=== PATIENT | female | born 1940 | race Caucasian/White ===

== ENCOUNTER → 2018-02-10 | Outpatient (CLI) | payer MEDICARE ==
--- NOTE | 2018-02-10 11:49 | ECHOF ---
Referral Reason:Cardiac Murmur unspecified, R01.1 MEASUREMENTS -------- HEIGHT: 165.1 cm WEIGHT: 90.7 kg BP: IVSd: 1.2 cm (0.6 - 1.1) LVIDd: 4.5 cm (3.9 - 5.3) LVPWd: 1.0 cm (0.6 - 1.1) IVSs: 2.0 cm LVIDs: 1.9 cm LVPWs: 1.7 cm LAESV Index (A-L): 20.72 ml/m Ao Diam: 2.5 cm (2.0 - 3.7) AV Cusp: 1.1 cm (1.5 - 2.6) LA Diam: 4.2 cm (2.7 - 3.8) MV EXCURSION: 13.189 mm (> 18.000) MV EF SLOPE: 47 mm/s (70 - 150) EPSS: 0.3 cm MV E Jacinto: 1.10 m/s MV DecT: 250 ms MV A Jacinto: 1.12 m/s MV E/A Ratio: 0.98 AV maxP.15 mmHg AV meanP.05 mmHg RAP: 5.00 mmHg RVSP: 25.74 mmHg FINDINGS -------- Sinus rhythm. This was a technically good study. The left ventricular size is normal. There is borderline concentric left ventricular hypertrophy. Overall left ventricular systolic function is normal with, an EF between 55 - 60 %. The right ventricle is normal in size and function. The left atrium is mildly dilated. The right atrium is normal in size. Aortic valve is trileaflet and is moderately thickened. There is moderate aortic stenosis present. Peak/mean gradient across the Aortic Valve is 37.15mmHg / 23.05mmHg. The mitral valve leaflets are mildly thickened. Mild mitral annular calcification present. Mild m itral regurgitation is present. Mild tricuspid regurgitation present. The right ventricular systolic pressure, as measured by Doppl er, is 25.74mmHg. Pulmonic valve appears structurally normal. The aortic root size is normal. Normal inferior vena cava with normal inspiratory collapse consistent with estimated right atrial pre ssure of 5 mmHg. The pericardium is normal. CONCLUSIONS -------- 1. Sinus rhythm. 2. This was a technically good study. 3. The left ventricular size is normal. 4. There is borderline concentric left ventricular hypertrophy. 5. Overall left ventricular systolic function is normal with, an EF between 55 - 60 %. 6. The right ventricle is normal in size and function. 7. The left atrium is mildly dilated. 8. The right atrium is normal in size. 9. Aortic valve is trileaflet and is moderately thickened. 10. There is moderate aortic stenosis present. 11. Peak/mean gradient across the Aortic Valve is 37.15mmHg / 23.05mmHg. 12. The mitral valve leaflets are mildly thickened. 13. Mild mitral annular calcification present. 14. Mild mitral regurgitation is present. 15. Mild tricuspid regurgitation present. 16. The right ventricular systolic pressure, as measured by Doppler, is 25.74mmHg. 17. Pulmonic valve appears structurally normal. 18. The aortic root size is normal. 19. Normal inferior vena cava with normal inspiratory collapse consistent with estimated right atrial pressure of 5 mmHg. 20. The pericardium is normal. CAMPER ASSEMBLER: Diana Bernabe RDCS
== END | disposition home or self-care (01) ==
LOC: RADECHMAIN 08:37
PROVIDERS: ATTEND Family Medicine
DX: I08.1 Rheumatic disorders of both mitral and tricuspid valves (principal)
CPT/HCPCS: 93306

== ENCOUNTER 2020-08-10 22:17 | Inpatient (IN) | payer MEDICARE ==
[2020-08-10] MEDS ORDERED: SODIUM CHLORIDE 0.9% 1,000 ML IV STA (23:31)
[2020-08-10] MEDS ORDERED: SODIUM CHLORIDE 0.9% 1,000 ML IV ONE (23:31)
[2020-08-11 00:05] LABS: Glucose,Whole Blood 225 mg/dL (75-99)
[2020-08-11 00:08] LABS: Basophils % (A) 0 %; Eosinophils % (A) 0 %; Hypochromasia Slight; Lymphocytes # (A) 2.9 k/uL (1.0-4.8); Lymphocytes % (A) 14 %; MCH 29.8 pg (25.0-35.0); MCHC 31.6 g/dL (31.0-37.0); MCV 94.3 fL (80.0-100.0); Mean Platelet Volume 9.3; Monocytes # (A) 1.3 k/uL (0-1.0); Monocytes % (A) 6 %; Neutrophils % (A) 78 %; Platelet Count 176 k/uL (150-450); RBC 6.59 m/uL (3.80-5.40); RDW 13.4 % (11.5-15.5); WBC 20.5 k/uL (3.8-10.6)
[2020-08-11 00:11] LABS: Albumin 3.7 g/dL (3.5-5.0); Calcium 9.4 mg/dL (8.4-10.2); Total Bilirubin 1.4 mg/dL (0.2-1.3); Total Protein 6.5 g/dL (6.3-8.2)
[2020-08-11 00:20] LABS: HCT 62.2 % (34.0-46.0); HGB 19.7 gm/dL (11.4-16.0)
[2020-08-11 00:22] LABS: Potassium 4.4 mmol/L (3.5-5.1)
[2020-08-11] MEDS ORDERED: SODIUM CHLORIDE 0.9% 1,000 ML IV ONE (00:27)
[2020-08-11 00:28] LABS: Creatine Kinase MB 4.3 ng/mL (0.0-2.4)
[2020-08-11] MEDS ORDERED: cefTRIAXone IN SWFI 1,000 MG/10 ML SYRINGE IVP STA (00:28)
[2020-08-11 00:47] LABS: Troponin I 0.16 ng/mL (0.000-0.034)
--- NOTE | 2020-08-11 01:09 | CT ---
EXAMINATION TYPE: CT brain wo con DATE OF EXAM: 08/11/2020 COMPARISON: None HISTORY: AMS CT DLP: 1091.4 mGycm Automated exposure control for dose reduction was used. There is cerebral atrophy. There is no mass effect nor midline shift. There is no sign of intracrania l hemorrhage. Calvarium is intact. There is no sign of cortical infarct. Skull base is intact. There is deformity of the right globe with calcification. IMPRESSION: Cerebral atrophy. No acute intracranial abnormality.
--- NOTE | 2020-08-11 01:10 | XR ---
EXAMINATION TYPE: XR chest 1V portable DATE OF EXAM: 08/11/2020 COMPARISON: NONE HISTORY: Altered mental status TECHNIQUE: FINDINGS: Heart appears enlarged. There is no heart failure. Lungs are clear of consolidation. There is no pleural effusion. There are chest leads. Bony thorax is intact. IMPRESSION: Mild cardiomegaly. No active cardiopulmonary disease.
[2020-08-11 01:11] LABS: Appearance,Urine Cloudy (Clear); Bacteria,Urine Rare /hpf; Bilirubin,Urine 1+ (Negative); Blood,Urine Moderate (Negative); Color,Urine Yellow; Glucose,Urine (UA) Trace (Negative); Hyaline Casts,Urine 64 /lpf (0-2); Ketones,Urine Trace (Negative); Leukocyte Esterase,Urine Negative (Negative); Mucus,Urine Few /hpf; Nitrite,Urine Negative (Negative); Protein,Urine 3+ (Negative); RBC,Urine 1 /hpf (0-5); Squamous Epithelial Cell,Urine 2 /hpf (0-4); Urobilinogen,Urine <2.0 mg/dL (<2.0); WBC,Urine 4 /hpf (0-5)
[2020-08-11 01:18] LABS: Amphetamine Screen,Urine Not Detected (NotDetected); Benzodiazepines Screen,Urine Not Detected (NotDetected); Cocaine Screen,Urine Not Detected (NotDetected); Methadone Screen, Urine Not Detected (NotDetected); Opiate Screen,Urine Not Detected (NotDetected); Oxycodone Screen, Urine Not Detected (NotDetected); Phencyclidine Screen,Urine Not Detected (NotDetected); Tricyclic Antidepressant,Urine Not Detected (NotDetected); Urn Cannabinoid Scrn Not Detected (NotDetected)
--- NOTE | 2020-08-11 01:18 | CT ---
EXAMINATION TYPE: CT abdomen pelvis wo con DATE OF EXAM: 08/11/2020 COMPARISON: None HISTORY: AMS CT DLP: 819.3 mGycm Automated exposure control for dose reduction was used. Lung bases are clear. There is no pleural effusion. Liver spleen stomach pancreas gallbladder appear normal. Bile ducts are not dilated. There is no adrenal mass. Kidneys have normal size. There is no evidence of a renal mass.. There is n o hydronephrosis. Ureters are not dilated. There is no retroperitoneal adenopathy. Bladder distends s moothly. There are numerous sigmoid diverticula. There is no sign of diverticulitis. There is no ingu inal hernia. There is umbilical hernia that contains incarcerated transverse colon. I do not see evidence for mike l obstruction. There is no mesenteric edema. There is no ascites or free air. Lumbar vertebra have normal alignment. Posterior elements are intact. The bony pelvis is intact. Hip joints are intact. There is no lumbar compression fracture. IMPRESSION: Incarcerated umbilical hernia containing transverse colon. No sign of a bowel obstruction. Appendix n ot seen. Colonic diverticulosis without diverticulitis.
[2020-08-11 01:19] LABS: Barbiturate Screen,Urine Not Detected (NotDetected)
[2020-08-11 01:30] LABS: INR 1.2 (<1.2); Prothrombin Time 11.9 sec (9.0-12.0)
[2020-08-11 01:42] LABS: Partial Thromboplastin Time 18.8 sec (22.0-30.0)
[2020-08-11] MEDS ORDERED: MORPHINE SULFATE 4 MG/ML SYRINGE IV STA (01:46)
[2020-08-11] MEDS ORDERED: MORPHINE SULFATE 4 MG/ML SYRINGE IV PRN (02:29)
[2020-08-11] MEDS ORDERED: NALOXONE 0.4 MG/ML 1 ML VIAL IV PRN (02:29)
[2020-08-11] MEDS ORDERED: ONDANSETRON 4 MG/2 ML VIAL IVP PRN (02:29)
[2020-08-11] MEDS ORDERED: AMPICILLIN-SULBACTAM 3 GM in SODIUM CHLORIDE 0.9% 100 ML IVPB STA (02:33)
[2020-08-11] MEDS ORDERED: DILTIAZEM DRIP BOLUS FROM BAG 1 MG SOLN IV ONE (02:33)
[2020-08-11] MEDS ORDERED: INSULIN REGULAR 100 UNIT/ML VIAL SQ STA (02:36)
--- NOTE | 2020-08-11 02:38 | ED ---
Altered Mental Status HPI - General Chief Complaint: Altered Mental Status Stated Complaint: altered mental status Time Seen by Provider: 08/10/20 22:33 Source: RN/MD Mode of arrival: EMS Limitations: no limitations - History of Present Illness Initial Comments: This patient is a 80-year-old woman who is brought to have evaluation after she had been found lying on the floor of her residence by her niece. History is mainly from the patient's niece who states that the patient does have some developmental delay. The patient's niece had checked on her to 3 days ago, and then went again today and found her lying on the floor. There was some emesis. The patient is not able to give much additional history. When asked if she is having any pain she indicates the periumbilical area. MD Complaint: altered mental status, decreased responsiveness -: unknown Consistency of Symptoms: unknown - Related Data Allergies Allergy/AdvReac Type Severity Reaction Status Date / Time No Known Allergies Allergy Verified 08/10/20 23:26 Review of Systems ROS Statement: Those systems with pertinent positive or pertinent negative responses have been documented in the HPI. ROS Other: All systems not noted in ROS Statement are negative. 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 skin cancer. Developmently delayed History of Any Multi-Drug Resistant Organisms: None Reported Past Surgical History: Hysterectomy Past Psychological History: Unable to Obtain Smoking Status: Never smoker Past Alcohol Use History: None Reported Past Drug Use History: None Reported - Past Family History Father History Unknown: Yes Mother History Unknown: Yes General Exam Limitations: no limitations General appearance: lethargic Head exam: Present: atraumatic, normocephalic ENT exam: Present: mucous membranes dry Neck exam: Present: normal inspection, full ROM. Absent: tenderness, meningismus Respiratory exam: Present: respiratory distress (Mild tachypnea), rales, rhonchi. Absent: wheezes, accessory muscle use, decreased breath sounds, prolonged expiratory Cardiovascular Exam: Present: tachycardia, irregular rhythm, normal heart sounds. Absent: systolic murmur, diastolic murmur, rubs, gallop GI/Abdominal exam: Present: tenderness, guarding, hernia. Absent: rebound, rigid, mass, pulsatile mass Extremities exam: Present: normal inspection, normal capillary refill. Absent: pedal edema, calf tenderness Back exam: Present: normal inspection Neurological exam: Present: alert Skin exam: Present: warm, dry, normal color, other (Multiple excoriations) Course Vital Signs 08/10/20 08/10/20 08/11/20 22:50 23:15 01:00 Temperature 97.3 F L Pulse Rate 175 H 137 H 141 H Respiratory 22 22 16 Rate Blood Pressure 122/74 118/98 186/87 O2 Sat by Pulse 98 94 L 96 Oximetry 08/11/20 08/11/20 03:00 04:00 Temperature 98.0 F 98.5 F Pulse Rate 128 H 135 H Respiratory 18 16 Rate Blood Pressure 130/78 140/85 O2 Sat by Pulse 97 98 Oximetry - Reevaluation(s) Reevaluation #1: 08/11/20 02:28 The case is discussed with Dr. Lou, his treatment recommendations are incorporated. Procedures - [place] Protocol (Time Out) Nurse: Marysol Wilder Medical Decision Making - Medical Decision Making Patient 80-year-old woman brought for evaluation after she had been found down on the floor of her residence for an unknown period of time. Clinically, the patient does appear dehydrated. She also was in apparent A. fib with rapid ventricular rate. It is uncertain whether this is a new condition or not. I patient also has tender, incarcerated umbilical hernia. I sent for CT and on return did attempt reduction at the bedside and it does appear to be smaller following reduction. - Lab Data Result diagrams: 08/10/20 23:48 08/10/20 23:48 Lab Results 08/10/20 08/10/20 08/10/20 Range/Units 23:48 23:48 23:48 WBC 20.5 H (3.8-10.6) k/uL RBC 6.59 H (3.80-5.40) m/uL Hgb 19.7 H* (11.4-16.0) gm/dL Hct 62.2 H* (34.0-46.0) % MCV 94.3 (80.0-100.0) fL MCH 29.8 (25.0-35.0) pg MCHC 31.6 (31.0-37.0) g/dL RDW 13.4 (11.5-15.5) % Plt Count 176 (150-450) k/uL Neutrophils % 78 % Lymphocytes % 14 % Monocytes % 6 % Eosinophils % 0 % Basophils % 0 % Neutrophils # 16.0 H (1.3-7.7) k/uL Lymphocytes # 2.9 (1.0-4.8) k/uL Monocytes # 1.3 H (0-1.0) k/uL Eosinophils # 0.0 (0-0.7) k/uL Basophils # 0.0 (0-0.2) k/uL Hypochromasia Slight PT (9.0-12.0) sec INR (<1.2) APTT (22.0-30.0) sec Sodium 148 H (137-145) mmol/L Potassium 4.4 (3.5-5.1) mmol/L Chloride 111 H (98-107) mmol/L Carbon Dioxide 19 L (22-30) mmol/L Anion Gap 18 mmol/L BUN 88 H (7-17) mg/dL Creatinine 1.67 H (0.52-1.04) mg/dL Est GFR (CKD-EPI)AfAm 34 (>60 ml/min/1.73 sqM) Est GFR (CKD-EPI)NonAf 29 (>60 ml/min/1.73 sqM) Glucose 294 H (74-99) mg/dL POC Glucose (mg/dL) (75-99) mg/dL POC Glu Staffing Manager ID Lactic Ac Sepsis Rflx Plasma Lactic Acid Kevin (0.7-2.0) mmol/L Calcium 9.4 (8.4-10.2) mg/dL Total Bilirubin 1.4 H (0.2-1.3) mg/dL AST 37 H (14-36) U/L ALT 30 (4-34) U/L Alkaline Phosphatase 76 (38-126) U/L Creatine Kinase 149 H (30-135) U/L CK-MB (CK-2) 4.3 H (0.0-2.4) ng/mL Troponin I 0.160 H* (0.000-0.034) ng/mL Total Protein 6.5 (6.3-8.2) g/dL Albumin 3.7 (3.5-5.0) g/dL Urine Color Urine Appearance (Clear) Urine pH (5.0-8.0) Ur Specific [place] (1.001-1.035) Urine Protein (Negative) Urine Glucose (UA) (Negative) Urine Ketones (Negative) Urine Blood (Negative) Urine Nitrite (Negative) Urine Bilirubin (Negative) Urine Urobilinogen (<2.0) mg/dL Ur Leukocyte Esterase (Negative) Urine RBC (0-5) /hpf Urine WBC (0-5) /hpf Ur Squamous Epith Cells (0-4) /hpf Urine Bacteria (None) /hpf Hyaline Casts (0-2) /lpf Urine Mucus (None) /hpf Urine Opiates Screen (NotDetected) Ur Oxycodone Screen (NotDetected) Urine Methadone Screen (NotDetected) Ur Propoxyphene Screen (NotDetected) Ur Barbiturates Screen (NotDetected) U Tricyclic Antidepress (NotDetected) Ur Phencyclidine Scrn (NotDetected) Ur Amphetamines Screen (NotDetected) U Methamphetamines Scrn (NotDetected) U Benzodiazepines Scrn (NotDetected) Urine Cocaine Screen (NotDetected) U Marijuana (THC) Screen (NotDetected) 08/10/20 08/10/20 08/11/20 Range/Units 23:48 23:59 00:26 WBC (3.8-10.6) k/uL RBC (3.80-5.40) m/uL Hgb (11.4-16.0) gm/dL Hct (34.0-46.0) % MCV (80.0-100.0) fL MCH (25.0-35.0) pg MCHC (31.0-37.0) g/dL RDW (11.5-15.5) % Plt Count (150-450) k/uL Neutrophils % % Lymphocytes % % Monocytes % % Eosinophils % % Basophils % % Neutrophils # (1.3-7.7) k/uL Lymphocytes # (1.0-4.8) k/uL Monocytes # (0-1.0) k/uL Eosinophils # (0-0.7) k/uL Basophils # (0-0.2) k/uL Hypochromasia PT (9.0-12.0) sec INR (<1.2) APTT (22.0-30.0) sec Sodium (137-145) mmol/L Potassium (3.5-5.1) mmol/L Chloride (98-107) mmol/L Carbon Dioxide (22-30) mmol/L Anion Gap mmol/L BUN (7-17) mg/dL Creatinine (0.52-1.04) mg/dL Est GFR (CKD-EPI)AfAm (>60 ml/min/1.73 sqM) Est GFR (CKD-EPI)NonAf (>60 ml/min/1.73 sqM) Glucose (74-99) mg/dL POC Glucose (mg/dL) 225 H (75-99) mg/dL POC Glu Staffing Manager ID Marysol Wilder Lactic Ac Sepsis Rflx Y Plasma Lactic Acid Kevin 4.4 H* (0.7-2.0) mmol/L Calcium (8.4-10.2) mg/dL Total Bilirubin (0.2-1.3) mg/dL AST (14-36) U/L ALT (4-34) U/L Alkaline Phosphatase (38-126) U/L Creatine Kinase (30-135) U/L CK-MB (CK-2) (0.0-2.4) ng/mL Troponin I (0.000-0.034) ng/mL Total Protein (6.3-8.2) g/dL Albumin (3.5-5.0) g/dL Urine Color Urine Appearance (Clear) Urine pH (5.0-8.0) Ur Specific [place] (1.001-1.035) Urine Protein (Negative) Urine Glucose (UA) (Negative) Urine Ketones (Negative) Urine Blood (Negative) Urine Nitrite (Negative) Urine Bilirubin (Negative) Urine Urobilinogen (<2.0) mg/dL Ur Leukocyte Esterase (Negative) Urine RBC (0-5) /hpf Urine WBC (0-5) /hpf Ur Squamous Epith Cells (0-4) /hpf Urine Bacteria (None) /hpf Hyaline Casts (0-2) /lpf Urine Mucus (None) /hpf Urine Opiates Screen (NotDetected) Ur Oxycodone Screen (NotDetected) Urine Methadone Screen (NotDetected) Ur Propoxyphene Screen (NotDetected) Ur Barbiturates Screen (NotDetected) U Tricyclic Antidepress (NotDetected) Ur Phencyclidine Scrn (NotDetected) Ur Amphetamines Screen (NotDetected) U Methamphetamines Scrn (NotDetected) U Benzodiazepines Scrn (NotDetected) Urine Cocaine Screen (NotDetected) U Marijuana (THC) Screen (NotDetected) 08/11/20 08/11/20 08/11/20 Range/Units 00:42 00:51 02:28 WBC (3.8-10.6) k/uL RBC (3.80-5.40) m/uL Hgb (11.4-16.0) gm/dL Hct (34.0-46.0) % MCV (80.0-100.0) fL MCH (25.0-35.0) pg MCHC (31.0-37.0) g/dL RDW (11.5-15.5) % Plt Count (150-450) k/uL Neutrophils % % Lymphocytes % % Monocytes % % Eosinophils % % Basophils % % Neutrophils # (1.3-7.7) k/uL Lymphocytes # (1.0-4.8) k/uL Monocytes # (0-1.0) k/uL Eosinophils # (0-0.7) k/uL Basophils # (0-0.2) k/uL Hypochromasia PT 11.9 (9.0-12.0) sec INR 1.2 H (<1.2) APTT 18.8 L (22.0-30.0) sec Sodium (137-145) mmol/L Potassium (3.5-5.1) mmol/L Chloride (98-107) mmol/L Carbon Dioxide (22-30) mmol/L Anion Gap mmol/L BUN (7-17) mg/dL Creatinine (0.52-1.04) mg/dL Est GFR (CKD-EPI)AfAm (>60 ml/min/1.73 sqM) Est GFR (CKD-EPI)NonAf (>60 ml/min/1.73 sqM) Glucose (74-99) mg/dL POC Glucose (mg/dL) (75-99) mg/dL POC Glu Staffing Manager ID Lactic Ac Sepsis Rflx Plasma Lactic Acid Kevin 2.0 (0.7-2.0) mmol/L Calcium (8.4-10.2) mg/dL Total Bilirubin (0.2-1.3) mg/dL AST (14-36) U/L ALT (4-34) U/L Alkaline Phosphatase (38-126) U/L Creatine Kinase (30-135) U/L CK-MB (CK-2) (0.0-2.4) ng/mL Troponin I (0.000-0.034) ng/mL Total Protein (6.3-8.2) g/dL Albumin (3.5-5.0) g/dL Urine Color Yellow Urine Appearance Cloudy H (Clear) Urine pH 6.0 (5.0-8.0) Ur Specific [place] 1.030 (1.001-1.035) Urine Protein 3+ H (Negative) Urine Glucose (UA) Trace H (Negative) Urine Ketones Trace H (Negative) Urine Blood Moderate H (Negative) Urine Nitrite Negative (Negative) Urine Bilirubin 1+ H (Negative) Urine Urobilinogen <2.0 (<2.0) mg/dL Ur Leukocyte Esterase Negative (Negative) Urine RBC 1 (0-5) /hpf Urine WBC 4 (0-5) /hpf Ur Squamous Epith Cells 2 (0-4) /hpf Urine Bacteria Rare H (None) /hpf Hyaline Casts 64 H (0-2) /lpf Urine Mucus Few H (None) /hpf Urine Opiates Screen Not Detected (NotDetected) Ur Oxycodone Screen Not Detected (NotDetected) Urine Methadone Screen Not Detected (NotDetected) Ur Propoxyphene Screen Not Detected (NotDetected) Ur Barbiturates Screen Not Detected (NotDetected) U Tricyclic Antidepress Not Detected (NotDetected) Ur Phencyclidine Scrn Not Detected (NotDetected) Ur Amphetamines Screen Not Detected (NotDetected) U Methamphetamines Scrn Not Detected (NotDetected) U Benzodiazepines Scrn Not Detected (NotDetected) Urine Cocaine Screen Not Detected (NotDetected) U Marijuana (THC) Screen Not Detected (NotDetected) - EKG Data -: EKG Interpreted by Tx EKG shows normal: axis (Normal), intervals (Normal) Rate: tachycardia Interpretation: nonspecific ST-T wave changes, other (Underlying rhythm appears to be atrial fibrillation.) Disposition Clinical Impression: Altered mental status, Incarcerated umbilical hernia, Lactic acidosis, Dehydration, Elevated troponin I level, Atrial fibrillation with rapid ventricular response, Hyperglycemia Disposition: ADMITTED IP TO THIS HOSP Condition: Serious
[2020-08-11] MEDS: DILTIAZEM 125 MG in SODIUM CHLORIDE 0.9% 100 ML IV SCH (02:52)
[2020-08-11 06:18] LABS: Glucose,Whole Blood 101 mg/dL (75-99)
[2020-08-11] MEDS: INSULIN ASPART (NovoLOG) 100 UNIT/ML VIAL SQ SCH ×4 (06:25→23:03)
--- NOTE | 2020-08-11 09:37 | P.GSCN ---
History of Present Illness Consult date: 08/11/20 Reason for Consult: Incarcerated ventral hernia History of present illness: This a 80-year-old female who is unable to give any significant medical history. Patient was admitted through the emergency room. She was had a collapse at home. Patient's CAT scan shows evidence of incarcerated transverse colon within a ventral hernia located the umbilicus. There is no evidence of bowel obstruction. Patient is unable to give any significant medical history. The patient is in A. fib with rapid ventricular rate. 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 skin cancer. Developmently delayed History of Any Multi-Drug Resistant Organisms: None Reported Past Surgical History: Hysterectomy Past Anesthesia/Blood Transfusion Reactions: No Reported Reaction Past Psychological History: Unable to Obtain Smoking Status: Never smoker Past Alcohol Use History: None Reported Past Drug Use History: None Reported - Past Family History Father History Unknown: Yes Mother History Unknown: Yes Medications and Allergies Home Medications Medication Instructions Recorded Confirmed Type Atorvastatin [Lipitor] 10 mg PO DAILY 08/11/20 08/11/20 History Canagliflozin [Invokana] 100 mg PO DAILY 08/11/20 08/11/20 History Ergocalciferol [Vitamin D2] 50,000 unit PO Q7D 08/11/20 08/11/20 History Glimepiride [Amaryl] 2 mg PO AC-[id number] 08/11/20 08/11/20 History Meloxicam 15 mg PO DAILY 08/11/20 08/11/20 History Metoprolol Succinate (ER) [Toprol 100 mg PO DAILY 08/11/20 08/11/20 History Xl] lisinopriL [Zestril] 5 mg PO DAILY 08/11/20 08/11/20 History traZODone HCL 50 mg PO HS 08/11/20 08/11/20 History Allergies Allergy/AdvReac Type Severity Reaction Status Date / Time No Known Allergies Allergy Verified 08/11/20 09:03 Surgical - Exam Vital Signs Temp Pulse Resp BP Pulse Ox 97.3 F L 175 H 22 122/74 98 08/10/20 22:50 08/10/20 22:50 08/10/20 22:50 08/10/20 22:50 08/10/20 22:50 - General well developed, obese - Eyes PERRL - ENT normal pinna - Neck no masses - Respiratory normal expansion - Cardiovascular Rhythm: regular - Abdomen Incarcerated ventral hernia located umbilicus. The hernia is partially reducible. Abdomen: soft Results - Labs 08/10/20 23:48 08/10/20 23:48 Abnormal Lab Results - Last 24 Hours (Table) 08/10/20 08/10/20 08/10/20 Range/Units 23:48 23:48 23:48 WBC 20.5 H (3.8-10.6) k/uL RBC 6.59 H (3.80-5.40) m/uL Hgb 19.7 H* (11.4-16.0) gm/dL Hct 62.2 H* (34.0-46.0) % Neutrophils # 16.0 H (1.3-7.7) k/uL Monocytes # 1.3 H (0-1.0) k/uL INR (<1.2) APTT (22.0-30.0) sec Sodium 148 H (137-145) mmol/L Chloride 111 H (98-107) mmol/L Carbon Dioxide 19 L (22-30) mmol/L BUN 88 H (7-17) mg/dL Creatinine 1.67 H (0.52-1.04) mg/dL Glucose 294 H (74-99) mg/dL POC Glucose (mg/dL) (75-99) mg/dL Plasma Lactic Acid Kevin (0.7-2.0) mmol/L Total Bilirubin 1.4 H (0.2-1.3) mg/dL AST 37 H (14-36) U/L Creatine Kinase 149 H (30-135) U/L CK-MB (CK-2) 4.3 H (0.0-2.4) ng/mL Troponin I 0.160 H* (0.000-0.034) ng/mL Urine Appearance (Clear) Urine Protein (Negative) Urine Glucose (UA) (Negative) Urine Ketones (Negative) Urine Blood (Negative) Urine Bilirubin (Negative) Urine Bacteria (None) /hpf Hyaline Casts (0-2) /lpf Urine Mucus (None) /hpf 08/10/20 08/10/20 08/11/20 Range/Units 23:48 23:59 00:42 WBC (3.8-10.6) k/uL RBC (3.80-5.40) m/uL Hgb (11.4-16.0) gm/dL Hct (34.0-46.0) % Neutrophils # (1.3-7.7) k/uL Monocytes # (0-1.0) k/uL INR (<1.2) APTT (22.0-30.0) sec Sodium (137-145) mmol/L Chloride (98-107) mmol/L Carbon Dioxide (22-30) mmol/L BUN (7-17) mg/dL Creatinine (0.52-1.04) mg/dL Glucose (74-99) mg/dL POC Glucose (mg/dL) 225 H (75-99) mg/dL Plasma Lactic Acid Kevin 4.4 H* (0.7-2.0) mmol/L Total Bilirubin (0.2-1.3) mg/dL AST (14-36) U/L Creatine Kinase (30-135) U/L CK-MB (CK-2) (0.0-2.4) ng/mL Troponin I (0.000-0.034) ng/mL Urine Appearance Cloudy H (Clear) Urine Protein 3+ H (Negative) Urine Glucose (UA) Trace H (Negative) Urine Ketones Trace H (Negative) Urine Blood Moderate H (Negative) Urine Bilirubin 1+ H (Negative) Urine Bacteria Rare H (None) /hpf Hyaline Casts 64 H (0-2) /lpf Urine Mucus Few H (None) /hpf 08/11/20 08/11/20 08/11/20 Range/Units 00:51 03:20 06:16 WBC (3.8-10.6) k/uL RBC (3.80-5.40) m/uL Hgb (11.4-16.0) gm/dL Hct (34.0-46.0) % Neutrophils # (1.3-7.7) k/uL Monocytes # (0-1.0) k/uL INR 1.2 H (<1.2) APTT 18.8 L (22.0-30.0) sec Sodium (137-145) mmol/L Chloride (98-107) mmol/L Carbon Dioxide (22-30) mmol/L BUN (7-17) mg/dL Creatinine (0.52-1.04) mg/dL Glucose (74-99) mg/dL POC Glucose (mg/dL) 101 H (75-99) mg/dL Plasma Lactic Acid Kevin (0.7-2.0) mmol/L Total Bilirubin (0.2-1.3) mg/dL AST (14-36) U/L Creatine Kinase (30-135) U/L CK-MB (CK-2) (0.0-2.4) ng/mL Troponin I 0.173 H* (0.000-0.034) ng/mL Urine Appearance (Clear) Urine Protein (Negative) Urine Glucose (UA) (Negative) Urine Ketones (Negative) Urine Blood (Negative) Urine Bilirubin (Negative) Urine Bacteria (None) /hpf Hyaline Casts (0-2) /lpf Urine Mucus (None) /hpf 08/11/20 Range/Units 07:20 WBC (3.8-10.6) k/uL RBC (3.80-5.40) m/uL Hgb (11.4-16.0) gm/dL Hct (34.0-46.0) % Neutrophils # (1.3-7.7) k/uL Monocytes # (0-1.0) k/uL INR (<1.2) APTT (22.0-30.0) sec Sodium (137-145) mmol/L Chloride (98-107) mmol/L Carbon Dioxide (22-30) mmol/L BUN (7-17) mg/dL Creatinine (0.52-1.04) mg/dL Glucose (74-99) mg/dL POC Glucose (mg/dL) (75-99) mg/dL Plasma Lactic Acid Kevin (0.7-2.0) mmol/L Total Bilirubin (0.2-1.3) mg/dL AST (14-36) U/L Creatine Kinase (30-135) U/L CK-MB (CK-2) (0.0-2.4) ng/mL Troponin I 0.159 H* (0.000-0.034) ng/mL Urine Appearance (Clear) Urine Protein (Negative) Urine Glucose (UA) (Negative) Urine Ketones (Negative) Urine Blood (Negative) Urine Bilirubin (Negative) Urine Bacteria (None) /hpf Hyaline Casts (0-2) /lpf Urine Mucus (None) /hpf Diabetes panel 08/10/20 Range/Units 23:48 Sodium 148 H (137-145) mmol/L Potassium 4.4 (3.5-5.1) mmol/L Chloride 111 H (98-107) mmol/L Carbon Dioxide 19 L (22-30) mmol/L BUN 88 H (7-17) mg/dL Creatinine 1.67 H (0.52-1.04) mg/dL Glucose 294 H (74-99) mg/dL Calcium 9.4 (8.4-10.2) mg/dL AST 37 H (14-36) U/L ALT 30 (4-34) U/L Alkaline Phosphatase 76 (38-126) U/L Total Protein 6.5 (6.3-8.2) g/dL Albumin 3.7 (3.5-5.0) g/dL Calcium panel 08/10/20 Range/Units 23:48 Calcium 9.4 (8.4-10.2) mg/dL Albumin 3.7 (3.5-5.0) g/dL Pituitary panel 08/10/20 Range/Units 23:48 Sodium 148 H (137-145) mmol/L Potassium 4.4 (3.5-5.1) mmol/L Chloride 111 H (98-107) mmol/L Carbon Dioxide 19 L (22-30) mmol/L BUN 88 H (7-17) mg/dL Creatinine 1.67 H (0.52-1.04) mg/dL Glucose 294 H (74-99) mg/dL Calcium 9.4 (8.4-10.2) mg/dL Adrenal panel 08/10/20 Range/Units 23:48 Sodium 148 H (137-145) mmol/L Potassium 4.4 (3.5-5.1) mmol/L Chloride 111 H (98-107) mmol/L Carbon Dioxide 19 L (22-30) mmol/L BUN 88 H (7-17) mg/dL Creatinine 1.67 H (0.52-1.04) mg/dL Glucose 294 H (74-99) mg/dL Calcium 9.4 (8.4-10.2) mg/dL Total Bilirubin 1.4 H (0.2-1.3) mg/dL AST 37 H (14-36) U/L ALT 30 (4-34) U/L Alkaline Phosphatase 76 (38-126) U/L Total Protein 6.5 (6.3-8.2) g/dL Albumin 3.7 (3.5-5.0) g/dL - Imaging CT scan - abdomen: report reviewed (Incarcerated transverse colon without evidence of small bowel obstruction) Assessment and Plan Assessment: The patient was scheduled for repair of incarcerated ventral hernia tomorrow if cleared by cardiology.
--- NOTE | 2020-08-11 10:52 | CONS ---
CONSULTATION Mrs. Good is a 80-year-old female who was brought in to the emergency room because she was found on the floor by her niece. Patient has developmental delay. On asking a question, she is not able to give me any answer. The patient is awake, but confused. I do not have any prior history of cardiac disease. I do not have any history of prior congestive heart failure or myocardial infarction. On presentation, she was in atrial fibrillation of unknown duration. Her medication at the time of presentation included metoprolol succinate 100 mg daily, Zestril 5 mg daily, Invokana, Amaryl, and Lipitor. From the medication, patient has a history of hypertension, hyperlipidemia, and diabetes mellitus. REVIEW OF SYSTEMS: Could not be obtained. PHYSICAL EXAMINATION: She is a 80-year-old female, alert, confused, in no apparent distress. Blood pressure running in the 130s to 150s with a heart rate in the 110s to 120s. HEAD: Normocephalic. Eyes sclerae anicteric. NECK: Good upstroke. No bruit. LUNGS clear to auscultation. HEART irregularly irregular S1, S2. No S3. No rub appreciated. ABDOMEN: Soft. Nontender. Positive bowel sounds. No organomegaly. EXTREMITIES: No edema. Intact distal pulses. LAB DATA: Revealed a hemoglobin of 19.7, white blood cell of 20.5, BUN and creatinine of 88 and 1.67. No old labs are available. Potassium 4.4. Her troponin 0.160, 0.173 and 0.159. Her EKG revealed atrial fibrillation with rapid ventricular response and nonspecific ST- T wave changes. Her chest x-ray shows mild cardiomegaly. Brain CT shows no evidence of infiltrate. Her abdominal and pelvis CT shows incarcerated umbilical hernia. No bowel obstruction with diverticulosis and no diverticulitis. IMPRESSION: 1. Change in mental status. Baseline status is not available to me. 2. Atrial fibrillation of unknown duration. 3. History of hypertension. 4. Hyperlipidemia. 5. Diabetes mellitus. 6. Renal failure of unknown duration. 7. Erythrocytosis and leukocytosis. RECOMMENDATION: From the cardiac standpoint, patient is being hydrated. She was started on antibiotics. I will start her back on her beta anton. I will obtain echocardiogram with Doppler. I do not believe that the elevation of troponin reflects an acute coronary syndrome. It could be related to her renal failure or a type 2 event. Depending on her progress, further recommendations will be made. The patient will need to be anticoagulated, but we will try to get more information about prior history from the family. Thank you for this consult. We will follow with you. YURY / BRIGITTE: [id number] /
[2020-08-11 12:11] LABS: Glucose,Whole Blood 104 mg/dL (75-99)
[2020-08-11 12:33] LABS: HCT 52.7 % (34.0-46.0); Hypochromasia Slight; MCH 29.8 pg (25.0-35.0); MCHC 31.3 g/dL (31.0-37.0); MCV 95.5 fL (80.0-100.0); Mean Platelet Volume 10.4; Platelet Count 138 k/uL (150-450); RBC 5.52 m/uL (3.80-5.40); RDW 13.5 % (11.5-15.5); WBC 21.7 k/uL (3.8-10.6)
[2020-08-11] MEDS: ATORVASTATIN 40 MG TAB PO SCH (12:38)
[2020-08-11] MEDS: ASPIRIN 81 MG PO SCH (12:38)
[2020-08-11] MEDS: METOPROLOL TARTRATE 50 MG TAB PO SCH ×2 (12:38→23:03)
[2020-08-11 12:42] LABS: HGB 16.5 gm/dL (11.4-16.0)
[2020-08-11 12:51] LABS: Calcium 7.8 mg/dL (8.4-10.2); Potassium 3.3 mmol/L (3.5-5.1)
--- NOTE | 2020-08-11 15:16 | P.HPIM ---
History of Present Illness H&P Date: 08/11/20 Chief Complaint: Phone on the floor History of presenting complaint: 80-year-old patient-history as per EMS family told them that they found the patient on the floor. She was confused lethargic and had soiled herself. They called 911." Her off the floor. Normally patient is alert and this by herself. Glucose was 310. Vital signs are stable. Only respond she was getting Short say mama and reach out. Per family patient has a facial droop that was normal from a previous stroke. And some right-sided weakness. Telemetry shows sinus rhythm. They give some fluid bolus. [place] patient this morning patient does not remember what happened. Able tonsil some simple questions. Slight abdominal pain. Review of systems: GEN.: Tired EYES: None HEENT: None NECK: None RESPIRATORY: None CARDIOVASCULAR: None GASTROINTESTINAL: Abdominal pain GENITOURINARY: None MUSCULOSKELETAL: None LYMPHATICS: None HEMATOLOGICAL: None PSYCHIATRY: Forgetful NEUROLOGICAL: None Past medical history to include: Stroke, diabetes, hypertension, blind in the right eye, development delay Social history: Lives alone. No smoking, no alcohol Family history: Patient unable to tell Physical examination: VITAL SIGNS: 97.3, 137, 22, 122.74, 98% on room air GENERAL:. BMI 30.6, laying in bed, awake a bit anxious. EYES: Pupils equal. Conjunctiva normal. HEENT: External appearance of nose and ears normal, oral cavity dry mucous membranes. NECK: JVD unable to assess; masses not palpable. HEART: Irregular heart sounds no edema. LUNGS: Respiratory rate normal; clear to auscultation. ABDOMEN: Soft, some tenderness, abdominal wall hernia no guarding rigidity, liver spleen not palpable, no masses palpable. PSYCH: [Patient is able tonsil simple questions. NEUROLOGICAL: Patient moving all her limbs, some weakness on the right side of the face. LYMPHATICS: No lymph nodes palpable in the axilla and neck INVESTIGATIONS, reviewed in the clinical context: White count 21.7 hemoglobin 6.5 platelets 138 potassium 3.3 bun 88 creatinine 1.67 sodium 148 blood glucose 294 lactic acid 4.4 Troponin I 0.160 Urine drug screen negative UA negative for nitrate and leukoesterase EKG tracing personally reviewed by me-shows atrial flutter fibrillation with increased ventricular rate Computed tomography scan of the abdomen pelvis-incarcerated umbilical hernia with no bowel obstruction Computed tomography scan of the brain-cerebral atrophy Chest x-ray film personally reviewed by [id number] obvious infiltrate Assessment: -Patient's found on the floor could be weakness f, A. fib -Persistent atrial fibrillation with a rapid ventricular rate uncontrolled, POA -Incarcerated ventral hernia involving the transverse colon -Acute kidney injury could be ATN -Mild metabolic acidosis -Hyponatremia from fluid deficit -Troponin leak from hemodynamic mismatch. Doubt acute coronary syndrome -Developmental delay -Acute metabolic encephalopathy and delirium, POA -Possible sepsis Plan: Patient is bun and IV fluids, IV Unasyn, IV Cardizem. Patient started to improve. Consultation to cardiology and general surgery. Lovenox for DVT prophylaxis. On telemetry. Prognosis guarded. Follow renal function closely. 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 skin cancer. Developmently delayed History of Any Multi-Drug Resistant Organisms: None Reported Past Surgical History: Hysterectomy Past Anesthesia/Blood Transfusion Reactions: No Reported Reaction Past Psychological History: Unable to Obtain Smoking Status: Never smoker Past Alcohol Use History: None Reported Past Drug Use History: None Reported - Past Family History Father History Unknown: Yes Mother History Unknown: Yes Medications and Allergies Home Medications Medication Instructions Recorded Confirmed Type Atorvastatin [Lipitor] 10 mg PO DAILY 08/11/20 08/11/20 History Canagliflozin [Invokana] 100 mg PO DAILY 08/11/20 08/11/20 History Ergocalciferol [Vitamin D2] 50,000 unit PO Q7D 08/11/20 08/11/20 History Glimepiride [Amaryl] 2 mg PO AC-BRKFST 08/11/20 08/11/20 History Meloxicam 15 mg PO DAILY 08/11/20 08/11/20 History Metoprolol Succinate (ER) [Toprol 100 mg PO DAILY 08/11/20 08/11/20 History Xl] lisinopriL [Zestril] 5 mg PO DAILY 08/11/20 08/11/20 History traZODone HCL 50 mg PO HS 08/11/20 08/11/20 History Allergies Allergy/AdvReac Type Severity Reaction Status Date / Time No Known Allergies Allergy Verified 08/11/20 09:03 Physical Exam Vitals: Vital Signs Temp Pulse Pulse Resp BP BP Pulse Ox 08/11/20 08:00 98.0 F 115 H 18 131/85 96 08/11/20 04:40 22 08/11/20 04:35 97.9 F 122 H 22 152/87 99 08/11/20 04:00 98.5 F 135 H 16 140/85 98 08/11/20 03:00 98.0 F 128 H 18 130/78 97 08/11/20 01:00 141 H 16 186/87 96 08/10/20 23:15 137 H 22 118/98 94 L 08/10/20 22:50 97.3 F L 175 H 22 122/74 98 Intake and Output 08/10/20 08/11/20 08/11/20 22:59 06:59 14:59 Other: Weight 81.919 kg 83.5 kg Results CBC & Chem 7: 08/11/20 07:20 08/11/20 07:20 Labs: Abnormal Lab Results - Last 24 Hours (Table) 08/10/20 08/10/20 08/10/20 Range/Units 23:48 23:48 23:48 WBC 20.5 H (3.8-10.6) k/uL RBC 6.59 H (3.80-5.40) m/uL Hgb 19.7 H* (11.4-16.0) gm/dL Hct 62.2 H* (34.0-46.0) % Neutrophils # 16.0 H (1.3-7.7) k/uL Monocytes # 1.3 H (0-1.0) k/uL INR (<1.2) APTT (22.0-30.0) sec Sodium 148 H (137-145) mmol/L Chloride 111 H (98-107) mmol/L Carbon Dioxide 19 L (22-30) mmol/L BUN 88 H (7-17) mg/dL Creatinine 1.67 H (0.52-1.04) mg/dL Glucose 294 H (74-99) mg/dL POC Glucose (mg/dL) (75-99) mg/dL Plasma Lactic Acid Kevin (0.7-2.0) mmol/L Total Bilirubin 1.4 H (0.2-1.3) mg/dL AST 37 H (14-36) U/L Creatine Kinase 149 H (30-135) U/L CK-MB (CK-2) 4.3 H (0.0-2.4) ng/mL Troponin I 0.160 H* (0.000-0.034) ng/mL Urine Appearance (Clear) Urine Protein (Negative) Urine Glucose (UA) (Negative) Urine Ketones (Negative) Urine Blood (Negative) Urine Bilirubin (Negative) Urine Bacteria (None) /hpf Hyaline Casts (0-2) /lpf Urine Mucus (None) /hpf 08/10/20 08/10/20 08/11/20 Range/Units 23:48 23:59 00:42 WBC (3.8-10.6) k/uL RBC (3.80-5.40) m/uL Hgb (11.4-16.0) gm/dL Hct (34.0-46.0) % Neutrophils # (1.3-7.7) k/uL Monocytes # (0-1.0) k/uL INR (<1.2) APTT (22.0-30.0) sec Sodium (137-145) mmol/L Chloride (98-107) mmol/L Carbon Dioxide (22-30) mmol/L BUN (7-17) mg/dL Creatinine (0.52-1.04) mg/dL Glucose (74-99) mg/dL POC Glucose (mg/dL) 225 H (75-99) mg/dL Plasma Lactic Acid Kevin 4.4 H* (0.7-2.0) mmol/L Total Bilirubin (0.2-1.3) mg/dL AST (14-36) U/L Creatine Kinase (30-135) U/L CK-MB (CK-2) (0.0-2.4) ng/mL Troponin I (0.000-0.034) ng/mL Urine Appearance Cloudy H (Clear) Urine Protein 3+ H (Negative) Urine Glucose (UA) Trace H (Negative) Urine Ketones Trace H (Negative) Urine Blood Moderate H (Negative) Urine Bilirubin 1+ H (Negative) Urine Bacteria Rare H (None) /hpf Hyaline Casts 64 H (0-2) /lpf Urine Mucus Few H (None) /hpf 08/11/20 08/11/2008/11/20 Range/Units 00:51 03:20 06:16 WBC (3.8-10.6) k/uL RBC (3.80-5.40) m/uL Hgb (11.4-16.0) gm/dL Hct (34.0-46.0) % Neutrophils # (1.3-7.7) k/uL Monocytes # (0-1.0) k/uL INR 1.2 H (<1.2) APTT 18.8 L (22.0-30.0) sec Sodium (137-145) mmol/L Chloride (98-107) mmol/L Carbon Dioxide (22-30) mmol/L BUN (7-17) mg/dL Creatinine (0.52-1.04) mg/dL Glucose (74-99) mg/dL POC Glucose (mg/dL) 101 H (75-99) mg/dL Plasma Lactic Acid Kevin (0.7-2.0) mmol/L Total Bilirubin (0.2-1.3) mg/dL AST (14-36) U/L Creatine Kinase (30-135) U/L CK-MB (CK-2) (0.0-2.4) ng/mL Troponin I 0.173 H* (0.000-0.034) ng/mL Urine Appearance (Clear) Urine Protein (Negative) Urine Glucose (UA) (Negative) Urine Ketones (Negative) Urine Blood (Negative) Urine Bilirubin (Negative) Urine Bacteria (None) /hpf Hyaline Casts (0-2) /lpf Urine Mucus (None) /hpf 08/11/20 Range/Units 07:20 WBC (3.8-10.6) k/uL RBC (3.80-5.40) m/uL Hgb (11.4-16.0) gm/dL Hct (34.0-46.0) % Neutrophils # (1.3-7.7) k/uL Monocytes # (0-1.0) k/uL INR (<1.2) APTT (22.0-30.0) sec Sodium (137-145) mmol/L Chloride (98-107) mmol/L Carbon Dioxide (22-30) mmol/L BUN (7-17) mg/dL Creatinine (0.52-1.04) mg/dL Glucose (74-99) mg/dL POC Glucose (mg/dL) (75-99) mg/dL Plasma Lactic Acid Kevin (0.7-2.0) mmol/L Total Bilirubin (0.2-1.3) mg/dL AST (14-36) U/L Creatine Kinase (30-135) U/L CK-MB (CK-2) (0.0-2.4) ng/mL Troponin I 0.159 H* (0.000-0.034) ng/mL Urine Appearance (Clear) Urine Protein (Negative) Urine Glucose (UA) (Negative) Urine Ketones (Negative) Urine Blood (Negative) Urine Bilirubin (Negative) Urine Bacteria (None) /hpf Hyaline Casts (0-2) /lpf Urine Mucus (None) /hpf Thrombosis Risk Factor Assmnt - Choose All That Apply Any of the Below Risk Factors Present?: Yes Each Factor Represents 1 point: Medical pt on bed rest, Obesity (BMI >25), Swollen legs (current) Each Risk Factor Represents 3 Points: Age 75 years or older Other congenital or acquired thrombophilia - If yes, enter type in comment: No Thrombosis Risk Factor Assessment Total Risk Factor Score: 6 Thrombosis Risk Factor Assessment Level: High Risk
[2020-08-11] MEDS: AMPICILLIN-SULBACTAM 3 GM in SODIUM CHLORIDE 0.9% 100 ML IVPB SCH (16:17)
[2020-08-11] MEDS: SODIUM CHLORIDE 0.9% 1,000 ML IV SCH (16:18)
[2020-08-11 17:24] LABS: Glucose,Whole Blood 95 mg/dL (75-99)
[2020-08-11 21:13] LABS: Glucose,Whole Blood 110 mg/dL (75-99)
[2020-08-12] MEDS: HYDROmorphone 0.5 MG/0.5 ML SYRINGE IVP PRN ×4 (04:37→16:37)
[2020-08-12] MEDS: AMPICILLIN-SULBACTAM 3 GM in SODIUM CHLORIDE 0.9% 100 ML IVPB SCH ×2 (04:44→17:42)
[2020-08-12] MEDS: DILTIAZEM 125 MG in SODIUM CHLORIDE 0.9% 100 ML IV SCH (04:46)
[2020-08-12 06:38] LABS: Glucose,Whole Blood 138 mg/dL (75-99)
[2020-08-12] MEDS: INSULIN ASPART (NovoLOG) 100 UNIT/ML VIAL SQ SCH ×4 (06:42→20:53)
[2020-08-12] MEDS: SODIUM CHLORIDE 0.9% 1,000 ML IV SCH ×3 (07:03→17:41)
[2020-08-12 07:22] LABS: Basophils # (A) 0.1 k/uL (0-0.2); Basophils % (A) 0 %; Eosinophils # (A) 0.1 k/uL (0-0.7); Eosinophils % (A) 1 %; HCT 53.3 % (34.0-46.0); HGB 16.8 gm/dL (11.4-16.0); Lymphocytes # (A) 2.6 k/uL (1.0-4.8); Lymphocytes % (A) 17 %; MCH 29.3 pg (25.0-35.0); MCHC 31.5 g/dL (31.0-37.0); MCV 93.2 fL (80.0-100.0); Mean Platelet Volume 9.2; Monocytes # (A) 0.8 k/uL (0-1.0); Monocytes % (A) 6 %; Neutrophils # (A) 11.5 k/uL (1.3-7.7); Neutrophils % (A) 75 %; Platelet Count 125 k/uL (150-450); RBC 5.72 m/uL (3.80-5.40); WBC 15.3 k/uL (3.8-10.6)
[2020-08-12 07:36] LABS: Calcium 8.3 mg/dL (8.4-10.2); Potassium 3.5 mmol/L (3.5-5.1); Total Bilirubin 1.1 mg/dL (0.2-1.3); Total Protein 5.4 g/dL (6.3-8.2)
[2020-08-12] MEDS: ATORVASTATIN 40 MG TAB PO SCH (09:08)
[2020-08-12] MEDS: ASPIRIN 81 MG PO SCH (09:08)
[2020-08-12] MEDS: METOPROLOL TARTRATE 50 MG TAB PO SCH ×2 (09:08→21:21)
[2020-08-12 12:00] LABS: Glucose,Whole Blood 157 mg/dL (75-99)
--- NOTE | 2020-08-12 13:10 | ECHOF ---
Referral Reason:LV function MEASUREMENTS -------- HEIGHT: 152.4 cm WEIGHT: 90.7 kg BP: IVSd: 1.3 cm (0.6 - 1.1) LVIDd: 4.0 cm (3.9 - 5.3) LVPWd: 1.6 cm (0.6 - 1.1) IVSs: 1.6 cm LVIDs: 3.2 cm LVPWs: 1.4 cm LA Diam: 4.4 cm (2.7 - 3.8) LAESV Index (A-L): 38.16 ml/m Ao Diam: 2.3 cm (2.0 - 3.7) AV Cusp: 0.8 cm (1.5 - 2.6) MV EXCURSION: 11.453 mm (> 18.000) MV EF SLOPE: 31 mm/s (70 - 150) EPSS: 0.3 cm MV E Jacinto: 0.51 m/s MV DecT: 203 ms MV A Jacinto: 0.71 m/s MV E/A Ratio: 0.71 AV maxP.25 mmHg AV maxP.25 mmHg AV meanP.53 mmHg FINDINGS -------- Sinus rhythm. This was a technically good study. The left ventricular size is normal. There is mild concentric left ventricular hypertrophy. Overa ll left ventricular systolic function is low-normal with, an EF between 50 - 55 %. The diastolic fi lling pattern is normal for the age of the patient {E/E'}. The right ventricle is normal in size. The left atrium is moderately dilated. LA is moderately dilated 34-39 ml/m2 The right atrial size is normal. There is mild aortic regurgitation. There is mild aortic stenosis present. Peak/mean gradient acr oss the Aortic Valve is 23.25mmHg / 12.53mmHg. Mild mitral regurgitation is present. Mild tricuspid regurgitation present. Right ventricular systolic pressure is normal at < 35 mmHg. There is no pulmonic regurgitation present. The aortic root size is normal. There is no pericardial effusion. CONCLUSIONS -------- 1. The left ventricular size is normal. 2. There is mild concentric left ventricular hypertrophy. 3. Overall left ventricular systolic function is low-normal with, an EF between 50 - 55 %. 4. The diastolic filling pattern is normal for the age of the patient {E/E'} 5. The right ventricle is normal in size. 6. The left atrium is moderately dilated. 7. LA is moderately dilated 34-39 ml/m2 8. The right atrial size is normal. 9. There is mild aortic regurgitation. 10. There is mild aortic stenosis present. 11. Peak/mean gradient across the Aortic Valve is 23.25mmHg / 12.53mmHg. 12. Mild mitral regurgitation is present. 13. Mild tricuspid regurgitation present. 14. Right ventricular systolic pressure is normal at < 35 mmHg. 15. There is no pulmonic regurgitation present. 16. The aortic root size is normal. 17. There is no pericardial effusion. MEDICAL RESEARCHER: Gabrielle France RDCS
[2020-08-12] MEDS: hydrALAZINE HCL 20 MG/ML 1 ML VIAL IVP PRN (13:46)
--- NOTE | 2020-08-12 13:55 | P.PN ---
Subjective Progress Note Date: 08/12/20 CHIEF COMPLAINT: A. fib HISTORY OF PRESENT ILLNESS: Patient examined this morning at the bedside. Patient is a poor historian and is unable to answer a majority of questions during examination. She denies chest pain or pressure. Denies shortness of breath. She does report abdominal pain. Patient converted to sinus mechanism this morning. BP elevated. PHYSICAL EXAM: VITAL SIGNS: Reviewed. GENERAL: Well-developed in no acute distress. NECK: Supple. No JVD or thyromegaly LUNGS: Respirations even and unlabored. Lungs essentially clear to auscultation bilaterally. HEART: Regular rate and rhythm. S1 and S2 heard. Systolic murmur. EXTREMITIES: Normal range of motion. No clubbing or cyanosis. Peripheral pulses intact. No lower extremity edema ASSESSMENT: Paroxysmal atrial fibrillation with RVR Incarcerated ventral hernia Moderate aortic stenosis Hypertension Hyperlipidemia Diabetes mellitus, type II PLAN: Discontinue cardizem drip Obtain 2-D echo to assess cardiac structure and function Hydralazine 10 mg IV push every 4 hours when necessary for systolic blood pressure greater than 160 Patient scheduled for surgical intervention today with Dr. Lou for repair of incarcerated ventral hernia Patient is at moderate to high risk for surgical intervention due to comorbidities but has no absolute contraindication to undergo surgical intervention Recommend cautious fluid administration intraoperatively Optimal blood pressure control throughout hospitalization Postoperatively, the patient will require anticoagulation when cleared by surgical team Further recommendations pending patient course Nurse practitioner note has been reviewed by physician. Signing provider agrees with the documented findings, assessment, and plan of care. Objective - Vital Signs Vital signs: Vital Signs Temp 98.1 F 08/12/20 08:00 Pulse 80 08/12/20 08:00 Resp 17 08/12/20 08:00 BP 184/117 08/12/20 08:00 Pulse Ox 98 08/12/20 08:00 Intake & Output 08/11/20 08/12/20 08/12/20 18:59 06:59 18:59 Intake Total 0 100.667 Balance 0 100.667 Weight 85.5 kg Intake: Intake, IV Titration 100.667 Amount Diltiazem 125 mg In 100.667 Sodium Chloride 0.9% 100 ml @ 5 MG/HR 5 mls/hr IV .Q24H GEOVANNY Rx#:[id number] Oral 0 Other: # Voids 3 1 1 - Labs CBC & Chem 7: 08/12/20 07:02 08/12/20 07:02 Labs: Abnormal Lab Results - Last 24 Hours (Table) 08/11/20 08/12/20 08/12/20 Range/Units 21:09 06:21 07:02 WBC 15.3 H (3.8-10.6) k/uL RBC 5.72 H (3.80-5.40) m/uL Hgb 16.8 H (11.4-16.0) gm/dL Hct 53.3 H (34.0-46.0) % Plt Count 125 L (150-450) k/uL Neutrophils # 11.5 H (1.3-7.7) k/uL Sodium (137-145) mmol/L Chloride (98-107) mmol/L BUN (7-17) mg/dL Glucose (74-99) mg/dL POC Glucose (mg/dL) 110 H 138 H (75-99) mg/dL Calcium (8.4-10.2) mg/dL Total Protein (6.3-8.2) g/dL Albumin (3.5-5.0) g/dL 08/12/20 08/12/20 Range/Units 07:02 11:58 WBC (3.8-10.6) k/uL RBC (3.80-5.40) m/uL Hgb (11.4-16.0) gm/dL Hct (34.0-46.0) % Plt Count (150-450) k/uL Neutrophils # (1.3-7.7) k/uL Sodium 149 H (137-145) mmol/L Chloride 115 H (98-107) mmol/L BUN 42 H (7-17) mg/dL Glucose 157 H (74-99) mg/dL POC Glucose (mg/dL) 157 H (75-99) mg/dL Calcium 8.3 L (8.4-10.2) mg/dL Total Protein 5.4 L (6.3-8.2) g/dL Albumin 3.0 L (3.5-5.0) g/dL Microbiology - Last 24 Hours (Table) 08/10/20 23:48 Blood Culture - Preliminary Blood No Growth after 24 hours
[2020-08-12] MEDS ORDERED: IV FLUID CONTINUATION 1,000 ML IV ONE ×2 (14:19)
[2020-08-12 14:27] LABS: Glucose,Whole Blood 163 mg/dL (75-99)
[2020-08-12] MEDS ORDERED: ONDANSETRON 4 MG/2 ML VIAL IVP ONE (14:37)
[2020-08-12] MEDS ORDERED: PROPOFOL 10 MG/ML 20 ML VIAL IV ONE (15:14)
[2020-08-12] MEDS ORDERED: fentaNYL (PF) 50 MCG/ML 2 ML AMP ONE (15:14)
[2020-08-12] MEDS ORDERED: ROCURONIUM 10 MG/ML (5 ML VIAL) IV ONE (15:14)
[2020-08-12] MEDS ORDERED: MIDAZOLAM 2 MG/2 ML VIAL ONE (15:14)
[2020-08-12] MEDS ORDERED: LIDOCAINE 1% INJ 10MG/ML (20 ML MDV) ONE (15:14)
[2020-08-12] MEDS ORDERED: HYDROmorphone 1 MG/ML 1 ML SYRINGE IVP PRN (15:57)
--- NOTE | 2020-08-12 16:01 | P.OP ---
Date of Procedure: 08/12/20 Preoperative Diagnosis: Incarcerated ventral hernia Postoperative Diagnosis: Incarcerated ventral hernia Procedure(s) Performed: Open repair of incarcerated ventral herniaWith mesh Partial omentectomy Anesthesia: PATEL Surgeon: Manuel Lou Estimated Blood Loss (ml): 10 Pathology: other (incarcerated omentum) Condition: stable Disposition: PACU Description of Procedure: The patient's placed on the operative table in supine position. She received general anesthesia. Her abdomen was prepped and draped usual sterile fashion. A skin incision was made above the umbilicus. Using subcutaneA cautery the subcutaneous tissue divided. The fascia was exposed. The hernia sac was seen. The hernia sac was then dissected free from the subcutaneous tissues. Then using cautery the hernia sac was divided and then the incarcerated omentum was transected after being ligated between Carli clamps. Also tied used to ligate the omentum. The fascial defect was then closed usi#1 strep Suture. A 4 x 6 piece of Prolene mesh was placed over top apparent secured with a secure strep tacker. A ERIKA drains placed over top of the mesh and brought through separate stab incision. The deep subcutaneous layer was closed with Vicryl. And then skin was closed misti. Patient top she will was sent to recovery in stable condition.
[2020-08-12] MEDS ORDERED: hydrALAZINE HCL 20 MG/ML 1 ML VIAL IVP ONE (16:03)
--- NOTE | 2020-08-12 16:26 | P.PN ---
Progress Note - Text Progress Note Date: 08/12/20 Chief Complaint: Found on the floor History of presenting complaint: 80-year-old patient-history as per EMS family told them that they found the patient on the floor. She was confused lethargic and had soiled herself. They called 911." Her off the floor. Normally patient is alert and this by herself. Glucose was 310. Vital signs are stable. Only respond she was getting Short say mama and reach out. Per family patient has a facial droop that was normal from a previous stroke. And some right-sided weakness. Telemetry shows sinus rhythm. They give some fluid bolus. patient this morning patient does not remember what happened. Able to answer some simple questions. Slight abdominal pain. Admitted with-atrial fibrillation rate uncontrolled, incarcerated ventral hernia, acute kidney injury. Today-saw the patient this morning. Pending surgery. Comfortable. Minimal abdominal pain. No nausea vomiting. A. fib converted to sinus rhythm this morning Review of systems: Was done for constitutional, cardiovascular, GI, pulmonary. relevant finding as above Active Medications Aspirin (Aspirin 81 Mg) 81 mg PO DAILY [facility] Last Admin: 08/12/20 09:08 Dose: 81 mg Documented by: Atorvastatin Calcium (Atorvastatin 40 Mg Tab) 40 mg PO DAILY [facility] Last Admin: 08/12/20 09:08 Dose: 40 mg Documented by: Enoxaparin Sodium (Enoxaparin 40 Mg/0.4 Ml Syringe) 40 mg SQ DAILY [facility] Hydralazine HCl (Hydralazine Hcl 20 Mg/Ml 1 Ml Vial) 10 mg IVP Q4HR PRN PRN Reason: Blood Pressure - High Last Admin: 08/12/20 13:46 Dose: 10 mg Documented by: Hydromorphone HCl (Hydromorphone 0.5 Mg/0.5 Ml Syringe) 0.5 mg IVP Q3HR PRN PRN Reason: Moderate Pain Last Admin: 08/12/20 09:21 Dose: 0.5 mg Documented by: Hydromorphone HCl (Hydromorphone 1 Mg/Ml 1 Ml Syringe) 1 mg IVP Q1HR PRN PRN Reason: Severe Pain Diltiazem HCl 125 mg/ Sodium (Chloride) 125 mls @ 5 mls/hr IV .Q24H [facility] Last Admin: 08/12/20 04:46 Dose: 5 mg/hr, 5 mls/hr Documented by: Sodium Chloride (Saline 0.9%) 1,000 mls @ 130 mls/hr IV .Q7H42M [facility] Last Admin: 08/12/20 07:03 Dose: Not Given Documented by: Ampicillin Sodium/Sulbactam (Sodium 3 gm/ Sodium Chloride) 100 mls @ 200 mls/hr IVPB Q8H [facility] Insulin Aspart (Insulin Aspart (Novolog) 100 Unit/Ml Vial) 0 unit SQ ACHS [facility]; Protocol Last Admin: 08/12/20 12:47 Dose: Not Given Documented by: Metoprolol Tartrate (Metoprolol Tartrate 50 Mg Tab) 50 mg PO BID [facility] Last Admin: 08/12/20 09:08 Dose: 50 mg Documented by: Morphine Sulfate (Morphine Sulfate 4 Mg/Ml Syringe) 4 mg IV Q4HR PRN PRN Reason: Severe Pain Naloxone HCl (Naloxone 0.4 Mg/Ml 1 Ml Vial) 0.2 mg IV Q2M PRN PRN Reason: Opioid Reversal Ondansetron HCl (Ondansetron 4 Mg/2 Ml Vial) 4 mg IVP Q8HR PRN PRN Reason: Nausea And Vomiting Physical examination: VITAL SIGNS: 97.9, 64, 16, 184 over 117, 98% room air GENERAL:. Laying in bed, awake comfortable EYES: Pupils equal. Conjunctiva normal. HEENT: External appearance of nose and ears normal, oral cavity dry mucous membranes. NECK: JVD unable to assess; masses not palpable. HEART: Irregular heart sounds no edema. LUNGS: Respiratory rate normal; clear to auscultation. ABDOMEN: Soft, some tenderness, abdominal wall hernia no guarding rigidity, liver spleen not palpable, no masses palpable. PSYCH: Able tonsil simple questions. She is unable to tell me for example why she is here NEUROLOGICAL: Patient moving all her limbs, some weakness on the right side of the face. INVESTIGATIONS, reviewed in the clinical context: White count 15.3 hemoglobin 16.8 platelets 125 sodium 149 potassium 3.5 creatinine 0.94 Admission testing: White count 21.7 hemoglobin 6.5 platelets 138 potassium 3.3 bun 88 creatinine 1.67 sodium 148 blood glucose 294 lactic acid 4.4 Troponin I 0.160 Urine drug screen negative UA negative for nitrate and leukoesterase EKG tracing personally reviewed by me-shows atrial flutter fibrillation with increased ventricular rate Computed tomography scan of the abdomen pelvis-incarcerated umbilical hernia with no bowel obstruction Computed tomography scan of the brain-cerebral atrophy Chest x-ray film personally reviewed by [id number] obvious infiltrate 2-D echo-here 50-55% Assessment: -Patient's found on the floor could be from uncontrolled A. fib, other medical problems -Paroxysmal atrial fibrillation with a rapid ventricular rate uncontrolled, POA- no converted to sinus rhythm -Incarcerated ventral hernia involving the transverse colon-to go down for surgery today -Acute kidney injury could be ATN-improved -Mild metabolic acidosis-improved -Hyponatremia from fluid deficit -Troponin leak from hemodynamic mismatch. Doubt acute coronary syndrome -Developmental delay -Acute metabolic encephalopathy and delirium, POA -Possible sepsis -Hypernatremia -Essential hypertension, uncontrolled Plan: Continue current medication treatment plan. Keep a close eye on blood pressure. Follow with cardiology and general surgery.
[2020-08-12 17:17] LABS: Glucose,Whole Blood 138 mg/dL (75-99)
[2020-08-12 20:46] LABS: Glucose,Whole Blood 133 mg/dL (75-99)
[2020-08-13] MEDS: AMPICILLIN-SULBACTAM 3 GM in SODIUM CHLORIDE 0.9% 100 ML IVPB SCH ×4 (00:03→23:51)
[2020-08-13] MEDS: hydrALAZINE HCL 20 MG/ML 1 ML VIAL IVP PRN ×2 (00:06→23:51)
[2020-08-13] MEDS: HYDROmorphone 0.5 MG/0.5 ML SYRINGE IVP PRN (03:38)
[2020-08-13] MEDS: SODIUM CHLORIDE 0.9% 1,000 ML IV SCH ×3 (04:31→20:15)
[2020-08-13 06:23] LABS: Glucose,Whole Blood 121 mg/dL (75-99)
[2020-08-13] MEDS: INSULIN ASPART (NovoLOG) 100 UNIT/ML VIAL SQ SCH ×4 (06:26→22:12)
[2020-08-13] MEDS: ASPIRIN 81 MG PO SCH (08:13)
[2020-08-13] MEDS: ATORVASTATIN 40 MG TAB PO SCH (08:14)
[2020-08-13] MEDS: METOPROLOL TARTRATE 50 MG TAB PO SCH ×2 (08:14→22:13)
[2020-08-13 08:21] LABS: Basophils # (A) 0.1 k/uL (0-0.2); Basophils % (A) 1 %; Eosinophils # (A) 0.3 k/uL (0-0.7); Eosinophils % (A) 2 %; HCT 52.3 % (34.0-46.0); HGB 16.2 gm/dL (11.4-16.0); Lymphocytes # (A) 3.6 k/uL (1.0-4.8); Lymphocytes % (A) 20 %; MCH 29.6 pg (25.0-35.0); MCV 95.5 fL (80.0-100.0); Mean Platelet Volume 9.1; Monocytes # (A) 1.1 k/uL (0-1.0); Monocytes % (A) 6 %; Neutrophils # (A) 12.1 k/uL (1.3-7.7); Neutrophils % (A) 69 %; Platelet Count 117 k/uL (150-450); RBC 5.47 m/uL (3.80-5.40); RDW 13.1 % (11.5-15.5); WBC 17.4 k/uL (3.8-10.6)
[2020-08-13 08:30] LABS: African American GFR (CKD) >90 (>60 ml/min/1.73 sqM); Anion Gap 6 mmol/L; Blood Urea Nitrogen 24 mg/dL (7-17); Calcium 7.8 mg/dL (8.4-10.2); Carbon Dioxide 26 mmol/L (22-30); Chloride 110 mmol/L (98-107); Glucose 139 mg/dL (74-99); Non-African American GFR(CKD) 78 (>60 ml/min/1.73 sqM); Sodium 142 mmol/L (137-145)
[2020-08-13] MEDS ORDERED: ENOXAPARIN 40 MG/0.4 ML SYRINGE SQ SCH (09:00)
[2020-08-13] MEDS ORDERED: HYDROcodone/APAP 5-325MG 1 EACH TAB PO PRN (10:26)
--- NOTE | 2020-08-13 10:28 | P.PN ---
Subjective Progress Note Date: 08/13/20 CHIEF COMPLAINT: Incarcerated ventral hernia HISTORY OF PRESENT ILLNESS: Patient seen and examined with Dr. Lou. Patient is status post open repair of incarcerated ventral hernia with mesh. She is to lerating regular diet. She is weak and working with physical therapy. Denies any nausea or vomiting. She is afebrile. PHYSICAL EXAM: VITAL SIGNS: Reviewed. GENERAL: Well-developed in no acute distress. HEENT: No sclera icterus. Extraocular movements grossly intact. Moist buccal mucosa. Head is atraumatic, normocephalic. ABDOMEN: Soft. Nondistended. NEUROLOGIC: Alert and oriented. Cranial nerves II through XII grossly intact. ASSESSMENT: 1. Incarcerated ventral hernia status post open repair with mesh. Postop day #1 PLAN: -Continue regular diet -From surgical standpoint okay to start patient on anticoagulation for her A. fib -Add oral [place] for pain control -Patient is surgically stable for discharge -Patient follow-up with Dr. Lou in 1 week Physician Top Collar Baster note has been reviewed by physician. Signing provider agrees with the documented findings, assessment, and plan of care. Objective - Vital Signs Vital signs: Vital Signs Temp 97.8 F 08/13/20 08:00 Pulse 72 08/13/20 08:00 Resp 17 08/13/20 08:00 BP 138/92 08/13/20 08:00 Pulse Ox 98 08/13/20 08:00 Intake & Output 08/12/20 08/13/20 08/13/20 18:59 06:59 18:59 Intake Total 900 2100 Output Total 310 Balance 590 2100 Weight 85.5 kg 92.5 kg Intake: IV 900 Intake, IV Titration 1100 Amount Ampicillin-Sulbactam 3 gm 100 In Sodium Chloride 0.9% 100 ml @ 200 mls/hr IVPB Q12H [facility] Rx#:[id number] Sodium Chloride 0.9% 1, 1000 000 ml @ 130 mls/hr IV . Q7H42M [facility] Rx#:[id number] Oral 1000 Output: Urine 300 Estimated Blood Loss 10 Other: # Voids 0 3 2 - Labs CBC & Chem 7: 08/13/20 07:56 08/13/20 08:00 Labs: Abnormal Lab Results - Last 24 Hours (Table) 08/12/20 08/12/20 08/12/20 Range/Units 11:58 14:26 17:16 WBC (3.8-10.6) k/uL RBC (3.80-5.40) m/uL Hgb (11.4-16.0) gm/dL Hct (34.0-46.0) % Plt Count (150-450) k/uL Neutrophils # (1.3-7.7) k/uL Monocytes # (0-1.0) k/uL Potassium (3.5-5.1) mmol/L Chloride (98-107) mmol/L BUN (7-17) mg/dL Glucose (74-99) mg/dL POC Glucose (mg/dL) 157 H 163 H 138 H (75-99) mg/dL Calcium (8.4-10.2) mg/dL 08/12/20 08/13/20 08/13/20 Range/Units 20:45 06:21 07:56 WBC 17.4 H (3.8-10.6) k/uL RBC 5.47 H (3.80-5.40) m/uL Hgb 16.2 H (11.4-16.0) gm/dL Hct 52.3 H (34.0-46.0) % Plt Count 117 L (150-450) k/uL Neutrophils # 12.1 H (1.3-7.7) k/uL Monocytes # 1.1 H (0-1.0) k/uL Potassium (3.5-5.1) mmol/L Chloride (98-107) mmol/L BUN (7-17) mg/dL Glucose (74-99) mg/dL POC Glucose (mg/dL) 133 H 121 H (75-99) mg/dL Calcium (8.4-10.2) mg/dL 08/13/20 Range/Units 08:00 WBC (3.8-10.6) k/uL RBC (3.80-5.40) m/uL Hgb (11.4-16.0) gm/dL Hct (34.0-46.0) % Plt Count (150-450) k/uL Neutrophils # (1.3-7.7) k/uL Monocytes # (0-1.0) k/uL Potassium 3.0 L (3.5-5.1) mmol/L Chloride 110 H (98-107) mmol/L BUN 24 H (7-17) mg/dL Glucose 139 H (74-99) mg/dL POC Glucose (mg/dL) (75-99) mg/dL Calcium 7.8 L (8.4-10.2) mg/dL Microbiology - Last 24 Hours (Table) 08/10/20 23:48 Blood Culture - Preliminary Blood No Growth after 48 hours
[2020-08-13] MEDS ORDERED: Potassium Replacement Protocol 1 EACH MISC MISCELLANE PRN (11:07)
[2020-08-13 11:41] LABS: Glucose,Whole Blood 122 mg/dL (75-99)
[2020-08-13] MEDS: POTASSIUM CHLORIDE ER 20 MEQ TAB.ER PO SCH ×2 (12:37→15:45)
[2020-08-13] MEDS: lisinopriL 10 MG TAB PO SCH (12:37)
--- NOTE | 2020-08-13 13:32 | P.PN ---
Subjective Progress Note Date: 08/13/20 CHIEF COMPLAINT: A. fib HISTORY OF PRESENT ILLNESS: Patient is status post open repair of incarcerated ventral hernia with mesh with Dr. Lou. Postop day #1. Patient examined this morning at the bedside. Patient reports abdominal pain. She denies shortness of breath. Denies chest pain or pressure. She is maintaining sinus rhythm. Blood pressure elevated overnight with systolics ranging from 150-180. Echocardiogram completed reveals ejection fraction between 50 and 55%, mild aortic regurgitation, mild aortic stenosis, mild mitral regurgitation, and mild tricuspid regurgitation. PHYSICAL EXAM: VITAL SIGNS: Reviewed. GENERAL: Well-developed in no acute distress. NECK: Supple. No JVD or thyromegaly LUNGS: Respirations even and unlabored. Lungs essentially clear to auscultation bilaterally. HEART: Regular rate and rhythm. S1 and S2 heard. Systolic murmur. EXTREMITIES: Normal range of motion. No clubbing or cyanosis. Peripheral pulses intact. No lower extremity edema ASSESSMENT: Paroxysmal atrial fibrillation with RVR Incarcerated ventral hernia Moderate aortic stenosis Hypertension Hyperlipidemia Diabetes mellitus, type II PLAN: Resume lisinopril. Increase dosage to 10mg daily. Monitor blood pressure. Begin Eliquis 5mg PO BID. Discontinue Lovenox. We will sign off. Please reconsult if needed. Nurse practitioner note has been reviewed by physician. Signing provider agrees with the documented findings, assessment, and plan of care. Objective - Vital Signs Vital signs: Vital Signs Temp 97.9 F 08/13/20 11:42 Pulse 68 08/13/20 11:42 Resp 18 08/13/20 11:42 BP 146/72 08/13/20 11:42 Pulse Ox 98 08/13/20 11:42 Intake & Output 08/12/20 08/13/20 08/13/20 18:59 06:59 18:59 Intake Total 900 2100 Output Total 310 Balance 590 2100 Weight 85.5 kg 92.5 kg Intake: IV 900 Intake, IV Titration 1100 Amount Ampicillin-Sulbactam 3 gm 100 In Sodium Chloride 0.9% 100 ml @ 200 mls/hr IVPB Q12H [facility] Rx#:[id number] Sodium Chloride 0.9% 1, 1000 000 ml @ 130 mls/hr IV . Q7H42M [facility] Rx#:[id number] Oral 1000 Output: Urine 300 Estimated Blood Loss 10 Other: # Voids 0 3 2 - Labs CBC & Chem 7: 08/13/20 07:56 08/13/20 08:00 Labs: Abnormal Lab Results - Last 24 Hours (Table) 08/12/20 08/12/20 08/12/20 Range/Units 14:26 17:16 20:45 WBC (3.8-10.6) k/uL RBC (3.80-5.40) m/uL Hgb (11.4-16.0) gm/dL Hct (34.0-46.0) % Plt Count (150-450) k/uL Neutrophils # (1.3-7.7) k/uL Monocytes # (0-1.0) k/uL Potassium (3.5-5.1) mmol/L Chloride (98-107) mmol/L BUN (7-17) mg/dL Glucose (74-99) mg/dL POC Glucose (mg/dL) 163 H 138 H 133 H (75-99) mg/dL Calcium (8.4-10.2) mg/dL 08/13/20 08/13/20 08/13/20 Range/Units 06:21 07:56 08:00 WBC 17.4 H (3.8-10.6) k/uL RBC 5.47 H (3.80-5.40) m/uL Hgb 16.2 H (11.4-16.0) gm/dL Hct 52.3 H (34.0-46.0) % Plt Count 117 L (150-450) k/uL Neutrophils # 12.1 H (1.3-7.7) k/uL Monocytes # 1.1 H (0-1.0) k/uL Potassium 3.0 L (3.5-5.1) mmol/L Chloride 110 H (98-107) mmol/L BUN 24 H (7-17) mg/dL Glucose 139 H (74-99) mg/dL POC Glucose (mg/dL) 121 H (75-99) mg/dL Calcium 7.8 L (8.4-10.2) mg/dL 08/13/20 Range/Units 11:40 WBC (3.8-10.6) k/uL RBC (3.80-5.40) m/uL Hgb (11.4-16.0) gm/dL Hct (34.0-46.0) % Plt Count (150-450) k/uL Neutrophils # (1.3-7.7) k/uL Monocytes # (0-1.0) k/uL Potassium (3.5-5.1) mmol/L Chloride (98-107) mmol/L BUN (7-17) mg/dL Glucose (74-99) mg/dL POC Glucose (mg/dL) 122 H (75-99) mg/dL Calcium (8.4-10.2) mg/dL Microbiology - Last 24 Hours (Table) 08/10/20 23:48 Blood Culture - Preliminary Blood No Growth after 48 hours
--- NOTE | 2020-08-13 16:15 | P.PN ---
Progress Note - Text Progress Note Date: 08/13/20 Chief Complaint: Found on the floor History of presenting complaint: 80-year-old patient-history as per EMS family told them that they found the patient on the floor. She was confused lethargic and had soiled herself. They called 911." Her off the floor. Normally patient is alert and this by herself. Glucose was 310. Vital signs are stable. Only respond she was getting Short say mama and reach out. Per family patient has a facial droop that was normal from a previous stroke. And some right-sided weakness. Telemetry shows sinus rhythm. They give some fluid bolus. patient this morning patient does not remember what happened. Able to answer some simple questions. Slight abdominal pain. Admitted with-atrial fibrillation rate uncontrolled, incarcerated ventral hernia, acute kidney injury. On August 12 underwent open repair of incarcerated ventral hernia with mesh placement. Today-diet advanced to regular per surgery. Pain control. Has abdominal pain. Laying in bed. Review of systems: Was done for constitutional, cardiovascular, GI, pulmonary. relevant finding as above Active Medications Hydrocodone Bitart/Acetaminophen (Hydrocodone/Apap 5-325mg 1 Each Tab) 1 each PO Q6HR PRN PRN Reason: MILD Pain Apixaban (Apixaban 5 Mg Tab) 5 mg PO BID [facility] Atorvastatin Calcium (Atorvastatin 40 Mg Tab) 40 mg PO DAILY [facility] Last Admin: 08/13/20 08:14 Dose: 40 mg Documented by: Hydralazine HCl (Hydralazine Hcl 20 Mg/Ml 1 Ml Vial) 10 mg IVP Q4HR PRN PRN Reason: Blood Pressure - High Last Admin: 08/13/20 00:06 Dose: 10 mg Documented by: Hydromorphone HCl (Hydromorphone 1 Mg/Ml 1 Ml Syringe) 1 mg IVP Q1HR PRN PRN Reason: Severe Pain Sodium Chloride (Saline 0.9%) 1,000 mls @ 50 mls/hr IV .Q20H [facility] Last Admin: 08/13/20 12:36 Dose: Not Given Documented by: Ampicillin Sodium/Sulbactam (Sodium 3 gm/ Sodium Chloride) 100 mls @ 200 mls/hr IVPB Q8H [facility] Last Admin: 08/13/20 08:13 Dose: 200 mls/hr Documented by: Insulin Aspart (Insulin Aspart (Novolog) 100 Unit/Ml Vial) 0 unit SQ ACHS [facility]; Protocol Last Admin: 08/13/20 12:33 Dose: Not Given Documented by: Lisinopril (Lisinopril 10 Mg Tab) 10 mg PO DAILY [facility] Last Admin: 08/13/20 12:37 Dose: 10 mg Documented by: Metoprolol Tartrate (Metoprolol Tartrate 50 Mg Tab) 50 mg PO BID [facility] Last Admin: 08/13/20 08:14 Dose: 50 mg Documented by: Miscellaneous Information (Potassium Replacement Protocol 1 Each Misc) 1 each MISCELLANE DAILY PRN; Protocol PRN Reason: Per Protocol Morphine Sulfate (Morphine Sulfate 4 Mg/Ml Syringe) 4 mg IV Q4HR PRN PRN Reason: Severe Pain Naloxone HCl (Naloxone 0.4 Mg/Ml 1 Ml Vial) 0.2 mg IV Q2M PRN PRN Reason: Opioid Reversal Ondansetron HCl (Ondansetron 4 Mg/2 Ml Vial) 4 mg IVP Q8HR PRN PRN Reason: Nausea And Vomiting Physical examination: VITAL SIGNS: 97.9, 68, 18, 146/72, 98% room air GENERAL:. Laying in bed, awake comfortable EYES: Pupils equal. Conjunctiva normal. HEENT: External appearance of nose and ears normal, oral cavity dry mucous membranes. NECK: JVD unable to assess; masses not palpable. HEART: Irregular heart sounds no edema. LUNGS: Respiratory rate normal; clear to auscultation. ABDOMEN: Soft, some tenderness, dressing in place with abdominal pain. PSYCH: Answering simple questions NEUROLOGICAL: weakness on the right side of the face. INVESTIGATIONS, reviewed in the clinical context: White count 7.4 hemoglobin 16.2 platelets 117 potassium 3 creatinine 0.74 Admission testing: White count 21.7 hemoglobin 6.5 platelets 138 potassium 3.3 bun 88 creatinine 1.67 sodium 148 blood glucose 294 lactic acid 4.4 Troponin I 0.160 Urine drug screen negative UA negative for nitrate and leukoesterase EKG tracing personally reviewed by me-shows atrial flutter fibrillation with increased ventricular rate Computed tomography scan of the abdomen pelvis-incarcerated umbilical hernia with no bowel obstruction Computed tomography scan of the brain-cerebral atrophy Chest x-ray film personally reviewed by [id number] obvious infiltrate 2-D echo-here 50-55% Assessment: -Patient's found on the floor could be from uncontrolled A. fib, other medical problems -Paroxysmal atrial fibrillation with a rapid ventricular rate uncontrolled, POA- converted to sinus rhythm -Incarcerated ventral hernia involving the transverse colon- open surgery with over mesh placement -Acute kidney injury could be ATN-improved -Mild metabolic acidosis-improved -Hyponatremia from fluid deficit -Troponin leak from hemodynamic mismatch. Doubt acute coronary syndrome -Developmental delay -Acute metabolic encephalopathy and delirium, POA -Possible sepsis -Hypernatremia -Essential hypertension, uncontrolled Plan: Continue current medication treatment plan. Keep a close eye on blood pressure. Follow with cardiology and general surgery.
[2020-08-13 16:33] LABS: Glucose,Whole Blood 120 mg/dL (75-99)
[2020-08-13 20:10] LABS: Glucose,Whole Blood 132 mg/dL (75-99)
[2020-08-13] MEDS: APIXABAN 5 MG TAB PO SCH (22:13)
[2020-08-14 06:16] LABS: Glucose,Whole Blood 99 mg/dL (75-99)
[2020-08-14] MEDS: INSULIN ASPART (NovoLOG) 100 UNIT/ML VIAL SQ SCH ×2 (06:51→13:08)
[2020-08-14 08:53] LABS: Basophils % (A) 0 %; Eosinophils # (A) 0.3 k/uL (0-0.7); Eosinophils % (A) 2 %; HCT 48.2 % (34.0-46.0); HGB 15.5 gm/dL (11.4-16.0); Lymphocytes # (A) 3.4 k/uL (1.0-4.8); Lymphocytes % (A) 23 %; MCH 29.6 pg (25.0-35.0); MCHC 32.1 g/dL (31.0-37.0); MCV 92.2 fL (80.0-100.0); Mean Platelet Volume 10.4; Monocytes # (A) 1.2 k/uL (0-1.0); Monocytes % (A) 8 %; Neutrophils # (A) 9.7 k/uL (1.3-7.7); Neutrophils % (A) 66 %; Platelet Count 104 k/uL (150-450); RBC 5.22 m/uL (3.80-5.40); RDW 13.2 % (11.5-15.5); WBC 14.8 k/uL (3.8-10.6)
[2020-08-14 09:01] LABS: African American GFR (CKD) >90 (>60 ml/min/1.73 sqM); Anion Gap 5 mmol/L; Blood Urea Nitrogen 15 mg/dL (7-17); Calcium 7.7 mg/dL (8.4-10.2); Carbon Dioxide 25 mmol/L (22-30); Chloride 108 mmol/L (98-107); Glucose 135 mg/dL (74-99); Non-African American GFR(CKD) 86 (>60 ml/min/1.73 sqM); Sodium 138 mmol/L (137-145)
[2020-08-14] MEDS: AMPICILLIN-SULBACTAM 3 GM in SODIUM CHLORIDE 0.9% 100 ML IVPB SCH (09:22)
[2020-08-14] MEDS: APIXABAN 5 MG TAB PO SCH (09:23)
[2020-08-14] MEDS: lisinopriL 10 MG TAB PO SCH (09:23)
[2020-08-14] MEDS: ATORVASTATIN 40 MG TAB PO SCH (09:23)
[2020-08-14] MEDS: METOPROLOL TARTRATE 50 MG TAB PO SCH (09:23)
[2020-08-14 09:50] VITALS: RESP 20
[2020-08-14 11:51] LABS: Glucose,Whole Blood 132 mg/dL (75-99)
--- NOTE | 2020-08-14 13:02 | P.DS ---
Providers Date of admission: 08/11/20 02:32 Expected date of discharge: 08/14/20 Attending physician: Donis Moreno Consults: 08/11/20 02:29 Consult Physician Stat Consulting Provider: Manuel Serna Consult Reason/Comments: Incarcerated umbilical hernia Do you want consulting provider notified?: Already Contacted Primary care physician: Richy Castanon [facility] Course: Chief Complaint: Found on the floor History of presenting complaint: 80-year-old patient-history as per EMS family told them that they found the patient on the floor. She was confused lethargic and had soiled herself. They called 911." Her off the floor. Normally patient is alert and this by herself. Glucose was 310. Vital signs are stable. Only respond she was getting Short say mama and reach out. Per family patient has a facial droop that was normal from a previous stroke. And some right-sided weakness. Telemetry shows sinus rhythm. They give some fluid bolus. patient this morning patient does not remember what happened. Able to answer some simple questions. Slight abdominal pain. Admitted with-atrial fibrillation rate uncontrolled, incarcerated ventral hernia, acute kidney injury. On August 12 underwent open repair of incarcerated ventral hernia with mesh placement. Today-diet advanced to regular per surgery. Oral intake fluctuating. Pain con trol. Discussed with an FINISHER PLATE from surgery. Patient will continue to be discharged. With ERIKA drain. Patient is back on anticoagulation. Creatinine improved from 1.67-- 0.65 Discussion and discharge planning more than 35 minutes Consultation: Dr. Ardon from cardiology Dr. Serna from general surgery Physical examination: VITAL SIGNS: 97.7, 95, 20, 144/62, 98% room air GENERAL:. Laying in bed, awake comfortable EYES: Pupils equal. Conjunctiva normal. HEENT: External appearance of nose and ears normal, oral cavity dry mucous membranes. NECK: JVD unable to assess; masses not palpable. HEART: Irregular heart sounds no edema. LUNGS: Respiratory rate normal; clear to auscultation. ABDOMEN: Soft, some tenderness, dressing in place with abdominal pain. ERIKA drain PSYCH: Answering simple questions NEUROLOGICAL: weakness on the right side of the face. INVESTIGATIONS, reviewed in the clinical context: White count 14.8 hemoglobin 15.5in 3 creatinine 0.65 Admission testing: White count 21.7 hemoglobin 6.5 platelets 138 potassium 3.3 bun 88 creatinine 1.67 sodium 148 blood glucose 294 lactic acid 4.4 Troponin I 0.160 Urine drug screen negative UA negative for nitrate and leukoesterase EKG tracing personally reviewed by me-shows atrial flutter fibrillation with increased ventricular rate Computed tomography scan of the abdomen pelvis-incarcerated umbilical hernia with no bowel obstruction Computed tomography scan of the brain-cerebral atrophy Chest x-ray film personally reviewed by [id number] obvious infiltrate 2-D echo-here 50-55% Assessment: -Patient's found on the floor could be from uncontrolled A. fib, other medical problems -Paroxysmal atrial fibrillation with a rapid ventricular rate uncontrolled, POA- converted to sinus rhythm -Incarcerated ventral hernia involving the transverse colon- open surgery with mesh placement -Acute kidney injury could be ATN-improved -Mild metabolic acidosis-improved -Hyponatremia from fluid deficit-corrected -Troponin leak from hemodynamic mismatch. Doubt acute coronary syndrome -Developmental delay -Acute metabolic encephalopathy and delirium, POA -Possible sepsis -Hypernatremia -Essential hypertension, uncontrolled Disposition: [facility]CF[facility] Labs: CBC-BMP-4 days Patient Condition at Discharge: Stable Plan - Discharge Summary Discharge Rx Participant: No New Discharge Prescriptions: New Apixaban [Eliquis] 5 mg PO BID #60 tab Atorvastatin [Lipitor] 40 mg PO DAILY tab Metoprolol Tartrate [Lopressor] 50 mg PO BID tab INSULIN ASPART (NovoLOG) [NovoLOG (formulary)] 0 unit SQ ACHS vial lisinopriL [Zestril] 10 mg PO DAILY tab Amoxic-Pot Clav 875-125Mg [Augmentin 875-125] 1 tab PO Q12HR #10 tab Hydrocodone/Acetaminophen [[place] 5-325] 1 tab PO Q6HR PRN 3 Days #12 tab PRN Reason: Pain Continue Ergocalciferol [Vitamin D2 (DRISDOL)] 50,000 unit PO Q7D traZODone HCL 50 mg PO HS Glimepiride [Amaryl] 2 mg PO AC-BRKFST Discontinued Metoprolol Succinate (ER) [Toprol Xl] 100 mg PO DAILY lisinopriL [Zestril] 5 mg PO DAILY Meloxicam 15 mg PO DAILY Canagliflozin [Invokana] 100 mg PO DAILY Atorvastatin [Lipitor] 10 mg PO DAILY Discharge Medication List Ergocalciferol [Vitamin D2 (DRISDOL)] 50,000 unit PO Q7D 08/11/20 [History] Glimepiride [Amaryl] 2 mg PO AC-BRKFST 08/11/20 [History] traZODone HCL 50 mg PO HS 08/11/20 [History] Apixaban [Eliquis] 5 mg PO BID #60 tab 08/13/20 [Rx] Amoxic-Pot Clav 875-125Mg [Augmentin 875-125] 1 tab PO Q12HR #10 tab 08/14/20 [Rx] Atorvastatin [Lipitor] 40 mg PO DAILY tab 08/14/20 [Rx] Hydrocodone/Acetaminophen [[place] 5-325] 1 tab PO Q6HR PRN 3 Days #12 tab 08/14/20 [Rx] INSULIN ASPART (NovoLOG) [NovoLOG (formulary)] 0 unit SQ ACHS vial 08/14/20 [Rx] Metoprolol Tartrate [Lopressor] 50 mg PO BID tab 08/14/20 [Rx] lisinopriL [Zestril] 10 mg PO DAILY tab 08/14/20 [Rx] Follow up Appointment(s)/Referral(s): Richy Kim MD [Primary Care Provider] - 1-2 days Manuel Serna MD [STAFF PHYSICIAN] - 1 Week Activity/Diet/Wound Care/Special Instructions: pain meds per dr serna
[2020-08-14 13:55] VITALS: BMI 34.2
--- NOTE | 2020-08-14 14:35 | P.PN ---
Subjective Progress Note Date: 08/14/20 CHIEF COMPLAINT: Incarcerated ventral hernia HISTORY OF PRESENT ILLNESS: Patient is status post open repair of incarcerated ventral hernia with mesh. She is tolerating regular diet. Denies any nausea or vomiting. She did have a bowel movement. She is afebrile. WBC 14.8 hemoglobin 15.5 potassium 3.0 PHYSICAL EXAM: VITAL SIGNS: Reviewed. GENERAL: Well-developed in no acute distress. HEENT: No sclera icterus. Extraocular movements grossly intact. Moist buccal mucosa. Head is atraumatic, normocephalic. ABDOMEN: Soft. Nondistended. Incision site did have dried blood noted along the misti. No evidence of cellulitis. There was a small 2 cm bruising or hematoma on the right side of the incision NEUROLOGIC: Alert and oriented. Cranial nerves II through XII grossly intact. ASSESSMENT: 1. Incarcerated ventral hernia status post open repair with mesh. POD#2 PLAN: -Continue regular diet -From surgical standpoint okay to start patient on anticoagulation for her A. fib -Prescription given for [place] -Patient is to keep ERIKA drain and record output and bring results to follow up ap pointment with the surgeon -Patient is surgically stable for discharge -Patient follow-up with Dr. Lou in 1 week Physician Car Icer note has been reviewed by physician. Signing provider agrees with the documented findings, assessment, and plan of care. Objective - Vital Signs Vital signs: Vital Signs Temp 97.7 F 08/14/20 09:00 Pulse 95 08/14/20 09:00 Resp 20 08/14/20 09:00 BP 173/91 08/14/20 09:00 Pulse Ox 98 08/14/20 09:00 Intake & Output 08/13/20 08/14/20 08/14/20 18:59 06:59 18:59 Intake Total 540 236 Output Total 75 20 Balance -75 520 236 Weight 93.5 kg 93.5 kg Intake: Oral 540 236 Output: Drainage 75 20 Abdomen 75 20 Other: # Voids 2 2 2 # Bowel Movements 1 1 - Labs CBC & Chem 7: 08/14/20 08:09 08/14/20 08:09 Labs: Abnormal Lab Results - Last 24 Hours (Table) 08/13/20 08/13/20 08/14/20 Range/Units 16:31 20:09 08:09 WBC 14.8 H (3.8-10.6) k/uL Hct 48.2 H (34.0-46.0) % Plt Count 104 L (150-450) k/uL Neutrophils # 9.7 H (1.3-7.7) k/uL Monocytes # 1.2 H (0-1.0) k/uL Potassium (3.5-5.1) mmol/L Chloride (98-107) mmol/L Glucose (74-99) mg/dL POC Glucose (mg/dL) 120 H 132 H (75-99) mg/dL Calcium (8.4-10.2) mg/dL 08/14/20 08/14/20 Range/Units 08:09 11:49 WBC (3.8-10.6) k/uL Hct (34.0-46.0) % Plt Count (150-450) k/uL Neutrophils # (1.3-7.7) k/uL Monocytes # (0-1.0) k/uL Potassium 3.0 L (3.5-5.1) mmol/L Chloride 108 H (98-107) mmol/L Glucose 135 H (74-99) mg/dL POC Glucose (mg/dL) 132 H (75-99) mg/dL Calcium 7.7 L (8.4-10.2) mg/dL Microbiology - Last 24 Hours (Table) 08/10/20 23:48 Blood Culture - Preliminary Blood No Growth after 72 hours
[2020-08-14] MEDS ORDERED: POTASSIUM CHLORIDE ER 20 MEQ TAB.ER PO STA (14:43)
[2020-08-14 15:02] VITALS: BP 162/78; PULSE 67; TEMP 97.3
== END 2020-08-14 15:17 | DRG 853 ==
LOC: EC 22:17 → 3SCARD 08-11 02:32
PROVIDERS: ADMIT Hospitalist; ATTEND Hospitalist
PROC: 0DBU0ZZ Excision of Omentum, Open Approach (ICD-10-PCS; principal; 2020-08-12 11:00)
PROC: 0WUF0JZ Supplement Abdominal Wall with Synthetic Substitute, Open Approach (ICD-10-PCS; principal; 2020-08-12 11:00)
DX: A41.9 Sepsis, unspecified organism (principal); N17.0 Acute kidney failure with tubular necrosis; G93.41 Metabolic encephalopathy; E87.2 Acidosis; F05 Delirium due to known physiological condition; K43.6 Other and unspecified ventral hernia with obstruction, without gangrene; E87.0 Hyperosmolality and hypernatremia; E87.1 Hypo-osmolality and hyponatremia; I10 Essential (primary) hypertension; E86.0 Dehydration; E78.5 Hyperlipidemia, unspecified; Z60.2 Problems related to living alone; E11.65 Type 2 diabetes mellitus with hyperglycemia; I35.0 Nonrheumatic aortic (valve) stenosis; H54.61 Unqualified visual loss, right eye, normal vision left eye; R62.50 Unspecified lack of expected normal physiological development in childhood; R29.810 Facial weakness; D75.1 Secondary polycythemia; I48.0 Paroxysmal atrial fibrillation; Z86.73 Personal history of transient ischemic attack (TIA), and cerebral infarction without residual deficits; Z85.828 Personal history of other malignant neoplasm of skin; Z90.710 Acquired absence of both cervix and uterus; Z79.84 Long term (current) use of oral hypoglycemic drugs; Z79.1 Long term (current) use of non-steroidal anti-inflammatories (NSAID); Z79.899 Other long term (current) drug therapy
CPT/HCPCS: 36415; 70450; 71045; 74176; 80048; 80053; 80306; 81001; 82550; 82553; 83605; 84443; 84484; 85025; 85027; 85610; 85730; 87040; 88302; 93005; 93306; 96361; 96365; 96375; 96376; 99285

== ENCOUNTER 2021-10-27 10:27 | Emergency (ER) | payer MEDICARE ==
[2021-10-27] MEDS ORDERED: TOPICAL SKIN ADHESIVE 1 EACH AMP TOPICAL ONE (10:32)
[2021-10-27 10:34] VITALS: BP 152/93; TEMP 97.6
--- NOTE | 2021-10-27 10:52 | ED ---
General Adult HPI - General Chief complaint: Fall Stated complaint: fall w/ head injury, on blood thinners Time Seen by Provider: 10/27/21 10:31 Source: patient, EMS, RN notes reviewed, old records reviewed Mode of arrival: wheelchair Limitations: altered mental status, physical limitation - History of Present Illness Initial comments: 81-year-old female presents status post fall. Scar level fall with head injury. Patient has had multiple falls over the past several weeks. EMS reports that she is currently residing in the intermediate secondary to multiple falls. Patient is noted to be on anticoagulation. She had complained of some headache and left knee pain. History is limited from the patient, apparently baseline mental status is alert and oriented 1. - Related Data Home Medications Medication Instructions Recorded Confirmed Atorvastatin [Lipitor] 40 mg PO DAILY@0800 10/27/21 10/27/21 Canagliflozin [Invokana] 100 mg PO DAILY@0800 10/27/21 10/27/21 Gabapentin 600 mg PO TID@0500,1300,2100 10/27/21 10/27/21 HYDROcodone/APAP 10-325MG [[place] 1 tab PO Q6H PRN 10/27/21 10/27/21 10-325] Metoprolol Succinate (ER) [Toprol 50 mg PO DAILY@0800 10/27/21 10/27/21 Xl] Potassium Chloride ER [K-Dur 10] 10 meq PO DAILY@0800 10/27/21 10/27/21 Rivaroxaban [Xarelto] 10 mg PO DAILY@0800 10/27/21 10/27/21 lisinopriL [Zestril] 10 mg PO DAILY@0800 10/27/21 10/27/21 traZODone HCL 150 mg PO BID@0800,1600 10/27/21 10/27/21 Allergies Allergy/AdvReac Type Severity Reaction Status Date / Time No Known Allergies Allergy Verified 10/27/21 10:38 Review of Systems ROS Statement: Those systems with pertinent positive or pertinent negative responses have been documented in the HPI. ROS Other: All systems not noted in ROS Statement are negative. 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 skin cancer. Developmently delayed History of Any Multi-Drug Resistant Organisms: None Reported Past Surgical History: Hysterectomy Past Anesthesia/Blood Transfusion Reactions: No Reported Reaction Past Psychological History: Unable to Obtain Smoking Status: Never smoker Past Alcohol Use History: None Reported Past Drug Use History: None Reported - Past Family History Father History Unknown: Yes Mother History Unknown: Yes General Exam Limitations: altered mental status, physical limitation General appearance: alert Head exam: Present: other (Multiple facial hematomas and ecchymosis throughout in various stages of healing. Hematoma above the right eye with small superficial laceration.) Eye exam: Present: PERRL, periorbital swelling, periorbital tenderness Neck exam: Present: normal inspection, full ROM. Absent: tenderness, meningismus Respiratory exam: Present: normal lung sounds bilaterally. Absent: respiratory distress, wheezes Cardiovascular Exam: Present: regular rate, normal rhythm GI/Abdominal exam: Present: soft. Absent: distended, tenderness Extremities exam: Present: joint swelling (Ecchymosis over the anterior surface of the left knee, anatomy is preserved otherwise. Distal pulses intact.) Neurological exam: Present: alert. Absent: oriented X3 Skin exam: Present: warm, dry. Absent: cyanosis, diaphoretic Course Vital Signs 10/27/21 10/27/21 10:29 11:35 Temperature 97.6 F Pulse Rate 60 62 Respiratory 18 20 Rate Blood Pressure 152/93 O2 Sat by Pulse 97 95 Oximetry Medical Decision Making - Medical Decision Making 81-year-old female who had presented for fall. She has had multiple falls and has multiple hematomas and facial bruising. She does have a previous laceration above the right eye which is been sutured from another facility. This does not appear infected. There is no active bleeding. Repeat head CT is performed which is negative for intracranial hemorrhage, CT facial bones negative for fracture but does show significant amount of hematoma and soft tissue swelling. Cervical spine negative for fracture subluxation, and x-ray of the left knee is negative for acute bony abnormality. Patient will be discharged back to the intermediate, . Disposition Clinical Impression: Fall, Traumatic hematoma of face Disposition: HOME SELF-CARE Condition: Fair Instructions (If sedation given, give patient instructions): Fall Prevention for Older Adults (ED), Hematoma (ED) Is patient prescribed a controlled substance at d/c from ED?: No Referrals: Jorge Alberto Gu DO [Primary Care Provider] - 1-2 days Time of Disposition: 11:59
--- NOTE | 2021-10-27 11:21 | XR ---
EXAMINATION TYPE: XR knee complete LT DATE OF EXAM: 10/27/2021 CLINICAL HISTORY: Fall injury with pain TECHNIQUE: Three views of the left knee are attempted. COMPARISON: None. FINDINGS: There is oblique and crosstable lateral along with additional lateral projection. Osseous s tructures are demineralized. There is no acute fracture/dislocation evident in left knee. Moderate to severe narrowing with moderate spurring medial tibial femoral compartment. Moderate to severe spurr ing with mild to moderate narrowing patellofemoral compartment. [id number] posterior vascular c alcification. Spurring from the anterior superior patella at distal quadriceps tendon insertion. IMPRESSION: There is no acute fracture or dislocation in the left knee.
--- NOTE | 2021-10-27 11:26 | CT ---
EXAMINATION TYPE: CT brain cspine wo con DATE OF EXAM: 10/27/2021 COMPARISON: 08/11/2020 HISTORY: 81-year-old female pain after Fall, bruising and swelling facial down neck. Really swollen t o Rt eye CT DLP: 1108.5 mGycm Automated exposure control for dose reduction was used. Technique: Examination of the head was done in axial plane without intravenous contrast. Coronal and sagittal reconstructions performed. CT of the cervical spine was obtained in axial plane without intravenous injection of contrast mater ial. Coronal and sagittal reformatted images were obtained from the axial views for evaluation of f ractures, spinal alignment and canal. FINDINGS: Head: There is no evidence of acute intracranial hemorrhage, acute ischemic changes, mass, mass-effect, or extra-axial fluid collection. There is no effacement of cerebral sulci or basal subarachnoid cister ns. There is no hydrocephalus. There is no midline shift. Hernandez-white matter distinction is preserv ed. Mild generalized supratentorial volume loss. Moderate patchy white matter hypodensities both cerebral hemispheres. Mild ventricular prominence secondary to central cerebral volume loss is similar. Ather osclerotic calcifications carotid siphons. Partially empty sella. Mastoid air cells well pneumatized. Facial bones reported separately. Cervical spine: Heterogeneous enlargement left lobe of the thyroid gland measuring up to 2.9 cm wide and 5.1 cm crani ocaudal. Recommend thyroid ultrasound to better characterize. FNA may be needed. No craniocervical junction abnormality, predental space widening, or prevertebral soft tissue swellin g. Preserved alignment of the spine. No acute fracture of the cervical spine. Moderate degenerative disc disease C5-C6 with disc osteophyte complex contribute into at least a mode rate spinal canal stenosis. Scattered facet and uncovertebral joint arthropathy. Sagittal and coronal reformatted images confirm above findings. COMBINED IMPRESSION: 1. Mild cerebral atrophy and moderate patchy burden of chronic small vessel ischemic disease. No acut e intracranial abnormality seen. 2. No acute fracture or malalignment of the cervical spine. Moderate spondylotic change C5-C6. 3. Heterogeneous enlargement left lobe of the thyroid gland measuring up to 5.1 cm. Nonemergent follo w-up thyroid ultrasound to assess for underlying nodule and determine the need for FNA. 4. Facial bones reported separately.
--- NOTE | 2021-10-27 11:28 | CT ---
EXAMINATION TYPE: CT facial bones wo con DATE OF EXAM: 10/27/2021 COMPARISON: None HISTORY: Fall, bruising and swelling facial down neck. Really swollen to Rt eye CT DLP: 1108.5 mGycm Automated exposure control for dose reduction was used. TECHNIQUE: CT scan of the sinuses is performed without contrast, axial images are obtained, coronal r eformatted images are also reviewed. FINDINGS: There is a large soft tissue hematoma overlying the right. Orbital regions. Extends along t he right facial bones anteriorly measuring approximately 3.5 cm. The right orbit is somewhat atrophic with calcifications correlate for chronic or congenital injury correlate for previous surgical crockett e. Small amount of air is seen in the periorbital region on the right. Visualized parotid glands. Hypertrophic change of the vertebral column. Intracranially there is degen erative changes. IMPRESSION: 1. Large right facial and periorbital soft tissue hematoma. 2. No acute fracture. 3. Chronic appearing atrophic appearance of the right orbit correlate for previous surgery.
[2021-10-27 11:42] VITALS: PULSE 62; RESP 20
== END 2021-10-27 12:52 | disposition home or self-care (01) ==
LOC: EC 10:27
DX: S05.31XA Ocular laceration without prolapse or loss of intraocular tissue, right eye, initial encounter (principal); S80.02XA Contusion of left knee, initial encounter; E11.9 Type 2 diabetes mellitus without complications; I10 Essential (primary) hypertension; Z86.73 Personal history of transient ischemic attack (TIA), and cerebral infarction without residual deficits; Z79.899 Other long term (current) drug therapy; Z79.01 Long term (current) use of anticoagulants; Z79.84 Long term (current) use of oral hypoglycemic drugs; W19.XXXA Unspecified fall, initial encounter; Y92.129 Unspecified place in nursing home as the place of occurrence of the external cause
CPT/HCPCS: 70450; 70486; 72125; 99284

== ENCOUNTER → 2022-11-25 | Outpatient (CLI) | payer MEDICARE ==
[2022-11-26 08:08] LABS: Chol/HDL Ratio 4.79 Ratio; LDL Cholesterol,Calculated 59.2 mg/dL (0.0-131.0)
[2022-11-26 08:10] LABS: ALT 27 U/L (8-44); AST 51 U/L (13-35); African American GFR (CKD) 54.9 (60.0-200.0); Albumin 4.5 g/dL (3.8-4.9); Albumin/Globulin Ratio 1.73 (1.60-3.17); Alkaline Phosphatase 95 U/L (41-126); BUN/Creat Ratio 18.45 Ratio (12.00-20.00); Blood Urea Nitrogen 20.3 mg/dL (9.0-27.0); Calcium 9.8 mg/dL (8.7-10.3); Carbon Dioxide 16.9 mmol/L (20.0-27.5); Chloride 102 mmol/L (96-109); Globulin 2.6 g/dL (1.6-3.3); Glucose 200 mg/dL (70-110); Non-African American GFR(CKD) 47.4 (60.0-200.0); Sodium 138 mmol/L (135-145); Total Protein 7.1 g/dL (6.2-8.2)
== END | disposition home or self-care (01) ==
LOC: LABWHC1 10:30
PROVIDERS: ATTEND Internal Medicine Interventional Cardiology
DX: I10 Essential (primary) hypertension (principal); E78.2 Mixed hyperlipidemia; E11.37X1 Type 2 diabetes mellitus with diabetic macular edema, resolved following treatment, right eye
CPT/HCPCS: 36415; 80053; 80061; 82306; 83036

== ENCOUNTER 2023-02-04 12:43 | Emergency (ER) | payer MEDICARE ==
[2023-02-04 13:01] VITALS: RESP 16
--- NOTE | 2023-02-04 13:07 | ED ---
General Adult HPI - General Chief complaint: Fall Stated complaint: FALL Time Seen by Provider: 02/04/23 12:51 Source: patient, EMS Mode of arrival: EMS Limitations: no limitations - History of Present Illness Initial comments: Dictation was produced using [employer] dictation software. please excuse any grammatical, word or spelling errors. Chief Complaint: 83-year-old female with history of right-sided residual deficits from previous stroke presents to emergency department after fall History of Present Illness: Patient is a 83-year-old female she presents to emergency department after fall. She states that she was at home when she felt like her left ankle gave out. She fell on her left ankle. She states she struck her head. Denies any loss of consciousness. Patient complaining of left shoulder pain, left ankle pain. She is on anticoagulation medications. Patient brought in by EMS. She has history of chronic back pain that feels like it was irritated from the fall. The ROS documented in this emergency department record has been reviewed and confirmed by me. Those systems with pertinent positive or negative responses have been documented in the HPI. All other systems are other negative and/or noncontributory. PHYSICAL EXAM: General Impression: Alert and oriented x3, not in acute distress HEENT: Normocephalic atraumatic, extra-ocular movements intact, pupils equal and reactive to light bilaterally, mucous membranes moist. Cardiovascular: Heart regular rate and rhythm Chest: Able to complete full sentences, no retractions, no tachypnea Abdomen: abdomen soft, non-tender, non-distended, no organomegaly Musculoskeletal: Pulses present and equal in all extremities, no peripheral edema, all joints ranged with no complications Motor: no focal deficits noted Neurological: CN II-XII grossly intact, no focal motor or sensory deficits noted Skin: Intact with no visualized rashes Psych: Normal affect and mood ED course: 83-year-old female presents emergency department after fall. History of present illness suggests mechanical fall. Vital signs on arrival are within acceptable limits. Nursing notes and chart review was performed Was pt. sent in by a medical professional or institution (, [facility], ACCOUNT OFFICER, urgent care, hospital, or correction...) When possible be specific @ -No Did you speak to anyone other than the patient for history (EMS, parent, family, police, friend...)? What history was obtained from this source @ -EMS Did you review nursing and triage notes (agree or disagree)? Why? @ -I reviewed and agree with nursing and triage notes Were old charts reviewed (outside hosp., previous admission, EMS record, old EKG, old radiological studies, urgent care reports/EKG's, correction records)? Report findings @ -No old charts were reviewed Differential Diagnosis (chest pain, altered mental status, abdominal pain women, abdominal pain men, vaginal bleeding, musculoskeletal, weakness, fever, dyspnea, syncope, headache, dizziness, GI bleed, back pain, seizure, CVA, palpatations, mental health)? @ -Differential Musculoskeletal: Intracranial bleed, cervical spine fracture Muscular strain, contusion, ligament sprain, fracture, arthritis, septic arthritis, bursitis, cellulitis, muscle spasm, nerve compression, DVT, arterial occlusion, herpes zoster, electrolyte abnormality, tumor.... This is not meant to be in all inclusive list EKG interpreted by me (3pts min.). @ -My EKG interpretation: Ventricular rate 69, sinus rhythm,. 181, QRS 91, QTc 412. No [place] prolongation, no QTC prolongation, no ST or T-wave changes noted. Overall, this EKG is unremarkable X-rays interpreted by me (1pt min.). @ -Shoulder x-ray, chest x-ray, ankle x-ray and pelvis x-ray are nonacute CT interpreted by me (1pt min.). @ -Scan of the head and C-spine shows no acute processes. There is a very small superior anterior endplate fracture of L1 vertebral. U/S interpreted by me (1pt. min.). @ -None done What testing was considered but not performed or refused? (CT, X-rays, U/S, labs)? Why? @ -None What meds were considered but not given or refused? Why? @ -None Did you discuss the management of the patient with other professionals (professionals i.e. , PA, ACCOUNT OFFICER, lab, RT, psych nurse, social science professor, plasticator, teacher, accounts officer, counseling case manager)? Give summary @ -Case is discussed with radiologist. Patient case was also discussed with counseling case manager for assessment for home care Was smoking cessation discussed for >3mins.? @ -No Was critical care preformed (if so, how long)? @ -No Were there social determinants of health that impacted care today? How? (Homelessness, low income, unemployed, alcoholism, drug addiction, transportation, low edu. Level, literacy, decrease access to med. care, intermediate, rehab)? @ -Debility with poor social situation Was there de-escalation of care discussed even if they declined (Discuss DNR or withdrawal of care, Hospice)? DNR status @ -No What co-morbidities impacted this encounter? (DM, HTN, Smoking, COPD, CAD, Cancer, CVA, ARF, Chemo, Hep., AIDS, mental health diagnosis, sleep apnea, morbid obesity)? @ -History of CVA with residual deficits, obesity Was patient admitted / discharged? Hospital course, mention meds given and route, prescriptions, significant lab abnormalities, going to OR and other pertinent info. @ --83 year-old feel presents to the emergency department after suffering a mechanical fall. She suffered a right ankle sprain, left shoulder sprain. She does appear to have acute on chronic back pain. There does appear to be evidence of perhaps a new superior endplate fracture. States that her back feels to be about baseline. Disposition as discussed with patient and she is agreeable to discharge. Patient evaluated at bedside by counseling case manager for home assistance. Undiagnosed new problem with uncertain prognosis? @ -No Drug Therapy requiring intensive monitoring for toxicity (Heparin, Nitro, Insulin, Cardizem)? @ -No Were any procedures done? @ -No Diagnosis/symptom? Acute, or Chronic, or Acute on Chronic? Uncomplicated (without systemic symptoms) or Complicated (systemic symptoms)? @ -1. Acute uncomplicated fall Side effects of treatment? @ -No Exacerbation, Progression, or Severe Exacerbation? @ -No Poses a threat to life or bodily function? How? (Chest pain, [place], [place], pneumonia, PE, COPD, DKA, ARF, appy, cholecystitis, CVA, Diverticulitis, Homicidal, Suicidal, threat to staff... and all critical care pts) @ -yes - Related Data Home Medications Medication Instructions Recorded Confirmed Atorvastatin [Lipitor] 40 mg PO DAILY@0800 10/27/21 10/27/21 Canagliflozin [Invokana] 100 mg PO DAILY@0800 10/27/21 10/27/21 Gabapentin 600 mg PO TID@0500,1300,2100 10/27/21 10/27/21 HYDROcodone/APAP 10-325MG [[place] 1 tab PO Q6H PRN 10/27/21 10/27/21 10-325] Metoprolol Succinate (ER) [Toprol 50 mg PO DAILY@0800 10/27/21 10/27/21 Xl] Potassium Chloride ER [K-Dur 10] 10 meq PO DAILY@0800 10/27/21 10/27/21 Rivaroxaban [Xarelto] 10 mg PO DAILY@0800 10/27/21 10/27/21 lisinopriL [Zestril] 10 mg PO DAILY@0800 10/27/21 10/27/21 traZODone HCL 150 mg PO BID@0800,1600 10/27/21 10/27/21 Allergies Allergy/AdvReac Type Severity Reaction Status Date / Time No Known Allergies Allergy Verified 02/04/23 13:01 Review of Systems ROS Statement: Those systems with pertinent positive or pertinent negative responses have been documented in the HPI. ROS Other: All systems not noted in ROS Statement are negative. 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 skin cancer. Developmently delayed History of Any Multi-Drug Resistant Organisms: None Reported Past Surgical History: Hysterectomy Past Anesthesia/Blood Transfusion Reactions: No Reported Reaction Past Psychological History: Unable to Obtain Smoking Status: Never smoker Past Alcohol Use History: None Reported Past Drug Use History: None Reported - Past Family History Father History Unknown: Yes Mother History Unknown: Yes General Exam Limitations: no limitations Course Vital Signs 02/04/23 12:53 Temperature 98.0 F Pulse Rate 62 Respiratory 16 Rate O2 Sat by Pulse 96 Oximetry Disposition Clinical Impression: Fall Disposition: HOME SELF-CARE Condition: Fair Instructions (If sedation given, give patient instructions): Fall Prevention for Older Adults (ED) Is patient prescribed a controlled substance at d/c from ED?: No Referrals: Jorge Alberto Gu DO [Primary Care Provider] - 1-2 days Time of Disposition: 14:23
--- NOTE | 2023-02-04 13:33 | CT ---
EXAMINATION TYPE: CT brain shaniqua wo con DATE OF EXAM: 02/04/2023 COMPARISON: 10/27/2021 HISTORY: Fall. CT DLP: 1498.9 mGycm, Automated exposure control for dose reduction was used. CONTRAST: Patient injected with 0 mL of Isovue 300. CT of the brain is performed utilizing 3 mm thick sections through the posterior fossa and 3 mm thick sections through the remaining calvarium. Study is performed within 24 hours of arrival to the hospital. No abnormal hyperdensity is present to suggest an acute intracranial hemorrhage. No mass lesion is evident. No acute infarcts are evident. Mild periventricular white matter changes may be present. Ventricles and sulci are mildly prominent for the patient age. Paranasal sinuses and mastoid air cells within the [id number] are clear. IMPRESSIONS: 1. Mild age-related atrophy with mild periventricular white matter ischemic type changes. Follow-up M RI can be performed as clinically indicated. CT cervical spine. COMPARISON: None CT of the cervical spine is performed in the axial plane at 2 mm thick sections. Reconstructed image s in the coronal, and sagittal plane are reviewed on the computer. No acute fractures are evident. Vertebral body alignment is normal. Narrowing of the C4-5 and C5-6 disc levels. Posterior endplate spurring is present C6 with moderate a nterior thecal sac compression. Cord contact may be present. AP spinal canal stenosis is not present. Vertebral body heights are preserved. No spinal canal stenosis is evident. No neural foraminal stenosis is evident. There may be some emphysematous changes within the lung apices. IMPRESSIONS: 1. Posterior endplate spurring at C5-6 with moderate anterior thecal sac impression.
--- NOTE | 2023-02-04 13:39 | CT ---
EXAMINATION TYPE: CT lumbar spine wo con DATE OF EXAM: 02/04/2023 1:21 PM COMPARISON: None HISTORY: Fall. Pain CT DLP: 1651.6 mGycm Automated exposure control for dose reduction was used. Unenhanced CT of the lumbar spine was performed. Bone and soft tissue window settings are submitted as well as coronal and sagittal reconstructions. L1-L2: There is a mild superior endplate compression fracture L1. No obvious canal stenosis. Neural f oramina patent. L2-L3: Vacuum discs compatible severe degenerative disc disease. No fracture identified. Diffuse circ umferential disc bulging with ligamentum flavum hypertrophy and canal stenosis and bilateral foramina l protrusion. L3-L4: Diffuse disc protrusion with hypertrophic changes of facets. There is severe canal stenosis an d bilateral foraminal approach. L4-L5: Grade 1 anterolisthesis with broad-based disc protrusion, hypertrophy of the facet joints and ligamentum flavum. There is severe canal stenosis and bilateral foraminal enlargement. Grade 1 priscilla listhesis. L5-S1: Severe facet arthropathy. Broad-based disc bulging with ligamentum flavum hypertrophy. Suspect canal stenosis and bilateral foraminal encroachment. Atherosclerotic change of the aorta. Diverticulosis of the colon. Nonspecific perinephric stranding. Small hiatal hernia. IMPRESSION: 1. Acute mild superior endplate compression fracture L1. 2. Multilevel severe degenerative disc disease, ligamentum flavum hypertrophy, and facet arthropathy resulting in multilevel severe canal stenosis and foraminal encroachment. 3. Grade 1 anterolisthesis L4 on L5.
--- NOTE | 2023-02-04 13:45 | XR ---
EXAMINATION TYPE: XR shoulder complete LT DATE OF EXAM: 02/04/2023 COMPARISON: NONE HISTORY: Pain TECHNIQUE: Shoulder examined in 3 projections. FINDINGS: The humeral head articulates with the glenoid. The acromio-clavicular junction is normal. No acute fractures or dislocations are evident. A follow up study can be performed 7-10 days from acute trauma for continued pain. MRI can be perfor med if soft tissue evaluation would be of benefit. IMPRESSION: 1. No acute osseous shoulder abnormality.
--- NOTE | 2023-02-04 13:46 | XR ---
EXAMINATION TYPE: XR pelvis AP view DATE OF EXAM: 02/04/2023 COMPARISON: None HISTORY: Fall, pain TECHNIQUE: AP pelvis FINDINGS: Femoral heads articulate with the acetabulum. Joint spaces are preserved. No acute fracture or dislocation is evident. Sacroiliac joints and symphysis pubis are normal IMPRESSION: 1. No acute osseous abnormality AP pelvis
--- NOTE | 2023-02-04 13:47 | XR ---
EXAMINATION TYPE: XR ankle complete LT DATE OF EXAM: 02/04/2023 COMPARISON: None HISTORY: Fall, pain TECHNIQUE: 3 view left ankle FINDINGS: Ankle mortise is intact. No acute fracture or dislocation is evident plantar calcaneal heel spurs are present. Vascular calcification is noted. Soft tissues appear slightly prominent over the medial malleolus. There is a calcification within the periphery from uncertain etiology. Follow up exams can be performed 7-10 days from acute trauma for continued pain. IMPRESSION: 1. No acute osseous abnormality left ankle. 2. Mild soft tissue swelling medial malleolus
--- NOTE | 2023-02-04 13:49 | XR ---
EXAMINATION TYPE: XR chest 2V DATE OF EXAM: 02/04/2023 COMPARISON: 08/11/2020 INDICATION: Fall TECHNIQUE: Single frontal view of the chest is obtained. FINDINGS: The heart size is moderately prominent. The pulmonary vasculature is normal. The lungs are clear. No pneumothorax is evident. Osseous structures as visualized appear intact. IMPRESSION: 1. No acute pulmonary process. 2. Cardiomegaly
[2023-02-04] MEDS ORDERED: traMADol 50 MG STARTER PACK 3 TAB BTL PO STA (14:23)
[2023-02-04 16:45] VITALS: BP 143/80; PULSE 78; TEMP 97.1
== END 2023-02-04 16:59 | disposition home or self-care (01) ==
LOC: EC 12:43
DX: S32.019A Unspecified fracture of first lumbar vertebra, initial encounter for closed fracture (principal); I10 Essential (primary) hypertension; E11.9 Type 2 diabetes mellitus without complications; Z79.899 Other long term (current) drug therapy; W18.30XA Fall on same level, unspecified, initial encounter; Y92.009 Unspecified place in unspecified non-institutional (private) residence as the place of occurrence of the external cause
CPT/HCPCS: 70450; 71046; 72125; 72131; 72170; 93005; 99285

== ENCOUNTER → 2023-05-07 | Outpatient (CLI) | payer MEDICARE ==
[2023-05-07 12:06] LABS: Appearance,Urine Clear (Clear); Bilirubin,Urine Negative (Negative); Blood,Urine Negative (Negative); Color,Urine Light Yellow; Glucose,Urine (UA) 4+ (Negative); Hyaline Casts,Urine 1 /lpf (0-2); Ketones,Urine Negative (Negative); Leukocyte Esterase,Urine Small (Negative); Mucus,Urine Rare /hpf; Nitrite,Urine Negative (Negative); Protein,Urine Negative (Negative); RBC,Urine 1 /hpf (0-5); Specific Gravity,Urine 1.017 (1.001-1.035); Squamous Epithelial Cell,Urine <1 /hpf (0-4); Urobilinogen,Urine <2.0 mg/dL (<2.0); WBC,Urine 2 /hpf (0-5)
[2023-05-07 17:04] LABS: ALT 13 U/L (8-44); AST 14 U/L (13-35); Albumin 4.4 d/dL (3.8-4.9); Albumin/Globulin Ratio 1.83 Ratio (1.60-3.17); Alkaline Phosphatase 105 U/L (41-126); BUN/Creat Ratio 25.25 Ratio (12.00-20.00); Blood Urea Nitrogen 20.2 mg/dL (9.0-27.0); Calcium 9.8 mg/dL (8.7-10.3); Carbon Dioxide 22.7 mmol/L (21.6-31.8); Chloride 108 mmol/L (96-109); Chol/HDL Ratio 4.53 Ratio; Globulin 2.4 d/dL (1.6-3.3); Glucose 166 mg/dL (70-110); LDL Cholesterol,Calculated 45.9 mg/dL (0.0-131.0); Potassium 4.9 mmol/L (3.5-5.5); Sodium 143 mmol/L (135-145); Total Bilirubin 0.4 mg/dL (0.3-1.2); Total Protein 6.8 d/dL (6.2-8.2)
[2023-05-07 17:34] LABS: HGB 15.6 d/dL (12.0-15.0); MCH 29.6 pg (27.0-32.0); MCHC 32.5 d/dL (32.0-37.0); MCV 91.1 FL (80.0-97.0); Mean Platelet Volume 12.6 FL (9.5-12.2); NRBC Per 100 WBC 0 X 10*3/uL (0.00-0.01); Platelet Count 152 X 10*3/uL (140-440); RBC 5.27 X 10*6/uL (4.10-5.20); RDW 13.1 % (11.5-14.5); WBC 9.45 X 10*3/uL (4.50-10.00)
[2023-05-07 21:48] LABS: Urine Creatinine 44.2 mg/dL (28.0-217.0)
== END | disposition home or self-care (01) ==
LOC: LABWHC1 10:05
PROVIDERS: ATTEND Family Medicine
DX: Z00.01 Encounter for general adult medical examination with abnormal findings (principal); I10 Essential (primary) hypertension; E11.37X1 Type 2 diabetes mellitus with diabetic macular edema, resolved following treatment, right eye; E78.5 Hyperlipidemia, unspecified; F32.9 Major depressive disorder, single episode, unspecified
CPT/HCPCS: 36415; 80053; 80061; 81001; 82043; 82306; 82570; 85027

== ENCOUNTER 2023-06-11 12:36 | Emergency (ER) | payer MEDICARE ==
--- NOTE | 2023-06-11 13:44 | ED ---
Fall HPI - General Chief Complaint: Fall Stated Complaint: fall Time Seen by Provider: 06/11/23 12:54 Source: patient, RN notes reviewed Mode of arrival: EMS Limitations: no limitations - History of Present Illness Initial Comments: This is an 83-year-old female who presents to the emergency department for a fall. Patient states that she was getting into a lounge chair, when her left knee gave out on her and she fell backwards, hitting the back of her head. Denies any loss of consciousness. She is taking Xarelto. Also complains of pain to the left knee and hip. Denies any fevers, chills, sore throat, cough, dyspnea, chest pain, palpitations, abdominal pain, nausea, vomiting, diarrhea, or back pain. MD Complaint: fall - Related Data Home Medications Medication Instructions Recorded Confirmed Atorvastatin [Lipitor] 40 mg PO HS 10/27/21 06/11/23 Canagliflozin [Invokana] 100 mg PO DAILY 10/27/21 06/11/23 HYDROcodone/APAP 10-325MG [[place]ira 1 tab PO QID 10/27/21 06/11/23 10-325] Metoprolol Succinate (ER) [Toprol 50 mg PO DAILY 10/27/21 06/11/23 Xl] Potassium Chloride ER [K-Dur 10] 10 meq PO DAILY 10/27/21 06/11/23 lisinopriL [Zestril] 10 mg PO DAILY 10/27/21 06/11/23 traZODone HCL 150 mg PO HS 10/27/21 06/11/23 Gabapentin [Neurontin] 300 mg PO TID 06/11/23 06/11/23 Glimepiride [Amaryl] 2 mg PO DAILY 06/11/23 06/11/23 Rivaroxaban [Xarelto] 2.5 mg PO BID 06/11/23 06/11/23 Sertraline [Zoloft] 150 mg PO DAILY 06/11/23 06/11/23 Allergies Allergy/AdvReac Type Severity Reaction Status Date / Time No Known Allergies Allergy Verified 06/11/23 13:38 Review of Systems ROS Statement: Those systems with pertinent positive or pertinent negative responses have been documented in the HPI. ROS Other: All systems not noted in ROS Statement are negative. 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 skin cancer. Developmently delayed History of Any Multi-Drug Resistant Organisms: None Reported Past Surgical History: Hysterectomy Past Anesthesia/Blood Transfusion Reactions: No Reported Reaction Past Psychological History: Unable to Obtain Smoking Status: Never smoker Past Alcohol Use History: None Reported Past Drug Use History: None Reported - Past Family History Father History Unknown: Yes Mother History Unknown: Yes General Exam Limitations: no limitations General appearance: alert, in no apparent distress Head exam: Present: atraumatic, normocephalic, normal inspection Eye exam: Present: normal appearance, PERRL, EOMI. Absent: scleral icterus, conjunctival injection, periorbital swelling Respiratory exam: Present: normal lung sounds bilaterally. Absent: respiratory distress, wheezes, rales, rhonchi, stridor Cardiovascular Exam: Present: regular rate, normal rhythm, normal heart sounds. Absent: systolic murmur, diastolic murmur, rubs, gallop, clicks Extremities exam: Present: other (Mild tenderness to palpation over the left knee and left greater trochanter. No overlying deformities. 2+ DP and PT pulses. Capillary refill less than 1 second.) Neurological exam: Present: alert, oriented X3, CN II-XII intact Psychiatric exam: Present: normal affect, normal mood Skin exam: Present: warm, dry, intact, normal color. Absent: rash Course Vital Signs 06/11/23 06/11/23 06/11/23 12:42 13:00 14:00 Temperature 98.5 F Pulse Rate 67 Respiratory 16 Rate Blood Pressure 184/90 184/90 191/90 O2 Sat by Pulse 96 95 94 L Oximetry Medical Decision Making - Medical Decision Making This is an 83-year-old female who presents to the emergency department for a fall. Was pt. sent in by a medical professional or institution? @ -No Did you speak to anyone other than the patient for history? @ -No Did you review nursing and triage notes? @ -Yes, and I agree, it is accurate with regards to the patient's symptoms. Were old charts reviewed? @ -No Differential Diagnosis? @ -Differential Diagnosis Head Injury: Contusion, hematoma, intracranial hemorrhage, skull fracture, whiplash, concussion, this is not meant to be an all-inclusive list. EKG interpreted by me (3pts min.)? @ -Not obtained X-rays interpreted by me (1pt min.)? @ -X-ray of the left hip and knee obtained. My interpretation identifies no acute fractures or dislocations. CT interpreted by me (1pt min.)? @ -Computed tomography scan of the brain and c-spine obtained. My interpretation identifies no evidence of an acute intracranial hemorrhage, skull fracture, or cervical spine fracture. U/S interpreted by me (1pt. min.)? @ -Not obtained What testing was considered but not performed? (CT, X-rays, U/S, labs)? Why? @ -None What meds were considered but not given? Why? @ -None Did you discuss the management of the patient with other professionals? @ -No Did you reconcile home meds? @ -No Was smoking cessation discussed for >3mins.? @ -No Was critical care preformed (if so, how long)? @ -No Were there social determinants of health that impacted care today? How? (Homele ssness, low income, unemployed, alcoholism, drug addiction, transportation, low edu. Level, literacy, decrease access to med. care, skilled nursing, rehab)? @ -No Was there de-escalation of care discussed even if they declined? (Discuss DNR or withdrawal of care, Hospice)? @ -No What co-morbidities impacted this encounter? (DM, HTN, Smoking, COPD, CAD, Cancer, CVA, Hep., AIDS, mental health diagnosis, sleep apnea, morbid obesity)? @ -OA, hx of CVA w/deficits Was patient admitted / discharged? @ -Discharged. Computed tomography scan of the brain and C-spine as well as an x-ray of the left hip and left knee obtained revealing no acute process. She was given a dose of Tylenol #3 in the emergency department for pain control. Patient discharged back to [facility] in stable condition. Advised Tylenol as needed for any additional pain relief and applying ice to the affected areas for 10-15 minutes every 2-3 hours. Undiagnosed new problem with uncertain prognosis? @ -None Drug Therapy requiring intensive monitoring for toxicity (Heparin, Nitro, Insulin, Cardizem)? @ -None Were any procedures done? @ -None Diagnosis/symptom? @ -Fall, left hip pain, left knee pain Acute, or Chronic, or Acute on Chronic? @ -Acute Uncomplicated (without systemic symptoms) or Complicated (systemic symptoms)? @ -Uncomplicated Side effects of treatment? @ -None Exacerbation, Progression, or Severe Exacerbation] @ -Not applicable Poses a threat to life or bodily function? @ -No Return precautions reviewed in depth, the patient is instructed to return to the emergency department with any new, worsening, or concerning symptoms. Patient verbalized understanding. This case was discussed in detail with the attending ED physician, Dr. Quach. Presentation, findings, and treatment plan discussed in detail as well. - Radiology Data Radiology results: report reviewed, image reviewed Disposition Clinical Impression: Fall, Head injury, Left leg pain Disposition: HOME SELF-CARE Instructions (If sedation given, give patient instructions): Fall Prevention for Older Adults (ED) Additional Instructions: Return to the emergency department with any new, worsening, or concerning symptoms. Take Tylenol as needed for pain relief. Follow up with your primary care provider in 1-2 days. Is patient prescribed a controlled substance at d/c from ED?: No Referrals: Jorge Alberto Gu DO [Primary Care Provider] - 1-2 days
--- NOTE | 2023-06-11 14:08 | CT ---
EXAMINATION TYPE: CT brain cspine wo con CT DLP: 1411.6 mGycm, Automated exposure control for dose reduction was used. DATE OF EXAM: 06/11/2023 1:49 PM COMPARISON: CT brain C-spine 02/04/2023. CLINICAL INDICATION:Female, 83 years old with history of Fall; Fall TECHNIQUE: Brain: Multiple axial CT images of the brain were obtained without IV contrast. Cspine: Axial CT images from the skull base to the inferior aspect of T2 we obtained without intraven ous contrast. Coronal and sagittal reformatted images were also reviewed. FINDINGS: Brain: Extra-axial spaces: No abnormal extra-axial fluid collections. Ventricular system: Within normal limits Cerebral parenchyma: Cerebral atrophy. No acute intraparenchymal hemorrhage or mass effect. The frey -white junction is well differentiated. Scattered hypoattenuating areas are seen within the white mat ter. Cerebellum: Unremarkable. Mass effect: No evidence of midline shift. Intracranial vasculature: Atherosclerotic calcifications of the intracranial vessels. Soft tissues: Normal. Calvarium/osseous structures: No depressed skull fracture. Benign hyperostosis frontalis noted. Paranasal sinuses and mastoid air cells: Clear. Visualized orbits: Bilateral aphakia. Postsurgical changes the right globe. Cervical spine: Fracture: None. Osseous structures: Multilevel degenerative disc disease changes with endplate spurring and disc oste ophyte complex's. Multilevel facet arthropathy. Vertebral alignment: Within normal limits. Spinal canal/Neural Foramina: Disc osteophyte complexes at C4-C5 and C5-C6 with at least mild spinal canal stenosis. Facet joint uncovertebral joint arthropathy scattered throughout the cervical spine w ith varying degrees of neural foraminal stenosis. Neck soft tissues: Prevertebral soft tissues are within normal limits. Other: The airway is patent. The lung apices are clear. Heterogenous enlarged left thyroid lobe redem onstrated. IMPRESSION: 1. No acute intracranial process. 2. Nonspecific white matter changes, likely secondary to chronic small vessel ischemic disease. 3. No evidence of cervical spine fracture. 4. Mild multilevel degenerative disc disease.
--- NOTE | 2023-06-11 15:29 | XR ---
EXAMINATION TYPE: XR knee complete LT DATE OF EXAM: 06/11/2023 3:23 PM INDICATION: Patient age:Female; 83 years old; Reason for study: Fall; [facility]. COMPARISON: Left knee radiograph 10/27/2021 TECHNIQUE: The Left knee(s) was examined in 3 projections. Frontal, lateral and oblique. FINDINGS: Diffuse bone demineralization. No acute fracture or dislocation. Tricompartmental joint sp cristin narrowing with sclerosis and marginal cytosis. This is most pronounced involving the medial tibio femoral joint space. Supra and infrapatellar spurring noted. No sizable joint effusion. No significan t soft tissue edema. Vascular calcifications. IMPRESSION: 1. No acute osseous pathology. 2. Moderate tricompartmental osteoarthritic changes.
--- NOTE | 2023-06-11 15:32 | XR ---
EXAMINATION TYPE: XR Hip Complete LT DATE OF EXAM: 06/11/2023 3:24 PM INDICATION: Patient age:Female; 83 years old; Reason for study: Fall; [facility]. COMPARISON: Pelvic radiograph 02/04/2023 TECHNIQUE: The left hip was examined in the frontal and lateral projections . FINDINGS: No evidence of any acute osseous pathology, joint dislocation, or soft tissue swelling. IMPRESSION: No acute osseous pathology.
[2023-06-11] MEDS ORDERED: Acetaminophen-Codeine 300-30mg TAB PO STA (15:43)
[2023-06-11 17:35] VITALS: BP 160/85; PULSE 74; RESP 17; TEMP 97.8
== END 2023-06-11 17:35 | disposition home or self-care (01) ==
LOC: EC 12:36
DX: S09.90XA Unspecified injury of head, initial encounter (principal); M25.562 Pain in left knee; M25.552 Pain in left hip; E11.9 Type 2 diabetes mellitus without complications; I10 Essential (primary) hypertension; Z79.84 Long term (current) use of oral hypoglycemic drugs; Z79.01 Long term (current) use of anticoagulants; Z79.899 Other long term (current) drug therapy; Z86.73 Personal history of transient ischemic attack (TIA), and cerebral infarction without residual deficits; W07.XXXA Fall from chair, initial encounter
CPT/HCPCS: 70450; 72125; 73502

== ENCOUNTER 2023-06-12 17:48 | Observation (INO) | payer MEDICARE ==
[2023-06-12] MEDS ORDERED: IBUPROFEN 800 MG TAB PO STA ×2 (18:13→23:14)
--- NOTE | 2023-06-12 18:16 | ED ---
General Adult HPI - General Chief complaint: Fall Stated complaint: Fall Time Seen by Provider: 06/12/23 18:02 Source: patient, EMS, RN notes reviewed Mode of arrival: EMS Limitations: no limitations - History of Present Illness Initial comments: 83-year-old female with a past medical history significant for hypertension, diabetes, TIA presents to department via EMS with a chief complaint of fall. Patient reports that she was trying to get out of bed when she lost her footing and fell. She is unsure of whether she hit her head or lost consciousness. She reports that the fall occurred at 10 AM. She was unable to hit her lifeline as it was on her dresser. She denies any anticoagulant use. She is complaining of generalized left-sided body pain. She did not take anything for pain prior to arrival. Patient was here 06/11/2023 for similar. - Related Data Home Medications Medication Instructions Recorded Confirmed Atorvastatin [Lipitor] 40 mg PO HS 10/27/21 06/13/23 Canagliflozin [Invokana] 100 mg PO DAILY 10/27/21 06/13/23 HYDROcodone/APAP 10-325MG [[place] 1 tab PO QID 10/27/21 06/13/23 10-325] Metoprolol Succinate (ER) [Toprol 50 mg PO DAILY 10/27/21 06/13/23 Xl] Potassium Chloride ER [K-Dur 10] 10 meq PO DAILY 10/27/21 06/13/23 lisinopriL [Zestril] 10 mg PO DAILY 10/27/21 06/13/23 traZODone HCL 150 mg PO HS 10/27/21 06/13/23 Gabapentin [Neurontin] 300 mg PO TID 06/11/23 06/13/23 Glimepiride [Amaryl] 2 mg PO DAILY 06/11/23 06/13/23 Rivaroxaban [Xarelto] 2.5 mg PO BID 06/11/23 06/13/23 Sertraline [Zoloft] 150 mg PO DAILY 06/11/23 06/13/23 Allergies Allergy/AdvReac Type Severity Reaction Status Date / Time No Known Allergies Allergy Verified 06/12/23 17:56 Review of Systems ROS Statement: Those systems with pertinent positive or pertinent negative responses have been documented in the HPI. ROS Other: All systems not noted in ROS Statement are negative. 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 skin cancer. Developmently delayed History of Any Multi-Drug Resistant Organisms: None Reported Past Surgical History: Hysterectomy Past Anesthesia/Blood Transfusion Reactions: No Reported Reaction Past Psychological History: Unable to Obtain Smoking Status: Never smoker Past Alcohol Use History: None Reported Past Drug Use History: None Reported - Past Family History Father History Unknown: Yes Mother History Unknown: Yes General Exam - General Exam Comments Initial Comments: General: Alert, in no acute distress Head: atraumatic normocephalic. Eyes PERRL, EOMI intact, mucous membranes moist Respiratory: Lungs clear to auscultation bilaterally Cardiovascular: Heart rate regular rate and rhythm Abdominal: Soft without guarding or rebound Extremities: Normal inspection with full range of motion and normal capillary refill Neuroogic: alert and oriented 3, CN II-XII intact, able to ambulate with steady gait Skin: warm dry and intact with normal color Limitations: no limitations Course Vital Signs 06/12/23 06/12/23 06/12/23 17:53 19:00 20:12 Temperature 98.1 F Pulse Rate 78 Respiratory 18 Rate Blood Pressure 199/92 199/92 126/62 O2 Sat by Pulse 95 Oximetry Medical Decision Making - Medical Decision Making Was pt. sent in by a medical professional or institution (, PA, MOLD FILLER, urgent care, hospital, or fpc...) When possible be specific @ -[No] Did you speak to anyone other than the patient for history (EMS, parent, family, police, friend...)? What history was obtained from this source @ -EMS Did you review nursing and triage notes (agree or disagree)? Why? @ -[I reviewed and agree with nursing and triage notes] Were old charts reviewed (outside hosp., previous admission, EMS record, old EKG, old radiological studies, urgent care reports/EKG's, fpc records)? Report findings @ -[No old charts were reviewed] Differential Diagnosis (chest pain, altered mental status, abdominal pain women, abdominal pain men, vaginal bleeding, weakness, fever, dyspnea, syncope, headache, dizziness, GI bleed, back pain, seizure, CVA, palpatations, mental health, musculoskeletal)? @ -[not applicable] EKG interpreted by me (3pts min.). @ -[As above] X-rays interpreted by me (1pt min.). @ -Hip x-ray reveals mild bilateral hip joint space narrowing with degenerative changes, without evidence of fracture, Femur x-ray Negative for any evidence of fracture or dislocation Chest x-ray negative for any acute pulmonary process CT brain and cervical spine negative for any intracranial process. Mild degenerative disc changes between C5-C6 CT interpreted by me (1pt min.). @ -CT head and neck unremarkable for any evidence of intracranial process U/S interpreted by me (1pt. min.). @ -[None done] What testing was considered but not performed or refused? (CT, X-rays, U/S, labs)? Why? @ -[None] What meds were considered but not given or refused? Why? @ -[None] Did you discuss the management of the patient with other professionals (professionals i.e. , PA, MOLD FILLER, lab, RT, psych nurse, social media marketing analyst, lab aid, teacher, morals squad police officer, counseling case manager)? Give summary @ -[No] Was smoking cessation discussed for >3mins.? @ -[No] Was critical care preformed (if so, how long)? @ -[No] Were there social determinants of health that impacted care today? How? (Marciano elessness, low income, unemployed, alcoholism, drug addiction, transportation, low edu. Level, literacy, decrease access to med. care, halfway, rehab)? @ -[No] Was there de-escalation of care discussed even if they declined (Discuss DNR or withdrawal of care, Hospice)? DNR status @ -[No] What co-morbidities impacted this encounter? (DM, HTN, Smoking, COPD, CAD, Cancer, CVA, ARF, Chemo, Hep., AIDS, mental health diagnosis, sleep apnea, morbid obesity)? @ -[None] Was patient admitted / discharged? Hospital course, mention meds given and route, prescriptions, significant lab abnormalities, going to OR and other pertinent info. @ -Admission. This is a pleasant 83-year-old female presents to the emergency department with increased weakness and frequent falls. Patient had a thorough history and physical exam performed on the emergency department. Phy sical exam is essentially unremarkable. No focal neuro deficits. Patient able to move all extremities freely. Patient is able to answer questions appropriately however she is unable to ambulate. Patient had extensive laboratory and imaging studies performed on the emergency department which were essentially unremarkable. I discussed the results in detail with the patient verbalized understanding all questions were addressed. Case discussed with Dr. Ponce, [facility] who agrees with the plan of care and accepts the patient for admission for further observation as patient is unable to ambulate. Case discussed with Dr. Encinas, who agrees poc Undiagnosed new problem with uncertain prognosis? @ -[No] Drug Therapy requiring intensive monitoring for toxicity (Heparin, Nitro, Insulin, Cardizem)? @ -[No] Were any procedures done? @ -[No] Diagnosis/symptom? @ -Weakness - Frequent Falls Acute, or Chronic, or Acute on Chronic? @ -Acute on Chronic Uncomplicated (without systemic symptoms) or Complicated (systemic symptoms)? @ -Uncomplicated Side effects of treatment? @ -[No] Exacerbation, Progression, or Severe Exacerbation? @ -[No] Poses a threat to life or bodily function? How? (Chest pain, [place], [place], pneumonia, PE, COPD, DKA, ARF, appy, cholecystitis, CVA, Diverticulitis, Homicidal, Suicidal, threat to staff... and all critical care pts) @ -Moderate Likelihood - Lab Data Result diagrams: 06/13/23 06:08 06/13/23 06:08 Lab Results 06/12/23 06/12/23 06/12/23 Range/Units 18:56 18:56 18:56 WBC 14.2 H (3.8-10.6) k/uL RBC 5.20 (3.80-5.40) m/uL Hgb 15.9 (11.4-16.0) gm/dL Hct 47.1 H (34.0-46.0) % MCV 90.6 (80.0-100.0) fL MCH 30.5 (25.0-35.0) pg MCHC 33.7 (31.0-37.0) g/dL RDW 13.8 (11.5-15.5) % Plt Count 144 L (150-450) k/uL MPV 9.0 Neutrophils % 79 % Lymphocytes % 14 % Monocytes % 5 % Eosinophils % 1 % Basophils % 1 % Neutrophils # 11.2 H (1.3-7.7) k/uL Lymphocytes # 1.9 (1.0-4.8) k/uL Monocytes # 0.7 (0-1.0) k/uL Eosinophils # 0.1 (0-0.7) k/uL Basophils # 0.1 (0-0.2) k/uL Sodium 137 (137-145) mmol/L Potassium 5.2 H (3.5-5.1) mmol/L Chloride 106 (98-107) mmol/L Carbon Dioxide 25 (22-30) mmol/L Anion Gap 6 mmol/L BUN 20 H (7-17) mg/dL Creatinine 0.61 (0.52-1.04) mg/dL Est GFR (CKD-EPI)AfAm >90 (>60 ml/min/1.73 sqM) Est GFR (CKD-EPI)NonAf 85 (>60 ml/min/1.73 sqM) Glucose 138 H (74-99) mg/dL Plasma Lactic Acid Kevin (0.7-2.0) mmol/L Calcium 9.4 (8.4-10.2) mg/dL Total Bilirubin 1.3 (0.2-1.3) mg/dL AST 46 H (14-36) U/L ALT 18 (4-34) U/L Alkaline Phosphatase 106 (38-126) U/L Creatine Kinase 677 H (30-135) U/L Troponin I (0.000-0.034) ng/mL Total Protein 7.2 (6.3-8.2) g/dL Albumin 4.1 (3.5-5.0) g/dL Urine Color Light Yellow Urine Appearance Clear (Clear) Urine pH 5.0 (5.0-8.0) Ur Specific [place] 1.014 (1.001-1.035) Urine Protein Negative (Negative) Urine Glucose (UA) 4+ H (Negative) Urine Ketones Negative (Negative) Urine Blood Trace H (Negative) Urine Nitrite Negative (Negative) Urine Bilirubin Negative (Negative) Urine Urobilinogen <2.0 (<2.0) mg/dL Ur Leukocyte Esterase Small H (Negative) Urine RBC 1 (0-5) /hpf Urine WBC 3 (0-5) /hpf Ur Squamous Epith Cells <1 (0-4) /hpf Urine Mucus Rare H (None) /hpf Influenza Type A (PCR) (Not Detectd) Influenza Type B (PCR) (Not Detectd) RSV (PCR) (Not Detectd) SARS-CoV-2 (PCR) (Not Detectd) 06/12/23 06/12/23 06/12/23 Range/Units 18:56 18:56 18:56 WBC (3.8-10.6) k/uL RBC (3.80-5.40) m/uL Hgb (11.4-16.0) gm/dL Hct (34.0-46.0) % MCV (80.0-100.0) fL MCH (25.0-35.0) pg MCHC (31.0-37.0) g/dL RDW (11.5-15.5) % Plt Count (150-450) k/uL MPV Neutrophils % % Lymphocytes % % Monocytes % % Eosinophils % % Basophils % % Neutrophils # (1.3-7.7) k/uL Lymphocytes # (1.0-4.8) k/uL Monocytes # (0-1.0) k/uL Eosinophils # (0-0.7) k/uL Basophils # (0-0.2) k/uL Sodium (137-145) mmol/L Potassium (3.5-5.1) mmol/L Chloride (98-107) mmol/L Carbon Dioxide (22-30) mmol/L Anion Gap mmol/L BUN (7-17) mg/dL Creatinine (0.52-1.04) mg/dL Est GFR (CKD-EPI)AfAm (>60 ml/min/1.73 sqM) Est GFR (CKD-EPI)NonAf (>60 ml/min/1.73 sqM) Glucose (74-99) mg/dL Plasma Lactic Acid Kevin 1.1 (0.7-2.0) mmol/L Calcium (8.4-10.2) mg/dL Total Bilirubin (0.2-1.3) mg/dL AST (14-36) U/L ALT (4-34) U/L Alkaline Phosphatase (38-126) U/L Creatine Kinase (30-135) U/L Troponin I <0.012 (0.000-0.034) ng/mL Total Protein (6.3-8.2) g/dL Albumin (3.5-5.0) g/dL Urine Color Urine Appearance (Clear) Urine pH (5.0-8.0) Ur Specific [place] (1.001-1.035) Urine Protein (Negative) Urine Glucose (UA) (Negative) Urine Ketones (Negative) Urine Blood (Negative) Urine Nitrite (Negative) Urine Bilirubin (Negative) Urine Urobilinogen (<2.0) mg/dL Ur Leukocyte Esterase (Negative) Urine RBC (0-5) /hpf Urine WBC (0-5) /hpf Ur Squamous Epith Cells (0-4) /hpf Urine Mucus (None) /hpf Influenza Type A (PCR) Not Detected (Not Detectd) Influenza Type B (PCR) Not Detected (Not Detectd) RSV (PCR) Not Detected (Not Detectd) SARS-CoV-2 (PCR) Not Detected (Not Detectd) Disposition Clinical Impression: Fall, Weakness, Frequent falls Disposition: ADMITTED IP TO THIS [facility] Time of Disposition: 23:28
[2023-06-12] MEDS: LIDOCAINE 5% PATCH TOPICAL SCH (18:54)
--- NOTE | 2023-06-12 19:40 | CT ---
EXAMINATION TYPE: CT brain shaniqua wo con DATE OF EXAM: 06/12/2023 COMPARISON: 06/11/2023 HISTORY: fall CT DLP: 1771 mGycm, Automated exposure control for dose reduction was used. CONTRAST: Patient injected with mL of . CT of the brain is performed utilizing 3 mm thick sections through the posterior fossa and 3 mm thick sections through the remaining calvarium. Study is performed within 24 hours of arrival to the hospital. No abnormal hyperdensity is present to suggest an acute intracranial hemorrhage. No mass lesion is evident. No acute infarcts are evident. Ventricles and sulci are mildly prominent. for the patient age. Paranasal sinuses and mastoid air cells within the [id number] are clear. 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 IMPRESSIONS: 1. Atrophy. 2. No acute intracranial process. Follow-up MRI can be performed as clinically indicated CT cervical spine. COMPARISON: None CT of the cervical spine is performed in the axial plane at 2 mm thick sections. Reconstructed image s in the coronal, and sagittal plane are reviewed on the computer. No acute fractures are evident. Vertebral body alignment is normal. Disc space narrowing is present at C5-6. Posterior endplate spurring is present at this level. Vertebral body heights are preserved. No spinal canal stenosis is evident. No neural foraminal stenosis is evident. IMPRESSIONS: 1. Mild degenerative disc change C5-6 with posterior endplate spurring.
[2023-06-12 19:41] LABS: Basophils # (A) 0.1 k/uL (0-0.2); Basophils % (A) 1 %; Eosinophils # (A) 0.1 k/uL (0-0.7); Eosinophils % (A) 1 %; HCT 47.1 % (34.0-46.0); HGB 15.9 gm/dL (11.4-16.0); Lymphocytes # (A) 1.9 k/uL (1.0-4.8); Lymphocytes % (A) 14 %; MCH 30.5 pg (25.0-35.0); MCHC 33.7 g/dL (31.0-37.0); MCV 90.6 fL (80.0-100.0); Monocytes # (A) 0.7 k/uL (0-1.0); Monocytes % (A) 5 %; Neutrophils # (A) 11.2 k/uL (1.3-7.7); Neutrophils % (A) 79 %; Platelet Count 144 k/uL (150-450); RDW 13.8 % (11.5-15.5); WBC 14.2 k/uL (3.8-10.6)
[2023-06-12 19:50] LABS: ALT 18 U/L (4-34); AST 46 U/L (14-36); African American GFR (CKD) >90 (>60 ml/min/1.73 sqM); Albumin 4.1 g/dL (3.5-5.0); Alkaline Phosphatase 106 U/L (38-126); Anion Gap 6 mmol/L; Blood Urea Nitrogen 20 mg/dL (7-17); Calcium 9.4 mg/dL (8.4-10.2); Carbon Dioxide 25 mmol/L (22-30); Chloride 106 mmol/L (98-107); Creatine Kinase 677 U/L (30-135); Glucose 138 mg/dL (74-99); Non-African American GFR(CKD) 85 (>60 ml/min/1.73 sqM); Sodium 137 mmol/L (137-145); Total Bilirubin 1.3 mg/dL (0.2-1.3); Total Protein 7.2 g/dL (6.3-8.2)
[2023-06-12 19:52] LABS: Potassium 5.2 mmol/L (3.5-5.1)
[2023-06-12 20:01] LABS: Appearance,Urine Clear (Clear); Bilirubin,Urine Negative (Negative); Blood,Urine Trace (Negative); Color,Urine Light Yellow; Glucose,Urine (UA) 4+ (Negative); Ketones,Urine Negative (Negative); Leukocyte Esterase,Urine Small (Negative); Mucus,Urine Rare /hpf; Nitrite,Urine Negative (Negative); Protein,Urine Negative (Negative); RBC,Urine 1 /hpf (0-5); Specific Gravity,Urine 1.014 (1.001-1.035); Squamous Epithelial Cell,Urine <1 /hpf (0-4); Urobilinogen,Urine <2.0 mg/dL (<2.0); WBC,Urine 3 /hpf (0-5)
--- NOTE | 2023-06-12 22:12 | XR ---
EXAMINATION TYPE: XR chest 2V DATE OF EXAM: 06/12/2023 COMPARISON: 02/04/2023 INDICATION: Fall, pain TECHNIQUE: Frontal and lateral views of the chest are obtained. FINDINGS: The heart size is normal. The pulmonary vasculature is normal. The lungs are clear. IMPRESSION: 1. No acute pulmonary process.
--- NOTE | 2023-06-12 22:44 | XR ---
EXAMINATION TYPE: XR femur LT DATE OF EXAM: 06/12/2023 COMPARISON: None HISTORY: Fall, pain TECHNIQUE: 2 view left femur FINDINGS: Femoral head articulates with the acetabulum. Joint space is preserved. No acute fracture o r dislocation is evident. Knee joint space degenerative changes are noted. Vascular calcification is present Follow up exams can be performed 7-10 days from acute trauma for continued pain. IMPRESSION: 1. No acute osseous abnormality left femur. 2. Degenerative changes at the knee and hip joint spaces.
--- NOTE | 2023-06-12 22:45 | XR ---
EXAMINATION TYPE: XR Hip Bilateral Complete DATE OF EXAM: 06/12/2023 COMPARISON: None HISTORY: Fall, pain TECHNIQUE: Bilateral hips are examined in 2 projections each. FINDINGS: Left hip: Femoral head articulates with the acetabulum. Mild joint space narrowing is present. No acu te fracture or dislocation is evident. Right hip:Femoral head articulates with the acetabulum. Mild joint space narrowing is present. No acu te fracture or dislocation is evident. IMPRESSION: 1. Mild bilateral hip joint space narrowing and degenerative change.
[2023-06-12] MEDS ORDERED: NALOXONE 0.4 MG/ML 1 ML VIAL IV PRN (23:27)
[2023-06-13] MEDS: SODIUM CHLORIDE 0.9% 1,000 ML IV SCH (01:06)
[2023-06-13] MEDS: ACETAMINOPHEN TAB 325 MG TAB PO PRN ×3 (01:09→20:30)
[2023-06-13] MEDS: HYDROcodone/APAP 10-325MG 1 EACH TAB PO PRN ×2 (02:38→09:57)
[2023-06-13 06:21] LABS: Basophils % (A) 0 %; Eosinophils # (A) 0.2 k/uL (0-0.7); Eosinophils % (A) 2 %; HCT 43.6 % (34.0-46.0); HGB 14.3 gm/dL (11.4-16.0); Lymphocytes # (A) 2.6 k/uL (1.0-4.8); Lymphocytes % (A) 25 %; MCH 30.1 pg (25.0-35.0); MCHC 32.9 g/dL (31.0-37.0); MCV 91.5 fL (80.0-100.0); Monocytes # (A) 0.6 k/uL (0-1.0); Monocytes % (A) 6 %; Neutrophils # (A) 6.7 k/uL (1.3-7.7); Neutrophils % (A) 65 %; Platelet Count 132 k/uL (150-450); RBC 4.77 m/uL (3.80-5.40); RDW 13.8 % (11.5-15.5); WBC 10.4 k/uL (3.8-10.6)
[2023-06-13 06:31] LABS: African American GFR (CKD) 77 (>60 ml/min/1.73 sqM); Anion Gap 5 mmol/L; Blood Urea Nitrogen 24 mg/dL (7-17); Calcium 8.8 mg/dL (8.4-10.2); Carbon Dioxide 26 mmol/L (22-30); Chloride 107 mmol/L (98-107); Glucose 139 mg/dL (74-99); Non-African American GFR(CKD) 67 (>60 ml/min/1.73 sqM); Potassium 4.1 mmol/L (3.5-5.1); Sodium 138 mmol/L (137-145)
[2023-06-13] MEDS: LIDOCAINE 5% PATCH TOPICAL SCH (09:49)
[2023-06-13] MEDS: METOPROLOL SUCCINATE (ER) 50 MG TAB.ER.24H PO SCH (11:34)
[2023-06-13] MEDS: SERTRALINE 50 MG TAB PO SCH (11:34)
[2023-06-13] MEDS: lisinopriL 10 MG TAB PO SCH (11:35)
--- NOTE | 2023-06-13 11:49 | P.HPIM ---
History of Present Illness Patient with history of residual right-sided weakness came in after fall patient is a mechanical fall patient denied any syncopal episode patient is alert oriented 3. Patient will need physical therapy evaluation. Patient is on a very small dose of Xarelto 2.5 mg twice a day apparently for stroke as per the patient. REVIEW OF SYSTEMS: CONSTITUTIONAL: No fever, no malaise, no fatigue. HEENT: No recent visual problems or hearing problems. Denied any sore throat. CARDIOVASCULAR: No chest pain, orthopnea, PND, no palpitations, no syncope. PULMONARY: No shortness of breath, no cough, no hemoptysis. GASTROINTESTINAL: No diarrhea, no nausea, no vomiting, no abdominal pain. NEUROLOGICAL: No headaches, no weakness, no numbness. HEMATOLOGICAL: Denies any bleeding or petechiae. GENITOURINARY: Denies any burning micturition, frequency, or urgency. MUSCULOSKELETAL/RHEUMATOLOGICAL: Denies any joint pain, swelling, or any muscle pain. ENDOCRINE: Denies any polyuria or polydipsia. The rest of the 14-point review of systems is negative. PHYSICAL EXAMINATION: GENERAL: The patient is alert and oriented x3, not in any acute distress. Well developed, well nourished. HEENT: Pupils are round and equally reacting to light. EOMI. No scleral icterus. No conjunctival pallor. Normocephalic, atraumatic. No pharyngeal erythema. No thyromegaly. CARDIOVASCULAR: S1 and S2 present. No murmurs, rubs, or gallops. PULMONARY: Chest is clear to auscultation, no wheezing or crackles. ABDOMEN: Soft, nontender, nondistended, normoactive bowel sounds. No palpable organomegaly. MUSCULOSKELETAL: No joint swelling or deformity. EXTREMITIES: No cyanosis, clubbing, or pedal edema. NEUROLOGICAL: Gross neurological examination did not reveal any focal deficits. Residual weakness of the left side and right side of the face SKIN: No rashes. Assessment and plan -Fall: Age-related muscle atrophy and due to her stroke in the past patient will need physical therapy and outpatient therapy evaluation. Patient has been hav ing multiple falls in the past -Hyperlipidemia -Hypertension -Peripheral neuropathy, diabetic peripheral neuropathy -Type 2 diabetes mellitus -History of CVA in the past -Leukocytosis reactive without any evidence of infection and reactive seconded to fall DVT prophylaxis: On anti-correlation as mentioned above 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 skin cancer. Developmently delayed History of Any Multi-Drug Resistant Organisms: None Reported Past Surgical History: Hysterectomy Past Anesthesia/Blood Transfusion Reactions: No Reported Reaction Smoking Status: Never smoker - Past Family History Father History Unknown: Yes Mother History Unknown: Yes Medications and Allergies Home Medications Medication Instructions Recorded Confirmed Type Atorvastatin [Lipitor] 40 mg PO HS 10/27/21 06/13/23 History Canagliflozin [Invokana] 100 mg PO DAILY 10/27/21 06/13/23 History HYDROcodone/APAP 10-325MG [[place] 1 tab PO QID 10/27/21 06/13/23 History 10-325] Metoprolol Succinate (ER) [Toprol 50 mg PO DAILY 10/27/21 06/13/23 History Xl] Potassium Chloride ER [K-Dur 10] 10 meq PO DAILY 10/27/21 06/13/23 History lisinopriL [Zestril] 10 mg PO DAILY 10/27/21 06/13/23 History traZODone HCL 150 mg PO HS 10/27/21 06/13/23 History Gabapentin [Neurontin] 300 mg PO TID 06/11/23 06/13/23 History Glimepiride [Amaryl] 2 mg PO DAILY 06/11/23 06/13/23 History Rivaroxaban [Xarelto] 2.5 mg PO BID 06/11/23 06/13/23 History Sertraline [Zoloft] 150 mg PO DAILY 06/11/23 06/13/23 History Allergies Allergy/AdvReac Type Severity Reaction Status Date / Time No Known Allergies Allergy Verified 06/12/23 17:56 Physical Exam Vitals: Vital Signs Temp Pulse Pulse Resp BP BP Pulse Ox 06/13/23 11:32 73 06/13/23 07:00 98.6 F 53 L 19 136/67 98 06/13/23 01:07 97.6 F 57 L 16 136/85 96 06/12/23 20:12 126/62 06/12/23 19:00 199/92 06/12/23 17:53 98.1 F 78 18 199/92 95 Intake and Output 06/12/23 06/13/23 06/13/23 22:59 06:59 14:59 Intake Total 110 Balance 110 Intake: Oral 110 Other: Voiding Method External Catheter External Catheter # Voids 0 Weight 89.358 kg 89.358 kg Results CBC & Chem 7: 06/13/23 06:08 06/13/23 06:08 Labs: Abnormal Lab Results - Last 24 Hours (Table) 06/12/23 06/12/23 06/12/23 Range/Units 18:56 18:56 18:56 WBC 14.2 H (3.8-10.6) k/uL Hct 47.1 H (34.0-46.0) % Plt Count 144 L (150-450) k/uL Neutrophils # 11.2 H (1.3-7.7) k/uL Potassium 5.2 H (3.5-5.1) mmol/L BUN 20 H (7-17) mg/dL Glucose 138 H (74-99) mg/dL AST 46 H (14-36) U/L Creatine Kinase 677 H (30-135) U/L Urine Glucose (UA) 4+ H (Negative) Urine Blood Trace H (Negative) Ur Leukocyte Esterase Small H (Negative) Urine Mucus Rare H (None) /hpf 06/13/23 06/13/23 Range/Units 06:08 06:08 WBC (3.8-10.6) k/uL Hct (34.0-46.0) % Plt Count 132 L (150-450) k/uL Neutrophils # (1.3-7.7) k/uL Potassium (3.5-5.1) mmol/L BUN 24 H (7-17) mg/dL Glucose 139 H (74-99) mg/dL AST (14-36) U/L Creatine Kinase (30-135) U/L Urine Glucose (UA) (Negative) Urine Blood (Negative) Ur Leukocyte Esterase (Negative) Urine Mucus (None) /hpf
[2023-06-13] MEDS: GABAPENTIN 300 MG CAP PO SCH ×2 (16:46→20:31)
[2023-06-13] MEDS: traZODone HCL 50 MG TAB PO SCH (20:30)
[2023-06-13] MEDS: ATORVASTATIN 40 MG TAB PO SCH (20:31)
[2023-06-13 21:14] LABS: Glucose,Whole Blood 168 mg/dL (70-110)
[2023-06-14] MEDS: SODIUM CHLORIDE 0.9% 1,000 ML IV SCH ×2 (03:33→20:53)
[2023-06-14] MEDS: HYDROcodone/APAP 10-325MG 1 EACH TAB PO PRN ×2 (03:55→15:04)
[2023-06-14] MEDS: NON FORMULARY DRUG (Canagliflozin [Invokana] 100 MG Tablet) PO SCH (07:46)
[2023-06-14] MEDS: ACETAMINOPHEN TAB 325 MG TAB PO PRN (07:47)
[2023-06-14] MEDS: METOPROLOL SUCCINATE (ER) 50 MG TAB.ER.24H PO SCH (07:48)
[2023-06-14] MEDS: lisinopriL 10 MG TAB PO SCH (07:48)
[2023-06-14] MEDS: RIVAROXABAN 2.5 MG TABLET PO SCH (07:48)
[2023-06-14] MEDS: GABAPENTIN 300 MG CAP PO SCH ×3 (07:48→20:46)
[2023-06-14] MEDS: LIDOCAINE 5% PATCH TOPICAL SCH (07:48)
[2023-06-14] MEDS: SERTRALINE 50 MG TAB PO SCH (07:49)
[2023-06-14] MEDS ORDERED: GLIMEPIRIDE 2 MG TAB PO SCH (09:00)
[2023-06-14] MEDS ORDERED: DEXTROSE 50% SYRINGE 50 ML IVP PRN ×2 (10:13)
[2023-06-14] MEDS ORDERED: ONDANSETRON 4 MG/2 ML VIAL IVP PRN (10:15)
[2023-06-14] MEDS ORDERED: LACTULOSE 20 GM/30 ML CUP PO PRN (10:15)
[2023-06-14] MEDS ORDERED: ALPRAZolam 0.25 MG TAB PO PRN (10:15)
[2023-06-14] MEDS ORDERED: CALCIUM CARBONATE 500 MG CHEWABLE PO PRN (10:15)
[2023-06-14 11:18] LABS: BUN/Creat Ratio 24.38 Ratio (12.00-20.00); Blood Urea Nitrogen 19.5 mg/dL (9.0-27.0); Calcium 9.5 mg/dL (8.7-10.3); Carbon Dioxide 26.4 mmol/L (21.6-31.8); Chloride 103 mmol/L (96-109); Glucose 200 mg/dL (70-110); Potassium 4.6 mmol/L (3.5-5.5); Sodium 141 mmol/L (135-145)
[2023-06-14 12:50] LABS: Glucose,Whole Blood 215 mg/dL (70-110)
[2023-06-14] MEDS: INSULIN ASPART (NovoLOG) 100 UNIT/ML VIAL SQ SCH ×2 (13:44→17:26)
[2023-06-14 17:21] LABS: Glucose,Whole Blood 202 mg/dL (70-110)
[2023-06-14 20:16] LABS: Glucose,Whole Blood 232 mg/dL (70-110)
[2023-06-14] MEDS: MELATONIN 3 MG TABLET PO PRN (20:45)
[2023-06-14] MEDS: traZODone HCL 50 MG TAB PO SCH (20:46)
[2023-06-14] MEDS: ATORVASTATIN 40 MG TAB PO SCH (20:46)
--- NOTE | 2023-06-14 21:20 | P.PN ---
Progress Note - Text Progress Note Date: 06/14/23 History of Present Illness Patient with history of residual right-sided weakness came in after fall patient is a mechanical fall patient denied any syncopal episode patient is alert oriented 3. Patient will need physical therapy evaluation. Patient is on a very small dose of Xarelto 2.5 mg twice a day apparently for stroke as per the patient. 06/14/2023: Patient does have a walker at home. States his left knee gives way. 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 Recommended [place] by physical therapy. Patient also found to be orthostatic today with manual blood pressures. We'll order AMY stockings. Also Ravinder wrap of the left knee to stabilize the same. Active Medications Acetaminophen (Acetaminophen Tab 325 Mg Tab) 650 mg PO Q6HR PRN PRN Reason: Mild Pain or Fever > 100.5 Last Admin: 06/14/23 07:47 Dose: 650 mg Hydrocodone Bitart/Acetaminophen (Hydrocodone/Apap 10-325mg 1 Each Tab) 1 each PO Q6HR PRN PRN Reason: Pain Last Admin: 06/14/23 15:04 Dose: 1 each Alprazolam (Alprazolam 0.25 Mg Tab) 0.25 mg PO Q6HR PRN PRN Reason: Anxiety Atorvastatin Calcium (Atorvastatin 40 Mg Tab) 40 mg PO HS [facility] Last Admin: 06/14/23 20:46 Dose: 40 mg Calcium Carbonate/Glycine (Calcium Carbonate 500 Mg Chewable) 1,000 mg PO Q4HR PRN PRN Reason: Dyspepsia Dextrose/Water (Dextrose 50% Syringe 50 Ml) 25 ml IVP PER PROTOCOL PRN; Protocol PRN Reason: Hypoglycemia Dextrose/Water (Dextrose 50% Syringe 50 Ml) 50 ml IVP PER PROTOCOL PRN; Protocol PRN Reason: Hypoglycemia Gabapentin (Gabapentin 300 Mg Cap) 300 mg PO TID [facility] Last Admin: 06/14/23 20:46 Dose: 300 mg Glimepiride (Glimepiride 2 Mg Tab) 2 mg PO DAILY [facility] Last Admin: 06/14/23 07:48 Dose: 2 mg Sodium Chloride (Saline 0.9%) 1,000 mls @ 20 mls/hr IV .Q24H [facility] Last Admin: 06/14/23 20:53 Dose: Not Given Insulin Aspart (Insulin Aspart (Novolog) 100 Unit/Ml Vial) 0 unit SQ AC-TID [facility]; Protocol Last Admin: 06/14/23 17:26 Dose: 4 unit Lactulose (Lactulose 20 Gm/30 Ml Cup) 20 gm PO DAILY PRN PRN Reason: Constipation Lidocaine (Lidocaine 5% Patch) 1 patch TOPICAL DAILY [facility]; Protocol Last Admin: 06/14/23 07:48 Dose: 1 patch Lisinopril (Lisinopril 10 Mg Tab) 10 mg PO DAILY [facility] Last Admin: 06/14/23 07:48 Dose: 10 mg Melatonin (Melatonin 3 Mg Tablet) 3 mg PO HS PRN PRN Reason: Insomnia Last Admin: 06/14/23 20:45 Dose: 3 mg Metoprolol Succinate (Metoprolol Succinate (Er) 50 Mg Tab.Er.24h) 50 mg PO DAILY [facility] Last Admin: 06/14/23 07:48 Dose: 50 mg Naloxone HCl (Naloxone 0.4 Mg/Ml 1 Ml Vial) 0.2 mg IV Q2M PRN PRN Reason: Opioid Reversal Non-Formulary Medication (Canagliflozin [Invokana]) 100 mg PO DAILY [facility] Last Admin: 06/14/23 07:46 Dose: Not Given Ondansetron HCl (Ondansetron 4 Mg/2 Ml Vial) 4 mg IVP Q8HR PRN PRN Reason: Nausea And Vomiting Rivaroxaban (Rivaroxaban 2.5 Mg Tablet) 5 mg PO DAILY [facility]; Protocol Last Admin: 06/14/23 07:48 Dose: 5 mg Sertraline HCl (Sertraline 50 Mg Tab) 150 mg PO DAILY [facility] Last Admin: 06/14/23 07:49 Dose: 150 mg Trazodone HCl (Trazodone Hcl 50 Mg Tab) 150 mg PO HS [facility] Last Admin: 06/14/23 20:46 Dose: 150 mg 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 skin cancer. Developmently delayed History of Any Multi-Drug Resistant Organisms: None Reported Past Surgical History: Hysterectomy Past Anesthesia/Blood Transfusion Reactions: No Reported Reaction Smoking Status: Never smoker - Past Family History Father History Unknown: Yes Mother History Unknown: Yes On examination: VITAL SIGNS: [98, 69, 16, 140/61, 96% room air] GENERAL APPEARANCE: Average build. Lying in bed, not in distress. HEENT: Normal external appearance of nose and ear. Oral cavity normal EYES: Pupils normal. Conjunctiva normal. Blind in the right eye. NECK: JVD not raised. Mass not palpable. RESPIRATORY: Respiratory effort normal. Lungs clear to auscultation. CARDIOVASCULAR: First and second sounds normal. No edema. ABDOMEN: Soft. Liver and spleen not palpable. No tenderness. No mass palpable. PSYCHIATRY: Alert and oriented x3. Mood and affect normal. 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 NEUROLOGICAL: Blind in the right eye. Right facial weakness. Good administrative personal assistant in both the hands. INVESTIGATIONS, reviewed in the clinical context: June 14: Potassium 4.6 creatinine 0.8. Accu-Cheks 215, 202, 232 Assessment and plan -Fall: Age-related muscle atrophy and due to her stroke in the past patient will need physical therapy and outpatient therapy evaluation. Patient has been having multiple falls in the past PTOT. -Orthostatic hypertension Bilateral AMY stockings. -Hyperlipidemia Lipitor 40 mg daily at bedtime -Essential Hypertension Toprol-XL 50 -Peripheral neuropathy, diabetic peripheral neuropathy Neurontin 300 mg 3 times a day -Type 2 diabetes mellitus, on oral hypoglycemic, uncontrolled with hyperg lycemia. Increase Amaryl 4 mg daily -Blind in the right eye. -Right facial weakness from prior stroke -Chronic gait dysfunction, uses a walker at baseline -No code Increase Amaryl to 4 mg daily. Bilateral AMY stockings for orthostatic. Left knee in a Ravinder wrap. Consult , to evaluate for rehab.
[2023-06-15 05:52] LABS: Glucose,Whole Blood 187 mg/dL (70-110)
[2023-06-15] MEDS: HYDROcodone/APAP 10-325MG 1 EACH TAB PO PRN ×2 (05:55→13:44)
[2023-06-15] MEDS: GLIMEPIRIDE 4 MG TAB PO SCH (05:55)
[2023-06-15] MEDS: INSULIN ASPART (NovoLOG) 100 UNIT/ML VIAL SQ SCH ×3 (05:56→17:41)
[2023-06-15] MEDS: lisinopriL 10 MG TAB PO SCH (09:09)
[2023-06-15] MEDS: GABAPENTIN 300 MG CAP PO SCH ×3 (09:09→22:25)
[2023-06-15] MEDS: SERTRALINE 50 MG TAB PO SCH (09:09)
[2023-06-15] MEDS: METOPROLOL SUCCINATE (ER) 50 MG TAB.ER.24H PO SCH (09:09)
[2023-06-15] MEDS: LIDOCAINE 5% PATCH TOPICAL SCH (09:10)
[2023-06-15] MEDS: RIVAROXABAN 2.5 MG TABLET PO SCH (09:15)
[2023-06-15] MEDS: NON FORMULARY DRUG (Canagliflozin [Invokana] 100 MG Tablet) PO SCH (09:15)
[2023-06-15 12:01] LABS: Glucose,Whole Blood 143 mg/dL (70-110)
--- NOTE | 2023-06-15 15:03 | P.CONS ---
History of Present Illness - Reason for Consult Consult date: 06/15/23 rehab recommendations - Chief Complaint weakness, fall - History of Present Illness Taylor Good is a 83 y.o. female , right handed, , who lives alone in [facility] apartments, with 0 [place]ANCA. Prior to admission, she was ambulating with a 2ww walker. She also utilizes a shower chair and raised toilet at home. She was independent for basic/advanced ADLs. Current driving:no. T ransportation by: Manuel . Retired: yes. Support system: carlo Banerjee who is her caregiver and manages her finances, medications She was admitted to [facility] 06/12/23. She presented to the ED c/o weakness and fall. Patient reports that she was trying to get out of bed when she lost her footing and fell. She is unsure of whether she hit her head or lost consciousness. She was unable to hit her lifeline as it was on her dresser. She reports that the fall occurred at 10 AM on the date of admission and she was finally able to reach her lifeline button until about 6pm. She has a history of residual right-sided weakness from a previous CVA. Per review of EMR, patients left knee gives way at times. She also has a history of blindness in the right eye. Per IM, patient was found to be orthostatic and AMY stockings wee ordered. IM also ordered Ravinder wrap of the left knee for stabilization. Patient had several imaging studies completed including a CT of the head/c-spine which showed atrophy, chest xray was negative, left femur xray reveled nothing acute and some degenerative changes, bilat hip xray showed degenerative changes with nothing acute. PM&R consulted for rehab recommendations. Therapy evaluations reviewed; patient needing min assist with transfers, min assist with bed mobilities, min assist for bathing, supervision for UE dressing, min assist LE dressing, supervision grooming, mod independent eating, supervision for toileting, supervision with am bulation 100 feet 06/15/23: Patient was found laying in her bed with the HOB elevated watching television. Patient reports generalized pain throughout her entire body due to the fall, including bilateral upper and lower extremities, her torso, chest, left shoulder, back. Patient reports pain is exacerbated with even light touch to these areas. Patient denies SOB and abdominal pain. Patient denies issues with urination and reports regular bowel movements. Patient states she does feel weaker than normal, but is still able to participate with therapy. She does feel that she needs to gain some strength prior to returning home. Review of Systems negative unless states in HPI 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 skin cancer. Developmently delayed History of Any Multi-Drug Resistant Organisms: None Reported Past Surgical History: Hysterectomy Past Anesthesia/Blood Transfusion Reactions: No Reported Reaction Past Psychological History: Unable to Obtain Smoking Status: Never smoker Past Alcohol Use History: None Reported Past Drug Use History: None Reported - Past Family History Father History Unknown: Yes Mother History Unknown: Yes Medications and Allergies Home Medications Medication Instructions Recorded Confirmed Type Atorvastatin [Lipitor] 40 mg PO HS 10/27/21 06/13/23 History Canagliflozin [Invokana] 100 mg PO DAILY 10/27/21 06/13/23 History HYDROcodone/APAP 10-325MG [[place] 1 tab PO QID 10/27/21 06/13/23 History 10-325] Metoprolol Succinate (ER) [Toprol 50 mg PO DAILY 10/27/21 06/13/23 History Xl] Potassium Chloride ER [K-Dur 10] 10 meq PO DAILY 10/27/21 06/13/23 History lisinopriL [Zestril] 10 mg PO DAILY 10/27/21 06/13/23 History traZODone HCL 150 mg PO HS 10/27/21 06/13/23 History Gabapentin [Neurontin] 300 mg PO TID 06/11/23 06/13/23 History Glimepiride [Amaryl] 2 mg PO DAILY 06/11/23 06/13/23 History Rivaroxaban [Xarelto] 2.5 mg PO BID 06/11/23 06/13/23 History Sertraline [Zoloft] 150 mg PO DAILY 06/11/23 06/13/23 History Allergies Allergy/AdvReac Type Severity Reaction Status Date / Time No Known Allergies Allergy Verified 06/12/23 17:56 Physical Exam Vitals: Vital Signs Temp Pulse Pulse Pulse Pulse Resp BP 06/15/23 08:00 55 L 81 65 69 16 08/08/23 07:40 98.0 F 55 L 16 06/15/23 02:00 98.2 F 67 15 136/72 06/14/23 19:00 98.3 F 69 17 06/14/23 14:00 98.0 F 69 16 06/14/23 10:46 81 65 68 17 BP BP BP Pulse Ox 06/15/23 08:00 06/15/23 07:40 170/79 94 L 06/15/23 02:00 97 06/14/23 19:00 153/74 96 06/14/23 14:00 140/61 96 06/14/23 10:46 142/76 105/61 135/80 96 Intake and Output 06/14/23 06/15/23 06/15/23 22:59 06:59 14:59 Output Total 200 500 Balance -200 -500 Output: Urine 200 500 Other: Voiding Method External Catheter External Catheter # Voids 600 EXAM; General: WDWN, obese, female, laying in her bed with HOB elevated watching television, NAD Head: Normocephalic, atraumatic. Eyes: right eye ptosis (blind in right eye) Ears: Symmetric. Hard of hearing left>right. Mouth: Clear. Neck: Supple. Cardiac: conveyor monitor on, Calves supple, non tender, trace bilat LE edema Lungs: Breathing comfortably on RA. Chest symmetric. Abdomen: Soft, nontender. Extremities: Arthritic changes consistent with age. Neurological: Alert and oriented x 3. Speech is clear and fluent without paraphasic errors Cranial nerves: CN II-XII: intact. Except right eye ptosis, right facial droop, decreased sensation to touch right side of face Sensation: right side decreased Musculoskeletal: ROM WFL EXCEPT: difficult to assess, patient withdraws when testing due to pain especially on left side MMT UE Sh Abd EE EF FABD WE HG Right 4 4+ 4 4+ 4 4+ Left 3+ limited due to pain 4 limited due to pain 3+ limited due to pain 4+ 4 4+ MMT LE HF KE DF EHL Right 3+ 3+ limited due to pain 4- 3+ Left 4- 3+ limited due to pain 4 4 Unable to test reflexes as patient winces in pain and withdraws with attempts to test Skin: Skin intact where visible to head, neck, and bilateral upper and lower extremities EXCEPT: multiple areas of ecchymosis to bilat UE Psych: Calm, cooperative Results CBC & Chem 7: 06/13/23 06:08 06/14/23 06:10 Labs: Abnormal Lab Results - Last 24 Hours (Table) 06/14/23 06/14/23 06/14/23 Range/Units 06:10 12:48 17:20 BUN/Creatinine Ratio 24.38 H (12.00-20.00) Ratio Glucose 200 H (70-110) mg/dL POC Glucose (mg/dL) 215 H 202 H (70-110) mg/dL 06/14/23 06/15/23 Range/Units 20:15 05:51 BUN/Creatinine Ratio (12.00-20.00) Ratio Glucose (70-110) mg/dL POC Glucose (mg/dL) 232 H 187 H (70-110) mg/dL Assessment and Plan Assessment: Assessment/Plan: # CVA history with residual right sided weakness and chronic gait dysfunction s/p fall -uses a walker at baseline # Weakness with recurrent falls # Pain s/p fall -tylenol 650 mg q 6 hours prn, norco 10/325mg q 6 hours prn, neurontin 300 mg TID, lidocaine patch 5% 1 patch daily # Orthostatic hypertension -Bilateral AMY stockings # Hypertension -Toprol-xl 50mg daily # Type 2 diabetes mellitus, on oral hypoglycemic, uncontrolled with hyperglycemia # Peripheral neuropathy -Neurontin 300 mg 3 times a day # Anxiety -xanax0.25mg q 6 hours prn # Bowel/ Bladder: Nursing to monitor and report concerns if any. # Diet healthy heart diet # Skin/wound: Skin/Wound care to follow as needed # Pain Management tylenol 650 mg q 6 hours prn, norco 10/325mg q 6 hours prn, neurontin 300 mg TID, lidocaine patch 5% 1 patch daily # DVT Prophylaxis: -Xarelto 5 mg daily # Comorbidities: hypertension, hyperlipidemia, diabetes, hx cva with residual right sided weakness # Your medical dx and mgt Goals: Modified Independent mobility and ADLS both basic and advanced; increased functional mobility/strength; increased balance, safety, endurance. Improvement in medical issues through your care. Barriers: lives alone, orthostatic hypotension, residual right sided weakness- history CVA, blind in right eye, pain, anxiety Discharge recommendation: Home with [facility]/PT/OT Patient seen and examined in coordination with Dr. Hernandez Author: Monica Travis [employer]
[2023-06-15 17:07] LABS: Glucose,Whole Blood 161 mg/dL (70-110)
--- NOTE | 2023-06-15 19:32 | P.PN ---
Progress Note - Text Progress Note Date: 06/15/23 History of Present Illness Patient with history of residual right-sided weakness came in after fall patient is a mechanical fall patient denied any syncopal episode patient is alert oriented 3. Patient will need physical therapy evaluation. Patient is on a very small dose of Xarelto 2.5 mg twice a day apparently for stroke as per the patient. 06/14/2023: Patient does have a walker at home. States his left knee gives way. 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 Recommended SANTIAGO by physical therapy. Patient also found to be orthostatic today with manual blood pressures. We'll order AMY stockings. Also Ravinder wrap of the left knee to stabilize the same. 06/15/2023: Patient seen this morning. Feeling better. Seen by PTOT. Looking for inpatient rehab placement. We'll follow blood pressure closely. Change lisinopril to daily at bedtime. Active Medications Acetaminophen (Acetaminophen Tab 325 Mg Tab) 650 mg PO Q6HR PRN PRN Reason: Mild Pain or Fever > 100.5 Last Admin: 06/14/23 07:47 Dose: 650 mg Hydrocodone Bitart/Acetaminophen (Hydrocodone/Apap 10-325mg 1 Each Tab) 1 each PO Q6HR PRN PRN Reason: Pain Last Admin: 06/15/23 13:44 Dose: 1 each Alprazolam (Alprazolam 0.25 Mg Tab) 0.25 mg PO Q6HR PRN PRN Reason: Anxiety Atorvastatin Calcium (Atorvastatin 40 Mg Tab) 40 mg PO [facility] Last Admin: 06/14/23 20:46 Dose: 40 mg Calcium Carbonate/Glycine (Calcium Carbonate 500 Mg Chewable) 1,000 mg PO Q4HR PRN PRN Reason: Dyspepsia Dextrose/Water (Dextrose 50% Syringe 50 Ml) 25 ml IVP PER PROTOCOL PRN; Protocol PRN Reason: Hypoglycemia Dextrose/Water (Dextrose 50% Syringe 50 Ml) 50 ml IVP PER PROTOCOL PRN; Protocol PRN Reason: Hypoglycemia Gabapentin (Gabapentin 300 Mg Cap) 300 mg PO TID [facility] Last Admin: 06/15/23 17:41 Dose: 300 mg Glimepiride (Glimepiride 4 Mg Tab) 4 mg PO -BRKFST [facility] Last Admin: 06/15/23 05:55 Dose: 4 mg Insulin Aspart (Insulin Aspart (Novolog) 100 Unit/Ml Vial) 0 unit SQ AC-TID [facility]; Protocol Last Admin: 06/15/23 17:41 Dose: 1 unit Lactulose (Lactulose 20 Gm/30 Ml Cup) 20 gm PO DAILY PRN PRN Reason: Constipation Lidocaine (Lidocaine 5% Patch) 1 patch TOPICAL DAILY [facility]; Protocol Last Admin: 06/15/23 09:10 Dose: 1 patch Lisinopril (Lisinopril 10 Mg Tab) 10 mg PO HS [facility] Melatonin (Melatonin 3 Mg Tablet) 3 mg PO HS PRN PRN Reason: Insomnia Last Admin: 06/14/23 20:45 Dose: 3 mg Metoprolol Succinate (Metoprolol Succinate (Er) 50 Mg Tab.Er.24h) 50 mg PO DAILY [facility] Last Admin: 06/15/23 09:09 Dose: 50 mg Naloxone HCl (Naloxone 0.4 Mg/Ml 1 Ml Vial) 0.2 mg IV Q2M PRN PRN Reason: Opioid Reversal Non-Formulary Medication (Canagliflozin [Invokana]) 100 mg PO DAILY [facility] Last Admin: 06/15/23 09:15 Dose: Not Given Ondansetron HCl (Ondansetron 4 Mg/2 Ml Vial) 4 mg IVP Q8HR PRN PRN Reason: Nausea And Vomiting Rivaroxaban (Rivaroxaban 2.5 Mg Tablet) 5 mg PO DAILY [facility]; Protocol Last Admin: 06/15/23 09:15 Dose: 5 mg Sertraline HCl (Sertraline 50 Mg Tab) 150 mg PO DAILY [facility] Last Admin: 06/15/23 09:09 Dose: 150 mg Trazodone HCl (Trazodone Hcl 50 Mg Tab) 150 mg PO HS [facility] Last Admin: 06/14/23 20:46 Dose: 150 mg 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 skin cancer. Developmently delayed History of Any Multi-Drug Resistant Organisms: None Reported Past Surgical History: Hysterectomy Past Anesthesia/Blood Transfusion Reactions: No Reported Reaction Smoking Status: Never smoker - Past Family History Father History Unknown: Yes Mother History Unknown: Yes On examination: VITAL SIGNS: 97.8, 67, 16, 134 Bicitra 6, 96% on room air GENERAL APPEARANCE: Upper nausea, comfortable. HEENT: Normal external appearance of nose and ear. Oral cavity normal EYES: Pupils normal. Conjunctiva normal. Blind in the right eye. NECK: JVD not raised. Mass not palpable. RESPIRATORY: Respiratory effort normal. Lungs clear to auscultation. CARDIOVASCULAR: First and second sounds normal. No edema. ABDOMEN: Soft. Liver and spleen not palpable. No tenderness. No mass palpable. PSYCHIATRY: Alert and oriented x3. Mood and affect normal. 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 NEUROLOGICAL: Blind in the right eye. Right facial weakness. 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 INVESTIGATIONS, reviewed in the clinical context: June 14: Potassium 4.6 creatinine 0.8. Accu-Cheks 215, 202, 232 Assessment and plan -Fall: Age-related muscle atrophy and due to her stroke in the past patient will need physical therapy and outpatient therapy evaluation. Patient has been having multiple falls in the past PTOT. -Orthostatic hypertension Bilateral AMY stockings. -Hyperlipidemia Lipitor 40 mg daily at bedtime -Essential Hypertension Toprol-XL 50. Lisinopril 10 mg daily at bedtime. -Peripheral neuropathy, diabetic peripheral neuropathy Neurontin 300 mg 3 times a day -Type 2 diabetes mellitus, on oral hypoglycemic, uncontrolled with hyperglycemia. Amaryl 4 mg daily -Blind in the right eye. -Right facial weakness from prior stroke -Chronic gait dysfunction, uses a walker at baseline -No code Continue current medications. Looking at inpatient rehab placement. Discussed with patient.
[2023-06-15 20:55] LABS: Glucose,Whole Blood 123 mg/dL (70-110)
[2023-06-15] MEDS ORDERED: lisinopriL 10 MG TAB PO SCH (21:00)
[2023-06-15] MEDS: traZODone HCL 50 MG TAB PO SCH (22:25)
[2023-06-15] MEDS: MELATONIN 3 MG TABLET PO PRN (22:25)
[2023-06-15] MEDS: ATORVASTATIN 40 MG TAB PO SCH (22:25)
[2023-06-16] MEDS: HYDROcodone/APAP 10-325MG 1 EACH TAB PO PRN ×2 (02:32→08:44)
[2023-06-16 06:04] LABS: Glucose,Whole Blood 186 mg/dL (70-110)
[2023-06-16] MEDS: INSULIN ASPART (NovoLOG) 100 UNIT/ML VIAL SQ SCH ×2 (06:24→14:46)
[2023-06-16] MEDS: GLIMEPIRIDE 4 MG TAB PO SCH (06:24)
[2023-06-16] MEDS: GABAPENTIN 300 MG CAP PO SCH (08:34)
[2023-06-16] MEDS: SERTRALINE 50 MG TAB PO SCH (08:34)
[2023-06-16] MEDS: LIDOCAINE 5% PATCH TOPICAL SCH (08:35)
[2023-06-16] MEDS: METOPROLOL SUCCINATE (ER) 50 MG TAB.ER.24H PO SCH (08:35)
[2023-06-16] MEDS: RIVAROXABAN 2.5 MG TABLET PO SCH (08:35)
[2023-06-16] MEDS: NON FORMULARY DRUG (Canagliflozin [Invokana] 100 MG Tablet) PO SCH (08:37)
[2023-06-16] MEDS ORDERED: lisinopriL 10 MG TAB PO SCH (11:15)
[2023-06-16 12:14] LABS: Glucose,Whole Blood 311 mg/dL (70-110)
--- NOTE | 2023-06-16 13:35 | P.DS ---
Providers Date of admission: 06/12/23 23:08 Expected date of discharge: 06/16/23 Attending physician: Donis Moreno Consults: 06/14/23 21:11 Consult Physician Routine Consulting Provider: Sky Lindsey Consult Reason/Comments: IpD rehab Do you want consulting provider notified?: Yes Primary care physician: [facility] Course: History of Present Illness Patient with history of residual right-sided weakness came in after fall patient is a mechanical fall patient denied any syncopal episode patient is alert oriented 3. Patient will need physical therapy evaluation. Patient is on a very small dose of Xarelto 2.5 mg twice a day apparently for stroke as per the patient. 06/14/2023: Patient does have a walker at home. States his left knee gives way. 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 Recommended SANTIAGO by physical therapy. Patient also found to be orthostatic today with manual blood pressures. We'll order AMY stockings. Also Ravinder wrap of the left knee to stabilize the same. 06/15/2023: Patient seen this morning. Feeling better. Seen by PTOT. Looking for inpatient rehab placement. We'll follow blood pressure closely. Change lisinopril to daily at bedtime 06/26/2023: No new issues. Reminded the nurse to place Ravinder wrap on the left knee. For blood pressure change lisinopril to twice a day. Discussed with patient. ID 2 [facility]. OBRA completed Discussion and discharge planning more than 35 minutes 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 skin cancer. Developmently delayed History of Any Multi-Drug Resistant Organisms: None Reported Past Surgical History: Hysterectomy Past Anesthesia/Blood Transfusion Reactions: No Reported Reaction Smoking Status: Never smoker - Past Family History Father History Unknown: Yes Mother History Unknown: Yes On examination: VITAL SIGNS: 37.6, 56, 20, 151/80, 95% room air GENERAL APPEARANCE: Up in a chair, comfortable. HEENT: Normal external appearance of nose and ear. Oral cavity normal EYES: Pupils normal. Conjunctiva normal. Blind in the right eye. NECK: JVD not raised. Mass not palpable. RESPIRATORY: Respiratory effort normal. Lungs clear to auscultation. CARDIOVASCULAR: First and second sounds normal. No edema. ABDOMEN: Soft. Liver and spleen not palpable. No tenderness. No mass palpable. PSYCHIATRY: Alert and oriented x3. Mood and affect normal. 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 NEUROLOGICAL: Blind in the right eye. Left facial weakness. 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 INVESTIGATIONS, reviewed in the clinical context: June 14: Potassium 4.6 creatinine 0.8. Accu-Cheks 215, 202, 232 Assessment and plan -Fall: Age-related muscle atrophy and due to her stroke in the past patient will need physical therapy and outpatient therapy evaluation. Patient has been having multiple falls in the past PTOT. -Orthostatic hypertension Bilateral AMY stockings. -Hyperlipidemia Lipitor 40 mg daily at bedtime -Essential Hypertension uncontrolled Toprol-XL 50. Increase Lisinopril 10 mg twice a day -Peripheral neuropathy, diabetic peripheral neuropathy Neurontin 300 mg 3 times a day -Type 2 diabetes mellitus, on oral hypoglycemic, uncontrolled with hyperglycemia. Amaryl 4 mg daily. Follow Accu-Cheks -Blind in the right eye. -Right facial weakness from prior stroke -Chronic gait dysfunction, uses a walker at baseline -No code Disposition: [facility] - Discharge Summary New Discharge Prescriptions: New Glimepiride [Amaryl] 4 mg PO AC-BRKFST tab INSULIN ASPART (NovoLOG) [NovoLOG (formulary)] 0 unit SQ AC-TID each Rivaroxaban [Xarelto] 5 mg PO DAILY tab Lidocaine 5% Patch [Lidoderm 5% Patch] 1 patch TOPICAL DAILY #3 patch Continue Metoprolol Succinate (ER) [Toprol XL] 50 mg PO DAILY Canagliflozin [Invokana] 100 mg PO DAILY Sertraline [Zoloft] 150 mg PO DAILY HYDROcodone/APAP 10-325MG [[place] 10-325] 1 tab PO QID #12 tab traZODone HCL 150 mg PO HS Potassium Chloride ER [K-Dur 10] 10 meq PO DAILY Atorvastatin [Lipitor] 40 mg PO HS Gabapentin [Neurontin] 300 mg PO TID #9 cap Changed lisinopriL [Zestril] 10 mg PO BID #0 Discontinued Rivaroxaban [Xarelto] 2.5 mg PO BID Glimepiride [Amaryl] 2 mg PO DAILY Discharge Medication List Atorvastatin [Lipitor] 40 mg PO HS 10/27/21 [History] Canagliflozin [Invokana] 100 mg PO DAILY 10/27/21 [History] Metoprolol Succinate (ER) [Toprol XL] 50 mg PO DAILY 10/27/21 [History] Potassium Chloride ER [K-Dur 10] 10 meq PO DAILY 10/27/21 [History] traZODone HCL 150 mg PO HS 10/27/21 [History] Sertraline [Zoloft] 150 mg PO DAILY 06/11/23 [History] Gabapentin [Neurontin] 300 mg PO TID #9 cap 06/16/23 [Rx] Glimepiride [Amaryl] 4 mg PO AC-BRKFST tab 06/16/23 [Rx] HYDROcodone/APAP 10-325MG [[place] 10-325] 1 tab PO QID #12 tab 06/16/23 [Rx] INSULIN ASPART (NovoLOG) [NovoLOG (formulary)] 0 unit SQ AC-TID each 06/16/23 [Rx] Lidocaine 5% Patch [Lidoderm 5% Patch] 1 patch TOPICAL DAILY #3 patch 06/16/23 [Rx] Rivaroxaban [Xarelto] 5 mg PO DAILY tab 06/16/23 [Rx] lisinopriL [Zestril] 10 mg PO BID #0 06/16/23 [Rx] Follow up Appointment(s)/Referral(s): Jorge Alberto Gu DO [Primary Care Provider] - 1-2 days
[2023-06-16 14:38] VITALS: BP 130/75; PULSE 66; RESP 16; TEMP 97.9
[2023-06-16 14:43] LABS: Glucose,Whole Blood 180 mg/dL (70-110)
== END 2023-06-16 17:03 ==
LOC: EC 17:48 → EEVIPCON 23:08 → 6NMEDSUR 23:08
PROVIDERS: ADMIT Hospitalist; ATTEND Hospitalist
DX: M62.50 Muscle wasting and atrophy, not elsewhere classified, unspecified site (principal); R29.6 Repeated falls; I95.1 Orthostatic hypotension; I10 Essential (primary) hypertension; E11.42 Type 2 diabetes mellitus with diabetic polyneuropathy; F41.9 Anxiety disorder, unspecified; E78.5 Hyperlipidemia, unspecified; D72.829 Elevated white blood cell count, unspecified; H54.61 Unqualified visual loss, right eye, normal vision left eye; I69.392 Facial weakness following cerebral infarction; I69.351 Hemiplegia and hemiparesis following cerebral infarction affecting right dominant side; Z91.81 History of falling; Z85.828 Personal history of other malignant neoplasm of skin; Z79.84 Long term (current) use of oral hypoglycemic drugs; Z79.01 Long term (current) use of anticoagulants; Z79.899 Other long term (current) drug therapy; Z20.822 Contact with and (suspected) exposure to COVID-19
CPT/HCPCS: 96372 ×3; 99285; 36415; 97530 ×4; 97162; 97166; 80053; 80048 ×2; 82550; 83605; 84484; 85025 ×2; 81001; 87636; 73521; 73552; 71046; 72125; 70450; G0378 ×5

== ENCOUNTER → 2023-09-13 | Outpatient (CLI) | payer MEDICARE ==
[2023-09-13 21:45] LABS: Basophils # (A) 0.05 X 10*3/uL (0.00-0.10); Basophils % (A) 0.5 %; HCT 50.6 % (37.2-46.3); Lymphocytes # (A) 2.24 X 10*3/uL (0.90-5.00); Lymphocytes % (A) 21.5 %; MCHC 31.6 d/dL (32.0-37.0); MCV 91.7 FL (80.0-97.0); Mean Platelet Volume 12.2 FL (9.5-12.2); Monocytes # (A) 0.66 X 10*3/uL (0.20-1.00); Monocytes % (A) 6.3 %; NRBC Per 100 WBC 0 X 10*3/uL (0.00-0.01); Neutrophils # (A) 7.33 X 10*3/uL (1.80-7.70); Neutrophils % (A) 70.3 %; Platelet Count 167 X 10*3/uL (140-440); RBC 5.52 X 10*6/uL (4.10-5.20); RDW 13.4 % (11.5-14.5); WBC 10.42 X 10*3/uL (4.50-10.00)
[2023-09-13 22:34] LABS: ALT 14 U/L (8-44); AST 16 U/L (13-35); Albumin 4.5 d/dL (3.8-4.9); Albumin/Globulin Ratio 1.88 Ratio (1.60-3.17); Alkaline Phosphatase 119 U/L (41-126); BUN/Creat Ratio 25.62 Ratio (12.00-20.00); Blood Urea Nitrogen 20.5 mg/dL (9.0-27.0); Calcium 10.6 mg/dL (8.7-10.3); Carbon Dioxide 25.7 mmol/L (21.6-31.8); Chloride 103 mmol/L (96-109); Globulin 2.4 d/dL (1.6-3.3); Glucose 166 mg/dL (70-110); Potassium 4.9 mmol/L (3.5-5.5); Sodium 143 mmol/L (135-145); Total Bilirubin 0.5 mg/dL (0.3-1.2); Total Protein 6.9 d/dL (6.2-8.2)
== END | disposition home or self-care (01) ==
LOC: LABWHC1 11:32
PROVIDERS: ATTEND Family Medicine
DX: I10 Essential (primary) hypertension (principal); E11.37X1 Type 2 diabetes mellitus with diabetic macular edema, resolved following treatment, right eye; M85.80 Other specified disorders of bone density and structure, unspecified site; E66.9 Obesity, unspecified
CPT/HCPCS: 36415; 80053; 82306; 83036; 84443; 85025

== ENCOUNTER → 2023-09-29 | Outpatient (CLI) | payer MEDICARE ==
[2023-09-29 17:23] LABS: Basophils # (A) 0.04 X 10*3/uL (0.00-0.10); Basophils % (A) 0.5 %; Eosinophils # (A) 0.17 X 10*3/uL (0.04-0.35); Eosinophils % (A) 1.9 %; HCT 47.5 % (37.2-46.3); HGB 15.1 g/dL (12.0-15.0); Lymphocytes # (A) 2.17 X 10*3/uL (0.90-5.00); Lymphocytes % (A) 24.7 %; MCH 28.9 pg (27.0-32.0); MCHC 31.8 g/dL (32.0-37.0); Mean Platelet Volume 11.3 FL (9.5-12.2); Monocytes # (A) 0.65 X 10*3/uL (0.20-1.00); Monocytes % (A) 7.4 %; NRBC Per 100 WBC 0 X 10*3/uL (0.00-0.01); Neutrophils # (A) 5.72 X 10*3/uL (1.80-7.70); Neutrophils % (A) 65.2 %; Platelet Count 151 X 10*3/uL (140-440); RBC 5.22 X 10*6/uL (4.10-5.20); RDW 13.4 % (11.5-14.5); WBC 8.78 X 10*3/uL (4.50-10.00)
== END | disposition home or self-care (01) ==
LOC: LABWHC1 11:25
PROVIDERS: ATTEND Family Medicine
DX: E83.52 Hypercalcemia (principal); R71.8 Other abnormality of red blood cells
CPT/HCPCS: 36415; 82310; 85025

== ENCOUNTER → 2024-05-04 | Outpatient (CLI) | payer MEDICARE ==
--- NOTE | 2024-05-04 11:42 | US ---
EXAMINATION TYPE: US abdomen limited DATE OF EXAM: 05/04/2024 COMPARISON: None CLINICAL INDICATION: Female, 84 years old with history of K43.6 VENTRARL HERNIA WITH OBSTRUCTION WO G CONNIE; Hx of umbilical hernia with repair x 3/4 years ago, umbilicus removed. In area of previous hernia, pain and palpable. Assess for hernia at location of: Vental/Umbilical region Area of concern at midline umbilical area scanned. Shadowing area seen = 4.6 x 3.0 cm. Valsalva per formed with no movement seen. IMPRESSION: Probable small periumbilical ventral hernia without evidence of herniated bowel loops. C T of the abdomen might be useful for further evaluation. Real-time scanning was performed by the utilization engineer utilizing Valsalva and additional dynamic maneuve rs to assess for hernia. Images of the contralateral side were also acquired for direct comparison.
== END | disposition home or self-care (01) ==
LOC: RADUSWWP 09:05
PROVIDERS: ATTEND Family Medicine
DX: K43.6 Other and unspecified ventral hernia with obstruction, without gangrene (principal)
CPT/HCPCS: 76705

== ENCOUNTER 2024-07-04 11:21 | Emergency (ER) | payer MEDICARE ==
--- NOTE | 2024-07-04 12:29 | CT ---
EXAMINATION TYPE: CT brain shaniqua landin DATE OF EXAM: 07/04/2024 COMPARISON: 06/12/2023 HISTORY: Pain, on thinners. fall CT DLP: 1254.5 mGycm Automated exposure control for dose reduction was used. TECHNIQUE: CT scan of the head and cervical spine are performed without contrast. FINDINGS: There is no acute intracranial hemorrhage, mass effect, or midline shift identified. The ventricles and sulci are within normal limits in size. Chronic changes involving the right orbit. In tracranial atherosclerotic changes. Moderate generalized degenerative change with hypoattenuation whi te matter most typical remote microvascular ischemia. Remote lacunar infarct involving the right basa l ganglia. Assessment of the spinal canal limited due to resolution artifact. Multilevel mild to moderate hypert rophic and degenerative disc disease most marked at C4-5 and C5-C6. Posterior spondylosis likely resu lts in canal stenosis. Disc osteophyte complex and disc herniation suspected. Multilevel facet arthro eh. There is generalized osteopenia. Enlargement of the left thyroid with a large left thyroid nodule. Left paracentral disc protrusion C4 -C5. Multilevel uncovertebral joint hypertrophy and foraminal encroachment. Atherosclerotic change of the carotid vasculature. IMPRESSION: 1. There is no acute fracture or dislocation evident in the cervical spine. 2. No acute intracranial hemorrhage, mass effect, or midline shift is seen.
--- NOTE | 2024-07-04 13:08 | ED ---
Fall HPI - General Chief Complaint: Fall Stated Complaint: Fall Time Seen by Provider: 07/04/24 11:39 Source: patient, EMS, RN notes reviewed Mode of arrival: EMS Limitations: no limitations - History of Present Illness Initial Comments: 84-year-old female presents emergency department complaint of a fall. Patient states that her legs gave out her striking her head. She is on Eliquis. Patient has no other injuries. Patient denies any fevers or chills. Patient denies back pain denies any extremity injuries. Patient states that a she told nurse that she has been depressed, intermittent suicidal ideation. Denies any drug or alcohol abuse. - Related Data Home Medications Medication Instructions Recorded Confirmed Atorvastatin [Lipitor] 40 mg PO HS 10/27/21 06/13/23 Canagliflozin [Invokana] 100 mg PO DAILY 10/27/21 06/13/23 Metoprolol Succinate (ER) [Toprol 50 mg PO DAILY 10/27/21 06/13/23 XL] Potassium Chloride ER [K-Dur 10] 10 meq PO DAILY 10/27/21 06/13/23 traZODone HCL 150 mg PO HS 10/27/21 06/13/23 Sertraline [Zoloft] 150 mg PO DAILY 06/11/23 06/13/23 Previous Rx's Medication Instructions Recorded Gabapentin [Neurontin] 300 mg PO TID #9 cap 06/16/23 Glimepiride [Amaryl] 4 mg PO AC-BRKFST tab 06/16/23 HYDROcodone/APAP 10-325MG [[place] 1 tab PO QID #12 tab 06/16/23 10-325] INSULIN ASPART (NovoLOG) [NovoLOG 0 unit SQ AC-TID each 06/16/23 (formulary)] Lidocaine 5% Patch [Lidoderm 5% 1 patch TOPICAL DAILY #3 patch 06/16/23 Patch] Rivaroxaban [Xarelto] 5 mg PO DAILY tab 06/16/23 lisinopriL [Zestril] 10 mg PO BID #0 06/16/23 Allergies Allergy/AdvReac Type Severity Reaction Status Date / Time No Known Allergies Allergy Verified 07/04/24 11:38 Review of Systems ROS Statement: Those systems with pertinent positive or pertinent negative responses have been documented in the HPI. ROS Other: All systems not noted in ROS Statement are negative. 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 skin cancer. Developmently delayed History of Any Multi-Drug Resistant Organisms: None Reported Past Surgical History: Hysterectomy Past Anesthesia/Blood Transfusion Reactions: No Reported Reaction Past Psychological History: Unable to Obtain Smoking Status: Never smoker Past Alcohol Use History: None Reported Past Drug Use History: None Reported - Past Family History Father History Unknown: Yes Mother History Unknown: Yes General Exam Limitations: no limitations General appearance: alert, in no apparent distress Head exam: Present: atraumatic, normocephalic, normal inspection Eye exam: Present: normal appearance, PERRL, EOMI. Absent: scleral icterus, conjunctival injection, periorbital swelling ENT exam: Present: normal exam, normal oropharynx, mucous membranes moist Neck exam: Present: normal inspection, full ROM. Absent: tenderness, meningismus, lymphadenopathy Respiratory exam: Present: normal lung sounds bilaterally. Absent: respiratory distress, wheezes, rales, rhonchi, stridor Cardiovascular Exam: Present: regular rate, normal rhythm, normal heart sounds. Absent: systolic murmur, diastolic murmur, rubs, gallop, clicks GI/Abdominal exam: Present: soft, normal bowel sounds. Absent: distended, tenderness, guarding, rebound, rigid Neurological exam: Present: alert, oriented X3, CN II-XII intact Psychiatric exam: Present: normal affect, normal mood Course Vital Signs 07/04/24 07/04/24 11:28 14:50 Temperature 98.4 F 97.9 F Pulse Rate 65 65 Respiratory 20 16 Rate Blood Pressure 141/91 196/102 O2 Sat by Pulse 97 95 Oximetry Medical Decision Making - Medical Decision Making Was pt. sent in by a medical professional or institution (, PA, ROUTE SALES DRIVER, urgent care, hospital, or snf...) When possible be specific @ -No Did you speak to anyone other than the patient for history (EMS, parent, family, police, friend...)? What history was obtained from this source @ -No Did you review nursing and triage notes (agree or disagree)? Why? @ -I reviewed and agree with nursing and triage notes Were old charts reviewed (outside hosp., previous admission, EMS record, old EKG, old radiological studies, urgent care reports/EKG's, snf records)? Report findings @ -No old charts were reviewed Differential Diagnosis (chest pain, altered mental status, abdominal pain women, abdominal pain men, vaginal bleeding, weakness, fever, dyspnea, syncope, headache, dizziness, GI bleed, back pain, seizure, CVA, palpatations, mental health, musculoskeletal)? @ -Fall, intracranial hemorrhage, head contusion, EKG interpreted by me (3pts min.). @ -None X-rays interpreted by me (1pt min.). @ -None done CT interpreted by me (1pt min.). @ -CT brain, C-spine showing no acute intracranial head or mass effect. U/S interpreted by me (1pt. min.). @ -None done What testing was considered but not performed or refused? (CT, X-rays, U/S, labs)? Why? @ -None What meds were considered but not given or refused? Why? @ -None Did you discuss the management of the patient with other professionals (professionals i.e. , PA, ROUTE SALES DRIVER, lab, RT, psych nurse, social science manager, construction services technician, teacher, space operations officer, corrections caseworker)? Give summary @ -EPS evaluated the patient and recommended no inpatient treatment Was smoking cessation discussed for >3mins.? @ -No Was critical care preformed (if so, how long)? @ -No Were there social determinants of health that impacted care today? How? (Homelessness, low income, unemployed, alcoholism, drug addiction, transportation, low edu. Level, literacy, decrease access to med. care, longterm, rehab)? @ -No Was there de-escalation of care discussed even if they declined (Discuss DNR or withdrawal of care, Hospice)? DNR status @ -No What co-morbidities impacted this encounter? (DM, HTN, Smoking, COPD, CAD, Cancer, CVA, ARF, Chemo, Hep., AIDS, mental health diagnosis, sleep apnea, morbid obesity)? @ -None Was patient admitted / discharged? Hospital course, mention meds given and route, prescriptions, significant lab abnormalities, going to OR and other pertinent info. @ -Discharge patient presented after a fall no acute injury on CT complained of some depression evaluated [facility] recommended discharge and follow-up outpatient Undiagnosed new problem with uncertain prognosis? @ -No Drug Therapy requiring intensive monitoring for toxicity (Heparin, Nitro, Insulin, Cardizem)? @ -No Were any procedures done? @ -No Diagnosis/symptom? @ -Close head injury Acute, or Chronic, or Acute on Chronic? @ -Acute Uncomplicated (without systemic symptoms) or Complicated (systemic symptoms)? @ -Chronic complicated Side effects of treatment? @ -No Exacerbation, Progression, or Severe Exacerbation? @ -No Poses a threat to life or bodily function? How? (Chest pain, [place], NE, pneumonia, PE, COPD, DKA, ARF, appy, cholecystitis, CVA, Diverticulitis, Homicidal, Suicidal, threat to staff... and all critical care pts) @ -No - Lab Data Lab Results 07/04/24 Range/Units 14:51 Urine Color Colorless Urine Appearance Clear (Clear) Urine pH 5.5 (5.0-8.0) Ur Specific [place] 1.007 (1.001-1.035) Urine Protein Negative (Negative) Urine Glucose (UA) 3+ H (Negative) Urine Ketones Negative (Negative) Urine Blood Negative (Negative) Urine Nitrite Negative (Negative) Urine Bilirubin Negative (Negative) Urine Urobilinogen <2.0 (<2.0) mg/dL Ur Leukocyte Esterase Negative (Negative) Urine Opiates Screen Detected H (NotDetected) Ur Oxycodone Screen Not Detected (NotDetected) Urine Methadone Screen Not Detected (NotDetected) Ur Barbiturates Screen Not Detected (NotDetected) U Tricyclic Antidepress Not Detected (NotDetected) Ur Phencyclidine Scrn Not Detected (NotDetected) Ur Amphetamines Screen Not Detected (NotDetected) U Methamphetamines Scrn Not Detected (NotDetected) U Benzodiazepines Scrn Not Detected (NotDetected) Urine Cocaine Screen Not Detected (NotDetected) U Marijuana (THC) Screen Not Detected (NotDetected) Disposition Clinical Impression: Fall, Closed head injury Disposition: HOME SELF-CARE Condition: Stable Instructions (If sedation given, give patient instructions): Fall Prevention (ED) Additional Instructions: Please return to the Emergency Department if symptoms worsen or any other concerns. Is patient prescribed a controlled substance at d/c from ED?: No Referrals: Jorge Alberto Gu DO [Primary Care Provider] - 1-2 days Time of Disposition: 16:00
[2024-07-04 14:58] LABS: Appearance,Urine Clear (Clear); Bilirubin,Urine Negative (Negative); Blood,Urine Negative (Negative); Color,Urine Colorless; Glucose,Urine (UA) 3+ (Negative); Ketones,Urine Negative (Negative); Leukocyte Esterase,Urine Negative (Negative); Nitrite,Urine Negative (Negative); PH, Urine 5.5 (5.0-8.0); Protein,Urine Negative (Negative); Specific Gravity,Urine 1.007 (1.001-1.035); Urobilinogen,Urine <2.0 mg/dL (<2.0)
[2024-07-04 15:13] LABS: Amphetamine Screen,Urine Not Detected (NotDetected); Barbiturate Screen,Urine Not Detected (NotDetected); Benzodiazepines Screen,Urine Not Detected (NotDetected); Cocaine Screen,Urine Not Detected (NotDetected); Methadone Screen, Urine Not Detected (NotDetected); Opiate Screen,Urine Detected (NotDetected); Oxycodone Screen, Urine Not Detected (NotDetected); Phencyclidine Screen,Urine Not Detected (NotDetected); Tricyclic Antidepressant,Urine Not Detected (NotDetected); Urn Cannabinoid Scrn Not Detected (NotDetected)
[2024-07-04 17:11] VITALS: BP 151/90; PULSE 62; RESP 20; TEMP 98.4
== END 2024-07-04 17:05 | disposition home or self-care (01) ==
LOC: EC 11:21
DX: W19.XXXA Unspecified fall, initial encounter
CPT/HCPCS: 70450; 72125; 80306; 81003; 82075; 99284

== ENCOUNTER 2024-07-31 18:59 | Emergency (ER) | payer MEDICARE ==
[2024-07-31 19:31] VITALS: RESP 18; TEMP 97.8
--- NOTE | 2024-07-31 20:08 | ED ---
Fall HPI - General Chief Complaint: Fall Stated Complaint: Fall Time Seen by Provider: 07/31/24 19:03 Source: patient, EMS, RN notes reviewed Mode of arrival: EMS Limitations: no limitations - History of Present Illness Initial Comments: 84-year-old female presents emerged part via EMS chief complaint of a fall. Patient had mechanical trip and fall patient is on blood thinners did strike the left frontal aspect of her head she states she has mild headache denies any dizziness no loss conscious denies any neck pain she is complain of mild left hip pain and left knee pain. Patient was placed in c-collar by EMS. Patient offers no complaints of chest pain or shortness of breath no abdominal pain - Related Data Home Medications Medication Instructions Recorded Confirmed Atorvastatin [Lipitor] 40 mg PO HS 10/27/21 06/13/23 Canagliflozin [Invokana] 100 mg PO DAILY 10/27/21 06/13/23 Metoprolol Succinate (ER) [Toprol 50 mg PO DAILY 10/27/21 06/13/23 XL] Potassium Chloride ER [K-Dur 10] 10 meq PO DAILY 10/27/21 06/13/23 traZODone HCL 150 mg PO HS 10/27/21 06/13/23 Sertraline [Zoloft] 150 mg PO DAILY 06/11/23 06/13/23 Previous Rx's Medication Instructions Recorded Gabapentin [Neurontin] 300 mg PO TID #9 cap 06/16/23 Glimepiride [Amaryl] 4 mg PO AC-BRKFST tab 06/16/23 HYDROcodone/APAP 10-325MG [[place] 1 tab PO QID #12 tab 06/16/23 10-325] INSULIN ASPART (NovoLOG) [NovoLOG 0 unit SQ AC-TID each 06/16/23 (formulary)] Lidocaine 5% Patch [Lidoderm 5% 1 patch TOPICAL DAILY #3 patch 06/16/23 Patch] Rivaroxaban [Xarelto] 5 mg PO DAILY tab 06/16/23 lisinopriL [Zestril] 10 mg PO BID #0 06/16/23 Allergies Allergy/AdvReac Type Severity Reaction Status Date / Time No Known Allergies Allergy Verified 07/04/24 11:38 Review of Systems ROS Statement: Those systems with pertinent positive or pertinent negative responses have been documented in the HPI. ROS Other: All systems not noted in ROS Statement are negative. 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 skin cancer. Developmently delayed History of Any Multi-Drug Resistant Organisms: None Reported Past Surgical History: Hysterectomy Past Anesthesia/Blood Transfusion Reactions: No Reported Reaction Past Psychological History: Unable to Obtain Smoking Status: Never smoker Past Alcohol Use History: None Reported Past Drug Use History: None Reported - Past Family History Father History Unknown: Yes Mother History Unknown: Yes General Exam General appearance: alert, in no apparent distress Head exam: Present: atraumatic, normocephalic. Absent: normal inspection (Left frontal hematoma) Eye exam: Present: normal appearance, PERRL, EOMI. Absent: scleral icterus, conjunctival injection, periorbital swelling ENT exam: Present: normal exam, normal oropharynx, mucous membranes moist Neck exam: Present: normal inspection, full ROM. Absent: tenderness, meningismus, lymphadenopathy Respiratory exam: Present: normal lung sounds bilaterally. Absent: respiratory distress, wheezes, rales, rhonchi, stridor Cardiovascular Exam: Present: regular rate, normal rhythm, normal heart sounds. Absent: systolic murmur, diastolic murmur, rubs, gallop, clicks Extremities exam: Present: other (Mild left hip tenderness, left knee tenderness hematoma, no shortening rotation pain with palpation intact) Neurological exam: Present: alert, oriented X3, reflexes normal. Absent: motor sensory deficit Course Vital Signs 07/31/24 19:25 Temperature 97.8 F Pulse Rate 64 Respiratory 18 Rate Blood Pressure 186/94 O2 Sat by Pulse 96 Oximetry Medical Decision Making - Medical Decision Making Was pt. sent in by a medical professional or institution (, PA, INCOME TAX INVESTIGATOR, urgent care, hospital, or skilled nursing...) When possible be specific @ -No Did you speak to anyone other than the patient for history (EMS, parent, family, police, friend...)? What history was obtained from this source @ -No Did you review nursing and triage notes (agree or disagree)? Why? @ -I reviewed and agree with nursing and triage notes Were old charts reviewed (outside hosp., previous admission, EMS record, old EKG, old radiological studies, urgent care reports/EKG's, skilled nursing records)? Report findings @ -No old charts were reviewed Differential Diagnosis (chest pain, altered mental status, abdominal pain women, abdominal pain men, vaginal bleeding, weakness, fever, dyspnea, syncope, headache, dizziness, GI bleed, back pain, seizure, CVA, palpatations, mental health, musculoskeletal)? @ -Fall, intracranial hemorrhage, skull fracture, cervical fracture, hip fracture, knee contusion, knee fracture EKG interpreted by me (3pts min.). @ -None X-rays interpreted by me (1pt min.). @ -X-ray left hip with AP pelvis no acute fracture X-ray left knee osteoarthritis no acute fracture CT interpreted by me (1pt min.). @ -CT brain, C-spine no acute intracranial hemorrhage, mass effect cervical fracture or malalignment U/S interpreted by me (1pt. min.). @ -None done What testing was considered but not performed or refused? (CT, X-rays, U/S, labs)? Why? @ -None What meds were considered but not given or refused? Why? @ -None Did you discuss the management of the patient with other professionals (professionals i.e. , PA, INCOME TAX INVESTIGATOR, lab, RT, psych nurse, sexual assault social worker, technical consultant, teacher, parachute/combatant diver officer, mental health case manager)? Give summary @ -No Was smoking cessation discussed for >3mins.? @ -No Was critical care preformed (if so, how long)? @ -No Were there social determinants of health that impacted care today? How? (Homelessness, low income, unemployed, alcoholism, drug addiction, t ransportation, low edu. Level, literacy, decrease access to med. care, skilled nursing, rehab)? @ -No Was there de-escalation of care discussed even if they declined (Discuss DNR or withdrawal of care, Hospice)? DNR status @ -No What co-morbidities impacted this encounter? (DM, HTN, Smoking, COPD, CAD, Cancer, CVA, ARF, Chemo, Hep., AIDS, mental health diagnosis, sleep apnea, morbid obesity)? @ -None Was patient admitted / discharged? Hospital course, mention meds given and route, prescriptions, significant lab abnormalities, going to OR and other pertinent info. @ -[Discharge patient presented after mechanical fall. Imaging is negative. Patient discharged in stable condition return parameters discussed. Undiagnosed new problem with uncertain prognosis? @ -No Drug Therapy requiring intensive monitoring for toxicity (Heparin, Nitro, Insulin, Cardizem)? @ -No Were any procedures done? @ -No Diagnosis/symptom? @ -Fall, closed head injury, hip contusion, knee contusion Acute, or Chronic, or Acute on Chronic? @ -Acute Uncomplicated (without systemic symptoms) or Complicated (systemic symptoms)? @ -[Uncomplicated Side effects of treatment? @ -No Exacerbation, Progression, or Severe Exacerbation? @ -No Poses a threat to life or bodily function? How? (Chest pain, [place], [place], pneumonia, PE, COPD, DKA, ARF, appy, cholecystitis, CVA, Diverticulitis, Homicidal, Suicidal, threat to staff... and all critical care pts) @ -No Disposition Clinical Impression: Fall, Contusion, hip, Knee contusion, Closed head injury Disposition: HOME SELF-CARE Condition: Stable Instructions (If sedation given, give patient instructions): Head Injury (ED) Additional Instructions: Please return to the Emergency Department if symptoms worsen or any other concerns. Is patient prescribed a controlled substance at d/c from ED?: No Referrals: Jorge Alberto Gu DO [Primary Care Provider] - 1-2 days Time of Disposition: 21:26
--- NOTE | 2024-07-31 20:22 | CT ---
EXAMINATION TYPE: CT brain shaniqua wo con DATE OF EXAM: 07/31/2024 COMPARISON: 07/04/2024 HISTORY: TRAUMA/FELL CT DLP: 1320 mGycm Automated exposure control for dose reduction was used. TECHNIQUE: CT scan of the head and cervical spine are performed without contrast. Findings: Head CT: Ventricles, basal cisterns and sulci over convexities are moderately enlarged consistent with moderat e generalized atrophy appropriate for the patient's age. There is mild decreased density in the periventricular white matter consistent with chronic ischemic white matter demyelination. There are 1-2 remote lacunar infarcts in the right centrum semiovale. There is no acute bleed or mass effect . Posterior fossa including the brainstem, fourth ventricle and cerebellar pontine angles are grossly n ormal. The intraorbital contents appear normal and symmetric. Visualized paranasal sinuses are well aerated. CT cervical spine: Craniovertebral junction relationships and prevertebral soft tissues are normal. The cervical vertebral segments are normal in height and alignment and there is no fracture subluxati on. There is mild degenerative disease at the C4-5 and C5-6 levels where there is mild spondylosis C4-5 a nd moderate to marked posterior spondylosis C5-6. There is mild encroachment of the bony cervical canal at C5-6 secondary to posterior spondylosis. The re is no bony neural foraminal encroachment. The paraspinal soft tissues unremarkable. IMPRESSION: 1. Head CT: No acute bleed or mass effect. Senescent changes as described above. 2. CT cervical spine: No acute trauma. Degenerative disc disease at C4-5 and C5-6 with possible mild spinal stenosis at C5-C6 as described above. No interval change. [facility], , 07/31/2024 8:19 PM
--- NOTE | 2024-07-31 21:14 | XR ---
EXAMINATION TYPE: XR Hip LT and AP Pelvis DATE OF EXAM: 07/31/2024 COMPARISON: 06/11/2023 HISTORY: Trauma TECHNIQUE: A single AP view of the pelvis is obtained. Two views of the left hip are obtained. FINDINGS: There is no acute fracture/dislocation evident in the pelvis. The hip and sacroiliac join ts appear symmetric and unremarkable. The overlying soft tissue appears unremarkable. Two views of left hip show no acute fracture or dislocation. No focal lytic or sclerotic lesion seen in the proximal left femur. The overlying soft tissue is unremarkable. IMPRESSION: There is no acute fracture or dislocation in the pelvis or left hip. [facility], , 07/31/2024 9:12 PM
--- NOTE | 2024-07-31 21:17 | XR ---
Left knee. HISTORY: Pain following fall. COMPARISON: 06/11/2023 TECHNIQUE: 3 views left knee were obtained. FINDINGS: There is moderate osteopenia. There is no acute fracture or dislocation There is chondrocalcinosis of the lateral compartment There is moderate to severe osteoarthritis in the medial compartment where there is marked joint spac e narrowing and subchondral sclerosis. There is marked hypertrophic spurring and joint space narrowin g of the patellofemoral compartment. There is a joint effusion. There is diffuse arteriovascular calcification. IMPRESSION: 1. No acute trauma. 2. Tricompartment osteoarthritis. 3. Diffuse arterial vascular calcification. [facility], , 07/31/2024 9:14 PM
[2024-07-31 22:16] VITALS: BP 191/78; PULSE 69
== END 2024-07-31 22:02 | disposition home or self-care (01) ==
LOC: EC 18:59
CPT/HCPCS: 70450; 72125; 73502; 99284

== ENCOUNTER 2024-08-26 20:42 | Observation (INO) | payer MEDICARE ==
--- NOTE | 2024-08-26 21:41 | ED ---
Fall HPI - General Chief Complaint: Fall Stated Complaint: NVD weakness Time Seen by Provider: 08/26/24 21:24 Source: EMS Mode of arrival: EMS Limitations: no limitations - History of Present Illness Initial Comments: Patient is an 84-year-old woman who arrives to have evaluation for ground-level fall. The patient states that she was in her bedroom and lost balance. She fell backwards landing on her low back and striking her head against furniture. The patient does not believe she lost consciousness but was dazed. She was very weak having a hard time getting up and activated EMS. The patient currently complains of headache, neck pain, and low back pain. She states that her bilateral thighs feel tingly. She denies loss of continence. 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 Fall Witnessed: no Place Fall Occurred: home Loss of Consciousness: unsure Prolonged Down Time?: no Symptoms Prior to Fall: dizziness Location: head, neck, back Severity: moderate Quality: aching Context: history of frequent falls Associated Symptoms: other (Dizziness) - Related Data Home Medications Medication Instructions Recorded Confirmed Atorvastatin [Lipitor] 40 mg PO HS 10/27/21 09/08/24 Canagliflozin [Invokana] 100 mg PO DAILY 10/27/21 09/08/24 Potassium Chloride ER [K-Dur 10] 10 meq PO MOWEFR@0800 10/27/21 09/08/24 traZODone HCL 150 mg PO HS 10/27/21 09/08/24 Sertraline [Zoloft] 150 mg PO HS 06/11/23 09/08/24 Apixaban [Eliquis] 2.5 mg PO BID@0600,199908/27/24 09/08/24 Cholecalciferol (Vitamin D3) 50 mcg PO BID 08/27/24 09/08/24 [Vitamin D3 (50 Mcg = 2000 Iu)] Tirzepatide [Mounjaro] 2.5 mg SQ CADET 08/27/24 09/08/24 Cyclobenzaprine [Flexeril] 5 mg PO Q12H PRN 09/08/24 09/08/24 Gabapentin [Neurontin] 300 mg PO TID@05,13,21 09/08/24 09/08/24 lisinopriL [Zestril] 20 mg PO HS@199909/08/24 09/08/24 Previous Rx's Medication Instructions Recorded Chlorthalidone [Hygroton] 25 mg PO DAILY tab 08/30/24 HYDROcodone/APAP 10-325MG [[place] 1 tab PO Q6H PRN #12 tab 09/11/24 10-325] INSULIN ASPART (NovoLOG) [NovoLOG 0 unit SQ ACHS each 09/11/24 (formulary)] Metoprolol Succinate (ER) [Toprol 12.5 mg PO DAILY@0800 tab 09/11/24 XL] Nitroglycerin Sl Tabs [Nitrostat] 0.4 mg SUBLINGUAL Q5M PRN tab 09/11/24 Allergies Allergy/AdvReac Type Severity Reaction Status Date / Time No Known Allergies Allergy Verified 09/08/24 14:09 Review of Systems ROS Statement: Those systems with pertinent positive or pertinent negative responses have been documented in the HPI. ROS Other: All systems not noted in ROS Statement are negative. Constitutional: Denies: fever, chills, weakness Eyes: Denies: vision change ENT: Denies: ear pain, epistaxis Respiratory: Denies: cough, dyspnea Cardiovascular: Denies: chest pain, palpitations, edema, syncope Gastrointestinal: Reports: diarrhea. Denies: abdominal pain, vomiting Genitourinary: Denies: dysuria, hematuria Musculoskeletal: Reports: back pain Neurological: Reports: headache. 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 skin cancer. Developmently delayed History of Any Multi-Drug Resistant Organisms: None Reported Past Surgical History: Hysterectomy Past Anesthesia/Blood Transfusion Reactions: No Reported Reaction Past Psychological History: Unable to Obtain Smoking Status: Never smoker Past Alcohol Use History: None Reported Past Drug Use History: None Reported - Past Family History Father History Unknown: Yes Mother History Unknown: Yes General Exam General appearance: alert, in no apparent distress Head exam: Present: atraumatic, normocephalic Eye exam: Present: EOMI. Absent: scleral icterus, conjunctival injection, nystagmus Neck exam: Present: other (Cervical collar) Respiratory exam: Absent: respiratory distress, wheezes, rales, rhonchi, stridor, chest wall tenderness, accessory muscle use Cardiovascular Exam: Present: bradycardia, systolic murmur. Absent: diastolic murmur, rubs, gallop GI/Abdominal exam: Present: soft. Absent: distended, tenderness, guarding, rebound, rigid, mass Extremities exam: Present: normal inspection, normal capillary refill. Absent: pedal edema, calf tenderness Back exam: Present: normal inspection, vertebral tenderness. Absent: CVA tenderness (R), CVA tenderness (L) Neurological exam: Present: alert. Absent: oriented X3 (Patient is oriented to person and place but not date), motor sensory deficit Skin exam: Present: warm, dry, intact, normal color. Absent: rash Course Vital Signs 08/26/24 08/26/24 08/27/24 20:47 22:30 00:00 Temperature 98.3 F Pulse Rate 51 L 64 67 Respiratory 18 18 18 Rate Blood Pressure 143/85 158/92 182/90 O2 Sat by Pulse 95 98 97 Oximetry 08/27/24 08/27/24 08/27/24 02:00 04:00 07:44 Temperature 97.2 F L Pulse Rate 53 L 55 L 60 Respiratory 18 18 18 Rate Blood Pressure 162/91 169/72 168/77 O2 Sat by Pulse 97 99 98 Oximetry Medical Decision Making - Medical Decision Making This patient had a pelvis x-ray that I interpreted as negative for acute bony injury, no fracture, no patient. The patient had CT of the brain and C-spine that I interpreted as negative for acute bony injury, negative for acute intracranial hemorrhage or mass effect. The patient had CT scan of the lumbar spine that I interpreted as showing L1 vertebral fracture. Was pt. sent in by a medical professional or institution (, PA, SORTING AND FOLDING SUPERVISOR, urgent care, hospital, or assisted...) When possible be specific @ -[No] Did you speak to anyone other than the patient for history (EMS, parent, family, police, friend...)? What history was obtained from this source @ -[No] Did you review nursing and triage notes (agree or disagree)? Why? @ -[I reviewed and agree with nursing and triage notes] Were old charts reviewed (outside hosp., previous admission, EMS record, old EKG, old radiological studies, urgent care reports/EKG's, assisted records)? Report findings @ -[No old charts were reviewed] Differential Diagnosis (chest pain, altered mental status, abdominal pain women, abdominal pain men, vaginal bleeding, weakness, fever, dyspnea, syncope, headache, dizziness, GI bleed, back pain, seizure, CVA, palpatations, mental health, musculoskeletal)? @ -[Differential Musculoskeletal Muscular strain, contusion, ligament sprain, fracture, arthritis, septic arthritis, bursitis, cellulitis, muscle spasm, nerve compression, DVT, arterial occlusion, herpes zoster, electrolyte abnormality, tumor.... This is not meant to be in all inclusive list EKG interpreted by me (3pts min.). @ -[As above] X-rays interpreted by me (1pt min.). @ -[None done] CT interpreted by me (1pt min.). @ -[None done] U/S interpreted by me (1pt. min.). @ -[None done] What testing was considered but not performed or refused? (CT, X-rays, U/S, labs)? Why? @ -[None] What meds were considered but not given or refused? Why? @ -[None] Did you discuss the management of the patient with other professionals (professionals i.e. , PA, SORTING AND FOLDING SUPERVISOR, lab, RT, psych nurse, psychotherapist social worker, new client banking services clerk, teacher, business enterprise officer, high risk case manager)? Give summary @ -[Case discussed with orthopedic surgery on-call, given that this is an acute fall they will admit with medical service consultation. Was smoking cessation discussed for >3mins.? @ -[No] Was critical care preformed (if so, how long)? @ -[No] Were there social determinants of health that impacted care today? How? (Homelessness, low income, unemployed, alcoholism, drug addiction, transpo rtation, low edu. Level, literacy, decrease access to med. care, [facility], rehab)? @ -[No] Was there de-escalation of care discussed even if they declined (Discuss DNR or withdrawal of care, Hospice)? DNR status @ -[No] What co-morbidities impacted this encounter? (DM, HTN, Smoking, COPD, CAD, Cancer, CVA, ARF, Chemo, Hep., AIDS, mental health diagnosis, sleep apnea, morbid obesity)? @ -[None] Was patient admitted / discharged? Hospital course, mention meds given and route, prescriptions, significant lab abnormalities, going to OR and other pertinent info. @ -[Patient is an 84-year-old woman who did have a fall. The workup reveals L1 fracture, possibly acute fracture through old injury. The patient will be admitted to have further management by orthopedic surgery. Undiagnosed new problem with uncertain prognosis? @ -[No] Drug Therapy requiring intensive monitoring for toxicity (Heparin, Nitro, Insulin, Cardizem)? @ -[No] Were any procedures done? @ -[No] Diagnosis/symptom? @ -[Acute fall injury L1 vertebral fracture Acute, or Chronic, or Acute on Chronic? @ -Acute Uncomplicated (without systemic symptoms) or Complicated (systemic symptoms)? @ -[Uncomplicated Side effects of treatment? @ -[No] Exacerbation, Progression, or Severe Exacerbation? @ -[No] Poses a threat to life or bodily function? How? (Chest pain, [place], [place], pneumonia, PE, COPD, DKA, ARF, appy, cholecystitis, CVA, Diverticulitis, Homicidal, Suicidal, threat to staff... and all critical care pts) @ -[No] - Lab Data Result diagrams: 08/27/24 00:45 08/29/24 02:34 Disposition Clinical Impression: Closed compression fracture of body of L1 vertebra, Fall Disposition: ADMITTED IP TO THIS HOSP Condition: Good Is patient prescribed a controlled substance at d/c from ED?: No
--- NOTE | 2024-08-26 22:08 | XR ---
EXAMINATION TYPE: XR pelvis AP view DATE OF EXAM: 08/26/2024 10:03 PM CLINICAL INDICATION: Female, 84 years old with history of fall injury; H COMPARISON: None TECHNIQUE: XR pelvis AP view, examined in a single projection. FINDINGS: There is no evidence of fracture or dislocation. There is no soft tissue abnormality. No a bnormal calcifications are present. The spine appears intact. The hips appear intact. Osteophyte form ation of the superior acetabulum bilaterally with mild joint space narrowing. Atherosclerosis of the arterial vasculature. IMPRESSION: 1. No acute osseous pathology. 2. Mild degeneration changes of the hip. [facility], , 08/26/2024 10:06 PM
--- NOTE | 2024-08-26 22:28 | CT ---
EXAMINATION TYPE: CT brain cspine wo con DATE OF EXAM: 08/26/2024 COMPARISON: Prior trauma CT July 31, 2024 HISTORY: Patient is coming to facility after a fall. Patient states she got dizzy and fell backwards onto her night stand. Patient denies LOC. Patient states she does take a blood thinner, but is unawar e of what it is. Patient has also had N/V/D for [address] DLP: 1402.4 mGycm. Automated Exposure Control for Dose Reduction was Utilized. TECHNIQUE: CT scan of the head and cervical spine are performed without contrast. FINDINGS: There is no acute intracranial hemorrhage or midline shift identified. Mild to moderate v entricular and sulcal prominence is redemonstrated. Hernandez-white matter differentiation is preserved. T he calvarium is intact. Deformed right globe with surgical changes redemonstrated. Left-sided aphakia is redemonstrated. The paranasal sinuses are grossly clear Cervical spine is visualized in its entirety from C1 through upper thoracic levels and redemonstrate slight scoliotic curvature without evidence of acute fracture or dislocation. Stable slight grade 1 r etrolisthesis C5 on C6. Prevertebral soft tissue appears within normal limits. The C1-C2 articulatio n is within normal limits on the coronal images. Vertebral body heights are maintained. Mild disc sp cristin narrowing with moderate spurring at C5-C6 level is redemonstrated. Partially calcified greater th an 1 cm low dense left thyroid nodule redemonstrated. Nonemergent thyroid ultrasound follow-up is adv ised to further evaluate if this is not known finding. Lung apices are clear without pneumothorax. IMPRESSION: 1. There is no acute fracture or dislocation evident in the cervical spine. 2. No acute intracranial hemorrhage or midline shift is seen. No significant change from most recent prior. [facility], , 08/26/2024 10:25 PM
[2024-08-26] MEDS: ACETAMINOPHEN TAB 325 MG TAB PO STA (22:38)
--- NOTE | 2024-08-26 23:00 | CT ---
EXAMINATION TYPE: CT lumbar spine wo con DATE OF EXAM: 08/26/2024 10:20 PM COMPARISON: Prior CT lumbar spine February 04, 2023 HISTORY: Patient is coming to facility after a fall. Patient states she got dizzy and fell backwards onto her night stand. Patient denies LOC. Patient states she does take a blood thinner, but is unawar e of what it is. Patient has also had N/V/D for [address] DLP: 1456 mGycm Automated exposure control for dose reduction was used. Unenhanced CT of the lumbar spine was performed. Bone and soft tissue window settings are submitted as well as coronal and sagittal reconstructions. There are 5 lumbar type vertebra redemonstrated. There is now mild height loss estimated at 25% invol ving the L1 vertebra. There is some linear lucency and sclerosis raising concern for possible acute o n chronic fracture. There is slight posterior retropulsion along the superior aspect reference sagitt al image 36 into the anterior spinal canal measuring approximately 4 mm. Alignment is stable and sati sfactory. Other vertebral body heights are maintained. Vacuum disc phenomenon with mild/moderate disc space narrowing at L2-L3 level is redemonstrated. A vacuum disc phenomenon at L3-L4 and L4-L5 levels . Posterior disc herniations adjacent anterior thecal sac at L2-L3 through L4-L5 levels. Axial images show multilevel uncovertebral facet degenerative changes greatest in the mid to lower iesha mbar spine. There is cortical thinning in both kidneys seen. There is mild to moderate calcified plaq ue of the aorta. A few sigmoid colonic diverticula are noted. Lung bases are clear. Coronary artery c alcification is present. IMPRESSION: Possible acute on chronic fracture through the superior aspect of the L1 vertebra as deta iled above. Patient may benefit with MRI study follow-up to further evaluate. [facility], , 08/26/2024 10:58 PM
[2024-08-27] MEDS ORDERED: NALOXONE 0.4 MG/ML 1 ML VIAL IV PRN (00:08)
[2024-08-27] MEDS ORDERED: MORPHINE SULFATE 4 MG/ML SYRINGE IV PRN (00:08)
[2024-08-27] MEDS ORDERED: MAG HYDROX/AL HYDROX/SIMETH 30 ML CUP PO PRN (00:08)
[2024-08-27] MEDS ORDERED: ONDANSETRON 4 MG/2 ML VIAL IVP PRN (00:08)
[2024-08-27] MEDS: SODIUM CHLORIDE 0.9% 1,000 ML IV SCH (01:01)
[2024-08-27 01:25] LABS: Basophils # (A) 0.1 k/uL (0-0.2); Basophils % (A) 1 %; Eosinophils # (A) 0.2 k/uL (0-0.7); Eosinophils % (A) 2 %; HCT 48.6 % (34.0-46.0); HGB 15.2 gm/dL (11.4-16.0); Lymphocytes # (A) 2.4 k/uL (1.0-4.8); Lymphocytes % (A) 28 %; MCHC 31.3 g/dL (31.0-37.0); Mean Platelet Volume 9.6; Monocytes # (A) 0.5 k/uL (0-1.0); Monocytes % (A) 6 %; Neutrophils # (A) 5.1 k/uL (1.3-7.7); Neutrophils % (A) 60 %; Platelet Count 123 k/uL (150-450); RBC 5.07 m/uL (3.80-5.40); RDW 13.5 % (11.5-15.5); WBC 8.5 k/uL (3.8-10.6)
[2024-08-27 01:48] LABS: ALT 15 U/L (4-34); AST 26 U/L (14-36); African American GFR (CKD) 43 (>60 ml/min/1.73 sqM); Albumin 4.4 g/dL (3.5-5.0); Alkaline Phosphatase 82 U/L (38-126); Anion Gap 6 mmol/L; Blood Urea Nitrogen 23 mg/dL (7-17); Calcium 9.8 mg/dL (8.4-10.2); Carbon Dioxide 29 mmol/L (22-30); Chloride 104 mmol/L (98-107); Glucose 101 mg/dL (74-99); Non-African American GFR(CKD) 37 (>60 ml/min/1.73 sqM); Potassium 4.1 mmol/L (3.5-5.1); Sodium 139 mmol/L (137-145); Total Bilirubin 0.9 mg/dL (0.2-1.3); Total Protein 6.7 g/dL (6.3-8.2)
[2024-08-27] MEDS ORDERED: GLIMEPIRIDE 4 MG TAB PO SCH (07:30)
[2024-08-27] MEDS ORDERED: lisinopriL 10 MG TAB PO SCH (09:00)
[2024-08-27] MEDS ORDERED: RIVAROXABAN 2.5 MG TABLET PO SCH (09:00)
[2024-08-27] MEDS ORDERED: POTASSIUM CHLORIDE ER 10 MEQ TAB.ER.PRT PO SCH (09:00)
--- NOTE | 2024-08-27 09:23 | P.HPOR ---
History of Present Illness H&P Date: 08/27/24 Chief Complaint: Low back pain Patient is an 84-year-old female who presented to [facility] after being brought in by emergency room staff from [facility]. apparently the patient lost balance and fell backwards in her apartment. She was unable to ambulate and get up off the floor, EMS to bring patient to hospital for further evaluation. Patient underwent multiple imaging and lab test. Images demonstrated acute versus subacute L1 vertebral body fracture. Patient was also having some numbness and tingling in the bilateral thighs. I was contacted by the emergency room staff, patient was admitted under our care with internal medicine placed on consult. Patient was evaluated today at bedside, she is resting in her hospital bed. She does admit to low back pain mainly with movement. She denies any previous back surgery. She denies any hip or knee surgeries. She normally ambulates with the assistance of a walker. She denies any loss of bowel or bladder function at this time. She does get some occasional numbness and tingling to the bilateral lower extremities more in the feet, it is not constant. Since falling and injuring her back she states that the numbness and tingling is more present in the anterior thighs bilaterally. 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 skin cancer. Developmently delayed History of Any Multi-Drug Resistant Organisms: None Reported Past Surgical History: Hysterectomy Past Anesthesia/Blood Transfusion Reactions: No Reported Reaction Past Psychological History: Unable to Obtain Smoking Status: Never smoker Past Alcohol Use History: None Reported Past Drug Use History: None Reported - Past Family History Father History Unknown: Yes Mother History Unknown: Yes Medications and Allergies Home Medications Medication Instructions Recorded Confirmed Type Atorvastatin [Lipitor] 40 mg PO HS 10/27/21 06/13/23 History Canagliflozin [Invokana] 100 mg PO DAILY 10/27/21 06/13/23 History Metoprolol Succinate (ER) [Toprol 50 mg PO DAILY 10/27/21 06/13/23 History XL] Potassium Chloride ER [K-Dur 10] 10 meq PO DAILY 10/27/21 06/13/23 History traZODone HCL 150 mg PO HS 10/27/21 06/13/23 History Sertraline [Zoloft] 150 mg PO DAILY 06/11/23 06/13/23 History Gabapentin [Neurontin] 300 mg PO TID #9 cap 06/16/23 Rx Glimepiride [Amaryl] 4 mg PO AC-BRKFST tab 06/16/23 Rx HYDROcodone/APAP 10-325MG [[place] 1 tab PO QID #12 tab 06/16/23 Rx 10-325] INSULIN ASPART (NovoLOG) [NovoLOG 0 unit SQ AC-TID each 06/16/23 Rx (formulary)] Lidocaine 5% Patch [Lidoderm 5% 1 patch TOPICAL DAILY #3 patch 06/16/23 Rx Patch] Rivaroxaban [Xarelto] 5 mg PO DAILY tab 06/16/23 Rx lisinopriL [Zestril] 10 mg PO BID #0 06/16/23 06/13/23 Rx Allergies Allergy/AdvReac Type Severity Reaction Status Date / Time No Known Allergies Allergy Verified 08/26/24 20:52 Physical Examination Gen: AOx3, NAD VSS stable at this time Integument: No open lesions or sores are visualized throughout the thoracic or lumbar spine Palpation: Patient demonstrates tenderness to palpation both midline and paraspinal in the lumbar region ROM: Full range of motion in all major muscle groups of the bilateral lower extremities, no focal deficits appreciated Sensory Exam: Senory exam to light touch is intact C5-T1 Senosry exam to light touch is intact L2-S1 Motor: 4/5 strength appreciated the bilateral lower extremities with hip flexion, knee extension, knee flexion, plantarflexion, dorsiflexion, EHL, FHL Reflexes: 2/4 in all UE and LE Negative clonus bilaterally Special Test: Negative straight leg raise bilaterally Results - Labs Labs: Abnormal Lab Results - Last 24 Hours (Table) 08/27/24 08/27/24 Range/Units 00:45 00:45 Hct 48.6 H (34.0-46.0) % Plt Count 123 L (150-450) k/uL BUN 23 H (7-17) mg/dL Creatinine 1.34 H (0.52-1.04) mg/dL Glucose 101 H (74-99) mg/dL H & H 08/27/24 Range/Units 00:45 Hgb 15.2 (11.4-16.0) gm/dL Hct 48.6 H (34.0-46.0) % Result Diagrams: 08/27/24 00:45 08/27/24 00:45 - Diagnostic results CT Scan - lumbar: report reviewed, image reviewed (Report images reviewed of the lumbar spine. Acute for subacute L1 vertebral body fracture noted. moderateretropulsion of the posterior fragment. Multilevel lumbar spondylosis, grade 1 spondylolisthesis L4-L5) Assessment and Plan Assessment: Low back pain Acute versus subacute L1 vertebral body fracture Multilevel lumbar spondylosis L4-L5 grade 1 spondylolisthesis Status post fall from standing Other medical comorbidities Plan: I was able to discuss the case, this to include my physical exam findings and im aging studies my attending Dr. Smith. No emergent orthopedic surgical intervention recommended at this time. Discussed the patient's low back symptoms and pathology and options for treatment. We would like to start with conservative measures, I will order an LSO brace on 08/28/2024. I would like the patient evaluated by physical therapy to evaluate her overall gait and ability to transfer. We did discuss the possibility of surgical intervention if conservative measures do not provide adequate symptomatic relief. Pain control, will order a few different medications. Will try to avoid heavier dose narcotics due to patient's age PT/OT recommendations Weight-bear as tolerated with walker DVT prophylaxis, AMY hose and compression stockings Internal medicine recommendations appreciated Will continue to follow during hospital stay Time with Patient: Less than 30
[2024-08-27] MEDS: METOPROLOL SUCCINATE (ER) 50 MG TAB.ER.24H PO SCH (10:12)
[2024-08-27] MEDS: lisinopriL 10 MG TAB PO SCH (10:12)
[2024-08-27] MEDS: SERTRALINE 50 MG TAB PO SCH (10:12)
[2024-08-27] MEDS: DAPAGLIFLOZIN PROPANEDIOL 5 MG TABLET PO SCH (10:12)
[2024-08-27] MEDS: FAMOTIDINE 20 MG TAB PO SCH (10:12)
[2024-08-27] MEDS: GABAPENTIN 300 MG CAP PO SCH (10:12)
[2024-08-27] MEDS: RIVAROXABAN 2.5 MG TABLET PO SCH (10:13)
[2024-08-27] MEDS: APIXABAN 2.5 MG TABLET PO SCH (11:08)
[2024-08-27] MEDS: HYDROcodone/APAP 5-325MG 1 EACH TAB PO PRN (13:24)
[2024-08-27] MEDS: NON FORMULARY DRUG (Tirzepatide [Mounjaro] 2.5 MG/0.5 ML Pen.Injctr) SQ SCH (15:58)
--- NOTE | 2024-08-27 17:00 | P.CONS ---
History of Present Illness - Reason for Consult Consult date: 08/27/24 Medical management Requesting physician: Mc Smith - Chief Complaint Fall - History of Present Illness This is a 84-year-old pleasant lady, follows with Dr. Gu. Lives at [facility]. Patient been having some nausea vomiting diarrhea for the last week and having increasing weakness. She says she is having diarrhea about once or twice a day. She has pain in her knees which is chronic. She was found next to her bed. No fever no chills. Appetite is fair. She is blind in the right eye. Review of systems: GEN.: Tired EYES: Blind in the right eye HEENT: None NECK: None RESPIRATORY: None CARDIOVASCULAR: None GASTROINTESTINAL: About 2 bowel movements a day somewhat loose GENITOURINARY: None MUSCULOSKELETAL: [Joint pains including back knees LYMPHATICS: None HEMATOLOGICAL: None PSYCHIATRY: None NEUROLOGICAL: None Social history: Lives at [facility]. No history of smoking or alcohol. Her niece is a legal guardian On examination: VITAL SIGNS: 97.2, 60, 18, 168 x 77, 98% room air GENERAL APPEARANCE: Laying in bed, BMI 30.8, not in distress HEENT: Normal external appearance of nose and ear. Oral cavity normal EYES: Pupils normal. Conjunctiva normal. Blind in the right eye. NECK: JVD not raised. Mass not palpable. RESPIRATORY: Respiratory effort normal. Lungs clear to auscultation. CARDIOVASCULAR: First and second sounds normal. No edema. ABDOMEN: Soft. Liver and spleen not palpable. No tenderness. No mass palpable. PSYCHIATRY: Alert and oriented x3. Mood and affect normal. 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 NEUROLOGICAL: Blind in the right eye. Left facial weakness. 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 INVESTIGATIONS, reviewed in the clinical context: September 04, 2024 white count 8.5 hemoglobin 15.2 platelets 123 potassium 4.1 BUN 23 creatinine 1.34 Pelvis x-ray: Some mild DJD changes. Head cervical spine CT: No fracture. Lumbar spine CT: Possible acute on chronic fracture through superior aspect of L1. Some other DJD changes. Assessment and plan -Fall: Combination of myopathy osteoarthritis and decreased oral intake PTOT. -Possible acute L1 compression fracture superior aspect For TLSO brace. Patient's pain is not significant -Hyperlipidemia Lipitor 40 mg daily at bedtime -Essential Hypertension uncontrolled Toprol-XL 50. Lisinopril -Peripheral neuropathy, diabetic peripheral neuropathy Neurontin 300 mg 3 times a day -Type 2 diabetes mellitus, on oral hypoglycemic, uncontrolled with hyperglycemia. Amaryl 4 mg daily. 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 skin cancer. Developmently delayed History of Any Multi-Drug Resistant Organisms: None Reported Past Surgical History: Hysterectomy Past Anesthesia/Blood Transfusion Reactions: No Reported Reaction Past Psychological History: Unable to Obtain Smoking Status: Never smoker Past Alcohol Use History: None Reported Past Drug Use History: None Reported - Past Family History Father History Unknown: Yes Mother History Unknown: Yes Medications and Allergies Home Medications Medication Instructions Recorded Confirmed Type Atorvastatin [Lipitor] 40 mg PO W/SUPPER 10/27/21 08/27/24 History Canagliflozin [Invokana] 100 mg PO DAILY 10/27/21 08/27/24 History Metoprolol Succinate (ER) [Toprol 50 mg PO DAILY 10/27/21 08/27/24 History XL] Potassium Chloride ER [K-Dur 10] 10 meq PO MOWEFR 10/27/21 08/27/24 History traZODone HCL 150 mg PO HS 10/27/21 08/27/24 History Sertraline [Zoloft] 150 mg PO HS 06/11/23 08/27/24 History Gabapentin [Neurontin] 300 mg PO TID #9 cap 06/16/23 08/27/24 Rx Apixaban [Eliquis] 2.5 mg PO BID 08/27/24 08/27/24 History Cholecalciferol (Vitamin D3) 50 mcg PO BID 08/27/24 08/27/24 History [Vitamin D3 (50 Mcg = 2000 Iu)] HYDROcodone/APAP 10-325MG [[place] 1 tab PO Q8H PRN 08/27/24 08/27/24 History 10-325] Tirzepatide [Mounjaro] 2.5 mg SQ CADET 08/27/24 08/27/24 History lisinopriL [Zestril] 10 mg PO W/SUPPER 08/27/24 08/27/24 History Allergies Allergy/AdvReac Type Severity Reaction Status Date / Time No Known Allergies Allergy Verified 08/27/24 09:51 Physical Exam Vitals: Vital Signs Temp Pulse Pulse Resp BP BP Pulse Ox 08/27/24 09:40 97.6 F 59 L 17 194/80 98 08/27/24 07:44 97.2 F L 60 18 168/77 98 08/27/24 04:00 55 L 18 169/72 99 08/27/24 02:00 53 L 18 162/91 97 08/27/24 00:00 67 18 182/90 97 08/26/24 22:30 64 18 158/92 98 08/26/24 20:47 98.3 F 51 L 18 143/85 95 Intake and Output 08/26/24 08/27/24 08/27/24 22:59 06:59 14:59 Other: Weight 76.43 kg 76.43 kg Results CBC & Chem 7: 08/27/24 00:45 08/27/24 00:45 Labs: Abnormal Lab Results - Last 24 Hours (Table) 08/27/24 08/27/24 Range/Units 00:45 00:45 Hct 48.6 H (34.0-46.0) % Plt Count 123 L (150-450) k/uL BUN 23 H (7-17) mg/dL Creatinine 1.34 H (0.52-1.04) mg/dL Glucose 101 H (74-99) mg/dL
[2024-08-27] MEDS: CHOLECALCIFEROL 25 MCG (1000 IU) TABLET PO SCH (22:49)
[2024-08-27] MEDS: ATORVASTATIN 40 MG TAB PO SCH (22:49)
[2024-08-27] MEDS: traZODone HCL 50 MG TAB PO SCH (22:50)
[2024-08-28] MEDS: CYCLOBENZAPRINE 5 MG TAB PO PRN (01:51)
[2024-08-28] MEDS: POTASSIUM CHLORIDE ER 10 MEQ TAB.ER.PRT PO SCH (08:24)
--- NOTE | 2024-08-28 11:17 | P.PN ---
Subjective Progress Note Date: 08/28/24 Principal diagnosis: Low back pain, subacute L1 vertebral body compression fracture, multilevel lumbar spondylosis Patient was evaluated today at bedside, the aids were getting her up to use the restroom, she was utilizing a walker. She continues to have discomfort in the back, it seems managed at this time. She continues to have intermittent paresthesias to the bilateral thighs, the lower extremity paresthesias are at her baseline she feels. An LSO brace was ordered, this was discussed with case management today and hopefully she will be fitted later on. Occupational/ physical therapy consults have also been placed. Objective - Vital Signs Vital signs: Vital Signs Temp 98.3 F 08/28/24 07:15 Pulse 50 L 08/28/24 07:15 Resp 17 08/28/24 07:15 BP 176/71 08/28/24 07:15 Pulse Ox 97 08/28/24 07:15 FiO2 Intake & Output 08/27/24 08/28/24 08/28/24 18:59 06:59 18:59 Intake Total 320 2977 Output Total 1200 1100 Balance -880 1877 Weight 76.43 kg Intake: Oral 320 2977 Output: Urine 1200 1100 Other: Voiding Method External Catheter - Exam Gen: AOx3, NAD VSS stable at this time Integument: No open lesions or sores are visualized throughout the thoracic or lumbar spine Palpation: Patient demonstrates tenderness to palpation both midline and paraspinal in the lumbar region ROM: Full range of motion in all major muscle groups of the bilateral lower extremities, no focal deficits appreciated Sensory Exam: Senory exam to light touch is intact C5-T1 Senosry exam to light touch is intact L2-S1 Motor: 4/5 strength appreciated the bilateral lower extremities with hip flexion, knee extension, knee flexion, plantarflexion, dorsiflexion, EHL, FHL Reflexes: 2/4 in all UE and LE Negative clonus bilaterally Special Test: Negative straight leg raise bilaterally - Labs CBC & Chem 7: 08/27/24 00:45 08/27/24 00:45 Assessment and Plan Assessment: Low back pain Acute versus subacute L1 vertebral body fracture Multilevel lumbar spondylosis L4-L5 grade 1 spondylolisthesis Status post fall from standing Other medical comorbidities Plan: Continue conservative measures Pain control, will order a few different medications. Will try to avoid heavier dose narcotics due to patient's age PT/OT recommendations. Patient will have LSO brace placed later on, patient does not need brace for shorter distances walking Weight-bear as tolerated with walker DVT prophylaxis, AMY hose and compression stockings Internal medicine recommendations appreciated Will continue to follow during hospital stay
[2024-08-28] MEDS: lisinopriL 10 MG TAB PO SCH (17:24)
[2024-08-28 20:37] LABS: Glucose,Whole Blood 121 mg/dL (70-110)
--- NOTE | 2024-08-28 21:45 | P.PN ---
Progress Note - Text Progress Note Date: 08/28/24 - Chief Complaint Fall - History of Present Illness This is a 84-year-old pleasant lady, follows with Dr. Gu. Lives at [facility]. Patient been having some nausea vomiting diarrhea for the last week and having increasing weakness. She says she is having diarrhea about once or twice a day. She has pain in her knees which is chronic. She was found next to her bed. No fever no chills. Appetite is fair. She is blind in the right eye. August 28: Saw the patient this morning. She is able to get up from the recliner and go to the bed. Denies much pain in the back. Hopefully patient can be discharged back to her place. Eating well. Increase lisinopril to 20 mg nightly Social history: Lives at [facility]. No history of smoking or alcohol. Her niece is a legal guardian On examination: VITAL SIGNS: 98.3, 50, 17, 152/81, 97% room air GENERAL APPEARANCE: Sitting up, not in distress HEENT: Normal external appearance of nose and ear. Oral cavity normal EYES: Pupils normal. Conjunctiva normal. Blind in the right eye. NECK: JVD not raised. Mass not palpable. RESPIRATORY: Respiratory effort normal. Lungs clear to auscultation. CARDIOVASCULAR: First and second sounds normal. No edema. ABDOMEN: Soft. Liver and spleen not palpable. No tenderness. No mass palpable. PSYCHIATRY: Alert and oriented x3. Mood and affect normal. 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 NEUROLOGICAL: Blind in the right eye. Left facial weakness. 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 INVESTIGATIONS, reviewed in the clinical context: September 04, 2024 white count 8.5 hemoglobin 15.2 platelets 123 potassium 4.1 BUN 23 creatinine 1.34 Pelvis x-ray: Some mild DJD changes. Head cervical spine CT: No fracture. Lumbar spine CT: Possible acute on chronic fracture through superior aspect of L1. Some other DJD changes. Assessment and plan -Fall: Combination of myopathy osteoarthritis and decreased oral intake PTOT. -Possible acute L1 compression fracture superior aspect For TLSO brace. Patient's pain well-controlled -Hyperlipidemia Lipitor 40 mg daily at bedtime -Essential Hypertension uncontrolled Toprol-XL 50. Crease lisinopril to 20 mg nightly starting tonight -Peripheral neuropathy, diabetic peripheral neuropathy Neurontin 300 mg 3 times a day -Type 2 diabetes mellitus, on oral hypoglycemic, uncontrolled with hyperglycemia. Amaryl 4 mg daily. Follow Accu-Cheks -Blind in the right eye. 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 skin cancer. Developmently delayed History of Any Multi-Drug Resistant Organisms: None Reported Past Surgical History: Hysterectomy Past Anesthesia/Blood Transfusion Reactions: No Reported Reaction Past Psychological History: Unable to Obtain Smoking Status: Never smoker Past Alcohol Use History: None Reported Past Drug Use History: None Reported
[2024-08-28] MEDS: lisinopriL 10 MG TAB PO STA (23:02)
[2024-08-29 03:46] LABS: African American GFR (CKD) 65 (>60 ml/min/1.73 sqM); Anion Gap 4 mmol/L; Blood Urea Nitrogen 20 mg/dL (7-17); Calcium 9.5 mg/dL (8.4-10.2); Carbon Dioxide 26 mmol/L (22-30); Chloride 107 mmol/L (98-107); Glucose 111 mg/dL (74-99); Non-African American GFR(CKD) 56 (>60 ml/min/1.73 sqM); Potassium 3.9 mmol/L (3.5-5.1); Sodium 137 mmol/L (137-145)
[2024-08-29 11:33] LABS: Glucose,Whole Blood 110 mg/dL (70-110)
--- NOTE | 2024-08-29 12:57 | P.PN ---
Subjective Progress Note Date: 08/29/24 Principal diagnosis: Low back pain Subacute L1 vertebral body compression fracture Multilevel lumbar spondylosis Patient seen and examined this morning. Patient is resting comfortably in bed. Patient does remain confused at baseline. An LSO brace has been ordered through [employer], awaiting delivery. Review of physical therapy notes verify that patient has been up to chair and ambulating with walker. Continue to encourage patient to increase her activity. Continue with current pain regimen. Patient may follow-up in office outpatient in 2 weeks. Our services will be signing off at this time. Objective - Vital Signs Vital signs: Vital Signs Temp 97.7 F 08/29/24 07:36 Pulse 66 08/29/24 07:36 Resp 17 08/29/24 07:36 BP 147/77 08/29/24 07:36 Pulse Ox 100 08/29/24 07:36 FiO2 Intake & Output 08/28/24 08/29/24 08/29/24 18:59 06:59 18:59 Other: Voiding Method Diaper Diaper Incontinent Incontinent External Catheter # Voids 4 2 - Exam Inspection: Negative for any open fractures, ecchymosis, significant erythema/ulcers. Sensation: Sensation is equal, symmetric, bilaterally intact throughout the upper and lower extremities Palpation: Tender to palpation over the L1 region Range of motion: Patient does have full range of motion bilateral upper and lower extremities on exam Motor: 4/5 in all major motor groups in the bilateral upper and lower extremities Special tests: Negative Homans bilaterally. Negative Rosalio bilaterally. Negative clonus bilaterally. Neurovascular: Radial pulse intact, 2+ bilaterally. Cap refill under 3 seconds in digits upper extremities. - Labs CBC & Chem 7: 08/27/24 00:45 08/29/24 02:34 Labs: Abnormal Lab Results - Last 24 Hours (Table) 08/28/24 08/29/24 Range/Units 20:34 02:34 BUN 20 H (7-17) mg/dL Glucose 111 H (74-99) mg/dL POC Glucose (mg/dL) 121 H (70-110) mg/dL Assessment and Plan Assessment: Low back pain Acute versus subacute L1 vertebral body fracture Multilevel lumbar spondylosis L4-L5 grade 1 spondylolisthesis Status post fall from standing Other medical comorbidities Plan: At this time we do not recommend any emergent/urgent orthopedic surgical intervention. Patient may follow-up with Dr. Smith's office for further evaluation in 2 weeks. Orthopedics is signing off at this time. Please do not hesitate to contact us for any further questions. 2. Appreciate medical management 3. Pain management - continue with current pain regimen. Utilize ice packs every hour for 20 minutes as needed 6. PT/OT - LSO brace (when available) wear when up and about. Do not wear in bed or shower. Weightbearing as tolerated with a walker as needed. 7. Appreciate consult
[2024-08-29 16:30] LABS: Glucose,Whole Blood 95 mg/dL (70-110)
--- NOTE | 2024-08-29 17:57 | P.PN ---
Progress Note - Text Progress Note Date: 08/29/24 - Chief Complaint Fall - History of Present Illness This is a 84-year-old pleasant lady, follows with Dr. Gu. Lives at [facility]. Patient been having some nausea vomiting diarrhea for the last week and having increasing weakness. She says she is having diarrhea about once or twice a day. She has pain in her knees which is chronic. She was found next to her bed. No fever no chills. Appetite is fair. She is blind in the right eye. August 28: Saw the patient this morning. She is able to get up from the recliner and go to the bed. Denies much pain in the back. Hopefully patient can be discharged back to her place. Eating well. Increase lisinopril to 20 mg nightly August 29: Resting in bed. Spoke to rn case mgr. Pending authorization for rehab. Otherwise patient Comfortable. Eating fair. Active Medications Hydrocodone Bitart/Acetaminophen (Hydrocodone/Apap 5-325mg 1 Each Tab) 1 each PO Q4HR PRN PRN Reason: Moderate Pain (Scale 4 to 6) Last Admin: 08/29/24 10:10 Dose: 1 each Al Hydroxide/Mg Hydroxide (Mag Hydrox/Al Hydrox/Simeth 30 Ml Cup) 15 ml PO Q6HR PRN PRN Reason: Indigestion Apixaban (Apixaban 2.5 Mg Tablet) 2.5 mg PO BID [facility]; Protocol Last Admin: 08/29/24 09:58 Dose: 2.5 mg Atorvastatin Calcium (Atorvastatin 40 Mg Tab) 40 mg PO [facility] Last Admin: 08/28/24 23:01 Dose: 40 mg Cholecalciferol (Cholecalciferol 25 Mcg (1000 Iu) Tablet) 50 mcg PO BID [facility] Last Admin: 08/29/24 09:58 Dose: 50 mcg Cyclobenzaprine HCl (Cyclobenzaprine 5 Mg Tab) 5 mg PO BID PRN PRN Reason: Muscle Spasm Last Admin: 08/28/24 01:51 Dose: 5 mg Dapagliflozin (Dapagliflozin Propanediol 5 Mg Tablet) 5 mg PO DAILY [facility] Last Admin: 08/29/24 09:58 Dose: 5 mg Famotidine (Famotidine 20 Mg Tab) 20 mg PO DAILY [facility] Last Admin: 08/29/24 09:58 Dose: 20 mg Gabapentin (Gabapentin 300 Mg Cap) 300 mg PO TID [facility] Last Admin: 08/29/24 09:58 Dose: 300 mg Lisinopril (Lisinopril 20 Mg Tab) 20 mg PO [facility] Metoprolol Succinate (Metoprolol Succinate (Er) 50 Mg Tab.Er.24h) 50 mg PO DAILY [facility] Last Admin: 08/29/24 09:58 Dose: 50 mg Naloxone HCl (Naloxone 0.4 Mg/Ml 1 Ml Vial) 0.2 mg IV Q2M PRN PRN Reason: Opioid Reversal Non-Formulary Medication (Tirzepatide [Mounjaro]) 2.5 mg SQ CADET [facility] Last Admin: 08/27/24 15:58 Dose: Not Given Ondansetron HCl (Ondansetron 4 Mg/2 Ml Vial) 4 mg IVP Q8HR PRN PRN Reason: Nausea And Vomiting Potassium Chloride (Potassium Chloride Er 10 Meq Tab.Er.Prt) 10 meq PO MoWeFr [facility] Last Admin: 08/28/24 08:24 Dose: 10 meq Sertraline HCl (Sertraline 50 Mg Tab) 150 mg PO DAILY [facility] Last Admin: 08/29/24 09:59 Dose: 150 mg Trazodone HCl (Trazodone Hcl 50 Mg Tab) 150 mg PO [facility] Last Admin: 08/28/24 23:01 Dose: 150 mg Social history: Lives at [facility]. No history of smoking or alcohol. Her niece is a legal guardian On examination: VITAL SIGNS: 97.7, 66, 17, 147 x 77, 100% room air GENERAL APPEARANCE: Resting in bed, comfortable HEENT: Normal external appearance of nose and ear. Oral cavity normal EYES: Pupils normal. Conjunctiva normal. Blind in the right eye. NECK: JVD not raised. Mass not palpable. RESPIRATORY: Respiratory effort normal. Lungs clear to auscultation. CARDIOVASCULAR: First and second sounds normal. No edema. ABDOMEN: Soft. Liver and spleen not palpable. No tenderness. No mass palpable. PSYCHIATRY: Alert and oriented x3. Mood and affect normal. 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 NEUROLOGICAL: Blind in the right eye. Left facial weakness. 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 INVESTIGATIONS, reviewed in the clinical context: September 04, 2024 white count 8.5 hemoglobin 15.2 platelets 123 potassium 4.1 BUN 23 creatinine 1.34 Pelvis x-ray: Some mild DJD changes. Head cervical spine CT: No fracture. Lumbar spine CT: Possible acute on chronic fracture through superior aspect of L1. Some other DJD changes. Assessment and plan -Fall: Combination of myopathy osteoarthritis and decreased oral intake PTOT. -Possible acute L1 compression fracture superior aspect For TLSO brace. Patient's pain well-controlled -Hyperlipidemia Lipitor 40 mg daily at bedtime -Essential Hypertension Toprol-XL 50. Lisinopril increased to 20 mg nightly. Add chlorthalidone 25 mg a day -Peripheral neuropathy, diabetic peripheral neuropathy Neurontin 300 mg 3 times a day -Type 2 diabetes mellitus, on oral hypoglycemic, uncontrolled with hyperglycemia. Amaryl 4 mg daily. 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 Add chlorthalidone. 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 skin cancer. Developmently delayed History of Any Multi-Drug Resistant Organisms: None Reported Past Surgical History: Hysterectomy Past Anesthesia/Blood Transfusion Reactions: No Reported Reaction Past Psychological History: Unable to Obtain Smoking Status: Never smoker Past Alcohol Use History: None Reported Past Drug Use History: None Reported
[2024-08-29 20:16] LABS: Glucose,Whole Blood 116 mg/dL (70-110)
[2024-08-29] MEDS: lisinopriL 20 MG TAB PO SCH (22:18)
[2024-08-30 06:13] LABS: Glucose,Whole Blood 110 mg/dL (70-110)
[2024-08-30 07:12] VITALS: BP 156/83; PULSE 60; RESP 18; TEMP 97.5
[2024-08-30] MEDS: CHLORTHALIDONE 25 MG TAB PO SCH (08:36)
--- NOTE | 2024-08-30 09:30 | P.PN ---
Subjective Progress Note Date: 08/30/24 Principal diagnosis: Low back pain, subacute L1 vertebral body compression fracture, multilevel lumbar spondylosis Patient was evaluated today at bedside, She is resting comfortably in her hospital bed. The LSO brace has been delivered. She feels that the low back and lower extremities are slightly improved. She is looking forward to being discharged to subacute rehab for therapy. She has no other orthopedic complaints at this time. Objective - Vital Signs Vital signs: Vital Signs Temp 97.5 F L 08/30/24 07:11 Pulse 60 08/30/24 07:11 Resp 18 08/30/24 07:11 BP 156/83 08/30/24 07:11 Pulse Ox 97 08/30/24 07:11 FiO2 Intake & Output 08/29/24 08/30/24 08/30/24 18:59 06:59 18:59 Intake Total 440 Balance 440 Intake: Oral 440 Other: Voiding Method Diaper Toilet Toilet Incontinent Diaper Diaper Incontinent Incontinent # Voids 3 2 # Bowel Movements 1 1 - Exam Gen: AOx3, NAD VSS stable at this time Integument: No open lesions or sores are visualized throughout the thoracic or lumbar spine Palpation: Patient demonstrates tenderness to palpation both midline and paraspinal in the lumbar region ROM: Full range of motion in all major muscle groups of the bilateral lower extremities, no focal deficits appreciated Sensory Exam: Senory exam to light touch is intact C5-T1 Senosry exam to light touch is intact L2-S1 Motor: 4/5 strength appreciated the bilateral lower extremities with hip flexion, knee extension, knee flexion, plantarflexion, dorsiflexion, EHL, FHL Reflexes: 2/4 in all UE and LE Negative clonus bilaterally Special Test: Negative straight leg raise bilaterally - Labs CBC & Chem 7: 08/27/24 00:45 08/29/24 02:34 Labs: Abnormal Lab Results - Last 24 Hours (Table) 08/29/24 Range/Units 20:12 POC Glucose (mg/dL) 116 H (70-110) mg/dL Assessment and Plan Assessment: Low back pain Acute versus subacute L1 vertebral body fracture Multilevel lumbar spondylosis L4-L5 grade 1 spondylolisthesis Status post fall from standing Other medical comorbidities Plan: Continue conservative measures Pain control, Continue current medications PT/OT Also brace when up and ambulating longer distances Weight-bear as tolerated with walker DVT prophylaxis, AMY hose and compression stockings Internal medicine recommendations appreciated Plan for discharge to subacute rehab when authorization is obtained Time with Patient: Less than 30
[2024-08-30 11:26] LABS: Glucose,Whole Blood 145 mg/dL (70-110)
--- NOTE | 2024-08-30 11:55 | P.DS ---
Providers Date of admission: 08/27/24 00:08 Expected date of discharge: 08/30/24 Attending physician: Mc Smith DO Consults: 08/27/24 00:08 Consult Physician Routine Consulting Provider: Donis Moreno Consult Reason/Comments: Medical management Do you want consulting provider notified?: Yes Primary care physician: [facility] Hospital Course: Date of admission: 08/26/2024 Date of discharge: 08/30/2024 Admission diagnosis: Acute versus subacute L1 vertebral body compression fracture, lumbar spondylosis Discharge diagnosis: Same Attending physician: Dr. Smith Surgical procedures: None Brief history: Patient is a 84-year-old female who presented to [facility] after falling at her assisted living home. Patient was admitted under our orthopedic care due to a acute for subacute L1 vertebral body compression fracture. Conservative measures were initiated, this to include use of an LSO brace, PT/OT and pain control. Hospital course: Patient did relatively well with conservative measures. No surgical intervention was done. Patient was followed by internal medicine during her hospital stay. Patient has been utilizing an LSO brace and walker for ambulation. Patient will be discharged to subacute rehab for rehabilitation. Discharge condition/disposition: Patient will be discharged subacute rehab in stable condition. Discharge medications: Instructions are given on resumption of patient's normal daily medications per primary care recommendation, in addition patient will be prescribed [place] 5 mg / 325 mg. Discharge instructions: 1. LSO brace when up and ambulating 2. Weight-bear as tolerated with walker 3. Plan for follow-up advanced orthopedics in the next 10 to 14 days for recheck Patient Condition at Discharge: Good Plan - Discharge Summary Discharge Rx Participant: Yes New Discharge Prescriptions: New Cyclobenzaprine [Flexeril] 5 mg PO BID PRN tab PRN Reason: Muscle Spasm lisinopriL [Zestril] 20 mg PO HS tab HYDROcodone/APAP 5-325MG [[place] 5-325] 1 tab PO Q6HR PRN #18 tab PRN Reason: Pain Chlorthalidone [Hygroton] 25 mg PO DAILY tab Continue Metoprolol Succinate (ER) [Toprol XL] 50 mg PO DAILY Canagliflozin [Invokana] 100 mg PO DAILY Sertraline [Zoloft] 150 mg PO HS Tirzepatide [Mounjaro] 2.5 mg SQ CADET traZODone HCL 150 mg PO HS Potassium Chloride ER [K-Dur 10] 10 meq PO MOWEFR Atorvastatin [Lipitor] 40 mg PO W/SUPPER Gabapentin [Neurontin] 300 mg PO TID #9 cap Apixaban [Eliquis] 2.5 mg PO BID Cholecalciferol (Vitamin D3) [Vitamin D3 (50 Mcg = 2000 Iu)] 50 mcg PO BID Discontinued HYDROcodone/APAP 10-325MG [[place] 10-325] 1 tab PO Q8H PRN PRN Reason: Pain lisinopriL [Zestril] 10 mg PO W/SUPPER Discharge Medication List Atorvastatin [Lipitor] 40 mg PO W/SUPPER 10/27/21 [History] Canagliflozin [Invokana] 100 mg PO DAILY 10/27/21 [History] Metoprolol Succinate (ER) [Toprol XL] 50 mg PO DAILY 10/27/21 [History] Potassium Chloride ER [K-Dur 10] 10 meq PO MOWEFR 10/27/21 [History] traZODone HCL 150 mg PO HS 10/27/21 [History] Sertraline [Zoloft] 150 mg PO HS 06/11/23 [History] Gabapentin [Neurontin] 300 mg PO TID #9 cap 06/16/23 [Rx] Apixaban [Eliquis] 2.5 mg PO BID 08/27/24 [History] Cholecalciferol (Vitamin D3) [Vitamin D3 (50 Mcg = 2000 Iu)] 50 mcg PO BID 08/27/24 [History] Tirzepatide [Mounjaro] 2.5 mg SQ CADET 08/27/24 [History] Chlorthalidone [Hygroton] 25 mg PO DAILY tab 08/30/24 [Rx] Cyclobenzaprine [Flexeril] 5 mg PO BID PRN tab 08/30/24 [Rx] HYDROcodone/APAP 5-325MG [[place] 5-325] 1 tab PO Q6HR PRN #18 tab 08/30/24 [Rx] lisinopriL [Zestril] 20 mg PO HS tab 08/30/24 [Rx] Follow up Appointment(s)/Referral(s): Jorge Alberto Gu DO [Primary Care Provider] - 1-2 days [facility], [NON-STAFF] - As Needed [facility] [NON-STAFF] - As Needed (LSO back brace) Mc Smith DO [Doctor of Osteopathic Medicine] - 10 Days Activity/Diet/Wound Care/Special Instructions: Orthopedic discharge instructions: 1. Pain medication as needed 2. LSO brace when up and ambulating 3. Weight-bear as tolerated with walker 4. Plan for follow-up with advanced orthopedics in [address] Smith for recheck Discharge Disposition: TRANSFER TO SNF/ECF
--- NOTE | 2024-08-30 20:18 | P.PN ---
Progress Note - Text Progress Note Date: 08/30/24 - Chief Complaint Fall - History of Present Illness This is a 84-year-old pleasant lady, follows with Dr. Gu. Lives at [facility]. Patient been having some nausea vomiting diarrhea for the last week and having increasing weakness. She says she is having diarrhea about once or twice a day. She has pain in her knees which is chronic. She was found next to her bed. No fever no chills. Appetite is fair. She is blind in the right eye. August 28: Saw the patient this morning. She is able to get up from the recliner and go to the bed. Denies much pain in the back. Hopefully patient can be discharged back to her place. Eating well. Increase lisinopril to 20 mg nightly August 29: Resting in bed. Spoke to case planner. Pending authorization for rehab. Otherwise patient Comfortable. Eating fair. August 30: Patient going to rehab. Otherwise comfortable. Eating fair. Social history: Lives at [facility]. No history of smoking or alcohol. Her niece is a legal guardian On examination: VITAL SIGNS: 97.5, 60, 18, 156 per 83, 97% room air GENERAL APPEARANCE: Resting in bed, comfortable HEENT: Normal external appearance of nose and ear. Oral cavity normal EYES: Pupils normal. Conjunctiva normal. Blind in the right eye. NECK: JVD not raised. Mass not palpable. RESPIRATORY: Respiratory effort normal. Lungs clear to auscultation. CARDIOVASCULAR: First and second sounds normal. No edema. ABDOMEN: Soft. Liver and spleen not palpable. No tenderness. No mass palpable. PSYCHIATRY: Alert and oriented x3. Mood and affect normal. 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 NEUROLOGICAL: Blind in the right eye. Left facial weakness. 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 INVESTIGATIONS, reviewed in the clinical context: September 04, 2024 white count 8.5 hemoglobin 15.2 platelets 123 potassium 4.1 BUN 23 creatinine 1.34 Pelvis x-ray: Some mild DJD changes. Head cervical spine CT: No fracture. Lumbar spine CT: Possible acute on chronic fracture through superior aspect of L1. Some other DJD changes. Assessment and plan -Fall: Combination of myopathy osteoarthritis and decreased oral intake PTOT. -Possible acute L1 compression fracture superior aspect For TLSO brace. Patient's pain well-controlled -Hyperlipidemia Lipitor 40 mg daily at bedtime -Essential Hypertension Toprol-XL 50. Lisinopril 20 milligram nightly chlorthalidone 25 mg a day -Peripheral neuropathy, diabetic peripheral neuropathy Neurontin 300 mg 3 times a day -Type 2 diabetes mellitus, on oral hypoglycemic, uncontrolled with hyperglycemia. Amaryl 4 mg daily. 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 skin cancer. Developmently delayed History of Any Multi-Drug Resistant Organisms: None Reported Past Surgical History: Hysterectomy Past Anesthesia/Blood Transfusion Reactions: No Reported Reaction Past Psychological History: Unable to Obtain Smoking Status: Never smoker Past Alcohol Use History: None Reported Past Drug Use History: None Reported
== END 2024-08-30 15:58 ==
LOC: EC 20:42 → 4SSUR 08-27 00:08 → INTOOBSV 08-27 00:08 → 4SSUR 08-27 06:35
PROVIDERS: ADMIT Orthopaedic Surgery; ATTEND Orthopaedic Surgery
DX: M47.816 Spondylosis without myelopathy or radiculopathy, lumbar region (principal); S32.010A Wedge compression fracture of first lumbar vertebra, initial encounter for closed fracture; E11.65 Type 2 diabetes mellitus with hyperglycemia; E11.42 Type 2 diabetes mellitus with diabetic polyneuropathy; E78.5 Hyperlipidemia, unspecified; I10 Essential (primary) hypertension; H54.61 Unqualified visual loss, right eye, normal vision left eye; I69.398 Other sequelae of cerebral infarction; R29.810 Facial weakness; R26.9 Unspecified abnormalities of gait and mobility; R42 Dizziness and giddiness; W18.39XA Other fall on same level, initial encounter; Y93.01 Activity, walking, marching and hiking; Y92.122 Bedroom in nursing home as the place of occurrence of the external cause; M43.16 Spondylolisthesis, lumbar region; M54.2 Cervicalgia; M25.561 Pain in right knee; M25.562 Pain in left knee; R19.7 Diarrhea, unspecified; R32 Unspecified urinary incontinence; R51.9 Headache, unspecified; Z79.4 Long term (current) use of insulin; Z79.84 Long term (current) use of oral hypoglycemic drugs; Z79.01 Long term (current) use of anticoagulants; Z79.899 Other long term (current) drug therapy; Z91.81 History of falling
CPT/HCPCS: 99285; 97116; 97161; 97166; 80053; 80048; 85025; 72170; 72125; 72131; 70450; G0378 ×4

== ENCOUNTER 2024-09-08 13:54 | Observation (INO) | payer MEDICARE ==
--- NOTE | 2024-09-08 14:41 | ED ---
General Adult HPI - General Chief complaint: Chest Pain Stated complaint: Chest pain Time Seen by Provider: 09/08/24 14:11 Source: patient, RN notes reviewed Mode of arrival: EMS Limitations: no limitations - History of Present Illness Initial comments: Patient is an 84-year-old female presenting to the emergency department with concerns with chest discomfort. Patient states she did have chest discomfort before she came here however it has resolved at this time. Patient unclear if history of similar symptoms previously. Currently patient is symptom-free. Patient admits to feeling short of breath earlier. No nausea. No sweating. - Related Data Home Medications Medication Instructions Recorded Confirmed Atorvastatin [Lipitor] 40 mg PO HS 10/27/21 09/08/24 Canagliflozin [Invokana] 100 mg PO DAILY 10/27/21 09/08/24 Metoprolol Succinate (ER) [Toprol 50 mg PO DAILY@0800 10/27/21 09/08/24 XL] Potassium Chloride ER [K-Dur 10] 10 meq PO MOWEFR@0800 10/27/21 09/08/24 traZODone HCL 150 mg PO HS 10/27/21 09/08/24 Sertraline [Zoloft] 150 mg PO HS 06/11/23 09/08/24 Apixaban [Eliquis] 2.5 mg PO BID@599,199908/27/24 09/08/24 Cholecalciferol (Vitamin D3) 50 mcg PO BID 08/27/24 09/08/24 [Vitamin D3 (50 Mcg = 2000 Iu)] Tirzepatide [Mounjaro] 2.5 mg SQ CADET 08/27/24 09/08/24 Cyclobenzaprine [Flexeril] 5 mg PO Q12H PRN 09/08/24 09/08/24 Gabapentin [Neurontin] 300 mg PO TID@05,,09/08/24 09/08/24 HYDROcodone/APAP 10-325MG [[place] 1 tab PO Q6H PRN 09/08/24 09/08/24 10-325] lisinopriL [Zestril] 20 mg PO HS@199909/08/24 09/08/24 Previous Rx's Medication Instructions Recorded Chlorthalidone [Hygroton] 25 mg PO DAILY tab 08/30/24 Allergies Allergy/AdvReac Type Severity Reaction Status Date / Time No Known Allergies Allergy Verified 09/08/24 14:09 Review of Systems ROS Statement: Those systems with pertinent positive or pertinent negative responses have been documented in the HPI. ROS Other: All systems not noted in ROS Statement are negative. 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 skin cancer. Developmently delayed. [facility] History of Any Multi-Drug Resistant Organisms: None Reported Past Surgical History: Hysterectomy Past Anesthesia/Blood Transfusion Reactions: No Reported Reaction Past Psychological History: Unable to Obtain Smoking Status: Never smoker Past Alcohol Use History: None Reported Past Drug Use History: None Reported - Past Family History Father History Unknown: Yes Mother History Unknown: Yes General Exam Limitations: no limitations General appearance: alert, in no apparent distress Head exam: Present: normocephalic Neck exam: Present: normal inspection Respiratory exam: Present: normal lung sounds bilaterally Cardiovascular Exam: Present: regular rate, normal rhythm, systolic murmur Expanded Peripheral pulses: 2+: Radial (R), Radial (L), Dorsalis Pedis (R), Dorsalis Pedis (L) GI/Abdominal exam: Present: soft, tenderness ( moderate epigastric), normal bowel sounds. Absent: distended, guarding, rebound, rigid, pulsatile mass Extremities exam: Present: normal inspection. Absent: pedal edema, calf tenderness Neurological exam: Present: alert Psychiatric exam: Present: normal affect, normal mood Skin exam: Present: normal color Course Vital Signs 09/08/24 09/08/24 14:02 15:55 Temperature 97.9 F Pulse Rate 61 60 Respiratory 22 18 Rate Blood Pressure 155/79 140/97 O2 Sat by Pulse 98 98 Oximetry EKG Findings - EKG Results: EKG: interpreted by ERMD, normal axis, normal QRS, normal ST/T EKG shows: bradycardia Medical Decision Making - Medical Decision Making MDM back was pt. sent in by a medical professional or institution (, PA, SCIENTOLOGIST, urgent care, hospital, or custodial...) When possible be specific @ -No Did you speak to anyone other than the patient for history (EMS, parent, family, police, friend...)? What history was obtained from this source @ -No Did you review nursing and triage notes (agree or disagree)? Why? @ -I reviewed and agree with nursing and triage notes Were old charts reviewed (outside hosp., previous admission, EMS record, old EKG, old radiological studies, urgent care reports/EKG's, custodial records)? Report findings @ -Previous chest x-ray also does not reveal acute abnormality Differential Diagnosis (chest pain, altered mental status, abdominal pain women, abdominal pain men, vaginal bleeding, weakness, fever, dyspnea, syncope, headache, dizziness, GI bleed, back pain, seizure, CVA, palpatations, mental health, musculoskeletal)? @ -Differential Chest Pain: Stable Angina, Unstable Angina, STEMI, NSTEMI Aortic Dissection, Pneumothorax, Musculoskeletal, Esophageal Spasm GERD, Cholecystitis, Pancreatitis, Zoster, this is not meant to be an all-inclusive list. EKG interpreted by me (3pts min.). @ -As above X-rays interpreted by me (1pt min.). @ -Chest x-ray shows no acute process CT interpreted by me (1pt min.). @ -CT scan of the abdomen pelvis shows L1 compression U/S interpreted by me (1pt. min.). @ -None done What testing was considered but not performed or refused? (CT, X-rays, U/S, labs)? Why? @ -None What meds were considered but not given or refused? Why? @ -None Did you discuss the management of the patient with other professionals (professionals i.e. , PA, SCIENTOLOGIST, lab, RT, psych nurse, clinical social worker, placement coordinator, teacher, worldwide chief creative officer, window caser)? Give summary @ -Discussed with Dr. Moreno will admit covering Dr. Cunningham Was smoking cessation discussed for >3mins.? @ -No Was critical care preformed (if so, how long)? @ -No Were there social determinants of health that impacted care today? How? (Homelessness, low income, unemployed, alcoholism, drug addiction, transportation, low edu. Level, literacy, decrease access to med. care, senior care, rehab)? @ -No Was there de-escalation of care discussed even if they declined (Discuss DNR or withdrawal of care, Hospice)? DNR status @ -No What co-morbidities impacted this encounter? (DM, HTN, Smoking, COPD, CAD, Cancer, CVA, ARF, Chemo, Hep., AIDS, mental health diagnosis, sleep apnea, morbid obesity)? @ -None Was patient admitted / discharged? Hospital course, mention meds given and route, prescriptions, significant lab abnormalities, going to OR and other pertinent info. @ -Patient presents with chest discomfort. Abdominal discomfort on exam. On reevaluation patient resting comfortably in bed without complaint. Patient is updated on results and plan. Patient to be admitted. Admission orders written. Consult placed. Undiagnosed new problem with uncertain prognosis? @ -No Drug Therapy requiring intensive monitoring for toxicity (Heparin, Nitro, Insulin, Cardizem)? @ -No Were any procedures done? @ -No Diagnosis/symptom? @ -Chest pain Acute, or Chronic, or Acute on Chronic? @ -Acute Uncomplicated (without systemic symptoms) or Complicated (systemic symptoms)? @ -Default Side effects of treatment? @ -No Exacerbation, Progression, or Severe Exacerbation? @ -No Poses a threat to life or bodily function? How? (Chest pain, [place], [place], pneumonia, PE, COPD, DKA, ARF, appy, cholecystitis, CVA, Diverticulitis, Homicidal, Suicidal, threat to staff... and all critical care pts) @ -Threat to cardiac function - Lab Data Result diagrams: 09/08/24 14:52 09/08/24 14:52 Lab Results 09/08/24 09/08/24 09/08/24 Range/Units 14:52 14:52 14:52 WBC 8.4 (3.8-10.6) k/uL RBC 4.85 (3.80-5.40) m/uL Hgb 14.5 (11.4-16.0) gm/dL Hct 45.1 (34.0-46.0) % MCV 92.9 (80.0-100.0) fL MCH 29.9 (25.0-35.0) pg MCHC 32.2 (31.0-37.0) g/dL RDW 13.5 (11.5-15.5) % Plt Count 128 L (150-450) k/uL MPV 9.6 Neutrophils % 63 % Lymphocytes % 25 % Monocytes % 8 % Eosinophils % 2 % Basophils % 0 % Neutrophils # 5.3 (1.3-7.7) k/uL Lymphocytes # 2.1 (1.0-4.8) k/uL Monocytes # 0.7 (0-1.0) k/uL Eosinophils # 0.1 (0-0.7) k/uL Basophils # 0.0 (0-0.2) k/uL PT 11.8 (10.0-12.5) sec INR 1.1 (<1.2) APTT 32.3 H (22.0-30.0) sec D-Dimer 0.28 (<0.60) mg/L FEU Sodium 137 (137-145) mmol/L Potassium 4.8 (3.5-5.1) mmol/L Chloride 105 (98-107) mmol/L Carbon Dioxide 28 (22-30) mmol/L Anion Gap 4 mmol/L BUN 48 H (7-17) mg/dL Creatinine 1.09 H (0.52-1.04) mg/dL Est GFR (CKD-EPI)AfAm 55 (>60 ml/min/1.73 sqM) Est GFR (CKD-EPI)NonAf 48 (>60 ml/min/1.73 sqM) Glucose 113 H (74-99) mg/dL Calcium 9.7 (8.4-10.2) mg/dL Total Bilirubin 0.5 (0.2-1.3) mg/dL AST 23 (14-36) U/L ALT 19 (4-34) U/L Alkaline Phosphatase 82 (38-126) U/L Troponin I (0.000-0.034) ng/mL Total Protein 6.2 L (6.3-8.2) g/dL Albumin 3.8 (3.5-5.0) g/dL Amylase 66 (30-110) U/L Lipase 234 (23-300) U/L 09/08/24 Range/Units 14:52 WBC (3.8-10.6) k/uL RBC (3.80-5.40) m/uL Hgb (11.4-16.0) gm/dL Hct (34.0-46.0) % MCV (80.0-100.0) fL MCH (25.0-35.0) pg MCHC (31.0-37.0) g/dL RDW (11.5-15.5) % Plt Count (150-450) k/uL MPV Neutrophils % % Lymphocytes % % Monocytes % % Eosinophils % % Basophils % % Neutrophils # (1.3-7.7) k/uL Lymphocytes # (1.0-4.8) k/uL Monocytes # (0-1.0) k/uL Eosinophils # (0-0.7) k/uL Basophils # (0-0.2) k/uL PT (10.0-12.5) sec INR (<1.2) APTT (22.0-30.0) sec D-Dimer (<0.60) mg/L FEU Sodium (137-145) mmol/L Potassium (3.5-5.1) mmol/L Chloride (98-107) mmol/L Carbon Dioxide (22-30) mmol/L Anion Gap mmol/L BUN (7-17) mg/dL Creatinine (0.52-1.04) mg/dL Est GFR (CKD-EPI)AfAm (>60 ml/min/1.73 sqM) Est GFR (CKD-EPI)NonAf (>60 ml/min/1.73 sqM) Glucose (74-99) mg/dL Calcium (8.4-10.2) mg/dL Total Bilirubin (0.2-1.3) mg/dL AST (14-36) U/L ALT (4-34) U/L Alkaline Phosphatase (38-126) U/L Troponin I <0.012 (0.000-0.034) ng/mL Total Protein (6.3-8.2) g/dL Albumin (3.5-5.0) g/dL Amylase (30-110) U/L Lipase (23-300) U/L Disposition Clinical Impression: Chest pain Disposition[facility] Is patient prescribed a controlled substance at d/c from ED?: No Referrals: Jorge Alberto Gu DO [Primary Care Provider] - 1-2 days Time of Disposition: 17:32
[2024-09-08 15:15] LABS: Basophils % (A) 0 %; Eosinophils # (A) 0.1 k/uL (0-0.7); Eosinophils % (A) 2 %; HCT 45.1 % (34.0-46.0); HGB 14.5 gm/dL (11.4-16.0); Lymphocytes # (A) 2.1 k/uL (1.0-4.8); Lymphocytes % (A) 25 %; MCH 29.9 pg (25.0-35.0); MCHC 32.2 g/dL (31.0-37.0); MCV 92.9 fL (80.0-100.0); Mean Platelet Volume 9.6; Monocytes # (A) 0.7 k/uL (0-1.0); Monocytes % (A) 8 %; Neutrophils # (A) 5.3 k/uL (1.3-7.7); Neutrophils % (A) 63 %; Platelet Count 128 k/uL (150-450); RBC 4.85 m/uL (3.80-5.40); RDW 13.5 % (11.5-15.5); WBC 8.4 k/uL (3.8-10.6)
[2024-09-08 15:23] LABS: ALT 19 U/L (4-34); AST 23 U/L (14-36); African American GFR (CKD) 55 (>60 ml/min/1.73 sqM); Albumin 3.8 g/dL (3.5-5.0); Alkaline Phosphatase 82 U/L (38-126); Amylase 66 U/L (30-110); Anion Gap 4 mmol/L; Blood Urea Nitrogen 48 mg/dL (7-17); Calcium 9.7 mg/dL (8.4-10.2); Carbon Dioxide 28 mmol/L (22-30); Chloride 105 mmol/L (98-107); Glucose 113 mg/dL (74-99); Lipase 234 U/L (23-300); Non-African American GFR(CKD) 48 (>60 ml/min/1.73 sqM); Potassium 4.8 mmol/L (3.5-5.1); Sodium 137 mmol/L (137-145); Total Bilirubin 0.5 mg/dL (0.2-1.3); Total Protein 6.2 g/dL (6.3-8.2)
[2024-09-08 15:31] LABS: INR 1.1 (<1.2); Partial Thromboplastin Time 32.3 sec (22.0-30.0); Prothrombin Time 11.8 sec (10.0-12.5)
[2024-09-08] MEDS: FAMOTIDINE 20 MG/2 ML VIAL IV STA (15:37)
--- NOTE | 2024-09-08 16:58 | CT ---
EXAMINATION TYPE: CT abdomen pelvis w con DATE OF EXAM: 09/08/2024 4:34 PM COMPARISON: 12/27/2023. CLINICAL INDICATION: Female, 84 years old with history of abdominal pain; abd pain TECHNIQUE: Axial CT abdomen pelvis w con;Sagittal and coronal reformats were created on a separate w orkstation. Contrast used:80ml mL of Isovue 300 with IV Contrast, (none if empty) Oral contrast used: without Oral Contrast (none if empty) CT DLP: 927.8 mGycm, Automated exposure control for dose reduction was used. FINDINGS: LOWER CHEST: Heart is enlarged for size much above annular calcifications. ABDOMEN LIVER: Unremarkable GALLBLADDER AND BILE DUCTS: Unremarkable. PANCREAS: Unremarkable. SPLEEN: Unremarkable. ADRENAL GLANDS: Unremarkable. KIDNEYS AND URETERS: No evidence of hydronephrosis or renal calculus. The ureters are unremarkable. Bilateral simple appearing probable cysts. PELVIS BLADDER: No evidence for wall thickening or mass given limitations of exam. REPRODUCTIVE: Unremarkable. ABDOMEN & PELVIS STOMACH AND BOWEL: Small hiatal hernia.. No evidence of bowel obstruction. PERITONEUM/RETROPERITONEUM: No evidence of pneumoperitoneum or free fluid. VASCULATURE: Mild atherosclerotic calcifications are present throughout the abdominal aorta and its b ranches. No evidence of aortic aneurysm. MUSCULOSKELETAL: Compression deformity L1 vertebral body with 25-50% height loss with mild retropulsi on up to 6 mm. Moderate disc degeneration changes are present throughout the thoracolumbar spine. LYMPH NODES: No gross evidence for lymphadenopathy. SOFT TISSUE/ABDOMINAL WALL: Unremarkable IMPRESSION: 1. No evidence for acute abdominal process. 2. Compression deformity to the L1 vertebral body. There is at least 25-50% height loss. Chronic aleksandra k pain. Consider MRI. 3. Small hiatal hernia. 4. Colonic diverticulosis. 5. Cardiomegaly. [facility], , 09/08/2024 4:55 PM
--- NOTE | 2024-09-08 17:07 | XR ---
EXAMINATION TYPE: XR chest 2V DATE OF EXAM: 09/08/2024 4:42 PM COMPARISON: Chest radiographs from 06/12/2023 CLINICAL INDICATION: Female, 84 years old with history of abdominal pain; [facility] TECHNIQUE: XR chest 2V Frontal and lateral views of the chest. FINDINGS: Lungs/Pleura: There is no evidence of pleural effusion, focal consolidation, or pneumothorax. Pulmonary vascularity: Unremarkable. Heart/mediastinum: Cardiomediastinal silhouette is unremarkable. Musculoskeletal: No acute osseous pathology. IMPRESSION: Low lung volumes with a generalized hazy appearance which could represent atelectasis versus pulmonar y edema correlate with serum BNP. [facility], , 09/08/2024 5:05 PM
[2024-09-08] MEDS ORDERED: NITROGLYCERIN SL TABS 0.4 MG TAB SUBLINGUAL PRN (17:32)
[2024-09-08] MEDS ORDERED: CYCLOBENZAPRINE 5 MG TAB PO PRN (17:33)
[2024-09-08] MEDS: ASPIRIN 81 MG PO STA (17:41)
[2024-09-08] MEDS ORDERED: DEXTROSE 50% SYRINGE 50 ML IVP PRN ×2 (19:22)
[2024-09-08] MEDS: GABAPENTIN 300 MG CAP PO SCH (19:41)
[2024-09-08] MEDS: CHOLECALCIFEROL 25 MCG (1000 IU) TABLET PO SCH (19:41)
[2024-09-08] MEDS: lisinopriL 20 MG TAB PO SCH (19:41)
[2024-09-08] MEDS: APIXABAN 2.5 MG TABLET PO SCH (19:42)
[2024-09-08] MEDS: traZODone HCL 100 MG TAB PO SCH (19:42)
[2024-09-08] MEDS: SERTRALINE 100 MG TAB PO SCH (19:42)
[2024-09-08] MEDS: ATORVASTATIN 40 MG TAB PO SCH (19:44)
[2024-09-08 20:17] LABS: Glucose,Whole Blood 219 mg/dL (70-110)
[2024-09-08] MEDS: INSULIN ASPART (NovoLOG) 100 UNIT/ML VIAL SQ SCH (20:22)
[2024-09-09 05:56] LABS: Glucose,Whole Blood 129 mg/dL (70-110)
[2024-09-09] MEDS: METOPROLOL SUCCINATE (ER) 50 MG TAB.ER.24H PO SCH (09:14)
[2024-09-09 09:15] LABS: Chol/HDL Ratio 4.36 Ratio; LDL Cholesterol,Calculated 57.5 mg/dL (0.0-131.0)
[2024-09-09] MEDS: DAPAGLIFLOZIN PROPANEDIOL 5 MG TABLET PO SCH (09:31)
[2024-09-09] MEDS: CHLORTHALIDONE 25 MG TAB PO SCH (09:31)
[2024-09-09] MEDS: ASPIRIN 325 MG TAB PO SCH (09:32)
--- NOTE | 2024-09-09 09:32 | P.CRDCN ---
History of Present Illness Consult date: 09/09/24 Chief complaint: Syncope History of present illness: The patient is a pleasant 84-year-old female patient with a past medical history significant for paroxysmal atrial fibrillation was diagnosed in 2019 as well as hypertension and dyslipidemia and mild developmental delay the patient currently was at a rehab facility after recent lumbar fracture after a fall. The patient was brought from extended-care facility to the hospital for further evaluation of possible syncopal episode and change in mental status. The patient herself is a poor historian. Apparently the patient did have mild change in mental status with syncope reported. No symptoms of any anginal chest pain or chest discomfort or shortness of breath or dizziness or lightheadedness or any feeling of heart racing or fluttering. She underwent further evaluation including a chest x-ray which showed no acute abnormalities and EKG showed sinus bradycardia. When she presented to the hospital she was seen bradycardic and she continues to be bradycardic with heart rate in the 40s and currently she is on Toprol-XL at 50 mg p.o. daily which I am going to switch her to 12.5 mg p.o. daily. She is also on oral anticoagulation for diagnosis of atrial fibrillation in 2019. At that point in 2019 she underwent an echo which revealed normal biventricular systolic function with mild aortic stenosis. On examination today she has significant systolic murmur at the right upper sternal border with severe decrease in the intensity of S2 concerning for progression in the severit y of aortic stenosis. 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 skin cancer. Developmently delayed. [facility] History of Any Multi-Drug Resistant Organisms: None Reported Past Surgical History: Hysterectomy Past Anesthesia/Blood Transfusion Reactions: No Reported Reaction Past Psychological History: Unable to Obtain Smoking Status: Never smoker Past Alcohol Use History: None Reported Past Drug Use History: None Reported - Past Family History Father History Unknown: Yes Mother History Unknown: Yes Medications and Allergies Home Medications Medication Instructions Recorded Confirmed Type Atorvastatin [Lipitor] 40 mg PO HS 10/27/21 09/08/24 History Canagliflozin [Invokana] 100 mg PO DAILY 10/27/21 09/08/24 History Metoprolol Succinate (ER) [Toprol 50 mg PO DAILY@0800 10/27/21 09/08/24 History XL] Potassium Chloride ER [K-Dur 10] 10 meq PO MOWEFR@0810/27/21 09/08/24 History traZODone HCL 150 mg PO HS 10/27/21 09/08/24 History Sertraline [Zoloft] 150 mg PO HS 06/11/23 09/08/24 History Apixaban [Eliquis] 2.5 mg PO BID@599,199908/27/24 09/08/24 History Cholecalciferol (Vitamin D3) 50 mcg PO BID 08/27/24 09/08/24 History [Vitamin D3 (50 Mcg = 2000 Iu)] Tirzepatide [Mounjaro] 2.5 mg SQ CADET 08/27/24 09/08/24 History Chlorthalidone [Hygroton] 25 mg PO DAILY tab 08/30/24 09/08/24 Rx Cyclobenzaprine [Flexeril] 5 mg PO Q12H PRN 09/08/24 09/08/24 History Gabapentin [Neurontin] 300 mg PO TID@,,09/08/24 09/08/24 History HYDROcodone/APAP 10-325MG [[place] 1 tab PO Q6H PRN 09/08/24 09/08/24 History 10-325] lisinopriL [Zestril] 20 mg PO HS@199909/08/24 09/08/24 History Allergies Allergy/AdvReac Type Severity Reaction Status Date / Time No Known Allergies Allergy Verified 09/08/24 14:09 Physical Exam Vitals: Vital Signs Temp Pulse Pulse Resp BP BP Pulse Ox 09/09/24 07:00 97.5 F L 50 L 16 137/80 96 09/09/24 02:00 97.7 F 47 L 16 118/64 96 09/08/24 20:00 57 L 09/08/24 18:45 97.4 F L 57 L 18 145/45 94 L 09/08/24 17:45 56 L 18 138/68 95 09/08/24 15:55 60 18 140/97 98 09/08/24 14:02 97.9 F 61 22 155/79 98 Intake and Output 09/08/24 09/09/24 09/09/24 22:59 06:59 14:59 Intake Total 200 Output Total 600 Balance 200 -600 Intake: Oral 200 Output: Urine 600 Other: Voiding Method External Catheter Weight 75.75 kg Results 09/08/24 14:52 09/08/24 14:52 Cardiac Enzymes 09/08/24 09/08/24 09/08/24 Range/Units 14:52 14:52 17:44 AST 23 (14-36) U/L Troponin I <0.012 <0.012 (0.000-0.034) ng/mL 09/08/24 Range/Units 21:06 AST (14-36) U/L Troponin I <0.012 (0.000-0.034) ng/mL Coagulation 09/08/24 Range/Units 14:52 PT 11.8 (10.0-12.5) sec APTT 32.3 H (22.0-30.0) sec Lipids 09/08/24 Range/Units 14:52 Triglycerides 279.00 H (0.00-149.00) mg/dL Cholesterol 147.00 (0.00-200.00) mg/dL HDL Cholesterol 33.70 L (40.00-60.00) mg/dL Cholesterol/HDL Ratio 4.36 Ratio CBC 09/08/24 Range/Units 14:52 WBC 8.4 (3.8-10.6) k/uL RBC 4.85 (3.80-5.40) m/uL Hgb 14.5 (11.4-16.0) gm/dL Hct 45.1 (34.0-46.0) % Plt Count 128 L (150-450) k/uL Comprehensive Metabolic Panel 09/08/24 Range/Units 14:52 Sodium 137 (137-145) mmol/L Potassium 4.8 (3.5-5.1) mmol/L Chloride 105 (98-107) mmol/L Carbon Dioxide 28 (22-30) mmol/L BUN 48 H (7-17) mg/dL Creatinine 1.09 H (0.52-1.04) mg/dL Glucose 113 H (74-99) mg/dL Calcium 9.7 (8.4-10.2) mg/dL AST 23 (14-36) U/L ALT 19 (4-34) U/L Alkaline Phosphatase 82 (38-126) U/L Total Protein 6.2 L (6.3-8.2) g/dL Albumin 3.8 (3.5-5.0) g/dL Current Medications Generic Name Dose Route Start Last Admin Trade Name Freq PRN Reason Stop Dose Admin Hydrocodone Bitart/Acetaminophen 1 each 09/08/24 17:33 Hydrocodone/Apap 10-325mg 1 Each Tab PO Q6H PRN Pain Apixaban 2.5 mg 09/08/24 20:00 09/09/24 06:09 Apixaban 2.5 Mg Tablet PO 2.5 mg BID@599,1999 [facility] Administration Protocol Aspirin 325 mg 09/09/24 09:00 Aspirin 325 Mg Tab PO DAILY [facility] Atorvastatin Calcium 40 mg 09/08/24 21:00 09/08/24 19:44 Atorvastatin 40 Mg Tab PO 40 mg HS [facility] Administration Chlorthalidone 25 mg 09/09/24 09:00 Chlorthalidone 25 Mg Tab PO DAILY [facility] Cholecalciferol 50 mcg 09/08/24 21:00 09/08/24 19:41 Cholecalciferol 25 Mcg (1000 Iu) Tablet PO 50 mcg BID [facility] Administration Cyclobenzaprine HCl 5 mg 09/08/24 17:33 Cyclobenzaprine 5 Mg Tab PO Q12H PRN Muscle Spasm Dapagliflozin 5 mg 09/09/24 09:00 Dapagliflozin Propanediol 5 Mg Tablet PO DAILY [facility] Dextrose/Water 25 ml 09/08/24 19:22 Dextrose 50% Syringe 50 Ml IVP PER PROTOCOL PRN Hypoglycemia Protocol Dextrose/Water 50 ml 09/08/24 19:22 Dextrose 50% Syringe 50 Ml IVP PER PROTOCOL PRN Hypoglycemia Protocol Gabapentin 300 mg 09/08/24 21:00 09/09/24 06:09 Gabapentin 300 Mg Cap PO 300 mg TID@,, [facility] Administration Insulin Aspart 0 unit 09/08/24 21:00 09/09/24 06:03 Insulin Aspart (Novolog) 100 Unit/Ml Vial SQ Not Given ACHS [facility] Protocol Lisinopril 20 mg 09/08/24 20:00 09/08/24 19:41 Lisinopril 20 Mg Tab PO 20 mg HS@2000 [facility] Administration Metoprolol Succinate 50 mg 09/09/24 08:00 09/09/24 09:14 Metoprolol Succinate (Er) 50 Mg Tab.Er.24h PO Not Given DAILY@0800 [facility] Nitroglycerin 0.4 mg 09/08/24 17:32 Nitroglycerin Sl Tabs 0.4 Mg Tab SUBLINGUAL Q5M PRN Chest Pain Non-Formulary Medication 2.5 mg 09/10/24 09:00 Tirzepatide [Mounjaro] SQ CADET [facility] Potassium Chloride 10 meq 09/11/24 08:00 Potassium Chloride Er 10 Meq Tab.Er.Prt PO MOWEFR@0800 [facility] Sertraline HCl 150 mg 09/08/24 21:00 09/08/24 19:42 Sertraline 100 Mg Tab PO 150 mg HS [facility] Administration Trazodone HCl 150 mg 09/08/24 21:00 09/08/24 19:42 Trazodone Hcl 100 Mg Tab PO 150 mg HS [facility] Administration Intake and Output 09/08/24 09/09/24 09/09/24 22:59 06:59 14:59 Intake Total 200 Output Total 600 Balance 200 -600 Intake: Oral 200 Output: Urine 600 Other: Voiding Method External Catheter Weight 75.75 kg 09/08/24 14:52 09/08/24 14:52
[2024-09-09 11:54] LABS: Glucose,Whole Blood 131 mg/dL (70-110)
--- NOTE | 2024-09-09 13:32 | CA ---
Transthoracic Echo Report Name: Taylor Good Age: 84 Gender: F : 1940 Exam Date: 09/09/2024 10:03 Exam Location: [facility] Ht (in): 64 Wt (lb): 167 Ordering Physician: Venu Ang MD ([id number]) Attending/Referring Phys: Gas Producer Carli Guidry RDCS Procedure CPT: Indications: chest pain, syncopal event Cardiac Hx: Technical Quality: Good Contrast 1: Total Dose (mL): Contrast 2: Total Dose (mL): MEASUREMENTS (Male / Female) Normal Values 2D ECHO LV Diastolic Diameter PLAX 4.6 cm 4.2 - 5.9 / 3.9 - 5.3 cm LV Systolic Diameter PLAX 3.0 cm IVS Diastolic Thickness 0.8 cm 0.6 - 1.0 / 0.6 - 0.9 cm LVPW Diastolic Thickness 1.2 cm 0.6 - 1.0 / 0.6 - 0.9 cm LV Relative Wall Thickness 0.4 LVOT Diameter 2.0 cm LV Diastolic Volume MOD BP 79.7 cm??? 67 - 155 / 56 - 104 cm??? LV Systolic Volume MOD BP 31.3 cm??? 22 - 58 / 19 - 49 cm??? LV Ejection Fraction MOD BP 60.7 % >= 55 % LV Cardiac Index MOD BP 1345.1 cm???/min???m??? LV Diastolic Volume MOD 4C 86.5 cm??? LV Systolic Volume MOD 4C 36.6 cm??? LV Ejection Fraction MOD 4C 57.7 % LV Cardiac Index MOD 4C 1387.6 cm???/min???m??? LV Diastolic Length 4C 7.7 cm LV Systolic Length 4C 6.6 cm LV Diastolic Volume MOD 2C 71.4 cm??? LV Systolic Volume MOD 2C 25.7 cm??? LV Ejection Fraction MOD 2C 64.1 % LV Cardiac Index MOD 2C 1270.6 cm???/min???m??? LV Diastolic Length 2C 7.5 cm LV Systolic Length 2C 6.2 cm LA Volume 71.9 cm??? 18 - 58 / 22 - 52 cm??? LA Volume Index 38.4 cm???/m??? 16 - 28 cm???/m??? Ascending Aorta Diameter 3.2 cm DOPPLER AV Peak Velocity 426.4 cm/s AV Peak Gradient 72.7 mmHg AV Mean Velocity 300.4 cm/s AV Mean Gradient 41.2 mmHg AV Velocity Time Integral 104.6 cm LVOT Peak Velocity 99.6 cm/s LVOT Peak Gradient 4.0 mmHg LVOT Velocity Time Integral 22.0 cm LVOT Stroke Volume 66.5 cm??? LVOT Stroke Volume Index 36.7 ml/m??? LVOT Cardiac Index 1848.2 cm???/min???m??? AV Area Cont Eq vti 0.6 cm??? AV Area Cont Eq pk 0.7 cm??? MV Area PHT 3.0 cm??? Mitral E Point Velocity 92.7 cm/s Mitral A Point Velocity 83.3 cm/s Mitral E to A Ratio 1.1 MV Deceleration Time 250.2 ms TR Peak Velocity 209.5 cm/s TR Peak Gradient 17.5 mmHg Right Atrial Pressure 5.0 mmHg Pulmonary Artery Systolic Pressu 22.5 mmHg Right Ventricular Systolic Press 22.5 mmHg PV Peak Velocity 100.7 cm/s PV Peak Gradient 4.1 mmHg FINDINGS Left Ventricle Left ventricular ejection fraction is estimated at 65-70 %. Mildly increased posterior wall thickness. Left ventricular cavity size normal. No obvious regional wall motion abnormalities. Right Ventricle Normal right ventricular size and function. Right ventricular systolic pressure within normal limits. Right Atrium Moderate right atrial dilatation. Left Atrium Moderately increased left atrial volume. Mildly increased left atrial area. Mitral Valve Mitral valve thickened. Mitral annular calcification. No evidence for mitral valve prolapse. No mitral stenosis. Mild mitral regurgitation. Aortic Valve Trileaflet aortic valve. Diffuse thickening of the aortic valve cusps with reduced excursion. Severe aortic stenosis with a mean gradient of 41mmHg and a Tricuspid Valve Structurally normal tricuspid valve. No tricuspid stenosis. Trace tricuspid regurgitation. Pulmonic Valve Pulmonic valve not well visualized. No pulmonic stenosis. No pulmonic regurgitation. Pericardium No pericardial effusion. Left pleural effusion. Aorta Normal size aortic root and proximal ascending aorta. CONCLUSIONS Hyperdynamic LV. The ejection fraction is 65 to 70% Aortic sclerosis with severe aortic stenosis and mean gradient of 41 mmHg Thickened mitral valve leaflets with mild mitral regurgitation Cor triatriatum? Previewed by: Dr. Venu Ang MD (Electronically Signed) Final Date: 09 September 2024 13:31
--- NOTE | 2024-09-09 14:38 | P.HPIM ---
History of Present Illness H&P Date: 09/08/24 Chief Complaint: Chest pressure This is a 84-year-old pleasant lady, follows with Dr. Gu. Lives at [facility]. Patient presents heaviness in the chest. Lasted for good to 3 hours. [place] like elephant on the chest. Just did not feel right. Some shortness of breath. No perspiration. Admitted unstable angina. Review of systems: GEN.: Tired EYES: Blind in the right eye HEENT: None NECK: None RESPIRATORY: None CARDIOVASCULAR: As above GASTROINTESTINAL: None GENITOURINARY: None MUSCULOSKELETAL: [Joint pains including back knees LYMPHATICS: None HEMATOLOGICAL: None PSYCHIATRY: None NEUROLOGICAL: None Social history: Lives at [facility]. No history of smoking or alcohol. Her niece is a legal guardian On examination: VITAL SIGNS: 97.9, 60, 18, 140 x 97, 98% room air GENERAL APPEARANCE: Resting bed, tired HEENT: Normal external appearance of nose and ear. Oral cavity normal EYES: Pupils normal. Conjunctiva normal. Blind in the right eye. NECK: JVD not raised. Mass not palpable. RESPIRATORY: Respiratory effort normal. Lungs clear to auscultation. CARDIOVASCULAR: First and second sounds normal. No edema. ABDOMEN: Soft. Liver and spleen not palpable. No tenderness. No mass palpable. PSYCHIATRY: Alert and oriented x3. Mood and affect normal. 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 NEUROLOGICAL: Blind in the right eye. facial weakness. Power grossly intact all 4 limbs INVESTIGATIONS, reviewed in the clinical context: September 08, 2024: White count 8.4 hemoglobin 14.5 platelets 128 sodium 137 potassium 4.8 BUN 48 creatinine 1.09 Troponin I less than 0.012 LDL 57.5 EKG tracing personally reviewed by me-normal sinus rhythm. CT chest abdomen pelvis: Compression deformity L1 vertebral body. Colonic diverticulosis. Cardiomegaly. Assessment and plan -Anterior chest wall pain. With cardiac risk factors. Troponin negative. Telemetry. Cardiology consulted. -Chronic L1 compression fracture superior aspect Recent TLSO brace. Given -Hyperlipidemia Lipitor 40 mg daily at bedtime -Essential Hypertension -Peripheral neuropathy, diabetic peripheral neuropathy Neurontin 300 mg 3 times a day -Type 2 diabetes mellitus, on oral hypoglycemic, Amaryl 4 mg daily. 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 skin cancer. Developmently delayed. [place] History of Any Multi-Drug Resistant Organisms: None Reported Past Surgical History: Hysterectomy Past Anesthesia/Blood Transfusion Reactions: No Reported Reaction Past Psychological History: Unable to Obtain Smoking Status: Never smoker Past Alcohol Use History: None Reported Past Drug Use History: None Reported - Past Family History Father History Unknown: Yes Mother History Unknown: Yes Medications and Allergies Home Medications Medication Instructions Recorded Confirmed Type Atorvastatin [Lipitor] 40 mg PO HS 10/27/21 09/08/24 History Canagliflozin [Invokana] 100 mg PO DAILY 10/27/21 09/08/24 History Metoprolol Succinate (ER) [Toprol 50 mg PO DAILY@0800 10/27/21 09/08/24 History XL] Potassium Chloride ER [K-Dur 10] 10 meq PO MOWEFR@0800 10/27/21 09/08/24 History traZODone HCL 150 mg PO HS 10/27/21 09/08/24 History Sertraline [Zoloft] 150 mg PO HS 06/11/23 09/08/24 History Apixaban [Eliquis] 2.5 mg PO BID@0600,2000 08/27/24 09/08/24 History Cholecalciferol (Vitamin D3) 50 mcg PO BID 08/27/24 09/08/24 History [Vitamin D3 (50 Mcg = 2000 Iu)] Tirzepatide [Mounjaro] 2.5 mg SQ CADET 08/27/24 09/08/24 History Chlorthalidone [Hygroton] 25 mg PO DAILY tab 08/30/24 09/08/24 Rx Cyclobenzaprine [Flexeril] 5 mg PO Q12H PRN 09/08/24 09/08/24 History Gabapentin [Neurontin] 300 mg PO TID@05,13,21 09/08/24 09/08/24 History HYDROcodone/APAP 10-325MG [Delta 1 tab PO Q6H PRN 09/08/24 09/08/24 History 10-325] lisinopriL [Zestril] 20 mg PO HS@199909/08/24 09/08/24 History Allergies Allergy/AdvReac Type Severity Reaction Status Date / Time No Known Allergies Allergy Verified 09/08/24 14:09 Physical Exam Vitals: Vital Signs Temp Pulse Pulse Resp BP BP Pulse Ox 09/08/24 18:45 97.4 F L 57 L 18 145/45 94 L 09/08/24 17:45 56 L 18 138/68 95 09/08/24 15:55 60 18 140/97 98 09/08/24 14:02 97.9 F 61 22 155/79 98 Intake and Output 09/08/24 09/08/24 09/08/24 06:59 14:59 22:59 Other: Weight 75.75 kg Results CBC & Chem 7: 09/08/24 14:52 09/08/24 14:52 Labs: Abnormal Lab Results - Last 24 Hours (Table) 09/08/24 09/08/24 09/08/24 Range/Units 14:52 14:52 14:52 Plt Count 128 L (150-450) k/uL APTT 32.3 H (22.0-30.0) sec BUN 48 H (7-17) mg/dL Creatinine 1.09 H (0.52-1.04) mg/dL Glucose 113 H (74-99) mg/dL Total Protein 6.2 L (6.3-8.2) g/dL
--- NOTE | 2024-09-09 14:41 | P.PN ---
Progress Note - Text Progress Note Date: 09/09/24 Chief Complaint: Chest pressure This is a 84-year-old pleasant lady, follows with Dr. Gu. Lives at [facility]. Patient presents heaviness in the chest. Lasted for good to 3 hours. [place] like elephant on the chest. Just did not feel right. Some shortness of breath. No perspiration. Admitted unstable angina. September 09: In bed. Tired. Gets some intermittent chest pain. Seen by cardiology. 2D echo ordered. Troponins have been negative. Toprol-XL 12.5 mg added. Active Medications Hydrocodone Bitart/Acetaminophen (Hydrocodone/Apap 10-325mg 1 Each Tab) 1 each PO Q6H PRN PRN Reason: Pain Apixaban (Apixaban 2.5 Mg Tablet) 2.5 mg PO BID@0600,1999 [facility]; Protocol Last Admin: 09/09/24 06:09 Dose: 2.5 mg Aspirin (Aspirin 325 Mg Tab) 325 mg PO DAILY [facility] Last Admin: 09/09/24 09:32 Dose: 325 mg Atorvastatin Calcium (Atorvastatin 40 Mg Tab) 40 mg PO HS [facility] Last Admin: 09/08/24 19:44 Dose: 40 mg Chlorthalidone (Chlorthalidone 25 Mg Tab) 25 mg PO DAILY [facility] Last Admin: 09/09/24 09:31 Dose: 25 mg Cholecalciferol (Cholecalciferol 25 Mcg (1000 Iu) Tablet) 50 mcg PO BID [facility] Last Admin: 09/09/24 09:32 Dose: 50 mcg Cyclobenzaprine HCl (Cyclobenzaprine 5 Mg Tab) 5 mg PO Q12H PRN PRN Reason: Muscle Spasm Dapagliflozin (Dapagliflozin Propanediol 5 Mg Tablet) 5 mg PO DAILY [facility] Last Admin: 09/09/24 09:31 Dose: 5 mg Dextrose/Water (Dextrose 50% Syringe 50 Ml) 25 ml IVP PER PROTOCOL PRN; Protoco l PRN Reason: Hypoglycemia Dextrose/Water (Dextrose 50% Syringe 50 Ml) 50 ml IVP PER PROTOCOL PRN; Protocol PRN Reason: Hypoglycemia Gabapentin (Gabapentin 300 Mg Cap) 300 mg PO TID@05,13,21 [facility] Last Admin: 09/09/24 13:12 Dose: 300 mg Insulin Aspart (Insulin Aspart (Novolog) 100 Unit/Ml Vial) 0 unit SQ ACHS [facility]; Protocol Last Admin: 09/09/24 12:00 Dose: Not Given Lisinopril (Lisinopril 20 Mg Tab) 20 mg PO HS@1999 [facility] Last Admin: 09/08/24 19:41 Dose: 20 mg Metoprolol Succinate (Metoprolol Succinate (Er) 25 Mg Tab.Er.24h) 12.5 mg PO DAILY@0800 [facility] Nitroglycerin (Nitroglycerin Sl Tabs 0.4 Mg Tab) 0.4 mg SUBLINGUAL Q5M PRN PRN Reason: Chest Pain Non-Formulary Medication (Tirzepatide [Mounjaro]) 2.5 mg SQ CADET [facility] Potassium Chloride (Potassium Chloride Er 10 Meq Tab.Er.Prt) 10 meq PO MOWEFR@0800 [facility] Sertraline HCl (Sertraline 100 Mg Tab) 150 mg PO [facility] Last Admin: 09/08/24 19:42 Dose: 150 mg Trazodone HCl (Trazodone Hcl 100 Mg Tab) 150 mg PO [facility] Last Admin: 09/08/24 19:42 Dose: 150 mg Social history: Lives at [facility]. No history of smoking or alcohol. Her niece is a legal guardian On examination: VITAL SIGNS: 97.7, 77, 113 x 69, 97% room air GENERAL APPEARANCE: In bed, tired HEENT: Normal external appearance of nose and ear. Oral cavity normal EYES: Pupils normal. Conjunctiva normal. Blind in the right eye. NECK: JVD not raised. Mass not palpable. RESPIRATORY: Respiratory effort normal. Lungs clear to auscultation. CARDIOVASCULAR: First and second sounds normal. No edema. Ejection systolic murmur ABDOMEN: Soft. Liver and spleen not palpable. No tenderness. No mass palpable. PSYCHIATRY: Alert and oriented x3. Mood and affect normal. 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 NEUROLOGICAL: Blind in the right eye. facial weakness. Power grossly intact all 4 limbs INVESTIGATIONS, reviewed in the clinical context: 2D echocardiogram: EF 65 to 70%. Severe aortic stenosis. September 08, 2024: White count 8.4 hemoglobin 14.5 platelets 128 sodium 137 potassium 4.8 BUN 48 creatinine 1.09 Troponin I less than 0.012 LDL 57.5 EKG tracing personally reviewed by me-normal sinus rhythm. CT chest abdomen pelvis: Compression deformity L1 vertebral body. Colonic diverticulosis. Cardiomegaly. Assessment and plan -Anterior chest wall pain. With cardiac risk factors. Possible angina Troponin negative. Telemetry. Cardiology following Toprol-XL 12.5 mg. Added -Chronic L1 compression fracture superior aspect Recent TLSO brace. Given -Severe aortic stenosis diffuse thickening of the aortic valve cusps. Reduced excursion. -Hyperlipidemia Lipitor 40 mg daily at bedtime -Essential Hypertension -Peripheral neuropathy, diabetic peripheral neuropathy Neurontin 300 mg 3 times a day -Type 2 diabetes mellitus, on oral hypoglycemic, Amaryl 4 mg daily. 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 Follow with cardiology. Toprol-XL added. 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 skin cancer. Developmently delayed. [place] History of Any Multi-Drug Resistant Organisms: None Reported Past Surgical History: Hysterectomy Past Anesthesia/Blood Transfusion Reactions: No Reported Reaction Past Psychological History: Unable to Obtain Smoking Status: Never smoker Past Alcohol Use History: None Reported Past Drug Use History: None Reported
[2024-09-09 16:59] LABS: Glucose,Whole Blood 152 mg/dL (70-110)
[2024-09-09 20:19] LABS: Glucose,Whole Blood 143 mg/dL (70-110)
[2024-09-09] MEDS: HYDROcodone/APAP 10-325MG 1 EACH TAB PO PRN (22:31)
[2024-09-10 06:02] LABS: Glucose,Whole Blood 155 mg/dL (70-110)
[2024-09-10] MEDS: METOPROLOL SUCCINATE (ER) 25 MG TAB.ER.24H PO SCH (08:15)
[2024-09-10] MEDS: NON FORMULARY DRUG (Tirzepatide [Mounjaro] 2.5 MG/0.5 ML Pen.Injctr) SQ SCH (08:16)
[2024-09-10 11:57] LABS: Glucose,Whole Blood 157 mg/dL (70-110)
--- NOTE | 2024-09-10 13:31 | P.PN ---
Subjective Progress Note Date: 09/10/24 The patient is a pleasant 84-year-old female patient with a past medical history significant for paroxysmal atrial fibrillation was diagnosed in 2019 as well as hypertension and dyslipidemia and mild developmental delay the patient currently was at a rehab facility after recent lumbar fracture after a fall. The patient was brought from extended-care facility to the hospital for further evaluation of possible syncopal episode and change in mental status. The patient herself is a poor historian. Apparently the patient did have mild change in mental status with syncope reported. No symptoms of any anginal chest pain or chest discomfort or shortness of breath or dizziness or lightheadedness or any feeling of heart racing or fluttering. She underwent further evaluation including a chest x-ray which showed no acute abnormalities and EKG showed sinus bradycardia. When she presented to the hospital she was seen bradycardic and she continues to be bradycardic with heart rate in the 40s and currently she is on Toprol-XL at 50 mg p.o. daily which I am going to switch her to 12.5 mg p.o. daily. She is also on oral anticoagulation for diagnosis of atrial fibrillation in 2019. At that point in 2019 she underwent an echo which revealed normal biventricular systolic function with mild aortic stenosis. On examination today she has significant systolic murmur at the right upper sternal border with severe decrease in the intensity of S2 concerning for progression in the severity of aortic stenosis. September 10, 2024 The patient was seen and evaluated this morning. 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 She is feeling overall somewhat better. No chest pain or chest discomfort and no shortness of breath at this point. Physical examination is remarkable for a systolic murmur at the right upper sternal border with decrease in the intensity of S2 and clear breathing sounds bilaterally and no edema was noted Assessment Reported syncopal episode at extended-care facility Status post lumbar fracture after a fall at home Sinus bradycardia which has improved Paroxysmal atrial fibrillation Aortic stenosis Plan Continue the current medical regimen The aortic stenosis management to be addressed probably as an outpatient Objective - Vital Signs Vital signs: Vital Signs Temp 97.7 F 09/10/24 07:00 Pulse 56 L 09/10/24 07:00 Resp 16 09/10/24 07:00 BP 124/72 09/10/24 07:00 Pulse Ox 96 09/10/24 07:00 FiO2 Intake & Output 09/09/24 09/10/24 09/10/24 19:59 06:59 18:59 Intake Total Output Total Balance Intake: Oral Output: Urine Other: Voiding Method Diaper External Catheter # Voids # Bowel Movements - Labs CBC & Chem 7: 09/08/24 14:52 09/08/24 14:52 Labs: Abnormal Lab Results - Last 24 Hours (Table) 09/09/24 09/09/24 09/10/24 Range/Units 16:58 20:18 06:00 POC Glucose (mg/dL) 152 H 143 H 155 H (70-110) mg/dL 09/10/24 Range/Units 11:55 POC Glucose (mg/dL) 157 H (70-110) mg/dL
--- NOTE | 2024-09-10 14:36 | P.PN ---
Progress Note - Text Progress Note Date: 09/10/24 Chief Complaint: Chest pressure This is a 84-year-old pleasant lady, follows with Dr. Gu. Lives at [facility]. Patient presents heaviness in the chest. Lasted for good to 3 hours. [place] like elephant on the chest. Just did not feel right. Some shortness of breath. No perspiration. Admitted unstable angina. September 09: In bed. Tired. Gets some intermittent chest pain. Seen by cardiology. 2D echo ordered. Troponins have been negative. Toprol-XL 12.5 mg added. September 10: In bed. Still feels a bit tired. Though better. Seen by cardiology. No further intervention. Has severe aortic stenosis. For outpatient further workup. Return to [facility] tomorrow Active Medications Hydrocodone Bitart/Acetaminophen (Hydrocodone/Apap 10-325mg 1 Each Tab) 1 each PO Q6H PRN PRN Reason: Pain Last Admin: 09/10/24 08:15 Dose: 1 each Apixaban (Apixaban 2.5 Mg Tablet) 2.5 mg PO BID@0600,2000 [facility]; Protocol Last Admin: 09/10/24 05:57 Dose: 2.5 mg Aspirin (Aspirin 325 Mg Tab) 325 mg PO DAILY [facility] Last Admin: 09/10/24 08:15 Dose: 325 mg Atorvastatin Calcium (Atorvastatin 40 Mg Tab) 40 mg PO HS [facility] Last Admin: 09/09/24 21:36 Dose: 40 mg Chlorthalidone (Chlorthalidone 25 Mg Tab) 25 mg PO DAILY [facility] Last Admin: 09/10/24 08:15 Dose: 25 mg Cholecalciferol (Cholecalciferol 25 Mcg (1000 Iu) Tablet) 50 mcg PO BID [facility] Last Admin: 09/10/24 08:15 Dose: 50 mcg Cyclobenzaprine HCl (Cyclobenzaprine 5 Mg Tab) 5 mg PO Q12H PRN PRN Reason: Muscle Spasm Dapagliflozin (Dapagliflozin Propanediol 5 Mg Tablet) 5 mg PO DAILY [facility] Last Admin: 09/10/24 08:15 Dose: 5 mg Dextrose/Water (Dextrose 50% Syringe 50 Ml) 25 ml IVP PER PROTOCOL PRN; Protocol PRN Reason: Hypoglycemia Dextrose/Water (Dextrose 50% Syringe 50 Ml) 50 ml IVP PER PROTOCOL PRN; Protocol PRN Reason: Hypoglycemia Gabapentin (Gabapentin 300 Mg Cap) 300 mg PO TID@05,13,21 [facility] Last Admin: 09/10/24 13:44 Dose: 300 mg Insulin Aspart (Insulin Aspart (Novolog) 100 Unit/Ml Vial) 0 unit SQ [facility]; Protocol Last Admin: 09/10/24 13:44 Dose: 2 unit Lisinopril (Lisinopril 20 Mg Tab) 20 mg PO HS@1999 [facility] Last Admin: 09/09/24 21:35 Dose: 20 mg Metoprolol Succinate (Metoprolol Succinate (Er) 25 Mg Tab.Er.24h) 12.5 mg PO DAILY@0800 [facility] Last Admin: 09/10/24 08:15 Dose: 12.5 mg Nitroglycerin (Nitroglycerin Sl Tabs 0.4 Mg Tab) 0.4 mg SUBLINGUAL Q5M PRN PRN Reason: Chest Pain Non-Formulary Medication (Tirzepatide [Mounjaro]) 2.5 mg SQ CADET [facility] Last Admin: 09/10/24 08:16 Dose: Not Given Potassium Chloride (Potassium Chloride Er 10 Meq Tab.Er.Prt) 10 meq PO MOWEFR@0800 [facility] Sertraline HCl (Sertraline 100 Mg Tab) 150 mg PO [facility] Last Admin: 09/09/24 21:37 Dose: 150 mg Trazodone HCl (Trazodone Hcl 100 Mg Tab) 150 mg PO [facility] Last Admin: 09/09/24 21:35 Dose: 150 mg Social history: Lives at [facility]. No history of smoking or alcohol. Her niece is a legal guardian On examination: VITAL SIGNS: 97.7, 66, 16, 99 x 64, GENERAL APPEARANCE: In bed, a bit tired HEENT: Normal external appearance of nose and ear. Oral cavity normal EYES: Pupils normal. Conjunctiva normal. Blind in the right eye. NECK: JVD not raised. Mass not palpable. RESPIRATORY: Respiratory effort normal. Lungs clear to auscultation. CARDIOVASCULAR: First and second sounds normal. No edema. Ejection systolic murmur ABDOMEN: Soft. Liver and spleen not palpable. No tenderness. No mass palpable. PSYCHIATRY: Alert and oriented x3. Mood and affect normal. 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 NEUROLOGICAL: Blind in the right eye. facial weakness. Power grossly intact all 4 limbs INVESTIGATIONS, reviewed in the clinical context: 2D echocardiogram: EF 65 to 70%. Severe aortic stenosis. September 08, 2024: White count 8.4 hemoglobin 14.5 platelets 128 sodium 137 potassium 4.8 BUN 48 creatinine 1.09 Troponin I less than 0.012 LDL 57.5 EKG tracing personally reviewed by me-normal sinus rhythm. CT chest abdomen pelvis: Compression deformity L1 vertebral body. Colonic diverticulosis. Cardiomegaly. Assessment and plan -Anterior chest wall pain. With cardiac risk factors. Possible angina Troponin negative. Telemetry. Cardiology following Toprol-XL 12.5 mg. Was added -Chronic L1 compression fracture superior aspect Recent TLSO brace. Given -Severe aortic stenosis diffuse thickening of the aortic valve cusps. Reduced excursion. -Hyperlipidemia Lipitor 40 mg daily at bedtime -Essential Hypertension -Peripheral neuropathy, diabetic peripheral neuropathy Neurontin 300 mg 3 times a day -Type 2 diabetes mellitus, on oral hypoglycemic, Amaryl 4 mg daily. 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 skin cancer. Developmently delayed. [place] History of Any Multi-Drug Resistant Organisms: None Reported Past Surgical History: Hysterectomy Past Anesthesia/Blood Transfusion Reactions: No Reported Reaction Past Psychological History: Unable to Obtain Smoking Status: Never smoker Past Alcohol Use History: None Reported Past Drug Use History: None Reported
[2024-09-10] MEDS ORDERED: ZINC OXIDE PASTE (Z-GUARD) 1 APPLIC TOPICAL PRN (16:30)
[2024-09-10 17:04] LABS: Glucose,Whole Blood 124 mg/dL (70-110)
[2024-09-10 20:28] LABS: Glucose,Whole Blood 174 mg/dL (70-110)
[2024-09-11 06:03] LABS: Glucose,Whole Blood 176 mg/dL (70-110)
[2024-09-11] MEDS: POTASSIUM CHLORIDE ER 10 MEQ TAB.ER.PRT PO SCH (08:23)
--- NOTE | 2024-09-11 11:26 | P.PN ---
Subjective HISTORY OF PRESENT ILLNESS: The patient is a pleasant 84-year-old female patient with a past medical history significant for paroxysmal atrial fibrillation was diagnosed in 2019 as well as hypertension and dyslipidemia and mild developmental delay the patient currently was at a rehab facility after recent lumbar fracture after a fall. The patient was brought from [facility] to the hospital for further evaluation of possible syncopal episode and change in mental status. The patient herself is a poor historian. Apparently the patient did have mild change in mental status with syncope reported. No symptoms of any anginal chest pain or chest discomfort or shortness of breath or dizziness or lightheadedness or any feeling of heart racing or fluttering. She underwent further evaluation including a chest x-ray which showed no acute abnormalities and EKG showed sinus bradycardia. When she presented to the hospital she was seen bradycardic and she continues to be bradycardic with heart rate in the 40s and currently she is on Toprol-XL at 50 mg p.o. daily which I am going to switch her to 12.5 mg p.o. daily. She is also on oral anticoagulation for diagnosis of atrial fibrillation in 2019. At that point in 2019 she underwent an echo which revealed normal biventricular systolic function with mild aortic stenosis. On examination today she has significant systolic murmur at the right upper sternal border with severe decrease in the intensity of S2 concerning for progression in the severity of aortic stenosis. September 10, 2024 The patient was seen and evaluated this morning. 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 She is feeling overall somewhat better. No chest pain or chest discomfort and no shortness of breath at this point. Physical examination is remarkable for a systolic murmur at the right upper sternal border with decrease in the intensity of S2 and clear breathing sounds bilaterally and no edema was noted 09/11/2024 Patient examined this morning. She is sitting up in the chair. Patient currently denies chest pain or pressure. She denies shortness of breath. Vital signs are stable. PHYSICAL EXAM: VITAL SIGNS: Reviewed. GENERAL: Well-developed in no acute distress. NECK: Supple. No JVD or thyromegaly LUNGS: Respirations even and unlabored. Lungs essentially clear to auscultation bilaterally. HEART: Regular rate and rhythm. S1 and decreased S2 heard. Systolic murmur noted. EXTREMITIES: Normal range of motion. No clubbing or cyanosis. Peripheral pulses intact. No lower extremity edema ASSESSMENT: Syncope Severe aortic stenosis Paroxysmal atrial fibrillation Sinus bradycardia Recent lumbar fracture after sustaining a mechanical fall PLAN: 2D echo obtained and reviewed Continue current cardiac medications Patient follows in the office with Dr. Stringer. At patient's last visit in August 2024, patient was not interested in valve replacement workup. However at that time she was also not having episodes of syncope. Spoke with patient in depth this morning about possible valve replacement and workup required. Patient states she is agreeable to workup and surgery if her niece who is her legal guardian wants her to proceed as she states she makes the majority of her medical decisions. Called patient's niece this morning with no answer. Voicemail was left with call back number Case discussed with Dr. Stringer who is unavailable for [place] and cardiac catheterization tomorrow even if family did agree to proceed with workup Patient is otherwise stable and may be discharged today and follow up in the office within a week Nurse practitioner note has been reviewed by physician. Signing provider agrees with the documented findings, assessment, and plan of care documented by REPORTING CONSULTANT as a scribe. Objective - Vital Signs Vital signs: Vital Signs Temp 97.4 F L 09/11/24 07:00 Pulse 63 09/11/24 07:00 Resp 17 09/11/24 07:00 BP 124/67 09/11/24 07:00 Pulse Ox 95 09/11/24 07:00 FiO2 Intake & Output 09/10/24 09/11/24 09/11/24 18:59 06:59 18:59 Intake Total 540 240 118 Output Total 800 800 Balance -260 -560 118 Intake: Oral 540 240 118 Output: Urine 800 800 Other: Voiding Method Diaper Diaper Diaper External Catheter External Catheter External Catheter - Labs CBC & Chem 7: 09/08/24 14:52 09/08/24 14:52 Labs: Abnormal Lab Results - Last 24 Hours (Table) 09/10/24 09/10/24 09/10/24 Range/Units 11:55 17:03 20:16 POC Glucose (mg/dL) 157 H 124 H 174 H (70-110) mg/dL 09/11/24 Range/Units 06:01 POC Glucose (mg/dL) 176 H (70-110) mg/dL
[2024-09-11 12:10] LABS: Glucose,Whole Blood 133 mg/dL (70-110)
--- NOTE | 2024-09-11 12:22 | P.DS ---
Providers Date of admission: 09/08/24 17:33 Expected date of discharge: 09/11/24 Attending physician: Donis Moreno Consults: 09/08/24 17:32 Consult Physician Urgent Consulting Provider: Venu Ang Consult Reason/Comments: cp Do you want consulting provider notified?: Yes Primary care physician: Jorge Alberto [facility] Course: Chief Complaint: Chest pressure This is a 84-year-old pleasant lady, follows with Dr. Gu. Currently at [facility], for rehab, [facility]. Patient presents heaviness in the chest. Lasted for good to 3 hours. [place] like elephant on the chest. Just did not feel right. Some shortness of breath. No perspiration. Admitted unstable angina. September 09: In bed. Tired. Gets some intermittent chest pain. Seen by cardiology. 2D echo ordered. Troponins have been negative. Toprol-XL 12.5 mg added. September 10: In bed. Still feels a bit tired. Though better. Seen by cardiology. No further intervention. Has severe aortic stenosis. For outpatient further workup. Return to [facility] tomorrow September 11: Cardiology spoke to the patient. She is now agreeable for intervention for the severe aortic stenosis. IRAM [employer] tried to reach to patient's niece who is a legal guardian. Got a voicemail. Cardiac catheter was scheduled for tomorrow cannot be done because of scheduling issues. Patient is outpatient will have a cardiac catheter and [facility]. At Social history: Lives at [facility]. No history of smoking or alcohol. Her niece is a legal guardian On examination: VITAL SIGNS: 97.4, 63, 12/07/1979, 95% room air GENERAL APPEARANCE: In bed, a bit tired HEENT: Normal external appearance of nose and ear. Oral cavity normal EYES: Pupils normal. Conjunctiva normal. Blind in the right eye. NECK: JVD not raised. Mass not palpable. RESPIRATORY: Respiratory effort normal. Lungs clear to auscultation. CARDIOVASCULAR: First and second sounds normal. No edema. Ejection systolic murmur ABDOMEN: Soft. Liver and spleen not palpable. No tenderness. No mass palpable. PSYCHIATRY: Alert and oriented x3. Mood and affect normal. 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 NEUROLOGICAL: Blind in the right eye. facial weakness. Power grossly intact all 4 limbs INVESTIGATIONS, reviewed in the clinical context: 2D echocardiogram: EF 65 to 70%. Severe aortic stenosis. September 08, 2024: White count 8.4 hemoglobin 14.5 platelets 128 sodium 137 potassium 4.8 BUN 48 creatinine 1.09 Troponin I less than 0.012 LDL 57.5 EKG tracing personally reviewed by me-normal sinus rhythm. CT chest abdomen pelvis: Compression deformity L1 vertebral body. Colonic diverticulosis. Cardiomegaly. Assessment and plan -Anterior chest wall pain. With cardiac risk factors. Possible angina Troponin negative. Telemetry. Cardiology following Toprol-XL 12.5 mg. -Possible syncope could be related to AMS -Chronic L1 compression fracture superior aspect Recent TLSO brace. Given -Severe aortic stenosis diffuse thickening of the aortic valve cusps. Patient refused intervention in the past. This admission she is agreed for further workup and intervention. Cardiology tried to reach patient's niece who is a legal guardian. Outpatient cardiac catheterization and [facility]. -Hyperlipidemia Lipitor 40 mg daily at bedtime -Essential Hypertension -Medical debility Was getting rehab at [facility] -Peripheral neuropathy, diabetic peripheral neuropathy Neurontin 300 mg 3 times a day -Type 2 diabetes mellitus, on oral hypoglycemic, Amaryl 4 mg daily. 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 skin cancer. Developmently delayed. [facility] History of Any Multi-Drug Resistant Organisms: None Reported Past Surgical History: Hysterectomy Past Anesthesia/Blood Transfusion Reactions: No Reported Reaction Past Psychological History: Unable to Obtain Smoking Status: Never smoker Past Alcohol Use History: None Reported Past Drug Use History: None Reported Plan - Discharge Summary Discharge Rx Participant: No New Discharge Prescriptions: New Metoprolol Succinate (ER) [Toprol XL] 12.5 mg PO DAILY@0800 tab Nitroglycerin Sl Tabs [Nitrostat] 0.4 mg SUBLINGUAL Q5M PRN tab PRN Reason: Chest Pain INSULIN ASPART (NovoLOG) [NovoLOG (formulary)] 0 unit SQ ACHS each Continue Canagliflozin [Invokana] 100 mg PO DAILY Sertraline [Zoloft] 150 mg PO HS Tirzepatide [Mounjaro] 2.5 mg SQ CADET HYDROcodone/APAP 10-325MG [Terry 10-325] 1 tab PO Q6H PRN #12 tab PRN Reason: Pain traZODone HCL 150 mg PO HS Potassium Chloride ER [K-Dur 10] 10 meq PO MOWEFR@0800 Atorvastatin [Lipitor] 40 mg PO HS Apixaban [Eliquis] 2.5 mg PO BID@599,1999 Cholecalciferol (Vitamin D3) [Vitamin D3 (50 Mcg = 2000 Iu)] 50 mcg PO BID Chlorthalidone [Hygroton] 25 mg PO DAILY tab Cyclobenzaprine [Flexeril] 5 mg PO Q12H PRN PRN Reason: Muscle Spasm Gabapentin [Neurontin] 300 mg PO TID@ lisinopriL [Zestril] 20 mg PO HS@1999 Discontinued Metoprolol Succinate (ER) [Toprol XL] 50 mg PO DAILY@0800 Discharge Medication List Atorvastatin [Lipitor] 40 mg PO HS 10/27/21 [History] Canagliflozin [Invokana] 100 mg PO DAILY 10/27/21 [History] Potassium Chloride ER [K-Dur 10] 10 meq PO MOWEFR@0800 10/27/21 [History] traZODone HCL 150 mg PO HS 10/27/21 [History] Sertraline [Zoloft] 150 mg PO HS 06/11/23 [History] Apixaban [Eliquis] 2.5 mg PO BID@08/27/24 [History] Cholecalciferol (Vitamin D3) [Vitamin D3 (50 Mcg = 2000 Iu)] 50 mcg PO BID 08/27/24 [History] Tirzepatide [Mounjaro] 2.5 mg SQ CADET 08/27/24 [History] Chlorthalidone [Hygroton] 25 mg PO DAILY tab 08/30/24 [Rx] Cyclobenzaprine [Flexeril] 5 mg PO Q12H PRN 09/08/24 [History] Gabapentin [Neurontin] 300 mg PO TID@,,09/08/24 [History] lisinopriL [Zestril] 20 mg PO HS@199909/08/24 [History] HYDROcodone/APAP 10-325MG [Terry 10-325] 1 tab PO Q6H PRN #12 tab 09/11/24 [Rx] INSULIN ASPART (NovoLOG) [NovoLOG (formulary)] 0 unit SQ ACHS each 09/11/24 [Rx] Metoprolol Succinate (ER) [Toprol XL] 12.5 mg PO DAILY@0800 tab 09/11/24 [Rx] Nitroglycerin Sl Tabs [Nitrostat] 0.4 mg SUBLINGUAL Q5M PRN tab 09/11/24 [Rx] Follow up Appointment(s)/Referral(s): Mabel Stringer MD [STAFF PHYSICIAN] - 3 Days Jorge Alberto Gu DO [Primary Care Provider] - 1-2 days
--- NOTE | 2024-09-11 17:11 | P.PN ---
Progress Note - Text Progress Note Date: 09/11/24 Chief Complaint: Chest pressure This is a 84-year-old pleasant lady, follows with Dr. Gu. Currently at [facility], for rehab, [facility]. Patient presents heaviness in the chest. Lasted for good to 3 hours. [place] like elephant on the chest. Just did not feel right. Some shortness of breath. No perspiration. Admitted unstable angina. September 09: In bed. Tired. Gets some intermittent chest pain. Seen by cardiology. 2D echo ordered. Troponins have been negative. Toprol-XL 12.5 mg added. September 10: In bed. Still feels a bit tired. Though better. Seen by cardiology. No further intervention. Has severe aortic stenosis. For outpatient further workup. Return to [facility] tomorrow September 11: Cardiology spoke to the patient. She is now agreeable for intervention for the severe aortic stenosis. IRAM [employer] tried to reach to patient's niece who is a legal guardian. Got a voicemail. Cardiac catheter was scheduled for tomorrow cannot be done because of scheduling issues. Patient is outpatient will have a cardiac catheter and [facility]. Social work is working on authorization to get the patient back to [facility] Active Medications Hydrocodone Bitart/Acetaminophen (Hydrocodone/Apap 10-325mg 1 Each Tab) 1 each PO Q6H PRN PRN Reason: Pain Last Admin: 09/10/24 08:15 Dose: 1 each Apixaban (Apixaban 2.5 Mg Tablet) 2.5 mg PO BID@0600,2000 [facility]; Protocol Last Admin: 09/11/24 05:25 Dose: 2.5 mg Atorvastatin Calcium (Atorvastatin 40 Mg Tab) 40 mg PO [facility] Last Admin: 09/10/24 22:17 Dose: 40 mg Chlorthalidone (Chlorthalidone 25 Mg Tab) 25 mg PO DAILY [facility] Last Admin: 09/11/24 08:24 Dose: 25 mg Cholecalciferol (Cholecalciferol 25 Mcg (1000 Iu) Tablet) 50 mcg PO BID [facility] Last Admin: 09/11/24 08:23 Dose: 50 mcg Cyclobenzaprine HCl (Cyclobenzaprine 5 Mg Tab) 5 mg PO Q12H PRN PRN Reason: Muscle Spasm Dapagliflozin (Dapagliflozin Propanediol 5 Mg Tablet) 5 mg PO DAILY [facility] Last Admin: 09/11/24 08:23 Dose: 5 mg Dextrose/Water (Dextrose 50% Syringe 50 Ml) 25 ml IVP PER PROTOCOL PRN; Rhoda col PRN Reason: Hypoglycemia Dextrose/Water (Dextrose 50% Syringe 50 Ml) 50 ml IVP PER PROTOCOL PRN; Protocol PRN Reason: Hypoglycemia Gabapentin (Gabapentin 300 Mg Cap) 300 mg PO TID@05,13,21 [facility] Last Admin: 09/11/24 15:15 Dose: 300 mg Insulin Aspart (Insulin Aspart (Novolog) 100 Unit/Ml Vial) 0 unit SQ ACHS [facility]; Protocol Last Admin: 09/11/24 14:46 Dose: Not Given Lisinopril (Lisinopril 20 Mg Tab) 20 mg PO HS@1999 [facility] Last Admin: 09/10/24 22:14 Dose: 20 mg Metoprolol Succinate (Metoprolol Succinate (Er) 25 Mg Tab.Er.24h) 12.5 mg PO DAILY@0800 [facility] Last Admin: 09/11/24 08:23 Dose: 12.5 mg Nitroglycerin (Nitroglycerin Sl Tabs 0.4 Mg Tab) 0.4 mg SUBLINGUAL Q5M PRN PRN Reason: Chest Pain Non-Formulary Medication (Tirzepatide [Mounjaro]) 2.5 mg SQ CADTE [facility] Last Admin: 09/10/24 08:16 Dose: Not Given Petrolatum (Zinc Oxide Paste (Z-Guard) 1 Applic) 1 applic TOPICAL DAILY PRN; Protocol PRN Reason: Wound Healing Potassium Chloride (Potassium Chloride Er 10 Meq Tab.Er.Prt) 10 meq PO MOWEFR@0800 [facility] Last Admin: 09/11/24 08:23 Dose: 10 meq Sertraline HCl (Sertraline 100 Mg Tab) 150 mg PO [facility] Last Admin: 09/10/24 22:17 Dose: 150 mg Trazodone HCl (Trazodone Hcl 100 Mg Tab) 150 mg PO [facility] Last Admin: 09/10/24 22:15 Dose: 150 mg Social history: Lives at [facility]. No history of smoking or alcohol. Her niece is a legal guardian On examination: VITAL SIGNS: 97.4, 63, 12/07/1979, 95% room air GENERAL APPEARANCE: In bed, a bit tired HEENT: Normal external appearance of nose and ear. Oral cavity normal EYES: Pupils normal. Conjunctiva normal. Blind in the right eye. NECK: JVD not raised. Mass not palpable. RESPIRATORY: Respiratory effort normal. Lungs clear to auscultation. CARDIOVASCULAR: First and second sounds normal. No edema. Ejection systolic murmur ABDOMEN: Soft. Liver and spleen not palpable. No tenderness. No mass palpable. PSYCHIATRY: Alert and oriented x3. Mood and affect normal. 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 NEUROLOGICAL: Blind in the right eye. facial weakness. Power grossly intact all 4 limbs INVESTIGATIONS, reviewed in the clinical context: 2D echocardiogram: EF 65 to 70%. Severe aortic stenosis. September 08, 2024: White count 8.4 hemoglobin 14.5 platelets 128 sodium 137 potassium 4.8 BUN 48 creatinine 1.09 Troponin I less than 0.012 LDL 57.5 EKG tracing personally reviewed by me-normal sinus rhythm. CT chest abdomen pelvis: Compression deformity L1 vertebral body. Colonic diverticulosis. Cardiomegaly. Assessment and plan -Anterior chest wall pain. With cardiac risk factors. Possible angina Troponin negative. Telemetry. Cardiology following Toprol-XL 12.5 mg. -Possible syncope could be related to AMS -Chronic L1 compression fracture superior aspect Recent TLSO brace. Given -Severe aortic stenosis diffuse thickening of the aortic valve cusps. Patient refused intervention in the past. This admission she is agreed for further workup and intervention. Cardiology tried to reach patient's niece who is a legal guardian. Outpatient cardiac catheterization and [place]. -Hyperlipidemia Lipitor 40 mg daily at bedtime -Essential Hypertension -Medical debility Was getting rehab at [facility] -Peripheral neuropathy, diabetic peripheral neuropathy Neurontin 300 mg 3 times a day -Type 2 diabetes mellitus, on oral hypoglycemic, Amaryl 4 mg daily. 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 skin cancer. Developmently delayed. [facility] History of Any Multi-Drug Resistant Organisms: None Reported Past Surgical History: Hysterectomy Past Anesthesia/Blood Transfusion Reactions: No Reported Reaction Past Psychological History: Unable to Obtain Smoking Status: Never smoker Past Alcohol Use History: None Reported Past Drug Use History: None Reported
[2024-09-11 17:13] LABS: Glucose,Whole Blood 172 mg/dL (70-110)
[2024-09-11 20:01] LABS: Glucose,Whole Blood 179 mg/dL (70-110)
[2024-09-12 01:45] VITALS: TEMP 97.7
[2024-09-12 06:00] LABS: Glucose,Whole Blood 157 mg/dL (70-110)
[2024-09-12 08:07] VITALS: BP 101/64; PULSE 62; RESP 16
[2024-09-12] MEDS: ACETAMINOPHEN TAB 500 MG TAB PO PRN (10:15)
--- NOTE | 2024-09-12 13:00 | P.DS ---
Providers Date of admission: 09/08/24 17:33 Expected date of discharge: 09/12/24 Attending physician: Donis Moreno Primary care physician: Jorge Alberto Gu [facility] Course: Chief Complaint: Chest pressure This is a 84-year-old pleasant lady, follows with Dr. Gu. Currently at [facility], for rehab, [facility]. Patient presents heaviness in the chest. Lasted for good to 3 hours. [place] like elephant on the chest. Just did not feel right. Some shortness of breath. No perspiration. Admitted unstable angina. September 09: In bed. Tired. Gets some intermittent chest pain. Seen by cardiology. 2D echo ordered. Troponins have been negative. Toprol-XL 12.5 mg added. September 10: In bed. Still feels a bit tired. Though better. Seen by cardiology. No further intervention. Has severe aortic stenosis. For outpatient further workup. Return to [facility] tomorrow September 11: Cardiology spoke to the patient. She is now agreeable for intervention for the severe aortic stenosis. [employer] tried to reach to patient's niece who is a legal guardian. Got a voicemail. Cardiac catheter was scheduled for tomorrow cannot be done because of scheduling issues. Patient is outpatient will have a cardiac catheter and [place]. Social work is working on authorization to get the patient back to [facility] September 12: In recliner. Tired. Eating well. Outpatient workup with cardiology as above. Social history: Lives at [facility]. No history of smoking or alcohol. Her niece is a legal guardian On examination: VITAL SIGNS: 97.7, 65, 16, 138 x 94, 94% room air GENERAL APPEARANCE: In recliner. Not in distress HEENT: Normal external appearance of nose and ear. Oral cavity normal EYES: Pupils normal. Conjunctiva normal. Blind in the right eye. NECK: JVD not raised. Mass not palpable. RESPIRATORY: Respiratory effort normal. Lungs clear to auscultation. CARDIOVASCULAR: First and second sounds normal. No edema. Ejection systolic murmur ABDOMEN: Soft. Liver and spleen not palpable. No tenderness. No mass palpable. PSYCHIATRY: Alert and oriented x3. Mood and affect normal. 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 NEUROLOGICAL: Blind in the right eye. facial weakness. Power grossly intact all 4 limbs INVESTIGATIONS, reviewed in the clinical context: 2D echocardiogram: EF 65 to 70%. Severe aortic stenosis. September 08, 2024: White count 8.4 hemoglobin 14.5 platelets 128 sodium 137 potassium 4.8 BUN 48 creatinine 1.09 Troponin I less than 0.012 LDL 57.5 EKG tracing personally reviewed by me-normal sinus rhythm. CT chest abdomen pelvis: Compression deformity L1 vertebral body. Colonic diverticulosis. Cardiomegaly. Assessment and plan -Anterior chest wall pain. With cardiac risk factors. Possible angina Troponin negative. Telemetry. Cardiology following Toprol-XL 12.5 mg. -Possible syncope could be related to AMS -Chronic L1 compression fracture superior aspect Recent TLSO brace. Given -Severe aortic stenosis diffuse thickening of the aortic valve cusps. Patient refused intervention in the past. This admission she is agreed for further workup and intervention. Cardiology tried to reach patient's niece who is a legal guardian. Outpatient cardiac catheterization and [place]. -Hyperlipidemia Lipitor 40 mg daily at bedtime -Essential Hypertension -Medical debility Was getting rehab at [facility] -Peripheral neuropathy, diabetic peripheral neuropathy Neurontin 300 mg 3 times a day -Type 2 diabetes mellitus, on oral hypoglycemic, Amaryl 4 mg daily. 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 skin cancer. Developmently delayed. [facility] History of Any Multi-Drug Resistant Organisms: None Reported Past Surgical History: Hysterectomy Past Anesthesia/Blood Transfusion Reactions: No Reported Reaction Past Psychological History: Unable to Obtain Smoking Status: Never smoker Past Alcohol Use History: None Reported Past Drug Use History: None Reported Plan - Discharge Summary Discharge Rx Participant: No New Discharge Prescriptions: New Metoprolol Succinate (ER) [Toprol XL] 12.5 mg PO DAILY@0800 tab Nitroglycerin Sl Tabs [Nitrostat] 0.4 mg SUBLINGUAL Q5M PRN tab PRN Reason: Chest Pain INSULIN ASPART (NovoLOG) [NovoLOG (formulary)] 0 unit SQ ACHS each Continue Canagliflozin [Invokana] 100 mg PO DAILY Sertraline [Zoloft] 150 mg PO HS Tirzepatide [Mounjaro] 2.5 mg SQ CADET HYDROcodone/APAP 10-325MG [[place] 10-325] 1 tab PO Q6H PRN #12 tab PRN Reason: Pain traZODone HCL 150 mg PO HS Potassium Chloride ER [K-Dur 10] 10 meq PO MOWEFR@0800 Atorvastatin [Lipitor] 40 mg PO HS Apixaban [Eliquis] 2.5 mg PO BID@599,1999 Cholecalciferol (Vitamin D3) [Vitamin D3 (50 Mcg = 2000 Iu)] 50 mcg PO BID Chlorthalidone [Hygroton] 25 mg PO DAILY tab Cyclobenzaprine [Flexeril] 5 mg PO Q12H PRN PRN Reason: Muscle Spasm Gabapentin [Neurontin] 300 mg PO TID@ lisinopriL [Zestril] 20 mg PO HS@1999 Discontinued Metoprolol Succinate (ER) [Toprol XL] 50 mg PO DAILY@0800 Discharge Medication List Atorvastatin [Lipitor] 40 mg PO HS 10/27/21 [History] Canagliflozin [Invokana] 100 mg PO DAILY 10/27/21 [History] Potassium Chloride ER [K-Dur 10] 10 meq PO MOWEFR@0800 10/27/21 [History] traZODone HCL 150 mg PO HS 10/27/21 [History] Sertraline [Zoloft] 150 mg PO HS 06/11/23 [History] Apixaban [Eliquis] 2.5 mg PO BID@599,199908/27/24 [History] Cholecalciferol (Vitamin D3) [Vitamin D3 (50 Mcg = 2000 Iu)] 50 mcg PO BID 08/27/24 [History] Tirzepatide [Mounjaro] 2.5 mg SQ CADET 08/27/24 [History] Chlorthalidone [Hygroton] 25 mg PO DAILY tab 08/30/24 [Rx] Cyclobenzaprine [Flexeril] 5 mg PO Q12H PRN 09/08/24 [History] Gabapentin [Neurontin] 300 mg PO TID@,,09/08/24 [History] lisinopriL [Zestril] 20 mg PO HS@199909/08/24 [History] HYDROcodone/APAP 10-325MG [[place] 10-325] 1 tab PO Q6H PRN #12 tab 09/11/24 [Rx] INSULIN ASPART (NovoLOG) [NovoLOG (formulary)] 0 unit SQ ACHS each 09/11/24 [Rx] Metoprolol Succinate (ER) [Toprol XL] 12.5 mg PO DAILY@0800 tab 09/11/24 [Rx] Nitroglycerin Sl Tabs [Nitrostat] 0.4 mg SUBLINGUAL Q5M PRN tab 09/11/24 [Rx] Follow up Appointment(s)/Referral(s): Mabel Stringer MD [STAFF PHYSICIAN] - 3 Days Jorge Alberto Gu DO [Primary Care Provider] - 1-2 days Discharge Disposition: TRANSFER TO SNF/ECF
== END 2024-09-12 12:30 ==
LOC: EC 13:54 → 6NMEDSUR 17:33
PROVIDERS: ADMIT Hospitalist; ATTEND Hospitalist
DX: R07.89 Other chest pain (principal); I35.0 Nonrheumatic aortic (valve) stenosis; I48.0 Paroxysmal atrial fibrillation; R55 Syncope and collapse; R53.81 Other malaise; S32.018D Other fracture of first lumbar vertebra, subsequent encounter for fracture with routine healing; W19.XXXD Unspecified fall, subsequent encounter; R26.89 Other abnormalities of gait and mobility; E78.5 Hyperlipidemia, unspecified; E11.42 Type 2 diabetes mellitus with diabetic polyneuropathy; H54.61 Unqualified visual loss, right eye, normal vision left eye; I69.392 Facial weakness following cerebral infarction; I10 Essential (primary) hypertension; Z79.84 Long term (current) use of oral hypoglycemic drugs; Z79.01 Long term (current) use of anticoagulants; Z79.82 Long term (current) use of aspirin; Z79.899 Other long term (current) drug therapy; Z79.85 Long-term (current) use of injectable non-insulin antidiabetic drugs
CPT/HCPCS: 96374; 99285; 36415; 93005 ×2; 93306; 97110; 97530; 97162; 97166; 85379; 80061; 80053; 82150; 83690; 84484; 85025; 85610; 85730; 83036; 71046; 74177; G0378 ×5; J3490; Q9967

== ENCOUNTER 2024-10-23 14:54 | Observation (INO) | payer MEDICARE ==
--- NOTE | 2024-10-23 15:24 | ED ---
General Adult HPI - General Chief complaint: Fall Stated complaint: chest pain Time Seen by Provider: 10/23/24 14:56 Source: patient, RN notes reviewed Mode of arrival: EMS Limitations: no limitations - History of Present Illness Initial comments: Patient is an 84-year-old female presenting to the emergency department with concerns for pain. Patient denies fall however report is that patient fell 5 days ago. Patient is otherwise oriented. Patient has discomfort somewhat diffusely, mostly left chest and left abdomen. Patient overall seems to be a poor historian regarding her complaints. - Related Data Home Medications Medication Instructions Recorded Confirmed Atorvastatin [Lipitor] 40 mg PO HS 10/27/21 10/23/24 Canagliflozin [Invokana] 100 mg PO DAILY 10/27/21 10/23/24 Potassium Chloride ER [K-Dur 10] 10 meq PO MOWEFR 10/27/21 10/23/24 traZODone HCL 150 mg PO HS 10/27/21 10/23/24 Sertraline [Zoloft] 100 mg PO HS 06/11/23 10/23/24 Apixaban [Eliquis] 2.5 mg PO Q12H 08/27/24 10/23/24 Cholecalciferol (Vitamin D3) 50 mcg PO BID-W/MEALS 08/27/24 10/23/24 [Vitamin D3 (50 Mcg = 2000 Iu)] Tirzepatide [Mounjaro] 2.5 mg SQ CADET 08/27/24 10/23/24 Cyclobenzaprine [Flexeril] 5 mg PO Q12H PRN 09/08/24 10/23/24 Gabapentin [Neurontin] 300 mg PO TID 09/08/24 10/23/24 lisinopriL [Zestril] 20 mg PO HS@199909/08/24 10/23/24 Famotidine [Pepcid] 20 mg PO BID 10/23/24 10/23/24 HYDROcodone/APAP 7.5-325MG [[place] 1 tab PO Q6H 10/23/24 10/23/24 7.5-325] Lidocaine 4% Patch 1 patch TOPICAL DAILY PRN 10/23/24 10/23/24 Metoprolol Succinate (ER) [Toprol 12.5 mg PO DAILY 10/23/24 10/23/24 XL] Previous Rx's Medication Instructions Recorded Chlorthalidone [Hygroton] 25 mg PO DAILY tab 08/30/24 Nitroglycerin Sl Tabs [Nitrostat] 0.4 mg SUBLINGUAL Q5M PRN tab 09/11/24 Allergies Allergy/AdvReac Type Severity Reaction Status Date / Time No Known Allergies Allergy Verified 10/23/24 16:42 Review of Systems ROS Statement: Those systems with pertinent positive or pertinent negative responses have been documented in the HPI. ROS Other: All systems not noted in ROS Statement are negative. 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 skin cancer. Developmently delayed. [place] History of Any Multi-Drug Resistant Organisms: None Reported Past Surgical History: Hysterectomy Past Anesthesia/Blood Transfusion Reactions: No Reported Reaction Past Psychological History: Unable to Obtain Smoking Status: Never smoker Past Alcohol Use History: None Reported Past Drug Use History: None Reported - Past Family History Father History Unknown: Yes Mother History Unknown: Yes General Exam Limitations: no limitations General appearance: alert, in no apparent distress Head exam: Present: atraumatic Eye exam: Present: EOMI, other (Right eye with cataracts and atrophied, patient states she is blind) ENT exam: Present: normal oropharynx Neck exam: Present: normal inspection. Absent: tenderness Respiratory exam: Present: normal lung sounds bilaterally, chest wall tenderness (Left anterior) Cardiovascular Exam: Present: regular rate, normal rhythm GI/Abdominal exam: Present: soft, tenderness (Mid and left abdomen) Extremities exam: Present: tenderness (Left femur) Back exam: Present: normal inspection Neurological exam: Present: alert, oriented X3, CN II-XII intact (Except for right eye deficit). Absent: motor sensory deficit Psychiatric exam: Present: normal affect, normal mood Skin exam: Present: normal color Course Vital Signs 10/23/24 14:57 Temperature 98.7 F Pulse Rate 62 Respiratory 18 Rate Blood Pressure 175/99 O2 Sat by Pulse 98 Oximetry EKG Findings - EKG Results: EKG: interpreted by PEGGYD, normal axis, normal QRS, normal ST/T EKG shows: bradycardia Medical Decision Making - Medical Decision Making MDM back was pt. sent in by a medical professional or institution (RIVAS Perera, NEONATAL ICU COORDINATOR, urgent care, hospital, or mcc...) When possible be specific @ -No Did you speak to anyone other than the patient for history (EMS, parent, family, police, friend...)? What history was obtained from this source @ -No Did you review nursing and triage notes (agree or disagree)? Why? @ -I reviewed and agree with nursing and triage notes Were old charts reviewed (outside hosp., previous admission, EMS record, old EK G, old radiological studies, urgent care reports/EKG's, mcc records)? Report findings @ -No old charts were reviewed Differential Diagnosis (chest pain, altered mental status, abdominal pain women, abdominal pain men, vaginal bleeding, weakness, fever, dyspnea, syncope, headache, dizziness, GI bleed, back pain, seizure, CVA, palpatations, mental health, musculoskeletal)? @ -[facility] differential muscle is differential Musculoskeletal Muscular strain, contusion, ligament sprain, fracture, arthritis, septic arthritis, bursitis, cellulitis, muscle spasm, nerve compression, DVT, arterial occlusion, herpes zoster, electrolyte abnormality, tumor.... This is not meant to be in all inclusive list EKG interpreted by me (3pts min.). @ -As above X-rays interpreted by me (1pt min.). @ -Left femur, pelvis and chest x-ray without acute CT interpreted by me (1pt min.). @ -CT scan brain and cervical spine without acute traumatic abnormality. Heterogeneous thyroid with nodule. CT scan chest abdomen pelvis without acute traumatic abnormality U/S interpreted by me (1pt. min.). @ -None done What testing was considered but not performed or refused? (CT, X-rays, U/S, labs)? Why? @ -None What meds were considered but not given or refused? Why? @ -None Did you discuss the management of the patient with other professionals (professionals i.e. RIVAS Perera, NEONATAL ICU COORDINATOR, lab, RT, psych nurse, addiction social worker, engineering faculty member, teacher, chief nursing officer, binder caser)? Give summary @ -Case was discussed with Dr. Moreno who will admit covering Dr. Cunningham for us Was smoking cessation discussed for >3mins.? @ -No Was critical care preformed (if so, how long)? @ -No Were there social determinants of health that impacted care today? How? (Homelessness, low income, unemployed, alcoholism, drug addiction, transport ation, low edu. Level, literacy, decrease access to med. care, detention, rehab)? @ -No Was there de-escalation of care discussed even if they declined (Discuss DNR or withdrawal of care, Hospice)? DNR status @ -No What co-morbidities impacted this encounter? (DM, HTN, Smoking, COPD, CAD, Cancer, CVA, ARF, Chemo, Hep., AIDS, mental health diagnosis, sleep apnea, morbid obesity)? @ -None Was patient admitted / discharged? Hospital course, mention meds given and route, prescriptions, significant lab abnormalities, going to OR and other pertinent info. @ -Patient lives on her own. Patient had a fall 5 days ago and has continued discomfort. Patient has acute kidney injury. Patient was given IV contrast with concern for potential trauma to be ruled out. Patient has no traumatic injuries and is not being admitted for any trauma concerns. Patient does have acute kidney injury and did receive IV contrast and therefore will be held for IV fluids and continued monitoring of the kidneys patient reevaluated and updated. Admission orders written. Undiagnosed new problem with uncertain prognosis? @ -No Drug Therapy requiring intensive monitoring for toxicity (Heparin, Nitro, Insulin, Cardizem)? @ -No Were any procedures done? @ -No Diagnosis/symptom? @ -Acute kidney injury Acute, or Chronic, or Acute on Chronic? @ -Acute Uncomplicated (without systemic symptoms) or Complicated (systemic symptoms)? @ -Default Side effects of treatment? @ -No Exacerbation, Progression, or Severe Exacerbation? @ -No Poses a threat to life or bodily function? How? (Chest pain, [place], NH, pneumonia, PE, COPD, DKA, ARF, appy, cholecystitis, CVA, Diverticulitis, Homicidal, Suicidal, threat to staff... and all critical care pts) @ -Threat to renal function - Lab Data Result diagrams: 10/23/24 15:43 10/23/24 15:43 Lab Results 12/16/24 12/16/24 12/16/24 Range/Units 15:43 15:43 15:43 WBC 7.3 (3.8-10.6) k/uL RBC 4.86 (3.80-5.40) m/uL Hgb 14.5 (11.4-16.0) gm/dL Hct 45.3 (34.0-46.0) % MCV 93.2 (80.0-100.0) fL MCH 29.9 (25.0-35.0) pg MCHC 32.1 (31.0-37.0) g/dL RDW 13.2 (11.5-15.5) % Plt Count 124 L (150-450) k/uL MPV 9.9 Neutrophils % 69 % Lymphocytes % 20 % Monocytes % 6 % Eosinophils % 2 % Basophils % 0 % Neutrophils # 5.1 (1.3-7.7) k/uL Lymphocytes # 1.5 (1.0-4.8) k/uL Monocytes # 0.5 (0-1.0) k/uL Eosinophils # 0.1 (0-0.7) k/uL Basophils # 0.0 (0-0.2) k/uL PT 12.0 (10.0-12.5) sec INR 1.1 (<1.2) APTT 27.0 (22.0-30.0) sec Sodium 139 (137-145) mmol/L Potassium 5.1 (3.5-5.1) mmol/L Chloride 106 (98-107) mmol/L Carbon Dioxide 22 (22-30) mmol/L Anion Gap 11 mmol/L BUN 53 H (7-17) mg/dL Creatinine 1.50 H (0.52-1.04) mg/dL Est GFR (CKD-EPI)AfAm 37 (>60 ml/min/1.73 sqM) Est GFR (CKD-EPI)NonAf 32 (>60 ml/min/1.73 sqM) Glucose 124 H (74-99) mg/dL Plasma Lactic Acid Kevin (0.7-2.0) mmol/L Calcium 9.8 (8.4-10.2) mg/dL Magnesium 2.3 (1.6-2.3) mg/dL Total Bilirubin 0.9 (0.2-1.3) mg/dL AST 29 (14-36) U/L ALT 15 (4-34) U/L Alkaline Phosphatase 75 (38-126) U/L Creatine Kinase 89 (30-135) U/L Troponin I (0.000-0.034) ng/mL Total Protein 6.9 (6.3-8.2) g/dL Albumin 4.3 (3.5-5.0) g/dL 10/23/24 10/23/24 Range/Units 15:43 15:43 WBC (3.8-10.6) k/uL RBC (3.80-5.40) m/uL Hgb (11.4-16.0) gm/dL Hct (34.0-46.0) % MCV (80.0-100.0) fL MCH (25.0-35.0) pg MCHC (31.0-37.0) g/dL RDW (11.5-15.5) % Plt Count (150-450) k/uL MPV Neutrophils % % Lymphocytes % % Monocytes % % Eosinophils % % Basophils % % Neutrophils # (1.3-7.7) k/uL Lymphocytes # (1.0-4.8) k/uL Monocytes # (0-1.0) k/uL Eosinophils # (0-0.7) k/uL Basophils # (0-0.2) k/uL PT (10.0-12.5) sec INR (<1.2) APTT (22.0-30.0) sec Sodium (137-145) mmol/L Potassium (3.5-5.1) mmol/L Chloride (98-107) mmol/L Carbon Dioxide (22-30) mmol/L Anion Gap mmol/L BUN (7-17) mg/dL Creatinine (0.52-1.04) mg/dL Est GFR (CKD-EPI)AfAm (>60 ml/min/1.73 sqM) Est GFR (CKD-EPI)NonAf (>60 ml/min/1.73 sqM) Glucose (74-99) mg/dL Plasma Lactic Acid Kevin 1.0 (0.7-2.0) mmol/L Calcium (8.4-10.2) mg/dL Magnesium (1.6-2.3) mg/dL Total Bilirubin (0.2-1.3) mg/dL AST (14-36) U/L ALT (4-34) U/L Alkaline Phosphatase (38-126) U/L Creatine Kinase (30-135) U/L Troponin I <0.012 (0.000-0.034) ng/mL Total Protein (6.3-8.2) g/dL Albumin (3.5-5.0) g/dL Disposition Clinical Impression: Acute kidney injury Disposition: ADMITTED IP TO THIS HOSP Is patient prescribed a controlled substance at d/c from ED?: No Referrals: Jorge Alberto Gu DO [Primary Care Provider] - 1-2 days Time of Disposition: 19:26
[2024-10-23 16:06] LABS: Basophils % (A) 0 %; Eosinophils # (A) 0.1 k/uL (0-0.7); Eosinophils % (A) 2 %; HCT 45.3 % (34.0-46.0); HGB 14.5 gm/dL (11.4-16.0); Lymphocytes # (A) 1.5 k/uL (1.0-4.8); Lymphocytes % (A) 20 %; MCH 29.9 pg (25.0-35.0); MCHC 32.1 g/dL (31.0-37.0); MCV 93.2 fL (80.0-100.0); Mean Platelet Volume 9.9; Monocytes # (A) 0.5 k/uL (0-1.0); Monocytes % (A) 6 %; Neutrophils # (A) 5.1 k/uL (1.3-7.7); Neutrophils % (A) 69 %; Platelet Count 124 k/uL (150-450); RBC 4.86 m/uL (3.80-5.40); RDW 13.2 % (11.5-15.5); WBC 7.3 k/uL (3.8-10.6)
--- NOTE | 2024-10-23 16:09 | XR ---
EXAMINATION TYPE: XR pelvis AP view DATE OF EXAM: 10/23/2024 4:04 PM COMPARISON: CLINICAL INDICATION: Female, 84 years old with history of fall; pain TECHNIQUE: XR pelvis AP view, examined in a single projection. FINDINGS: There is no evidence of fracture or dislocation. There is no soft tissue abnormality. No a bnormal calcifications are present. The spine appears intact. The hips appear intact. Osteophyte form ation of the superior acetabulum bilaterally with mild joint space narrowing. IMPRESSION: No acute osseous pathology. Mild degeneration changes of the hip. [facility], , 10/23/2024 4:07 PM
--- NOTE | 2024-10-23 16:10 | XR ---
EXAMINATION TYPE: XR femur LT DATE OF EXAM: 10/23/2024 4:04 PM COMPARISON: None CLINICAL INDICATION: Female, 84 years old with history of fall; PHH, pain TECHNIQUE: XR femur LT examined in Frontal and lateral projections. FINDINGS: No evidence of acute osseous pathology, joint dislocation, or soft tissue swelling. Mild o steophyte formations of the superior acetabulum. Mild joint space narrowing. This course of the arter ial vasculature. Degeneration changes of the opacified formation and joint space narrowing with bone- on-bone articulation on the medial aspect. IMPRESSION: 1. No acute osseous pathology. 2. 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 [facility], , 10/23/2024 4:08 PM
--- NOTE | 2024-10-23 16:11 | XR ---
2 view chest HISTORY: Weakness COMPARISON: 09/08/2024 TECHNIQUE: PA and lateral views chest obtained. FINDINGS: The lungs are clear of consolidative, interstitial or masslike opacity. There is no pleural effusion, pleural thickening or pneumothorax. Heart is moderately enlarged. The pulmonary vasculature is not congested.. The osseous structures and soft tissues of the thorax are intact. IMPRESSION: 1. Moderate cardiomegaly. 2. No acute cardiopulmonary disease. [facility], , 10/23/2024 4:09 PM
[2024-10-23 16:12] LABS: ALT 15 U/L (4-34); African American GFR (CKD) 37 (>60 ml/min/1.73 sqM); Albumin 4.3 g/dL (3.5-5.0); Anion Gap 11 mmol/L; Blood Urea Nitrogen 53 mg/dL (7-17); Calcium 9.8 mg/dL (8.4-10.2); Carbon Dioxide 22 mmol/L (22-30); Chloride 106 mmol/L (98-107); Creatine Kinase 89 U/L (30-135); Glucose 124 mg/dL (74-99); Magnesium 2.3 mg/dL (1.6-2.3); Non-African American GFR(CKD) 32 (>60 ml/min/1.73 sqM); Sodium 139 mmol/L (137-145); Total Bilirubin 0.9 mg/dL (0.2-1.3); Total Protein 6.9 g/dL (6.3-8.2)
[2024-10-23] MEDS: ACETAMINOPHEN TAB 325 MG TAB PO STA (16:15)
[2024-10-23 16:17] LABS: INR 1.1 (<1.2)
[2024-10-23 16:34] LABS: AST 29 U/L (14-36); Alkaline Phosphatase 75 U/L (38-126); Potassium 5.1 mmol/L (3.5-5.1)
[2024-10-23] MEDS: SODIUM CHLORIDE 0.9% 500 ML 500 ML IV STA (17:28)
--- NOTE | 2024-10-23 18:40 | CT ---
EXAMINATION TYPE: CT brain cspine wo con CT DLP: Combined 2567.1 mGycm, Automated exposure control for dose reduction was used. DATE OF EXAM: 10/23/2024 6:16 PM COMPARISON: CT head and C-spine 08/26/2024 CLINICAL INDICATION:Female, 84 years old with history of fall; pt brought in via tri ems for c/o L si ded pain. pt fell 5 days ago and pain to left side since. ems states pts family believes she is not a cting herself. TECHNIQUE: Brain: Multiple axial CT images of the brain were obtained without IV contrast. Cspine: Axial CT images from the skull base to the inferior aspect of T2 we obtained without intraven ous contrast. Coronal and sagittal reformatted images were also reviewed. . FINDINGS: Brain: Extra-axial spaces: No abnormal extra-axial fluid collections. Ventricular system: Dilatation in proportion to cerebral atrophy. Cerebral parenchyma: Cerebral atrophy. No acute intraparenchymal hemorrhage or mass effect. The frey -white junction is well differentiated. Cerebellum: Unremarkable. Mass effect: No evidence of midline shift. Intracranial vasculature: Atherosclerotic calcifications of the intracranial vessels. Soft tissues: Redemonstrated right frontal soft tissue fullness and attenuation which is overall unch anged from the CT head study in reference. Calvarium/osseous structures: No acute depressed skull fracture. Paranasal sinuses and mastoid air cells: Clear. Visualized orbits: Redemonstrated postsurgical changes with associated deformity of the right globe. Left aphakia. Cervical spine: Fracture: No acute fractures. Osseous structures: Multilevel degenerative changes are seen. Vertebral alignment: Within normal limits. Spinal canal/Neural Foramina: Multilevel disc osteophyte complexes are seen most pronounced at C5-C6 where there is at least mild spinal canal stenosis No evidence for significant neural foraminal steno sis. Neck soft tissues: Redemonstrated is enlarged left thyroid lobe nodule measuring at least 2.5 cm with associated calcifications. Heterogenous right thyroid lobe Prevertebral soft tissues are otherwise w ithin normal limits. Other: The airway is patent. The lung apices are clear. IMPRESSION: 1. No acute intracranial process. 2. Stable right frontal soft tissue hematoma/laceration. Correlate with exam. 3. No evidence of cervical spine fracture. 4. Moderate multilevel disc degenerative disease. 5. Redemonstrated heterogenous thyroid gland with enlarged left thyroid lobe nodule. Nonemergent thyr oid ultrasound recommended if not already completed for further characterization. [facility], , 10/23/2024 6:38 PM
--- NOTE | 2024-10-23 18:52 | CT ---
EXAMINATION TYPE: CT ChestAbdPelvis w con CT DLP: Combined 2567.1 mGycm, Automated exposure control for dose reduction was used. DATE OF EXAM: 10/23/2024 6:19 PM COMPARISON: CT abdomen/pelvis 09/08/2024 CLINICAL INDICATION:Female, 84 years old with history of fall; [facility], pt brought in via tri ems for c/o L sided pain. pt fell 5 days ago and pain to left side since. ems states pts family believes she is not acting herself. Technique: CT ChestAbdPelvis w con; Multiple axial images were obtained. Two-dimensional coronal and sagittal reconstructions were obtained. Contrast used:65cc mL of Isovue 300 with IV Contrast, Oral contrast used: without Oral Contrast Findings: Motion artifact on exam degrades quality of images limiting evaluation. CHEST: LUNGS/ PLEURA: No focal consolidation, pneumothorax or pleural effusion. AIRWAY: Patent and unremarkable. HEART: Size within normal limits.Calcifications noted in the area of the mitral valve. Multivessel co ronary artery disease. MEDIASTINUM: No gross evidence of adenopathy. VASCULATURE: No aortic aneurysm. MUSCULOSKELETAL: No acute osseous abnormalities. SOFT TISSUES/LYMPH NODES: Unremarkable. LOWER NECK: Please see CT C-spine from the same day for further details. ABDOMEN: ABDOMEN LIVER: Grossly unremarkable GALLBLADDER AND BILE DUCTS: The gallbladder is nondistended with no gross abnormality. No biliary walker chadwick dilatation. PANCREAS: Grossly unremarkable. SPLEEN: Grossly unremarkable. ADRENAL GLANDS: Grossly unremarkable.. KIDNEYS AND URETERS: No evidence of hydronephrosis or renal calculus. Subcentimeter low density foci are seen in the bilateral kidneys too small to characterize. The ureters are also unremarkable. PELVIS BLADDER: Incompletely distended and grossly unremarkable. REPRODUCTIVE: No pelvic masses.. ABDOMEN & PELVIS STOMACH AND BOWEL: Small hiatal hernia. Small bowel is of normal caliber. Colonic diverticulosis with out associated fat stranding. No evidence of bowel obstruction. PERITONEUM: No evidence of pneumoperitoneum or free fluid. VASCULATURE: No evidence of aortic aneurysm. MUSCULOSKELETAL: Similar appearing compression deformity involving superior endplate of L1 vertebral body with similar retropulsion of 5 to 6 mm. There is similar grade 1 anterolisthesis of L4 on L5. No other acute fractures. LYMPH NODES: No gross evidence for lymphadenopathy. SOFT TISSUE/ABDOMINAL WALL: Nonspecific soft tissue attenuation in the right-sided mid abdominal wall unchanged from the study in reference which may represent complex cystic changes.. IMPRESSION: 1. No acute intra-abdominal/pelvic process. 2. Stable appearing L1 compression deformity with similar 5 to 6 mm retropulsion. 3. Colonic diverticulosis. [facility], , 10/23/2024 6:49 PM
[2024-10-23] MEDS ORDERED: traMADol 50 MG TAB PO PRN (19:26)
[2024-10-23] MEDS ORDERED: ACETAMINOPHEN TAB 325 MG TAB PO PRN (19:26)
[2024-10-23] MEDS ORDERED: NALOXONE 0.4 MG/ML 1 ML VIAL IV PRN (19:26)
[2024-10-23] MEDS ORDERED: LIDOCAINE 4% PATCH TOPICAL PRN (20:38)
[2024-10-23] MEDS ORDERED: CYCLOBENZAPRINE 5 MG TAB PO PRN (20:38)
[2024-10-23] MEDS ORDERED: NITROGLYCERIN SL TABS 0.4 MG TAB SUBLINGUAL PRN (20:39)
[2024-10-23] MEDS: FAMOTIDINE 20 MG TAB PO SCH (21:54)
[2024-10-23] MEDS: SERTRALINE 100 MG TAB PO SCH (21:55)
[2024-10-23] MEDS: GABAPENTIN 300 MG CAP PO SCH (21:55)
[2024-10-23] MEDS: ATORVASTATIN 40 MG TAB PO SCH (21:55)
[2024-10-23] MEDS: APIXABAN 2.5 MG TABLET PO SCH (21:55)
[2024-10-23] MEDS: traZODone HCL 100 MG TAB PO SCH (21:56)
[2024-10-23] MEDS: HYDROcodone/APAP 7.5-325MG 1 EACH TAB PO SCH (21:56)
[2024-10-23] MEDS: SODIUM CHLORIDE 0.9% 1,000 ML IV SCH (22:03)
[2024-10-23] MEDS: SODIUM CHLORIDE 0.9% 1,000 ML IV STA (22:07)
[2024-10-24 02:21] LABS: Appearance,Urine Clear (Clear); Bilirubin,Urine Negative (Negative); Blood,Urine Negative (Negative); Color,Urine Colorless; Glucose,Urine (UA) 3+ (Negative); Ketones,Urine Negative (Negative); Leukocyte Esterase,Urine Negative (Negative); Nitrite,Urine Negative (Negative); Protein,Urine Negative (Negative); Specific Gravity,Urine 1.033 (1.001-1.035); Urobilinogen,Urine <2.0 mg/dL (<2.0)
[2024-10-24 07:19] LABS: African American GFR (CKD) 38 (>60 ml/min/1.73 sqM); Anion Gap 7 mmol/L; Blood Urea Nitrogen 45 mg/dL (7-17); Calcium 9.3 mg/dL (8.4-10.2); Carbon Dioxide 24 mmol/L (22-30); Chloride 108 mmol/L (98-107); Glucose 155 mg/dL (74-99); Non-African American GFR(CKD) 33 (>60 ml/min/1.73 sqM); Potassium 4.4 mmol/L (3.5-5.1); Sodium 139 mmol/L (137-145)
[2024-10-24] MEDS: METOPROLOL SUCCINATE (ER) 25 MG TAB.ER.24H PO SCH (09:15)
[2024-10-24] MEDS: CHOLECALCIFEROL 25 MCG (1000 IU) TABLET PO SCH (09:15)
[2024-10-24] MEDS: CHLORTHALIDONE 25 MG TAB PO SCH (11:05)
--- NOTE | 2024-10-24 17:13 | P.HPIM ---
History of Present Illness H&P Date: 10/24/24 Chief Complaint: Altered mentation This is a 84-year-old pleasant lady, follows with Dr. Gu. 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 Patient herself is not able to tell me why she is exactly here. As per the EMS sheet, patient needs stool the EMS staff that patient was not acting like herself. Having tremors. Patient had taken a fall 5 days ago. Hurting on the left side. Patient cannot give any meaningful history regarding why she is here. I spoke to patient's niece Mana is also the POA. She does Christopher the medications for her. She does not think anyone missing. According to her patient is a DNR Review of systems: GEN.: Tired EYES: Blind in the right eye HEENT: None NECK: None RESPIRATORY: None CARDIOVASCULAR: As above GASTROINTESTINAL: None GENITOURINARY: None MUSCULOSKELETAL: [Joint pains, including pain on the left side LYMPHATICS: None HEMATOLOGICAL: None PSYCHIATRY: Forgetful NEUROLOGICAL: None Social history: Lives at [facility]. No history of smoking or alcohol. Her niece is- legal guardian On examination: VITAL SIGNS: 97.5, 66, 18, 157 x 62, 97% room air GENERAL APPEARANCE: In bed, tired appearing, bit confused HEENT: Normal external appearance of nose and ear. Oral cavity normal EYES: Pupils normal. Conjunctiva normal. Blind in the right eye. NECK: JVD not raised. Mass not palpable. RESPIRATORY: Respiratory effort normal. Lungs clear to auscultation. CARDIOVASCULAR: First and second sounds normal. No edema. Ejection systolic murmur ABDOMEN: Soft. Liver and spleen not palpable. No tenderness. No mass palpable. PSYCHIATRY: Able to answer simple questions. But cannot tell me why she is here and why she was brought here. 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 NEUROLOGICAL: Blind in the right eye. facial weakness. Power grossly intact all 4 limbs INVESTIGATIONS, reviewed in the clinical context: October 24: Sodium 139 potassium 4.4. 45 creatinine 1.46 October 23: Potassium 5.1 BUN 53 creatinine 1.5 white count 7.3 hemoglobin 14.5 platelets 124 UA glucose 3+ EKG tracing personally reviewed by me-normal sinus rhythm. Rate 54. Sinus rhythm. X-ray femur, pelvis, chest x-ray, head cervical spine: No fracture. DJD changes CT scan chest abdomen pelvis: Left thyroid nodule. Colonic diverticulosis Previous labs: Creatinine 1.0 16 September 2024 Assessment and plan: -Acute metabolic encephalopathy/delirium. Altered mentation's. CT scan brain is negative. Patient does take Neurontin, Flexeril, [place] 7.5. For her age these combination could be a bit too much for her. Will try scaling back some of these. Also RAD Given worsening renal function dose of Neurontin may be too much. Cut back the same. -Chronic L1 compression fracture superior aspect [place] as needed -Severe aortic stenosis Patient is due to see Dr. Stringer outpatient in November -Hyperlipidemia Lipitor 40 mg daily at bedtime -Essential Hypertension Toprol-XL. 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 -Acute kidney injury, possibly ATN, patient on Invokana IV fluids. DC Invokana. -Peripheral neuropathy, diabetic peripheral neuropathy Cut back Neurontin to 300 mg nightly -Type 2 diabetes mellitus, on oral hypoglycemic, Mounjaro. Invokana-hold for now. -Blind in the right eye. -Right facial weakness from prior stroke -Chronic gait dysfunction, uses a walker at baseline -No code -Medical POA, niece, Irma Salinas Given the complexity and severity of patient's condition expect the patient to be in the hospital at least for 2 overnights. Cut back Neurontin to 300 mg nightly. DC Flexeril for now. DC Zestril and Invokana. Also chlorthalidone. Cut back Ashuelot to 5/325. Follow renal functions closely. Will follow clinical status. 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 skin cancer. Developmently delayed. [place] History of Any Multi-Drug Resistant Organisms: None Reported Past Surgical History: Hysterectomy Past Anesthesia/Blood Transfusion Reactions: No Reported Reaction Past Psychological History: Unable to Obtain Smoking Status: Never smoker Past Alcohol Use History: None Reported Past Drug Use History: None Reported 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 skin cancer. Developmently delayed. [place] History of Any Multi-Drug Resistant Organisms: None Reported Past Surgical History: Hysterectomy Past Anesthesia/Blood Transfusion Reactions: No Reported Reaction Past Psychological History: Unable to Obtain Smoking Status: Never smoker Past Alcohol Use History: None Reported Past Drug Use History: None Reported - Past Family History Father History Unknown: Yes Mother History Unknown: Yes Medications and Allergies Home Medications Medication Instructions Recorded Confirmed Type Atorvastatin [Lipitor] 40 mg PO HS 10/27/21 10/23/24 History Canagliflozin [Invokana] 100 mg PO DAILY 10/27/21 10/23/24 History Potassium Chloride ER [K-Dur 10] 10 meq PO MOWEFR 10/27/21 10/23/24 History traZODone HCL 150 mg PO HS 10/27/21 10/23/24 History Sertraline [Zoloft] 100 mg PO HS 06/11/23 10/23/24 History Apixaban [Eliquis] 2.5 mg PO Q12H 08/27/24 10/23/24 History Cholecalciferol (Vitamin D3) 50 mcg PO BID-W/MEALS 08/27/24 10/23/24 History [Vitamin D3 (50 Mcg = 2000 Iu)] Tirzepatide [Mounjaro] 2.5 mg SQ CADET 08/27/24 10/23/24 History Chlorthalidone [Hygroton] 25 mg PO DAILY tab 08/30/24 10/23/24 Rx Cyclobenzaprine [Flexeril] 5 mg PO Q12H PRN 09/08/24 10/23/24 History Gabapentin [Neurontin] 300 mg PO TID 09/08/24 10/23/24 History lisinopriL [Zestril] 20 mg PO HS@199909/08/24 10/23/24 History Nitroglycerin Sl Tabs [Nitrostat] 0.4 mg SUBLINGUAL Q5M PRN tab 09/11/24 10/23/24 Rx Famotidine [Pepcid] 20 mg PO BID 10/23/24 10/23/24 History HYDROcodone/APAP 7.5-325MG [[place] 1 tab PO Q6H 10/23/24 10/23/24 History 7.5-325] Lidocaine 4% Patch 1 patch TOPICAL DAILY PRN 10/23/24 10/23/24 History Metoprolol Succinate (ER) [Toprol 12.5 mg PO DAILY 10/23/24 10/23/24 History XL] Allergies Allergy/AdvReac Type Severity Reaction Status Date / Time No Known Allergies Allergy Verified 10/23/24 16:42 Physical Exam Vitals: Vital Signs Temp Pulse Pulse Resp BP BP Pulse Ox 10/24/24 08:16 97.5 F L 66 18 157/62 97 10/24/24 06:43 53 L 16 117/67 96 10/24/24 02:12 97.6 F 53 L 16 153/76 99 10/23/24 14:57 98.7 F 62 18 175/99 98 Intake and Output 10/23/24 10/24/24 10/24/24 22:59 06:59 14:59 Other: # Voids 1 Weight 74.843 kg Results CBC & Chem 7: 10/23/24 15:43 10/24/24 06:25 Labs: Abnormal Lab Results - Last 24 Hours (Table) 10/23/24 10/23/24 10/24/24 Range/Units 15:43 15:43 02:00 Plt Count 124 L (150-450) k/uL Chloride (98-107) mmol/L BUN 53 H (7-17) mg/dL Creatinine 1.50 H (0.52-1.04) mg/dL Glucose 124 H (74-99) mg/dL Urine Glucose (UA) 3+ H (Negative) 10/24/24 Range/Units 06:25 Plt Count (150-450) k/uL Chloride 108 H (98-107) mmol/L BUN 45 H (7-17) mg/dL Creatinine 1.46 H (0.52-1.04) mg/dL Glucose 155 H (74-99) mg/dL Urine Glucose (UA) (Negative) Thrombosis Risk Factor Assmnt - Choose All That Apply Any of the Below Risk Factors Present?: No Other Risk Factors: No Thrombosis Risk Factor Assessment Level: Very Low Risk
[2024-10-24] MEDS: HYDROcodone/APAP 5-325MG 1 EACH TAB PO PRN (22:25)
[2024-10-25] MEDS: NYSTATIN 100,000 UNIT/GM POWD 15 GM TOPICAL PRN (06:03)
[2024-10-25] MEDS: FAMOTIDINE 20 MG TAB PO SCH (09:25)
[2024-10-25] MEDS: POTASSIUM CHLORIDE ER 10 MEQ TAB.ER.PRT PO SCH (09:26)
[2024-10-25 11:54] LABS: African American GFR (CKD) 54 (>60 ml/min/1.73 sqM); Anion Gap 6 mmol/L; Blood Urea Nitrogen 29 mg/dL (7-17); Carbon Dioxide 24 mmol/L (22-30); Chloride 110 mmol/L (98-107); Glucose 216 mg/dL (74-99); Non-African American GFR(CKD) 47 (>60 ml/min/1.73 sqM); Potassium 3.8 mmol/L (3.5-5.1); Sodium 140 mmol/L (137-145)
--- NOTE | 2024-10-25 19:34 | P.PN ---
Progress Note - Text Progress Note Date: 10/25/24 Chief Complaint: Altered mentation This is a 84-year-old pleasant lady, follows with Dr. Gu. 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 Patient herself is not able to tell me why she is exactly here. As per the EMS sheet, patient needs stool the EMS staff that patient was not acting like herself. Having tremors. Patient had taken a fall 5 days ago. Hurting on the left side. Patient cannot give any meaningful history regarding why she is here. I spoke to patient's niece Mana is also the POA. She does lay out the medications for her. She does not think anyone missing. According to her patient is a DNR October 25: Patient admitted with what was felt to be metabolic encephalopathy and delirium. Specially in the setting of worsening renal function. Neurontin was cut back. Zestril and Invokana was discontinued. So was chlorthalidone. Patient was seen by me this morning. Doing well. Ate all of breakfast. Does not complain of pain. Was getting IV fluids. Creatinine come back to 1.1. Will give some more fluids today. Up in chair. Will resume lisinopril this evening Active Medications Acetaminophen (Acetaminophen Tab 325 Mg Tab) 650 mg PO Q6HR PRN PRN Reason: Mild Pain or Fever > 100.5 Hydrocodone Bitart/Acetaminophen (Hydrocodone/Apap 5-325mg 1 Each Tab) 1 each PO Q6HR PRN PRN Reason: Pain Last Admin: 10/24/24 22:25 Dose: 1 each Apixaban (Apixaban 2.5 Mg Tablet) 2.5 mg PO Q12H GEOVANNY; Protocol Last Admin: 10/25/24 09:25 Dose: 2.5 mg Atorvastatin Calcium (Atorvastatin 40 Mg Tab) 40 mg PO HS [facility] Last Admin: 10/24/24 22:15 Dose: 40 mg Cholecalciferol (Cholecalciferol 25 Mcg (1000 Iu) Tablet) 50 mcg PO BID-W/MEALS [facility] Last Admin: 10/25/24 16:51 Dose: 50 mcg Famotidine (Famotidine 20 Mg Tab) 20 mg PO DAILY [facility] Last Admin: 10/25/24 09:25 Dose: 20 mg Gabapentin (Gabapentin 300 Mg Cap) 300 mg PO [facility] Sodium Chloride (Saline 0.9%) 1,000 mls @ 50 mls/hr IV .Q20H [facility] Last Admin: 10/25/24 03:09 Dose: 50 mls/hr Lidocaine (Lidocaine 4% Patch) 1 patch TOPICAL DAILY PRN; Protocol PRN Reason: Pain Metoprolol Succinate (Metoprolol Succinate (Er) 25 Mg Tab.Er.24h) 12.5 mg PO DAILY [facility] Last Admin: 10/25/24 09:25 Dose: 12.5 mg Naloxone HCl (Naloxone 0.4 Mg/Ml 1 Ml Vial) 0.2 mg IV Q2M PRN PRN Reason: Opioid Reversal Nitroglycerin (Nitroglycerin Sl Tabs 0.4 Mg Tab) 0.4 mg SUBLINGUAL Q5M PRN PRN Reason: Chest Pain Nystatin (Nystatin 100,000 Unit/Gm Powd 15 Gm) 1 applic TOPICAL BID PRN; Protocol PRN Reason: Redness Last Admin: 10/25/24 06:03 Dose: 1 applic Potassium Chloride (Potassium Chloride Er 10 Meq Tab.Er.Prt) 10 meq PO MOWEFR [facility] Last Admin: 10/25/24 09:26 Dose: 10 meq Tramadol HCl (Tramadol 50 Mg Tab) 50 mg PO Q6H PRN PRN Reason: Moderate Pain (Scale 4 to 6) Trazodone HCl (Trazodone Hcl 100 Mg Tab) 150 mg PO HS [facility] Last Admin: 10/24/24 22:16 Dose: 150 mg Social history: Lives at [facility]. No history of smoking or alcohol. Her niece is- legal guardian On examination: VITAL SIGNS: 98.3, 62, 18, 159 x 81, 99% room air GENERAL APPEARANCE: In bed, more awake. Answering questions better HEENT: Normal external appearance of nose and ear. Oral cavity normal EYES: Pupils normal. Conjunctiva normal. Blind in the right eye. NECK: JVD not raised. Mass not palpable. RESPIRATORY: Respiratory effort normal. Lungs clear to auscultation. CARDIOVASCULAR: First and second sounds normal. No edema. Ejection systolic murmur ABDOMEN: Soft. Liver and spleen not palpable. No tenderness. No mass palpable. PSYCHIATRY: More awake today. Answering questions better. 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 NEUROLOGICAL: Blind in the right eye. facial weakness. Power grossly intact all 4 limbs INVESTIGATIONS, reviewed in the clinical context: October 25: Potassium 3.8 BUN 29 creatinine 1.11 October 24: Sodium 139 potassium 4.4. 45 creatinine 1.46 October 23: Potassium 5.1 BUN 53 creatinine 1.5 white count 7.3 hemoglobin 14.5 platelets 124 UA glucose 3+ EKG tracing personally reviewed by me-normal sinus rhythm. Rate 54. Sinus rhythm. X-ray femur, pelvis, chest x-ray, head cervical spine: No fracture. DJD changes CT scan chest abdomen pelvis: Left thyroid nodule. Colonic diverticulosis Previous labs: Creatinine 1.0 16 September 2024 Assessment and plan: -Acute metabolic encephalopathy/delirium. Altered mentation's.: Improving CT scan brain is negative. Patient does take Neurontin, Flexeril, [place] 7.5. For her age these combination could be a bit too much for her. Will try scaling back some of these. Also RAD Given worsening renal function dose of Neurontin may be too much. Cut back the same. -Chronic L1 compression fracture superior aspect [place] as needed -Severe aortic stenosis Patient is due to see Dr. Stringer outpatient in November -Hyperlipidemia Lipitor 40 mg daily at bedtime -Essential Hypertension Toprol-XL. 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 -Acute kidney injury, possibly ATN, patient on Invokana: Some improvement IV fluids. DC Invokana. Zestril held Zestril be resumed this evening -Peripheral neuropathy, diabetic peripheral neuropathy Cut back Neurontin to 300 mg nightly -Type 2 diabetes mellitus, on oral hypoglycemic, Mounjaro. Invokana-hold for now. -Blind in the right eye. -Right facial weakness from prior stroke -Chronic gait dysfunction, uses a walker at baseline -No code -Medical POA, niece, Irma Salinas Patient doing better compared to yesterday. Continue IV fluids and holding back the medications as of yesterday. Zestril will be resumed this evening 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 skin cancer. Developmently delayed. [place] History of Any Multi-Drug Resistant Organisms: None Reported Past Surgical History: Hysterectomy Past Anesthesia/Blood Transfusion Reactions: No Reported Reaction Past Psychological History: Unable to Obtain Smoking Status: Never smoker Past Alcohol Use History: None Reported Past Drug Use History: None Reported
[2024-10-25] MEDS: GABAPENTIN 300 MG CAP PO SCH (20:19)
[2024-10-25] MEDS: lisinopriL 20 MG TAB PO SCH (20:19)
[2024-10-26 05:52] LABS: African American GFR (CKD) 73 (>60 ml/min/1.73 sqM); Anion Gap 4 mmol/L; Blood Urea Nitrogen 26 mg/dL (7-17); Calcium 9.3 mg/dL (8.4-10.2); Carbon Dioxide 23 mmol/L (22-30); Chloride 113 mmol/L (98-107); Glucose 110 mg/dL (74-99); Non-African American GFR(CKD) 64 (>60 ml/min/1.73 sqM); Potassium 3.9 mmol/L (3.5-5.1); Sodium 140 mmol/L (137-145)
[2024-10-26 13:56] VITALS: BP 159/80; PULSE 69; RESP 18; TEMP 97.4
--- NOTE | 2024-10-26 18:50 | P.DS ---
Providers Date of admission: 10/23/24 19:27 Expected date of discharge: 10/26/24 Attending physician: Donis Moreno Primary care physician: Jorge Alberto Gu [facility] Course: Chief Complaint: Altered mentation This is a 84-year-old pleasant lady, follows with Dr. Gu. 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 Patient herself is not able to tell me why she is exactly here. As per the EMS sheet, patient needs stool the EMS staff that patient was not acting like herself. Having tremors. Patient had taken a fall 5 days ago. Hurting on the left side. Patient cannot give any meaningful history regarding why she is here. I spoke to patient's niece Mana is also the POA. She does lay out the medications for her. She does not think anyone missing. According to her patient is a DNR October 25: Patient admitted with what was felt to be metabolic encephalopathy and delirium. Specially in the setting of worsening renal function. Neurontin was cut back. Zestril and Invokana was discontinued. So was chlorthalidone. Patient was seen by me this morning. Doing well. Ate all of breakfast. Does not complain of pain. Was getting IV fluids. Creatinine come back to 1.1. Will give some more fluids today. Up in chair. Will resume lisinopril this evening October 26: Patient doing really well. Will be discharged today. Will be discharged on [place] 5. Neurontin has been cut back to twice daily. Invokana Zoloft chlorthalidone potassium Flexeril have been discontinued. Discussed with nurse. And the patient. Discussion and discharge planning more than 35 minutes Social history: Lives at [facility]. No history of smoking or alcohol. Her niece is- legal guardian On examination: VITAL SIGNS: 97.4, 69, 18, 159 x 80, 97% room air GENERAL APPEARANCE: Awake, comfortable HEENT: Normal external appearance of nose and ear. Oral cavity normal EYES: Left pupil normal. Conjunctiva normal. Blind in the right eye. NECK: JVD not raised. Mass not palpable. RESPIRATORY: Respiratory effort normal. Lungs clear to auscultation. CARDIOVASCULAR: First and second sounds normal. No edema. Ejection systolic murmur ABDOMEN: Soft. Liver and spleen not palpable. No tenderness. No mass palpable. 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 NEUROLOGICAL: Blind in the right eye. facial weakness. Power grossly intact all 4 limbs INVESTIGATIONS, reviewed in the clinical context: October 26: Potassium 3.9 creatinine 0.86 October 25: Potassium 3.8 BUN 29 creatinine 1.11 October 24: Sodium 139 potassium 4.4. 45 creatinine 1.46 October 23: Potassium 5.1 BUN 53 creatinine 1.5 white count 7.3 hemoglobin 14.5 platelets 124 UA glucose 3+ EKG tracing personally reviewed by me-normal sinus rhythm. Rate 54. Sinus rhythm. X-ray femur, pelvis, chest x-ray, head cervical spine: No fracture. DJD changes CT scan chest abdomen pelvis: Left thyroid nodule. Colonic diverticulosis Previous labs: Creatinine 1.0 16 September 2024 Assessment and plan: -Acute metabolic encephalopathy/delirium. Altered mentation's.: Resolved CT scan brain is negative. Patient does take Neurontin, Flexeril, [place] 7.5. For her age these combination could be a bit too much for her. Will try scaling back some of these. Also RAD Given worsening renal function dose of Neurontin may be too much. Cut back the same. -Chronic L1 compression fracture superior aspect [place] changed to 5, as needed -Severe aortic stenosis Patient is due to see Dr. Stringer outpatient in November -Hyperlipidemia Lipitor 40 mg daily at bedtime -Essential Hypertension Toprol-XL. 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 -Acute kidney injury, possibly ATN, patient on Invokana: Resolved IV fluids. DC Invokana. Zestril resumed -Peripheral neuropathy, diabetic peripheral neuropathy Cut back Neurontin to 300 mg twice daily -Type 2 diabetes mellitus, on oral hypoglycemic, Mounjaro. Invokana-discontinued -Blind in the right eye. -Right facial weakness from prior stroke -Chronic gait dysfunction, uses a walker at baseline -No code -Medical POA, niece, Irma Salinas Disposition: Assisted living, [facility] 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 skin cancer. Developmently delayed. [place] History of Any Multi-Drug Resistant Organisms: None Reported Past Surgical History: Hysterectomy Past Anesthesia/Blood Transfusion Reactions: No Reported Reaction Past Psychological History: Unable to Obtain Smoking Status: Never smoker Past Alcohol Use History: None Reported Past Drug Use History: None Reported Plan - Discharge Summary Discharge Rx Participant: No New Discharge Prescriptions: New Acetaminophen Tab [Tylenol] 650 mg PO Q6HR PRN tab PRN Reason: Mild Pain Or Fever > 100.5 HYDROcodone/APAP 5-325MG [[place] 5-325] 1 each PO Q6HR PRN #30 tab PRN Reason: Pain Continue Tirzepatide [Mounjaro] 2.5 mg SQ CADET Lidocaine 4% Patch 1 patch TOPICAL DAILY PRN PRN Reason: Pain traZODone HCL 150 mg PO HS Atorvastatin [Lipitor] 40 mg PO HS Apixaban [Eliquis] 2.5 mg PO Q12H Cholecalciferol (Vitamin D3) [Vitamin D3 (50 Mcg = 2000 Iu)] 50 mcg PO BID- W/MEALS lisinopriL [Zestril] 20 mg PO HS@2000 Nitroglycerin Sl Tabs [Nitrostat] 0.4 mg SUBLINGUAL Q5M PRN tab PRN Reason: Chest Pain Famotidine [Pepcid] 20 mg PO BID Metoprolol Succinate (ER) [Toprol XL] 12.5 mg PO DAILY Changed Gabapentin [Neurontin] 300 mg PO BID #0 Discontinued Canagliflozin [Invokana] 100 mg PO DAILY Sertraline [Zoloft] 100 mg PO HS Potassium Chloride ER [K-Dur 10] 10 meq PO MOWEFR Chlorthalidone [Hygroton] 25 mg PO DAILY tab Cyclobenzaprine [Flexeril] 5 mg PO Q12H PRN PRN Reason: Muscle Spasm HYDROcodone/APAP 7.5-325MG [[place] 7.5-325] 1 tab PO Q6H Discharge Medication List Atorvastatin [Lipitor] 40 mg PO HS 10/27/21 [History] traZODone HCL 150 mg PO HS 10/27/21 [History] Apixaban [Eliquis] 2.5 mg PO Q12H 08/27/24 [History] Cholecalciferol (Vitamin D3) [Vitamin D3 (50 Mcg = 2000 Iu)] 50 mcg PO BID- W/MEALS 08/27/24 [History] Tirzepatide [Mounjaro] 2.5 mg SQ CADET 08/27/24 [History] lisinopriL [Zestril] 20 mg PO HS@2000 09/08/24 [History] Nitroglycerin Sl Tabs [Nitrostat] 0.4 mg SUBLINGUAL Q5M PRN tab 09/11/24 [Rx] Famotidine [Pepcid] 20 mg PO BID 10/23/24 [History] Lidocaine 4% Patch 1 patch TOPICAL DAILY PRN 10/23/24 [History] Metoprolol Succinate (ER) [Toprol XL] 12.5 mg PO DAILY 10/23/24 [History] Acetaminophen Tab [Tylenol] 650 mg PO Q6HR PRN tab 10/26/24 [Rx] Gabapentin [Neurontin] 300 mg PO BID #0 10/26/24 [Rx] HYDROcodone/APAP 5-325MG [[place] 5-325] 1 each PO Q6HR PRN #30 tab 10/26/24 [Rx] Follow up Appointment(s)/Referral(s): Jorge Alberto Gu DO [Primary Care Provider] - 1-2 days [facility], [NON-STAFF] - 1 Week Patient Instructions/Handouts: Hydrocodone/Acetaminophen (By mouth) Activity/Diet/Wound Care/Special Instructions: Neurontin is not new prescription
== END 2024-10-26 16:35 ==
LOC: EC 14:54 → 4SSUR 19:27 → 5NMEDONC 10-24 06:16 → OBSVTOIN 10-24 16:57 → INTOOBSV 10-24 16:57
PROVIDERS: ADMIT Hospitalist; ATTEND Hospitalist
DX: G93.41 Metabolic encephalopathy (principal); N17.9 Acute kidney failure, unspecified; I12.9 Hypertensive chronic kidney disease with stage 1 through stage 4 chronic kidney disease, or unspecified chronic kidney disease; N18.30 Chronic kidney disease, stage 3 unspecified; E11.22 Type 2 diabetes mellitus with diabetic chronic kidney disease; E11.42 Type 2 diabetes mellitus with diabetic polyneuropathy; E78.5 Hyperlipidemia, unspecified; M48.56XA Collapsed vertebra, not elsewhere classified, lumbar region, initial encounter for fracture; I35.0 Nonrheumatic aortic (valve) stenosis; H54.61 Unqualified visual loss, right eye, normal vision left eye; R26.9 Unspecified abnormalities of gait and mobility; I69.392 Facial weakness following cerebral infarction; Z66 Do not resuscitate; Z85.828 Personal history of other malignant neoplasm of skin; Z79.01 Long term (current) use of anticoagulants; Z79.84 Long term (current) use of oral hypoglycemic drugs; Z79.85 Long-term (current) use of injectable non-insulin antidiabetic drugs; Z79.899 Other long term (current) drug therapy
CPT/HCPCS: 99285; 36415; 93005; 80053; 80048 ×3; 82550; 83605; 83735; 84484; 85025; 85610; 85730; 81003; 72170; 73552; 71046; 72125; 70450; 71260; 74177; G0378 ×6; Q9967

== ENCOUNTER 2024-10-30 15:29 | Inpatient (IN) | payer MEDICARE ==
[2024-10-30] MEDS ORDERED: IOPAMIDOL CONTRAST (ORAL USE) VIAL PO PRN (16:24)
[2024-10-30] MEDS: ONDANSETRON 4 MG/2 ML VIAL IVP STA (16:49)
[2024-10-30] MEDS: PANTOPRAZOLE 40 MG/10 ML VIAL IVP STA (16:49)
--- NOTE | 2024-10-30 16:54 | ED ---
General Adult HPI - General Chief complaint: Weakness Stated complaint: Weakness,AMS Time Seen by Provider: 10/30/24 15:57 Source: Caregiver Mode of arrival: wheelchair Limitations: no limitations - History of Present Illness Initial comments: Patient is an 84-year-old female with a past medical history of prior CVA, chronic L1 compression fracture,usually AO x1-2 with guardian, presenting with her guardian (niece) for failure to thrive. History is limited by patient's baseline mental status. Her niece states the patient was recently admitted to the hosphtal and discharged on 12/10 AMS. States typically patient is AO x1-2 however had initially brought her in because she was less interactive, energetic and sociable than normal. Pt's mental status has remained stable since discharge however she has become more withdrawn. Patient nieces states she is concerned because the patient is not wanting to eat or take her medications since discharge. [facility], which [facility] essentially an independant living facility. Patient has had home health nurses visiting since discharge from the hospital and her niece brings her her medications but otherwise she is unable to care for herself at this time. Patient endorses abdominal pain and has had a few nonbloody loose stools since discharge. No fevers. Patient denies chest pain, cough or shortness of breath. No episodes of emesis. - Related Data Home Medications Medication Instructions Recorded Confirmed Atorvastatin [Lipitor] 40 mg PO HS 10/27/21 10/30/24 traZODone HCL 150 mg PO HS 10/27/21 10/30/24 Apixaban [Eliquis] 2.5 mg PO Q12H 08/27/24 10/30/24 Cholecalciferol (Vitamin D3) 50 mcg PO BID-W/MEALS 08/27/24 10/30/24 [Vitamin D3 (50 Mcg = 2000 Iu)] Tirzepatide [Mounjaro] 2.5 mg SQ CADET 08/27/24 10/30/24 lisinopriL [Zestril] 20 mg PO HS@199909/08/24 10/30/24 Famotidine [Pepcid] 20 mg PO BID 10/23/24 10/30/24 Lidocaine 4% Patch 1 patch TRANSDERM DAILY PRN 10/23/24 10/30/24 Metoprolol Succinate (ER) [Toprol 12.5 mg PO DAILY 10/23/24 10/30/24 XL] HYDROcodone/APAP 10-325MG [[place] 0.5 tab PO Q6HR PRN 10/30/24 10/30/24 10-325] Nitroglycerin Sl Tabs [Nitrostat] 0.4 mg SL Q5M PRN 10/30/24 10/30/24 Previous Rx's Medication Instructions Recorded Acetaminophen Tab [Tylenol] 650 mg PO Q6HR PRN tab 10/26/24 Gabapentin [Neurontin] 300 mg PO BID #0 10/26/24 Allergies Allergy/AdvReac Type Severity Reaction Status Date / Time No Known Allergies Allergy Verified 10/30/24 20:16 Review of Systems ROS Statement: Those systems with pertinent positive or pertinent negative responses have been documented in the HPI. 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 skin cancer. Developmently delayed. [place] History of Any Multi-Drug Resistant Organisms: None Reported Past Surgical History: Hysterectomy Past Anesthesia/Blood Transfusion Reactions: No Reported Reaction Past Psychological History: Unable to Obtain Smoking Status: Never smoker Past Alcohol Use History: None Reported Past Drug Use History: None Reported - Past Family History Father History Unknown: Yes Mother History Unknown: Yes General Exam - General Exam Comments Initial Comments: PE: CONSTITUTIONAL: No apparent distress, chronically ill-appearing, nontoxic SKIN: Warm, dry, no jaundice, hives or petechiae EYES: Pupils are equally round, extraocular movements intact without nystagmus, clear conjunctiva, non-icteric sclera HENT: Normocephalic, atraumatic, moist mucus membranes, oropharynx clear without exudates NECK: , Full range of motion, normal appearance PULMONARY: Clear to auscultation without wheezes, rhonchi, or rales, normal excursion, no accessory muscle use and no stridor CARDIOVASCULAR: Regular rate, rhythm, normal S1 and S2. No appreciated murmurs, rubs or gallops. Strong radial pulses with intact distal perfusion. No lower extremity edema GASTROINTESTINAL: Soft, active bowel sounds throughout, diffusely tender, mildly distended, no palpable masses, no rebound; guarding with palpation of the abdomen diffusely, no overlying skin changes or hernias no hepatosplenomegaly MUSCULOSKELETAL: Extremities have no gross deformity, no edema, redness, or swelling. No calf swelling NEUROLOGIC:_a/o x 2, GCS 15, normal mentation and speech. Moves all extremities x 4 without motor or sensory deficit PSYCHIATRIC: Withdrawn_normal mood and sad affect, thought process is linear, though patient offers brief, reluctant answers in response to questions, at baseline Limitations: no limitations Course Vital Signs 10/30/24 10/30/24 10/30/24 15:35 15:53 16:48 Temperature 97.8 F Pulse Rate 110 H 93 89 Respiratory 18 16 16 Rate Blood Pressure 160/98 161/100 139/67 O2 Sat by Pulse 97 95 95 Oximetry 10/30/24 10/30/24 10/30/24 18:15 20:00 22:00 Temperature 98.2 F 97.4 F L 98.2 F Pulse Rate 92 90 92 Respiratory 18 16 18 Rate Blood Pressure 106/78 162/82 148/84 O2 Sat by Pulse 98 94 L 95 Oximetry EKG Findings - EKG Comments: EKG Findings:: Sinus Rhythm with respiratory variation, rate 85 bpm, QRS duration 89 ms, QT/QTc 365/409 ms, normal axis, question 1 mm BLANCA in lead V2 without recipricol depression; Q-wave in V1 and V2 present on prior as well, t wave flattening in V1, V2 when compared to prior EKG from 10/23/14, w/ exception of possible 1 mmSTE in leade V2, no other signifcant new ST elevations or dpressions no STEMI Medical Decision Making - Medical Decision Making Was pt. sent in by a medical professional or institution (, PA, CHIEF CLINICAL DIETITIAN, urgent care, hospital, or [facility]...) When possible be specific @ -No Did you speak to anyone other than the patient for history (EMS, parent, family, police, friend...)? What history was obtained from this source @ -spoke with patient's niece who assisted in providing history Did you review nursing and triage notes (agree or disagree)? Why? @ -[I reviewed nursing and triage notes-of note states that patient is here for altered mental status however patient's mental status is baseline since discharge from the hospital and unchanged however she is more withdrawn than previously Were old charts reviewed (outside hosp., previous admission, EMS record, old EKG, old radiological studies, urgent care reports/EKG's, [facility] records)? Report findings @Medical records reviewed, CT brain performed on 10/23/2024 showed no acute process Differential Diagnosis (chest pain, altered mental status, abdominal pain women, abdominal pain men, vaginal bleeding, weakness, fever, dyspnea, syncope, headache, dizziness, GI bleed, back pain, seizure, CVA, palpatations, mental health, musculoskeletal)? Differential Weakness: Hypoglycemia, sepsis, hyponatremia, anemia, infection, ACS, failure to thrive, mental health disorder, adverse medicine reaction this is not meant to be an all-inclusive list. EKG interpreted by me (3pts min.). @ -As above X-rays interpreted by me (1pt min.). No cardiomegaly, consolidations or pleural effusions CT interpreted by me (1pt min.). @I see no evidence of free air, hernia, free fluid or other acute process U/S interpreted by me (1pt. min.). @ -None done What testing was considered but not performed or refused? (CT, X-rays, U/S, labs)? Why? CT brain is considered however patient has not had any falls since discharge and mental status remains the same as at discharge, per niece, patient without new focal neurologic deficits What meds were considered but not given or refused? Why? @ -None Did you discuss the management of the patient with other professionals (professionals i.e. , PA, CHIEF CLINICAL DIETITIAN, lab, RT, psych nurse, social science professor, felt hooker, teacher, radio electronics officer, case repairer)? Give summary @ -No Was smoking cessation discussed for >3mins.? @ -No Was critical care preformed (if so, how long)? @ -No Were there social determinants of health that impacted care today? How? (Homelessness, low income, unemployed, alcoholism, drug addiction, transportation, low edu. Level, literacy, decrease access to med. care, detention, rehab)? @ -No Was there de-escalation of care discussed even if they declined (Discuss DNR or withdrawal of care, Hospice)? @ -No What co-morbidities impacted this encounter? (DM, HTN, Smoking, COPD, CAD, Cancer, CVA, ARF, Chemo, Hep., AIDS, mental health diagnosis, sleep apnea, morbid obesity)? @Prior CVA, diabetes, hypertension Was patient admitted / discharged? Hospital course, mention meds given and route, prescriptions, significant lab abnormalities, going to OR and other pertinent info. @Admission-patient is an 84-year-old female presenting from [facility] in the company of her guardian, her niece for decreasing ability to care for self since last hospital visit. On assessment patient is overall chronically ill- appearing though nontoxic in no acute distress. Knowns self, city, that it is October. She is rather withdrawn and makes poor eye contact. She is awake and alert. Niece does provide majority of history. Patient's exam otherwise significant for diffusely tender abdomen mildly distended with active bowel sounds. She is warm to the touch so rectal temperature will be obtained and she was tachycardic on arrival, out of concern for infection as a cause of her worsening weakness and failure to thrive lactic, blood cultures CT abdomen pelvis and antibiotics will be initiated. IV pain control. Anticipate admission. IV contrast will be withheld due to patient's recent RAD however will attempt oral contrast. Labs and imaging reviewed. At her last well paperwork and significant for mild leukocytosis white blood cell count 12.7, potassium slightly low normal at 3.4, ordered oral replacement, creatinine again increased from discharge, was previously 0.6 now 1.23, GFR 41, I suspect this is prerenal secondary to dehydration as patient has had decreased intake. CT abdomen pelvis was limited due to motion artifact, showed mild bladder wall thickening that may be chronic for the patient, correlate with cystitis. UA does not show signs of infection. Of note troponin 0.04 5 repeat 0.049. Patient denies any chest pain and has questionable 1 mm BLANCA in lead V2, without recipricol depressions otherwiseno otherEKG changes will continue to trend. On reassessment pain is controlled, discussed with patient plan for admission. Patient discussed with Dr. Bui, kindly accepts patient for admission. Undiagnosed new problem with uncertain prognosis? @ -No Drug Therapy requiring intensive monitoring for toxicity (Heparin, Nitro, Insulin, Cardizem)? @ -No Were any procedures done? @ -No Diagnosis/symptom? RAD, failure to thrive, elevated troponin Acute, or Chronic, or Acute on Chronic? @acute Uncomplicated (without systemic symptoms) or Complicated (systemic symptoms)? @complicated Side effects of treatment? @ -No Exacerbation, Progression, or Severe Exacerbation? @ -No Poses a threat to life or bodily function? How? (Chest pain, [place], DC, pneumonia, PE, COPD, DKA, ARF, appy, cholecystitis, CVA, Diverticulitis, Homicidal, Suicidal, threat to staff... and all critical care pts) Yes - Lab Data Result diagrams: 10/30/24 16:39 10/30/24 16:39 Lab Results 10/30/24 10/30/24 10/30/24 Range/Units 16:39 16:39 16:39 WBC 12.7 H (3.8-10.6) k/uL RBC 5.04 (3.80-5.40) m/uL Hgb 15.7 (11.4-16.0) gm/dL Hct 46.8 H (34.0-46.0) % MCV 92.9 (80.0-100.0) fL MCH 31.1 (25.0-35.0) pg MCHC 33.5 (31.0-37.0) g/dL RDW 13.6 (11.5-15.5) % Plt Count 150 (150-450) k/uL MPV 9.5 Neutrophils % 72 % Lymphocytes % 19 % Monocytes % 7 % Eosinophils % 1 % Basophils % 0 % Neutrophils # 9.1 H (1.3-7.7) k/uL Lymphocytes # 2.3 (1.0-4.8) k/uL Monocytes # 0.8 (0-1.0) k/uL Eosinophils # 0.1 (0-0.7) k/uL Basophils # 0.1 (0-0.2) k/uL PT 12.3 (10.0-12.5) sec INR 1.1 (<1.2) APTT 25.3 (22.0-30.0) sec Sodium 141 (137-145) mmol/L Potassium 3.4 L (3.5-5.1) mmol/L Chloride 106 (98-107) mmol/L Carbon Dioxide 21 L (22-30) mmol/L Anion Gap 14 mmol/L BUN 40 H (7-17) mg/dL Creatinine 1.23 H (0.52-1.04) mg/dL Est GFR (CKD-EPI)AfAm 47 (>60 ml/min/1.73 sqM) Est GFR (CKD-EPI)NonAf 41 (>60 ml/min/1.73 sqM) Glucose 132 H (74-99) mg/dL Plasma Lactic Acid Kevin (0.7-2.0) mmol/L Calcium 9.8 (8.4-10.2) mg/dL Total Bilirubin 1.1 (0.2-1.3) mg/dL AST 23 (14-36) U/L ALT 15 (4-34) U/L Alkaline Phosphatase 95 (38-126) U/L Troponin I (0.000-0.034) ng/mL Total Protein 7.0 (6.3-8.2) g/dL Albumin 4.6 (3.5-5.0) g/dL Amylase 48 (30-110) U/L Lipase 186 (23-300) U/L Urine Color Urine Appearance (Clear) Urine pH (5.0-8.0) Ur Specific [place] (1.001-1.035) Urine Protein (Negative) Urine Glucose (UA) (Negative) Urine Ketones (Negative) Urine Blood (Negative) Urine Nitrite (Negative) Urine Bilirubin (Negative) Urine Urobilinogen (<2.0) mg/dL Ur Leukocyte Esterase (Negative) 10/30/24 10/30/24 10/30/24 Range/Units 16:39 16:39 16:39 WBC (3.8-10.6) k/uL RBC (3.80-5.40) m/uL Hgb (11.4-16.0) gm/dL Hct (34.0-46.0) % MCV (80.0-100.0) fL MCH (25.0-35.0) pg MCHC (31.0-37.0) g/dL RDW (11.5-15.5) % Plt Count (150-450) k/uL MPV Neutrophils % % Lymphocytes % % Monocytes % % Eosinophils % % Basophils % % Neutrophils # (1.3-7.7) k/uL Lymphocytes # (1.0-4.8) k/uL Monocytes # (0-1.0) k/uL Eosinophils # (0-0.7) k/uL Basophils # (0-0.2) k/uL PT (10.0-12.5) sec INR (<1.2) APTT (22.0-30.0) sec Sodium (137-145) mmol/L Potassium (3.5-5.1) mmol/L Chloride (98-107) mmol/L Carbon Dioxide (22-30) mmol/L Anion Gap mmol/L BUN (7-17) mg/dL Creatinine (0.52-1.04) mg/dL Est GFR (CKD-EPI)AfAm (>60 ml/min/1.73 sqM) Est GFR (CKD-EPI)NonAf (>60 ml/min/1.73 sqM) Glucose (74-99) mg/dL Plasma Lactic Acid Kevin 1.8 (0.7-2.0) mmol/L Calcium (8.4-10.2) mg/dL Total Bilirubin (0.2-1.3) mg/dL AST (14-36) U/L ALT (4-34) U/L Alkaline Phosphatase (38-126) U/L Troponin I 0.045 H* (0.000-0.034) ng/mL Total Protein (6.3-8.2) g/dL Albumin (3.5-5.0) g/dL Amylase (30-110) U/L Lipase (23-300) U/L Urine Color Yellow Urine Appearance Clear (Clear) Urine pH 5.0 (5.0-8.0) Ur Specific [place] 1.021 (1.001-1.035) Urine Protein Trace H (Negative) Urine Glucose (UA) Negative (Negative) Urine Ketones Trace H (Negative) Urine Blood Negative (Negative) Urine Nitrite Negative (Negative) Urine Bilirubin Negative (Negative) Urine Urobilinogen <2.0 (<2.0) mg/dL Ur Leukocyte Esterase Negative (Negative) 10/30/24 Range/Units 19:18 WBC (3.8-10.6) k/uL RBC (3.80-5.40) m/uL Hgb (11.4-16.0) gm/dL Hct (34.0-46.0) % MCV (80.0-100.0) fL MCH (25.0-35.0) pg MCHC (31.0-37.0) g/dL RDW (11.5-15.5) % Plt Count (150-450) k/uL MPV Neutrophils % % Lymphocytes % % Monocytes % % Eosinophils % % Basophils % % Neutrophils # (1.3-7.7) k/uL Lymphocytes # (1.0-4.8) k/uL Monocytes # (0-1.0) k/uL Eosinophils # (0-0.7) k/uL Basophils # (0-0.2) k/uL PT (10.0-12.5) sec INR (<1.2) APTT (22.0-30.0) sec Sodium (137-145) mmol/L Potassium (3.5-5.1) mmol/L Chloride (98-107) mmol/L Carbon Dioxide (22-30) mmol/L Anion Gap mmol/L BUN (7-17) mg/dL Creatinine (0.52-1.04) mg/dL Est GFR (CKD-EPI)AfAm (>60 ml/min/1.73 sqM) Est GFR (CKD-EPI)NonAf (>60 ml/min/1.73 sqM) Glucose (74-99) mg/dL Plasma Lactic Acid Kevin (0.7-2.0) mmol/L Calcium (8.4-10.2) mg/dL Total Bilirubin (0.2-1.3) mg/dL AST (14-36) U/L ALT (4-34) U/L Alkaline Phosphatase (38-126) U/L Troponin I 0.049 H* (0.000-0.034) ng/mL Total Protein (6.3-8.2) g/dL Albumin (3.5-5.0) g/dL Amylase (30-110) U/L Lipase (23-300) U/L Urine Color Urine Appearance (Clear) Urine pH (5.0-8.0) Ur Specific [place] (1.001-1.035) Urine Protein (Negative) Urine Glucose (UA) (Negative) Urine Ketones (Negative) Urine Blood (Negative) Urine Nitrite (Negative) Urine Bilirubin (Negative) Urine Urobilinogen (<2.0) mg/dL Ur Leukocyte Esterase (Negative) Disposition Clinical Impression: Failure to thrive, Elevated troponin Disposition: ADMITTED IP TO THIS HOSP Condition: Stable
[2024-10-30] MEDS: LACTATED RINGERS 1,000 ML BAG IV STA (16:56)
[2024-10-30] MEDS: MORPHINE SULFATE 4 MG/ML SYRINGE IVP STA (16:56)
[2024-10-30 16:57] LABS: Basophils # (A) 0.1 k/uL (0-0.2); Basophils % (A) 0 %; Eosinophils # (A) 0.1 k/uL (0-0.7); Eosinophils % (A) 1 %; HCT 46.8 % (34.0-46.0); HGB 15.7 gm/dL (11.4-16.0); Lymphocytes # (A) 2.3 k/uL (1.0-4.8); Lymphocytes % (A) 19 %; MCH 31.1 pg (25.0-35.0); MCHC 33.5 g/dL (31.0-37.0); MCV 92.9 fL (80.0-100.0); Mean Platelet Volume 9.5; Monocytes # (A) 0.8 k/uL (0-1.0); Monocytes % (A) 7 %; Neutrophils # (A) 9.1 k/uL (1.3-7.7); Neutrophils % (A) 72 %; Platelet Count 150 k/uL (150-450); RBC 5.04 m/uL (3.80-5.40); RDW 13.6 % (11.5-15.5); WBC 12.7 k/uL (3.8-10.6)
[2024-10-30] MEDS: cefTRIAXone IN SWFI 1,000 MG/10 ML SYRINGE IVP STA (16:59)
[2024-10-30] MEDS: metroNIDAZOLE-NS PMX 500 MG in SALINE 1 100ML.BAG IVPB STA (17:01)
[2024-10-30 17:09] LABS: INR 1.1 (<1.2); Partial Thromboplastin Time 25.3 sec (22.0-30.0); Prothrombin Time 12.3 sec (10.0-12.5)
[2024-10-30 17:15] LABS: ALT 15 U/L (4-34); AST 23 U/L (14-36); African American GFR (CKD) 47 (>60 ml/min/1.73 sqM); Albumin 4.6 g/dL (3.5-5.0); Alkaline Phosphatase 95 U/L (38-126); Amylase 48 U/L (30-110); Anion Gap 14 mmol/L; Blood Urea Nitrogen 40 mg/dL (7-17); Calcium 9.8 mg/dL (8.4-10.2); Carbon Dioxide 21 mmol/L (22-30); Chloride 106 mmol/L (98-107); Glucose 132 mg/dL (74-99); Lipase 186 U/L (23-300); Non-African American GFR(CKD) 41 (>60 ml/min/1.73 sqM); Potassium 3.4 mmol/L (3.5-5.1); Sodium 141 mmol/L (137-145); Total Bilirubin 1.1 mg/dL (0.2-1.3)
--- NOTE | 2024-10-30 17:45 | CT ---
EXAMINATION TYPE: CT abdomen pelvis wo con DATE OF EXAM: 10/30/2024 5:20 PM COMPARISON: 10/23/2024 CLINICAL INDICATION: Female, 84 years old with history of abdominal pain, Abdominal pain, weakness, A MS., TECHNIQUE: Contiguous axial scanning of the abdomen and pelvis without IV contrast. Coronal and sagit chadwick reconstructions performed. CT DLP: 613 mGycm. Automated exposure control for dose reduction was used. FINDINGS: Heart borderline in size without pericardial effusion. Moderate aortic valve calcifications. Three-ve ssel coronary artery calcification. Small hiatal hernia. Strandy densities, probably atelectasis of the visualized lower lungs. No pleural effusion. There is combination of motion artifact and additional artifact from the patient's arms down by her s toni. Limited noncontrast assessment of the liver, gallbladder, adrenal glands, kidneys, spleen, and pancre as show no gross abnormality. No dilated small bowel, free fluid, or free air. No mesenteric or retroperitoneal adenopathy. Normal appendix. No significant stool burden. The mid to distal sigmoid diverticulosis. No pericoloni c inflammatory change. Nodular soft tissue overlying the umbilicus measuring 3.7 x 2.2 cm redemonstra nisha. Probable nodular scarring which should be correlated clinically. There is some pelvic floor relaxation. Mild circumferential bladder wall thickening. Pelvic phlebolit hs. Uterus surgically absent. Suspect visualization of both ovaries. No abnormal fluid collection in the pelvis or pelvic lymphadenopathy. Bones: Superior endplate deformity L1 is unchanged. Additional lower thoracic spine. Hypertrophic fac et arthropathy with grade 1 anterolisthesis L4-L5 and grade 1 retrolisthesis L2-L3 bulge remain uncha nged. IMPRESSION: 1. Noncontrast exam further limited by motion and artifact from arms down by her side. 2. Mild bladder wall thickening may be chronic for the patient. Correlate to exclude cystitis. 3. Limited distal sigmoid diverticulosis without acute diverticulitis. 4. Mild pelvic floor relaxation. 5. Degenerative changes at L4-L5 with facet arthropathy and grade 1 anterolisthesis. There may be a focal severe spinal canal stenosis at this level. Chronic superior endplate deformity of L1 shows sim ilar retropulsion into the ventral spinal canal. There may be a moderate focal spinal canal stenosis here. 6. Small hiatal hernia, aortic valve calcification, and three-vessel coronary artery calcifications. [facility], , 10/30/2024 5:42 PM
[2024-10-30] MEDS: SODIUM CHLORIDE 0.9% 1,000 ML IV STA (18:14)
[2024-10-30 18:49] LABS: Appearance,Urine Clear (Clear); Bilirubin,Urine Negative (Negative); Blood,Urine Negative (Negative); Color,Urine Yellow; Glucose,Urine (UA) Negative (Negative); Ketones,Urine Trace (Negative); Leukocyte Esterase,Urine Negative (Negative); Nitrite,Urine Negative (Negative); Protein,Urine Trace (Negative); Specific Gravity,Urine 1.021 (1.001-1.035); Urobilinogen,Urine <2.0 mg/dL (<2.0)
[2024-10-30] MEDS: POTASSIUM CHLORIDE ER 20 MEQ TAB.ER PO STA (19:44)
--- NOTE | 2024-10-30 19:49 | XR ---
EXAMINATION TYPE: XR chest 2V DATE OF EXAM: 10/30/2024 6:27 PM CLINICAL INDICATION:Female, 84 years old with history of abdominal paiwheezes in bases of lungs,; [facility] COMPARISON: CT abdomen/pelvis from the same day. TECHNIQUE: XR chest 2V Frontal view of the chest. FINDINGS: Lungs/Pleura: There is no evidence of pleural effusion, focal consolidation, or pneumothorax. Pulmonary vascularity: Unremarkable. Heart/mediastinum: Cardiomediastinal silhouette is unremarkable. Musculoskeletal: No acute osseous pathology. Other findings: None IMPRESSION: No acute cardiopulmonary disease/process. [facility], , 10/30/2024 7:47 PM
[2024-10-30] MEDS ORDERED: ALPRAZolam 0.25 MG TAB PO PRN (20:50)
[2024-10-30] MEDS ORDERED: ONDANSETRON 4 MG/2 ML VIAL IVP PRN (20:50)
[2024-10-30] MEDS ORDERED: traMADol 50 MG TAB PO PRN (20:50)
[2024-10-30] MEDS ORDERED: NALOXONE 0.4 MG/ML 1 ML VIAL IV PRN (20:50)
[2024-10-30] MEDS: lisinopriL 20 MG TAB PO SCH (21:33)
[2024-10-30] MEDS: FAMOTIDINE 20 MG TAB PO SCH (21:33)
[2024-10-30] MEDS: ATORVASTATIN 40 MG TAB PO SCH (21:33)
[2024-10-30] MEDS: APIXABAN 2.5 MG TABLET PO SCH (21:33)
[2024-10-30] MEDS: GABAPENTIN 300 MG CAP PO SCH (21:33)
[2024-10-30] MEDS: traZODone HCL 50 MG TAB PO SCH (21:33)
[2024-10-30] MEDS: SODIUM CHLORIDE 0.9% 1,000 ML IV SCH (21:38)
[2024-10-30] MEDS: NITROGLYCERIN SL TABS 0.4 MG TAB SUBLINGUAL PRN (22:41)
[2024-10-31] MEDS: METOPROLOL SUCCINATE (ER) 25 MG TAB.ER.24H PO SCH (08:36)
[2024-10-31] MEDS ORDERED: ENOXAPARIN 40 MG/0.4 ML SYRINGE SQ SCH (09:00)
--- NOTE | 2024-10-31 22:37 | P.CRDCN ---
History of Present Illness Consult date: 10/31/24 History of present illness: HISTORY OF PRESENTING ILLNESS Patient is a 84-year-old female with past medical history of prior CVA, chronic L1 compression fracture, usually alert oriented x 1-2. History is very limited because of patient's baseline mental status. Apparently patient was recently hospitalized for altered mental status and was discharged last week . Due to the concerns of failure to thrive, patient not wanting to eat, take her medications she was brought to the hospital. Patient does report some abdominal pain, she denies having any active substernal chest pressure or shortness of breath. Abdominal CT shows moderate focal spinal canal stenosis and lumbar region, mild bladder thickening, sigmoid diverticulosis EKG shows sinus rhythm with PACs Chest x-ray shows mild pulmonary congestion Hemoglobin 15.7, BUN 40, creatinine 1.2, troponin 0.06, repeat 0.53 REVIEW OF SYSTEMS Unable to obtain due to patient's mental status. PHYSICAL EXAMINATION Neck: Delayed carotid upstrokes, no jugular venous distention. Lungs: Poor respiratory effort, mild crackles audible in bilateral bases Heart: Regular rate and rhythm, S1 is audible, S2 is muffled because of systolic murmur, radiating to carotids, Abdomen: Soft nontender, positive bowel sounds. Extremities: No edema, intact distal pulses. Neuro: Alert, but not oriented, no focal deficits. Detailed neuro exam was not performed. ASSESSMENT Severe aortic stenosis, with prior hospital admission in September for syncope Essential hypertension Lumbar fracture after fall in September Paroxysmal atrial fibrillation Essential hypertension Failure to thrive Echo from September 2024 shows EF 65%, hyperdynamic LV moderate LVH, severe aortic stenosis mean gradient 41 mmHg, PLAN Continue lisinopril 20 mg, Toprol-XL 12.5 mg daily, Eliquis 2.5 mg twice daily, atorvastatin 40 mg. If possible have conversation with family to understand their goals of care and if they would be interested in TAVR procedure. If interested she should be plan for him early outpatient TAVR evaluation. Odilon Eid MD, FACC, RPVI Thank you for allowing [facility] to participate in thi s patient's care. Feel free to reach out in case of any followup questions. 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 skin cancer. Developmently delayed. [place] History of Any Multi-Drug Resistant Organisms: None Reported Past Surgical History: Hysterectomy Past Anesthesia/Blood Transfusion Reactions: No Reported Reaction Past Psychological History: Unable to Obtain Smoking Status: Never smoker Past Alcohol Use History: None Reported Past Drug Use History: None Reported - Past Family History Father History Unknown: Yes Mother History Unknown: Yes Medications and Allergies Home Medications Medication Instructions Recorded Confirmed Type Atorvastatin [Lipitor] 40 mg PO HS 10/27/21 10/30/24 History traZODone HCL 150 mg PO HS 10/27/21 10/30/24 History Apixaban [Eliquis] 2.5 mg PO Q12H 08/27/24 10/30/24 History Cholecalciferol (Vitamin D3) 50 mcg PO BID-W/MEALS 08/27/24 10/30/24 History [Vitamin D3 (50 Mcg = 2000 Iu)] Tirzepatide [Mounjaro] 2.5 mg SQ CADET 08/27/24 10/30/24 History lisinopriL [Zestril] 20 mg PO HS@199909/08/24 10/30/24 History Famotidine [Pepcid] 20 mg PO BID 10/23/24 10/30/24 History Lidocaine 4% Patch 1 patch TRANSDERM DAILY PRN 10/23/24 10/30/24 History Metoprolol Succinate (ER) [Toprol 12.5 mg PO DAILY 10/23/24 10/30/24 History XL] Acetaminophen Tab [Tylenol] 650 mg PO Q6HR PRN tab 10/26/24 10/30/24 Rx Gabapentin [Neurontin] 300 mg PO BID #0 10/26/24 10/30/24 Rx HYDROcodone/APAP 10-325MG [[place] 0.5 tab PO Q6HR PRN 10/30/24 10/30/24 History 10-325] Nitroglycerin Sl Tabs [Nitrostat] 0.4 mg SL Q5M PRN 10/30/24 10/30/24 History Allergies Allergy/AdvReac Type Severity Reaction Status Date / Time No Known Allergies Allergy Verified 10/30/24 20:16 Physical Exam Vitals: Vital Signs Temp Pulse Pulse Resp BP BP Pulse Ox 10/31/24 20:00 97.6 F 86 16 145/78 97 10/31/24 18:58 97.6 F 70 16 148/84 97 10/31/24 18:07 98.4 F 94 20 174/89 96 10/31/24 14:09 99.1 F 84 16 131/64 96 10/31/24 12:25 87 18 132/78 97 10/31/24 08:33 98.0 F 87 18 136/90 95 10/31/24 06:47 90 16 144/85 95 10/31/24 03:00 87 18 124/51 97 10/31/24 01:00 91 16 114/68 96 Intake and Output 10/31/24 10/31/24 10/31/24 06:59 14:59 22:59 Output Total 400 200 Balance -400 -200 Output: Urine 400 200 Uretheral (Andrade) 400 200 Other: Voiding Method Indwelling Catheter Results 10/30/24 16:39 10/30/24 16:39 Cardiac Enzymes 10/31/24 Range/Units 00:12 Troponin I 0.053 H* (0.000-0.034) ng/mL Current Medications Generic Name Dose Route Start Last Admin Trade Name Freq PRN Reason Stop Dose Admin Acetaminophen 650 mg 10/30/24 20:50 Acetaminophen Tab 325 Mg Tab PO Q6HR PRN Mild Pain or Fever > 100.5 Hydrocodone Bitart/Acetaminophen 0.5 each 10/30/24 21:00 Hydrocodone/Apap 10-325mg 1 Each Tab PO Q6HR PRN Pain Alprazolam 0.25 mg 10/30/24 20:50 Alprazolam 0.25 Mg Tab PO Q6HR PRN Anxiety Apixaban 2.5 mg 10/30/24 21:30 10/31/24 19:53 Apixaban 2.5 Mg Tablet PO 2.5 mg Q12H GEOVANNY Administration Protocol Atorvastatin Calcium 40 mg 10/30/24 21:30 10/31/24 19:53 Atorvastatin 40 Mg Tab PO 40 mg HS GEOVANNY Administration Famotidine 20 mg 11/01/24 09:00 Famotidine 20 Mg Tab PO DAILY GEOVANNY Gabapentin 300 mg 10/30/24 21:30 10/31/24 19:53 Gabapentin 300 Mg Cap PO 300 mg BID GEOVANNY Administration Sodium Chloride 1,000 mls @ 75 mls/hr 10/30/24 21:00 10/31/24 19:55 Saline 0.9% IV 75 mls/hr .[id number] GEOVANNY Administration Lisinopril 20 mg 10/30/24 21:30 10/31/24 19:53 Lisinopril 20 Mg Tab PO 20 mg HS@2000 GEOVANNY Administration Metoprolol Succinate 12.5 mg 10/31/24 09:00 10/31/24 08:36 Metoprolol Succinate (Er) 25 Mg Tab.Er.24h PO 12.5 mg DAILY GEOVANNY Administration Naloxone HCl 0.2 mg 10/30/24 20:50 Naloxone 0.4 Mg/Ml 1 Ml Vial IV Q2M PRN Opioid Reversal Ondansetron HCl 4 mg 10/30/24 20:50 Ondansetron 4 Mg/2 Ml Vial IVP Q8HR PRN Nausea And Vomiting Trazodone HCl 150 mg 10/30/24 21:30 10/31/24 19:53 Trazodone Hcl 50 Mg Tab PO 150 mg HS GEOVANNY Administration Intake and Output 10/31/24 10/31/24 10/31/24 06:59 14:59 22:59 Output Total 400 200 Balance -400 -200 Output: Urine 400 200 Uretheral (Andrade) 400 200 Other: Voiding Method Indwelling Catheter 10/30/24 16:39 10/30/24 16:39
--- NOTE | 2024-10-31 23:20 | HP ---
HISTORY AND PHYSICAL CHIEF COMPLAINT: Weakness. HISTORY OF PRESENT ILLNESS: This is an 84-year-old woman with a past medical history of CVA, history of chronic L1 compression fracture, who was having some change in mental status. The patient, apparently, was admitted to hospital recently and the p.o. intake appears to be extremely poor. The patient is weak. The patient has some renal failure. The patient has severe aortic stenosis as well. There is no history of any fever or rigors. The patient is unable to give a coherent history at this time. PAST MEDICAL HISTORY: Reviewed and includes CVA, TIA, diabetes mellitus, hypertension. Rest of the history and rest of the chart is also reviewed. HOME MEDICATIONS: Reviewed and include Zestril. ALLERGIES: None. FAMILY HISTORY: Could not be taken. SOCIAL HISTORY: Could not be taken. REVIEW OF SYSTEMS: Could not be taken. PHYSICAL EXAMINATION: VITAL SIGNS: Pulse is 87, blood pressure 150/70, respirations 18. HEENT: Conjunctivae normal. Oral mucosa dry. NECK: No JVD. CARDIOVASCULAR: S1 and S2. RESPIRATIONS: Breath sounds diminished at the bases. ABDOMEN: Soft. NERVOUS SYSTEM: Diffusely weak. LABORATORY DATA: Creatinine 1.23. Troponins are noted. ASSESSMENT: 1. Change in mental status. 2. Acute metabolic encephalopathy. 3. Acute renal failure, secondary to dehydration. 4. Troponin elevated up to 0.06. Rule out acute mep-VG-uvaivvt-elevation myocardial infarction. 5. History of cerebrovascular accident. 6. Diabetes mellitus type 2. 7. Hypertension. 8. Right-sided weakness from the stroke. 9. Developmental delay. 10.Gait dysfunction. 11.Severe aortic stenosis. RECOMMENDATIONS AND DISCUSSION: This 84-year-old woman presented with multiple complex medical issues. We will monitor the patient closely. Continue the current medications. I would recommend IV fluids and monitor creatinine closely. Chest x-ray showed no acute abnormality. CT of the abdomen and pelvis, showed mild bladder wall thickening, possible cystitis. UA is unremarkable. We will continue to monitor. I will order a serum procalcitonin and if it is not high, we will stop antibiotics and continue to monitor. PT and OT evaluation. I would also recommend ECF rehab because of the repeat admission currently. Resume the home medications once they are confirmed. MMODL / IJN: [id number] /
[2024-11-01] MEDS: FAMOTIDINE 20 MG TAB PO SCH (08:05)
[2024-11-01 09:15] LABS: Basophils % (A) 0 %; Eosinophils # (A) 0.2 k/uL (0-0.7); Eosinophils % (A) 1 %; HCT 41.8 % (34.0-46.0); HGB 13.6 gm/dL (11.4-16.0); Lymphocytes # (A) 1.6 k/uL (1.0-4.8); Lymphocytes % (A) 15 %; MCH 30.3 pg (25.0-35.0); MCHC 32.4 g/dL (31.0-37.0); MCV 93.4 fL (80.0-100.0); Monocytes # (A) 0.7 k/uL (0-1.0); Monocytes % (A) 7 %; Neutrophils # (A) 7.8 k/uL (1.3-7.7); Neutrophils % (A) 75 %; Platelet Count 110 k/uL (150-450); RBC 4.48 m/uL (3.80-5.40); RDW 13.5 % (11.5-15.5); WBC 10.4 k/uL (3.8-10.6)
[2024-11-01 09:42] LABS: ALT 10 U/L (4-34); AST 14 U/L (14-36); African American GFR (CKD) 74 (>60 ml/min/1.73 sqM); Albumin 3.3 g/dL (3.5-5.0); Alkaline Phosphatase 74 U/L (38-126); Anion Gap 8 mmol/L; Blood Urea Nitrogen 24 mg/dL (7-17); Calcium 8.7 mg/dL (8.4-10.2); Carbon Dioxide 19 mmol/L (22-30); Chloride 112 mmol/L (98-107); Glucose 195 mg/dL (74-99); Non-African American GFR(CKD) 64 (>60 ml/min/1.73 sqM); Potassium 3.1 mmol/L (3.5-5.1); Sodium 139 mmol/L (137-145); Total Protein 5.5 g/dL (6.3-8.2)
[2024-11-01] MEDS ORDERED: Potassium Replacement Protocol 1 EACH MISC MISCELLANE PRN ×2 (10:25→14:20)
[2024-11-01] MEDS: POTASSIUM CHLORIDE ER 20 MEQ TAB.ER PO STA (11:34)
[2024-11-01] MEDS: amLODIPine 5 MG TAB PO SCH (11:34)
[2024-11-01] MEDS ORDERED: DEXTROSE 50% SYRINGE 50 ML IVP PRN ×2 (12:00)
[2024-11-01 12:01] LABS: Glucose,Whole Blood 218 mg/dL (70-110)
[2024-11-01] MEDS: INSULIN ASPART (NovoLOG) 100 UNIT/ML VIAL SQ SCH (12:17)
[2024-11-01] MEDS ORDERED: Magnesium Replacement Protocol 1 EACH MISC MISCELLANE PRN (14:20)
[2024-11-01 16:54] LABS: Glucose,Whole Blood 211 mg/dL (70-110)
[2024-11-01] MEDS: PANTOPRAZOLE 40 MG TABLET PO SCH (17:06)
--- NOTE | 2024-11-01 19:01 | PN ---
PROGRESS NOTE DATE OF SERVICE: 11/01/2024 SUBJECTIVE: This is an 84-year-old woman, who was admitted with change in mental status, also had acute renal failure. No chest pain. No palpitations. No fever. PHYSICAL EXAMINATION: VITAL SIGNS: Pulse is 96, blood pressure 170/74, respirations n. CHEST: Few scattered rhonchi. ABDOMEN: Soft. NERVOUS SYSTEM: Nonfocal. LABORATORY DATA: Platelets 110. Potassium 3.1. ASSESSMENT: 1. Change in mental status, acute metabolic encephalopathy. 2. Acute renal failure secondary to dehydration. 3. Troponin elevated up to 0.06. Rule out acute ozv-IF-oghesqo-elevation myocardial infarction. 4. History of cerebrovascular accident. 5. Diabetes mellitus type 2. 6. Right-sided weakness from the stroke. 7. Developmental delay. 9. Severe aortic stenosis. RECOMMENDATIONS: Recommend to continue current medications and continue symptomatic treatment. Otherwise, at this time, potassium supplementation. Closely monitor with Cardiology, PT/OT evaluation, possible ECF rehab. Further recommendations to follow. MMODL / IJN: [id number] / FABI
--- NOTE | 2024-11-01 19:46 | PN ---
PROGRESS NOTE The patient is admitted with atrial fibrillation. She has severe aortic stenosis with paroxysmal atrial fibrillation. PHYSICAL EXAMINATION: GENERAL: This morning, she is comfortable at rest. VITAL SIGNS: Heart rate is 88 beats per minute, blood pressure is 160/81, and respiratory rate is 18. CHEST: Reveals good air entry bilaterally. HEART: Reveals first and second heart sounds. Ejection systolic murmur in the aortic area. ABDOMEN: Soft. EXTREMITIES: Exam of extremities did not reveal any edema. Peripheral pulses are felt. ASSESSMENT: Paroxysmal atrial fibrillation, severe aortic stenosis, hypertension. PLAN: I will add amlodipine for better blood pressure control. MMODL / IJN: [id number] /
[2024-11-01 20:05] LABS: Glucose,Whole Blood 221 mg/dL (70-110)
[2024-11-02 05:53] LABS: Glucose,Whole Blood 198 mg/dL (70-110)
[2024-11-02 06:57] LABS: Basophils % (A) 0 %; Eosinophils # (A) 0.1 k/uL (0-0.7); Eosinophils % (A) 1 %; HGB 13.5 gm/dL (11.4-16.0); Lymphocytes # (A) 1.5 k/uL (1.0-4.8); Lymphocytes % (A) 12 %; MCH 30.4 pg (25.0-35.0); MCHC 32.9 g/dL (31.0-37.0); MCV 92.4 fL (80.0-100.0); Mean Platelet Volume 10.6; Monocytes % (A) 8 %; Neutrophils # (A) 9.7 k/uL (1.3-7.7); Neutrophils % (A) 78 %; Platelet Count 110 k/uL (150-450); RBC 4.44 m/uL (3.80-5.40); RDW 13.2 % (11.5-15.5); WBC 12.4 k/uL (3.8-10.6)
[2024-11-02 07:15] LABS: AST 12 U/L (14-36); African American GFR (CKD) >90 (>60 ml/min/1.73 sqM); Albumin 3.1 g/dL (3.5-5.0); Anion Gap 10 mmol/L; Blood Urea Nitrogen 17 mg/dL (7-17); Calcium 8.5 mg/dL (8.4-10.2); Carbon Dioxide 21 mmol/L (22-30); Chloride 105 mmol/L (98-107); Glucose 197 mg/dL (74-99); Non-African American GFR(CKD) 80 (>60 ml/min/1.73 sqM); Potassium 3.4 mmol/L (3.5-5.1); Sodium 136 mmol/L (137-145); Total Bilirubin 1.1 mg/dL (0.2-1.3); Total Protein 5.3 g/dL (6.3-8.2)
[2024-11-02 07:16] LABS: ALT 8 U/L (4-34); Alkaline Phosphatase 62 U/L (38-126); Magnesium 1.3 mg/dL (1.6-2.3)
[2024-11-02] MEDS: HYDROcodone/APAP 10-325MG 1 EACH TAB PO PRN (10:48)
[2024-11-02 11:49] LABS: Glucose,Whole Blood 236 mg/dL (70-110)
--- NOTE | 2024-11-02 15:33 | P.PN ---
Subjective Progress Note Date: 11/02/24 HISTORY OF PRESENTING ILLNESS Patient is a 84-year-old female with past medical history of prior CVA, chronic L1 compression fracture, usually alert oriented x 1-2. History is very limited because of patient's baseline mental status. Apparently patient was recently hospitalized for altered mental status and was discharged last week . Due to the concerns of failure to thrive, patient not wanting to eat, take her medications she was brought to the hospital. Patient does report some abdominal pain, she denies having any active substernal chest pressure or shortness of breath. Abdominal CT shows moderate focal spinal canal stenosis and lumbar region, mild bladder thickening, sigmoid diverticulosis EKG shows sinus rhythm with PACs Chest x-ray shows mild pulmonary congestion Hemoglobin 15.7, BUN 40, creatinine 1.2, troponin 0.06, repeat 0.53 Progress note 11/02/2024, BP 121/69, heart rate 110 bpm REVIEW OF SYSTEMS Unable to obtain due to patient's mental status. PHYSICAL EXAMINATION Neck: Delayed carotid upstrokes, no jugular venous distention. Lungs: Poor respiratory effort, mild crackles audible in bilateral bases Heart: Regular rate and rhythm, S1 is audible, S2 is muffled because of systolic murmur, radiating to carotids, Abdomen: Soft nontender, positive bowel sounds. Extremities: No edema, intact distal pulses. Neuro: Alert, but not oriented, no focal deficits. Detailed neuro exam was not performed. ASSESSMENT Severe aortic stenosis, with prior hospital admission in September for syncope Essential hypertension Lumbar fracture after fall in September Paroxysmal atrial fibrillation Essential hypertension Failure to thrive Echo from September 2024 shows EF 65%, hyperdynamic LV moderate LVH, severe aortic stenosis mean gradient 41 mmHg, PLAN Continue lisinopril 20 mg, Toprol-XL 12.5 mg daily, Eliquis 2.5 mg twice daily, atorvastatin 40 mg. Amlodipine 5 mg daily. I would not add further antihypertensives to decrease the blood pressure further. Unless SBP is more than 160 mmHg I had a family discussion with patient's power of commercial litigation attorney. They would like to proceed with outpatient TAVR evaluation. They have an outpatient appointment with Dr. Stringer At this time patient is stable from cardiovascular standpoint. Will follow-up on her tomorrow and anticipate signing off tomorrow Objective - Vital Signs Vital signs: Vital Signs Temp 100.4 F H 11/02/24 12:00 Pulse 110 H 11/02/24 14:00 Resp 16 11/02/24 14:00 BP 121/69 11/02/24 12:00 Pulse Ox 98 11/02/24 12:00 FiO2 Intake & Output 11/01/24 11/02/24 11/02/24 18:59 06:59 18:59 Intake Total 580 Output Total 625 1300 850 Balance -45 -1300 -850 Weight 74.5 kg Intake: Oral 580 Output: Urine 625 1300 850 Other: Voiding Method Indwelling Catheter Indwelling Catheter Indwelling Catheter - Labs CBC & Chem 7: 11/02/24 06:07 11/02/24 06:07 Labs: Abnormal Lab Results - Last 24 Hours (Table) 11/01/24 11/01/24 11/02/24 Range/Units 16:51 20:04 05:52 WBC (3.8-10.6) k/uL Plt Count (150-450) k/uL Neutrophils # (1.3-7.7) k/uL Sodium (137-145) mmol/L Potassium (3.5-5.1) mmol/L Carbon Dioxide (22-30) mmol/L Glucose (74-99) mg/dL POC Glucose (mg/dL) 211 H 221 H 198 H (70-110) mg/dL Hemoglobin A1c (<=6.0) % Magnesium (1.6-2.3) mg/dL AST (14-36) U/L Total Protein (6.3-8.2) g/dL Albumin (3.5-5.0) g/dL 11/02/24 11/02/24 11/02/24 Range/Units 06:07 06:07 06:07 WBC 12.4 H (3.8-10.6) k/uL Plt Count 110 L (150-450) k/uL Neutrophils # 9.7 H (1.3-7.7) k/uL Sodium 136 L (137-145) mmol/L Potassium 3.4 L (3.5-5.1) mmol/L Carbon Dioxide 21 L (22-30) mmol/L Glucose 197 H (74-99) mg/dL POC Glucose (mg/dL) (70-110) mg/dL Hemoglobin A1c 6.2 H (<=6.0) % Magnesium 1.3 L (1.6-2.3) mg/dL AST 12 L (14-36) U/L Total Protein 5.3 L (6.3-8.2) g/dL Albumin 3.1 L (3.5-5.0) g/dL 11/02/24 Range/Units 11:48 WBC (3.8-10.6) k/uL Plt Count (150-450) k/uL Neutrophils # (1.3-7.7) k/uL Sodium (137-145) mmol/L Potassium (3.5-5.1) mmol/L Carbon Dioxide (22-30) mmol/L Glucose (74-99) mg/dL POC Glucose (mg/dL) 236 H (70-110) mg/dL Hemoglobin A1c (<=6.0) % Magnesium (1.6-2.3) mg/dL AST (14-36) U/L Total Protein (6.3-8.2) g/dL Albumin (3.5-5.0) g/dL Microbiology - Last 24 Hours (Table) 10/30/24 16:40 Blood Culture - Preliminary Blood 10/30/24 16:55 Blood Culture - Preliminary Blood
[2024-11-02 16:50] LABS: Glucose,Whole Blood 199 mg/dL (70-110)
[2024-11-02] MEDS: ACETAMINOPHEN TAB 325 MG TAB PO PRN (17:26)
[2024-11-02 20:13] LABS: Glucose,Whole Blood 227 mg/dL (70-110)
[2024-11-02] MEDS: POTASSIUM CHLORIDE ER 20 MEQ TAB.ER PO SCH (22:59)
[2024-11-02] MEDS: MAGNESIUM SULFATE-D5W PMX 1 GM in DEXTROSE/WATER 1 100ML.BAG IVPB SCH (23:01)
[2024-11-03 06:04] LABS: Glucose,Whole Blood 190 mg/dL (70-110)
[2024-11-03 06:55] LABS: Basophils % (A) 0 %; Eosinophils # (A) 0.1 k/uL (0-0.7); Eosinophils % (A) 1 %; HCT 37.9 % (34.0-46.0); HGB 12.4 gm/dL (11.4-16.0); Lymphocytes # (A) 1.2 k/uL (1.0-4.8); Lymphocytes % (A) 12 %; MCH 30.6 pg (25.0-35.0); MCHC 32.7 g/dL (31.0-37.0); MCV 93.6 fL (80.0-100.0); Mean Platelet Volume 10.2; Monocytes # (A) 0.7 k/uL (0-1.0); Monocytes % (A) 7 %; Neutrophils # (A) 8.1 k/uL (1.3-7.7); Neutrophils % (A) 78 %; Platelet Count 104 k/uL (150-450); RBC 4.05 m/uL (3.80-5.40); RDW 13.3 % (11.5-15.5); WBC 10.3 k/uL (3.8-10.6)
[2024-11-03 07:08] LABS: African American GFR (CKD) 89 (>60 ml/min/1.73 sqM); Anion Gap 7 mmol/L; Blood Urea Nitrogen 15 mg/dL (7-17); Calcium 8.2 mg/dL (8.4-10.2); Carbon Dioxide 22 mmol/L (22-30); Chloride 105 mmol/L (98-107); Glucose 177 mg/dL (74-99); Magnesium 2.7 mg/dL (1.6-2.3); Non-African American GFR(CKD) 77 (>60 ml/min/1.73 sqM); Potassium 3.9 mmol/L (3.5-5.1); Sodium 134 mmol/L (137-145)
--- NOTE | 2024-11-03 08:40 | P.PN ---
Subjective Progress Note Date: 11/02/24 This is an 84-year-old female who was recently admitted with changes in mental status also acute renal failure and dehydration. Patient with cardiology following with no plans of intervention at this time recommending maximizing medical management and monitoring blood pressure closely. Patient with weakness awaiting updated notes from PT/OT therapy and will require insurance authorization for patient to possibly go to [facility]. Patient is afebrile denies chest pain or shortness of breath. Patient not really eating or drinking much. Patient is full code and CODE STATUS needs to be addressed. Patient will follow-up in the outpatient setting regarding possible TAVR. Review of systems: Constitutional: reports of fatigue, no fever, or chills Cardiovascular: No reports of chest pain or palpitations Respiratory: No reports of shortness of breath or cough GI: reports of nausea, no reports of of vomiting, : No reports of dysuria or retention Neurovascular: reports of generalized weakness Active Medications Acetaminophen (Acetaminophen Tab 325 Mg Tab) 650 mg PO Q6HR PRN PRN Reason: Mild Pain or Fever > 100.5 Last Admin: 11/02/24 17:26 Dose: 650 mg Hydrocodone Bitart/Acetaminophen (Hydrocodone/Apap 10-325mg 1 Each Tab) 0.5 each PO Q6HR PRN PRN Reason: Pain Last Admin: 11/02/24 20:54 Dose: 0.5 each Alprazolam (Alprazolam 0.25 Mg Tab) 0.25 mg PO Q6HR PRN PRN Reason: Anxiety Amlodipine Besylate (Amlodipine 5 Mg Tab) 5 mg PO DAILY [facility] Last Admin: 11/02/24 09:40 Dose: 5 mg Apixaban (Apixaban 2.5 Mg Tablet) 2.5 mg PO Q12H GEOVANNY; Protocol Last Admin: 11/02/24 20:54 Dose: 2.5 mg Atorvastatin Calcium (Atorvastatin 40 Mg Tab) 40 mg PO HS GEOVANNY Last Admin: 11/02/24 20:54 Dose: 40 mg Dextrose/Water (Dextrose 50% Syringe 50 Ml) 25 ml IVP PER PROTOCOL PRN; Protocol PRN Reason: Hypoglycemia Dextrose/Water (Dextrose 50% Syringe 50 Ml) 50 ml IVP PER PROTOCOL PRN; Protocol PRN Reason: Hypoglycemia Famotidine (Famotidine 20 Mg Tab) 20 mg PO DAILY GEOVANNY Last Admin: 11/02/24 09:39 Dose: 20 mg Gabapentin (Gabapentin 300 Mg Cap) 300 mg PO BID [facility] Last Admin: 11/02/24 20:54 Dose: 300 mg Sodium Chloride (Saline 0.9%) 1,000 mls @ 75 mls/hr IV .[id number] [facility] Last Admin: 11/03/24 06:21 Dose: 75 mls/hr Insulin Aspart (Insulin Aspart (Novolog) 100 Unit/Ml Vial) 0 unit SQ ACHS [facility]; Protocol Last Admin: 11/03/24 06:21 Dose: 1 unit Lisinopril (Lisinopril 20 Mg Tab) 20 mg PO HS@2000 [facility] Last Admin: 11/02/24 20:54 Dose: 20 mg Metoprolol Succinate (Metoprolol Succinate (Er) 25 Mg Tab.Er.24h) 12.5 mg PO DAILY [facility] Last Admin: 11/02/24 09:39 Dose: 12.5 mg Miscellaneous Information (Magnesium Replacement Protocol 1 Each Misc) 1 each MISCELLANE DAILY PRN; Protocol PRN Reason: Per Protocol Miscellaneous Information (Potassium Replacement Protocol 1 Each Misc) 1 each MISCELLANE DAILY PRN; Protocol PRN Reason: Per Protocol Naloxone HCl (Naloxone 0.4 Mg/Ml 1 Ml Vial) 0.2 mg IV Q2M PRN PRN Reason: Opioid Reversal Ondansetron HCl (Ondansetron 4 Mg/2 Ml Vial) 4 mg IVP Q8HR PRN PRN Reason: Nausea And Vomiting Pantoprazole Sodium (Pantoprazole 40 Mg Tablet) 40 mg PO AC-BID [facility] Last Admin: 11/03/24 06:21 Dose: 40 mg Trazodone HCl (Trazodone Hcl 50 Mg Tab) 150 mg PO [facility] Last Admin: 11/02/24 20:54 Dose: 150 mg PHYSICAL EXAMINATION: GENERAL: The patient is lethargic although arousable, alert and oriented x1, fatigues easily well developed, elderly appearing, ill-appearing HEENT: Pupils are round and equally reacting to light. EOMI. no scleral icterus. No conjunctival pallor. Normocephalic, atraumatic. No pharyngeal erythema. No thyromegaly. CARDIOVASCULAR: S1 and S2 muffled PULMONARY: diminished breath sounds bilaterally with some coarse rhonchi noted. ABDOMEN: soft. Nontender on exam. obese. non-distended, normoactive bowel sounds. No palpable organomegaly. MUSCULOSKELETAL: No joint swelling or deformity. EXTREMITIES: No cyanosis, clubbing, or pedal edema. NEUROLOGICAL: Gross neurological examination did not reveal any focal deficits. Diffuse weakness SKIN: No rashes. 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 Continue current medication regimen and will follow-up outpatient regarding possible TAVR Kidney functions are improving and will follow-up on repeat labs Encourage oral intake with small frequent meals Awaiting updated PT/OT therapy notes for possible ECF. Plan is for possible [facility] [place] [facility] [place] Due to multiple complex medical issues, overall prognosis is guarded The impression and plan of care has been dictated by Angely Nino, nurse practitioner as directed. Dr. Khurram MD I have performed a history and examination and MDM of this patient, discussed the same with the dictator, and agree with the dictator's assessment and plan as written ,documented as a scribe. Based on total visit time, I have performed more than 50% of the visit. Any additional findings or plans will be noted. Objective - Vital Signs Vital signs: Vital Signs Temp 100.4 F H 11/02/24 12:00 Pulse 110 H 11/02/24 14:00 Resp 16 11/02/24 14:00 BP 121/69 11/02/24 12:00 Pulse Ox 98 11/02/24 12:00 FiO2 Intake & Output 11/01/24 11/02/24 11/02/24 18:59 06:59 18:59 Intake Total 580 Output Total 625 1300 575 Balance -45 -1300 -575 Weight 74.5 kg Intake: Oral 580 Output: Urine 625 1300 575 Other: Voiding Method Indwelling Catheter Indwelling Catheter Indwelling Catheter - Labs CBC & Chem 7: 11/03/24 06:21 11/03/24 06:21 Labs: Abnormal Lab Results - Last 24 Hours (Table) 11/01/24 11/01/24 11/02/24 Range/Units 16:51 20:04 05:52 WBC (3.8-10.6) k/uL Plt Count (150-450) k/uL Neutrophils # (1.3-7.7) k/uL Sodium (137-145) mmol/L Potassium (3.5-5.1) mmol/L Carbon Dioxide (22-30) mmol/L Glucose (74-99) mg/dL POC Glucose (mg/dL) 211 H 221 H 198 H (70-110) mg/dL Hemoglobin A1c (<=6.0) % Magnesium (1.6-2.3) mg/dL AST (14-36) U/L Total Protein (6.3-8.2) g/dL Albumin (3.5-5.0) g/dL 11/02/24 11/02/24 11/02/24 Range/Units 06:07 06:07 06:07 WBC 12.4 H (3.8-10.6) k/uL Plt Count 110 L (150-450) k/uL Neutrophils # 9.7 H (1.3-7.7) k/uL Sodium 136 L (137-145) mmol/L Potassium 3.4 L (3.5-5.1) mmol/L Carbon Dioxide 21 L (22-30) mmol/L Glucose 197 H (74-99) mg/dL POC Glucose (mg/dL) (70-110) mg/dL Hemoglobin A1c 6.2 H (<=6.0) % Magnesium 1.3 L (1.6-2.3) mg/dL AST 12 L (14-36) U/L Total Protein 5.3 L (6.3-8.2) g/dL Albumin 3.1 L (3.5-5.0) g/dL 11/02/24 Range/Units 11:48 WBC (3.8-10.6) k/uL Plt Count (150-450) k/uL Neutrophils # (1.3-7.7) k/uL Sodium (137-145) mmol/L Potassium (3.5-5.1) mmol/L Carbon Dioxide (22-30) mmol/L Glucose (74-99) mg/dL POC Glucose (mg/dL) 236 H (70-110) mg/dL Hemoglobin A1c (<=6.0) % Magnesium (1.6-2.3) mg/dL AST (14-36) U/L Total Protein (6.3-8.2) g/dL Albumin (3.5-5.0) g/dL Microbiology - Last 24 Hours (Table) 10/30/24 16:40 Blood Culture - Preliminary Blood 10/30/24 16:55 Blood Culture - Preliminary Blood
[2024-11-03 11:48] LABS: Glucose,Whole Blood 181 mg/dL (70-110)
--- NOTE | 2024-11-03 14:17 | XR ---
EXAMINATION TYPE: XR chest 2V DATE OF EXAM: 11/03/2024 2:04 PM COMPARISON: Chest radiographs from 10/30/2024, CT chest abdomen pelvis 10/23/2024 TECHNIQUE: XR chest 2V Frontal and lateral views of the chest. CLINICAL INDICATION:Female, 84 years old with history of pneumonia; FINDINGS: Patient is rotated which limits evaluation. Lungs/Pleura: There is no evidence of pleural effusion, focal consolidation, or pneumothorax. Pulmonary vascularity: Unremarkable. Heart/mediastinum: Cardiomediastinal silhouette is unremarkable. Musculoskeletal: Multiple level degenerative disc disease changes seen throughout the spine. IMPRESSION: No acute cardiopulmonary disease/process. [facility], , 11/03/2024 2:14 PM
--- NOTE | 2024-11-03 15:01 | P.PN ---
Subjective HISTORY OF PRESENT ILLNESS: 10/31/24-per Dr. Eid Patient is a 84-year-old female with past medical history of prior CVA, chronic L1 compression fracture, usually alert oriented x 1-2. History is very limited because of patient's baseline mental status. Apparently patient was recently hospitalized for altered mental status and was discharged last week . Due to the concerns of failure to thrive, patient not wanting to eat, take her m edications she was brought to the hospital. Patient does report some abdominal pain, she denies having any active substernal chest pressure or shortness of breath. Abdominal CT shows moderate focal spinal canal stenosis and lumbar region, mild bladder thickening, sigmoid diverticulosis EKG shows sinus rhythm with PACs Chest x-ray shows mild pulmonary congestion Hemoglobin 15.7, BUN 40, creatinine 1.2, troponin 0.06, repeat 0.53 Progress note, per Dr. Eid 11/02/2024, BP 121/69, heart rate 110 bpm Echo from September 2024 shows EF 65%, hyperdynamic LV moderate LVH, severe aortic stenosis mean gradient 41 mmHg, 11/03/2024 Patient examined this morning at the bedside. Patient currently denies chest pain or pressure. She denies shortness of breath. Telemetry reveals sinus tachycardia with heart rate in 110. Patient is febrile this morning. PHYSICAL EXAM: VITAL SIGNS: Reviewed. GENERAL: Well-developed in no acute distress. NECK: Supple. No JVD or thyromegaly LUNGS: Respirations even and unlabored. Lungs essentially clear to auscultation bilaterally. HEART: Regular rate and rhythm. S1 and S2 heard. EXTREMITIES: Normal range of motion. No clubbing or cyanosis. Peripheral puls es intact. No lower extremity edema ASSESSMENT: Severe aortic stenosis, with prior hospital admission in September for syncope Essential hypertension Lumbar fracture after fall in September Paroxysmal atrial fibrillation Essential hypertension Failure to thrive Fever PLAN: Sinus tachycardia secondary to fever. Do not increase beta-anton at this time Continue additional cardiac medications Obtain chest x-ray due to fever No further inpatient recommendations from a cardiac standpoint Patient to follow-up postdischarge with Dr. Stringer for further outpatient evaluation of TAVR We will sign off. Please reconsult if needed. Nurse practitioner note has been reviewed by physician. Signing provider agrees with the documented findings, assessment, and plan of care documented by [employer] as a scribe. Objective - Vital Signs Vital signs: Vital Signs Temp 99.9 F H 11/03/24 12:00 Pulse 104 H 11/03/24 12:00 Resp 18 11/03/24 12:00 BP 141/91 11/03/24 12:00 Pulse Ox 97 11/03/24 12:00 FiO2 Intake & Output 11/02/24 11/03/24 11/03/24 18:59 06:59 18:59 Intake Total 20 128 Output Total 1000 425 500 Balance -1000 -405 -372 Weight 73.5 kg Intake: IV 20 10 Invasive Line 2 20 10 Oral 118 Output: Urine 1000 425 500 Other: Voiding Method Indwelling Catheter Indwelling Catheter Indwelling Catheter - Labs CBC & Chem 7: 11/03/24 06:21 11/03/24 06:21 Labs: Abnormal Lab Results - Last 24 Hours (Table) 11/02/24 11/02/24 11/03/24 Range/Units 16:47 20:11 06:03 Plt Count (150-450) k/uL Neutrophils # (1.3-7.7) k/uL Sodium (137-145) mmol/L Glucose (74-99) mg/dL POC Glucose (mg/dL) 199 H 227 H 190 H (70-110) mg/dL Calcium (8.4-10.2) mg/dL Magnesium (1.6-2.3) mg/dL 11/03/24 11/03/24 11/03/24 Range/Units 06:21 06:21 11:46 Plt Count 104 L (150-450) k/uL Neutrophils # 8.1 H (1.3-7.7) k/uL Sodium 134 L (137-145) mmol/L Glucose 177 H (74-99) mg/dL POC Glucose (mg/dL) 181 H (70-110) mg/dL Calcium 8.2 L (8.4-10.2) mg/dL Magnesium 2.7 H (1.6-2.3) mg/dL Microbiology - Last 24 Hours (Table) 10/30/24 16:40 Blood Culture - Preliminary Blood 10/30/24 16:55 Blood Culture - Preliminary Blood
[2024-11-03 17:03] LABS: Glucose,Whole Blood 211 mg/dL (70-110)
[2024-11-03 20:13] LABS: Glucose,Whole Blood 201 mg/dL (70-110)
--- NOTE | 2024-11-04 02:00 | P.PN ---
Subjective Progress Note Date: 11/03/24 This is an 84-year-old female who was recently admitted with changes in mental status also acute renal failure and dehydration. Patient with cardiology following with no plans of intervention at this time recommending maximizing medical management and monitoring blood pressure closely. Patient with weakness awaiting updated notes from PT/OT therapy and will require insurance authorization for patient to possibly go to [facility]. Patient is afebrile denies chest pain or shortness of breath. Patient not really eating or drinking much. Patient is full code and CODE STATUS needs to be addressed. Patient will follow-up in the outpatient setting regarding possible TAVR. 11/03/2024 Patient is seen in follow-up today and is lethargic although arousable. Per nursing staff patient has been having low-grade temps and continuing to feel warm to the touch using Tylenol as needed for fevers and chest x-ray is ordered. Cardiology following recommending to continue with current medication regimen and outpatient follow-up with Dr. Stringer regarding possible TAVR. Cepheid testing ordered as well to rule out any virology. Patient is not eating much and continues to be significantly weak. Recommend PT/OT therapy daily and sitting up in the chair more frequently Review of systems: Constitutional: reports of fatigue, low-grade fever, or chills Cardiovascular: No reports of chest pain or palpitations Respiratory: No reports of shortness of breath or cough GI: reports of nausea, no reports of vomiting, no diarrhea, not eating much : No reports of dysuria or retention Neurovascular: reports of generalized weakness PHYSICAL EXAMINATION: GENERAL: The patient is lethargic although arousable, alert and oriented x1, fatigues easily well developed, elderly appearing, ill-appearing, hot to the touch HEENT: Pupils are round and equally reacting to light. EOMI. no scleral icterus. No conjunctival pallor. Normocephalic, atraumatic. No pharyngeal erythema. No thyromegaly. CARDIOVASCULAR: S1 and S2 muffled PULMONARY: diminished breath sounds bilaterally with some coarse rhonchi noted. ABDOMEN: soft. Nontender on exam. obese. non-distended, normoactive bowel sounds. No palpable organomegaly. MUSCULOSKELETAL: No joint swelling or deformity. EXTREMITIES: No cyanosis, clubbing, or pedal edema. NEUROLOGICAL: Gross neurological examination did not reveal any focal deficits. Diffuse weakness SKIN: No rashes. 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 Continue current medication regimen and will follow-up outpatient regarding possible TAVR Patient having low-grade axillary temps and feels warm to the touch per nursing staff. Chest x-ray obtained showing no acute process and will follow-up on repeat labs. Cepheid testing including influenza, RSV, COVID were negative Kidney functions are improving and will follow-up on repeat labs, continue gentle hydration Encourage oral intake with small frequent meals Awaiting updated PT/OT therapy notes for possible ECF. Plan is for possible [facility] [place] [facility] [place] Due to multiple complex medical issues, overall prognosis is guarded The impression and plan of care has been dictated by Angely Nino, nurse practitioner as directed. Dr. Khurram MD I have performed a history and examination and MDM of this patient, discussed the same with the dictator, and agree with the dictator's assessment and plan as written ,documented as a scribe. Based on total visit time, I have performed more than 50% of the visit. Any additional findings or plans will be noted. Objective - Vital Signs Vital signs: Vital Signs Temp 99.9 F H 11/03/24 12:00 Pulse 104 H 11/03/24 14:00 Resp 18 11/03/24 14:00 BP 141/91 11/03/24 12:00 Pulse Ox 97 11/03/24 12:00 FiO2 Intake & Output 11/02/24 11/03/24 11/03/24 18:59 06:59 18:59 Intake Total 20 138 Output Total 1000 425 500 Balance -1000 -405 -362 Weight 73.5 kg Intake: IV 20 20 Invasive Line 2 20 20 Oral 118 Output: Urine 1000 425 500 Other: Voiding Method Indwelling Catheter Indwelling Catheter Indwelling Catheter - Labs CBC & Chem 7: 11/03/24 06:21 11/03/24 06:21 Labs: Abnormal Lab Results - Last 24 Hours (Table) 11/02/24 11/02/24 11/03/24 Range/Units 16:47 20:11 06:03 Plt Count (150-450) k/uL Neutrophils # (1.3-7.7) k/uL Sodium (137-145) mmol/L Glucose (74-99) mg/dL POC Glucose (mg/dL) 199 H 227 H 190 H (70-110) mg/dL Calcium (8.4-10.2) mg/dL Magnesium (1.6-2.3) mg/dL 11/03/24 11/03/24 11/03/24 Range/Units 06:21 06:21 11:46 Plt Count 104 L (150-450) k/uL Neutrophils # 8.1 H (1.3-7.7) k/uL Sodium 134 L (137-145) mmol/L Glucose 177 H (74-99) mg/dL POC Glucose (mg/dL) 181 H (70-110) mg/dL Calcium 8.2 L (8.4-10.2) mg/dL Magnesium 2.7 H (1.6-2.3) mg/dL Microbiology - Last 24 Hours (Table) 10/30/24 16:40 Blood Culture - Preliminary Blood 10/30/24 16:55 Blood Culture - Preliminary Blood
[2024-11-04 05:55] LABS: Glucose,Whole Blood 151 mg/dL (70-110)
[2024-11-04 10:55] LABS: Basophils % (A) 0 %; Eosinophils # (A) 0.1 k/uL (0-0.7); Eosinophils % (A) 2 %; HCT 35.4 % (34.0-46.0); HGB 11.6 gm/dL (11.4-16.0); Lymphocytes # (A) 1.3 k/uL (1.0-4.8); Lymphocytes % (A) 16 %; MCH 30.4 pg (25.0-35.0); MCHC 32.8 g/dL (31.0-37.0); MCV 92.6 fL (80.0-100.0); Mean Platelet Volume 10.6; Monocytes # (A) 0.6 k/uL (0-1.0); Monocytes % (A) 8 %; Neutrophils # (A) 5.5 k/uL (1.3-7.7); Neutrophils % (A) 72 %; Platelet Count 121 k/uL (150-450); RBC 3.82 m/uL (3.80-5.40); RDW 13.8 % (11.5-15.5); WBC 7.7 k/uL (3.8-10.6)
[2024-11-04 11:12] LABS: African American GFR (CKD) >90 (>60 ml/min/1.73 sqM); Anion Gap 8 mmol/L; Blood Urea Nitrogen 16 mg/dL (7-17); Calcium 8.2 mg/dL (8.4-10.2); Carbon Dioxide 23 mmol/L (22-30); Chloride 107 mmol/L (98-107); Glucose 154 mg/dL (74-99); Non-African American GFR(CKD) 81 (>60 ml/min/1.73 sqM); Potassium 3.9 mmol/L (3.5-5.1); Sodium 138 mmol/L (137-145)
[2024-11-04 11:32] LABS: Glucose,Whole Blood 152 mg/dL (70-110)
[2024-11-04 12:59] LABS: Appearance,Urine Clear (Clear); Bilirubin,Urine Negative (Negative); Blood,Urine Negative (Negative); Color,Urine Colorless; Glucose,Urine (UA) Negative (Negative); Ketones,Urine Negative (Negative); Leukocyte Esterase,Urine Negative (Negative); Nitrite,Urine Negative (Negative); Protein,Urine Negative (Negative); Specific Gravity,Urine 1.007 (1.001-1.035); Urobilinogen,Urine <2.0 mg/dL (<2.0)
[2024-11-04 16:18] LABS: Glucose,Whole Blood 128 mg/dL (70-110)
[2024-11-04] MEDS: PIPERACILLIN-TAZOBACTAM 3.375 GM in SODIUM CHLORIDE 0.9% 100 ML IVPB SCH (17:20)
[2024-11-04 20:05] LABS: Glucose,Whole Blood 142 mg/dL (70-110)
[2024-11-05 06:12] LABS: Glucose,Whole Blood 119 mg/dL (70-110)
--- NOTE | 2024-11-05 07:22 | P.PN ---
Subjective Progress Note Date: 11/04/24 This is an 84-year-old female who was recently admitted with changes in mental status also acute renal failure and dehydration. Patient with cardiology following with no plans of intervention at this time recommending maximizing medical management and monitoring blood pressure closely. Patient with weakness awaiting updated notes from PT/OT therapy and will require insurance authorization for patient to possibly go to [facility]. Patient is afebrile denies chest pain or shortness of breath. Patient not really eating or drinking much. Patient is full code and CODE STATUS needs to be addressed. Patient will follow-up in the outpatient setting regarding possible TAVR. 11/03/2024 Patient is seen in follow-up today and is lethargic although arousable. Per nursing staff patient has been having low-grade temps and continuing to feel warm to the touch using Tylenol as needed for fevers and chest x-ray is ordered. Cardiology following recommending to continue with current medication regimen and outpatient follow-up with Dr. Stringer regarding possible TAVR. Cepheid testing ordered as well to rule out any virology. Patient is not eating much and continues to be significantly weak. Recommend PT/OT therapy daily and sitting up in the chair more frequently 11/04/2024 Patient is seen in follow-up today and per nursing staff continues to have low- grade temps. Repeat virology testing including chest x-ray has been negative. Will consult infectious disease and appreciate input and recommendations. Patient is not eating very well and is extremely weak and reports to being unable to get out of bed. Patient reports of significant pain in the legs but is generalized and diffuse in nature. Will follow-up with repeat labs and monitor closely. Review of systems: Constitutional: reports of fatigue, low-grade fever, or chills Cardiovascular: No reports of chest pain or palpitations Respiratory: No reports of shortness of breath or cough GI: reports of nausea, no reports of vomiting, no diarrhea, not eating much : No reports of dysuria or retention Neurovascular: reports of generalized weakness and diffuse leg pain PHYSICAL EXAMINATION: GENERAL: The patient is lethargic although arousable, alert and oriented x1, fatigues easily well developed, elderly appearing, ill-appearing, hot to the touch HEENT: Pupils are round and equally reacting to light. EOMI. no scleral icterus. No conjunctival pallor. Normocephalic, atraumatic. No pharyngeal erythema. No thyromegaly. CARDIOVASCULAR: S1 and S2 muffled PULMONARY: diminished breath sounds bilaterally with some coarse rhonchi noted. ABDOMEN: soft. Nontender on exam. obese. non-distended, normoactive bowel s ounds. No palpable organomegaly. MUSCULOSKELETAL: No joint swelling or deformity. EXTREMITIES: No cyanosis, clubbing, or pedal edema. NEUROLOGICAL: Gross neurological examination did not reveal any focal deficits. Diffuse weakness SKIN: No rashes. 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 Continue current medication regimen and will follow-up outpatient regarding possible TAVR Patient having low-grade axillary temps and feels warm to the touch per nursing staff. Chest x-ray obtained showing no acute process and will follow-up on repeat labs. Cepheid testing including influenza, RSV, COVID were negative. Will obtain urinalysis with urine culture and also consult infectious disease and appreciate input and recommendations. Kidney functions are improving and will follow-up on repeat labs, continue gentle hydration Encourage oral intake with small frequent meals. Patient is not eating very much at all and needs encouragement. Patient reports no appetite Awaiting updated PT/OT therapy notes for possible ECF. Plan is for possible [facility] [place] [facility] [place]. Patient is extremely weak and recommend increase act ivity and getting up in the chair more often Due to multiple complex medical issues, overall prognosis is guarded The impression and plan of care has been dictated as a scribe by Angely Nino, nurse practitioner as directed. Dr. Khurram MD I have performed a history and examination and MDM of this patient, discussed the same with the dictator, and agree with the dictator's assessment and plan as written ,documented as a scribe. Based on total visit time, I have performed more than 50% of the visit. Any additional findings or plans will be noted. Objective - Vital Signs Vital signs: Vital Signs Temp 98.8 F 11/04/24 06:48 Pulse 71 11/04/24 04:23 Resp 16 11/04/24 04:23 BP 139/75 11/04/24 04:23 Pulse Ox 97 11/04/24 04:23 FiO2 Intake & Output 11/03/24 11/04/24 11/04/24 18:59 06:59 18:59 Intake Total 138 Output Total 900 1100 Balance -762 -1100 Weight 73.5 kg Intake: IV 20 Invasive Line 2 20 Oral 118 Output: Urine 900 1100 Other: Voiding Method Indwelling Catheter Indwelling Catheter - Labs CBC & Chem 7: 11/04/24 09:34 11/04/24 09:34 Labs: Abnormal Lab Results - Last 24 Hours (Table) 11/03/24 11/03/24 11/03/24 Range/Units 11:46 16:54 20:09 POC Glucose (mg/dL) 181 H 211 H 201 H (70-110) mg/dL 11/04/24 Range/Units 05:53 POC Glucose (mg/dL) 151 H (70-110) mg/dL Microbiology - Last 24 Hours (Table) 10/30/24 16:40 Blood Culture - Preliminary Blood 10/30/24 16:55 Blood Culture - Preliminary Blood
[2024-11-05 08:29] LABS: Basophils % (A) 0 %; Eosinophils # (A) 0.2 k/uL (0-0.7); Eosinophils % (A) 3 %; HCT 33.9 % (34.0-46.0); HGB 11.5 gm/dL (11.4-16.0); Lymphocytes # (A) 1.6 k/uL (1.0-4.8); Lymphocytes % (A) 24 %; MCH 31.2 pg (25.0-35.0); MCHC 33.9 g/dL (31.0-37.0); MCV 92.1 fL (80.0-100.0); Mean Platelet Volume 11.2; Monocytes # (A) 0.6 k/uL (0-1.0); Monocytes % (A) 9 %; Neutrophils # (A) 4.1 k/uL (1.3-7.7); Neutrophils % (A) 61 %; Platelet Count 135 k/uL (150-450); RBC 3.68 m/uL (3.80-5.40); RDW 13.8 % (11.5-15.5); WBC 6.6 k/uL (3.8-10.6)
[2024-11-05 08:50] LABS: African American GFR (CKD) >90 (>60 ml/min/1.73 sqM); Anion Gap 5 mmol/L; Blood Urea Nitrogen 21 mg/dL (7-17); Calcium 8.6 mg/dL (8.4-10.2); Carbon Dioxide 27 mmol/L (22-30); Chloride 107 mmol/L (98-107); Glucose 116 mg/dL (74-99); Magnesium 1.8 mg/dL (1.6-2.3); Non-African American GFR(CKD) 80 (>60 ml/min/1.73 sqM); Potassium 3.9 mmol/L (3.5-5.1); Sodium 139 mmol/L (137-145)
[2024-11-05] MEDS: IOPAMIDOL CONTRAST (ORAL USE) VIAL PO PRN (09:45)
--- NOTE | 2024-11-05 10:12 | P.CONS ---
History of Present Illness - Reason for Consult Consult date: 11/04/24 Fever Requesting physician: Angely Nino - Chief Complaint Fever x 2 days - History of Present Illness Patient is a 84-year-old female with a past medical history significant for diabetes mellitus hypertension CVA TIA presenting to the hospital 5 days ago for evaluation of failure to thrive as reported by the patient or guardian, patient was noticed to be less interactive and on presentation to the hospital patient was afebrile however she did spike a fever of 101 F on 11/02/2024 and has had fever of 102.1 F last evening that has prompted this consultation patient did have episodes of tachycardia with these episodes of fever but no hypotension or hypoxemia not requiring any supplemental oxygen patient did have a white count of 12.4 on 11/02/2024 that has subsequently normalized creatinine 0.73 electrolytes has been normal UA has been negative influenza RSV COVID testing has been negative blood culture. She has been negative so far patient did have abdominal pelvis CT on admission that was done without any contrast did show some mild bladder wall thickening limited distal sigmoid diverticulosis without acute diverticulitis and mild pelvic floor relaxation, patient also have a chest x-ray yesterday afternoon that was negative for acute cardiopulmonary disease process, most information has been obtained from review the chart patient herself is not a good historian however her daughter specifically denies having any headache no chest pain shortness with or cough no vomiting or diarrhea has been reported Review of Systems Positive points has been mentioned in HPI complete review could not be obtained because of his underlying mental status 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 skin cancer. Developmently delayed. [place] History of Any Multi-Drug Resistant Organisms: None Reported Past Surgical History: Hysterectomy Past Anesthesia/Blood Transfusion Reactions: No Reported Reaction Past Psychological History: Unable to Obtain Smoking Status: Never smoker Past Alcohol Use History: None Reported Past Drug Use History: None Reported - Past Family History Father History Unknown: Yes Mother History Unknown: Yes Medications and Allergies Home Medications Medication Instructions Recorded Confirmed Type Atorvastatin [Lipitor] 40 mg PO HS 10/27/21 10/30/24 History traZODone HCL 150 mg PO HS 10/27/21 10/30/24 History Apixaban [Eliquis] 2.5 mg PO Q12H 08/27/24 10/30/24 History Cholecalciferol (Vitamin D3) 50 mcg PO BID-W/MEALS 08/27/24 10/30/24 History [Vitamin D3 (50 Mcg = 2000 Iu)] lisinopriL [Zestril] 20 mg PO HS@199909/08/24 10/30/24 History Lidocaine 4% Patch 1 patch TRANSDERM DAILY PRN 10/23/24 10/30/24 History Metoprolol Succinate (ER) [Toprol 12.5 mg PO DAILY 10/23/24 10/30/24 History XL] Acetaminophen Tab [Tylenol] 650 mg PO Q6HR PRN tab 10/26/24 10/30/24 Rx Gabapentin [Neurontin] 300 mg PO BID #0 10/26/24 10/30/24 Rx Nitroglycerin Sl Tabs [Nitrostat] 0.4 mg SL Q5M PRN 10/30/24 10/30/24 History Famotidine [Pepcid] 20 mg PO DAILY tab 11/02/24 Rx HYDROcodone/APAP 10-325MG [[place] 0.5 tab PO Q6HR PRN #4 tab 11/02/24 Rx 10-325] INSULIN ASPART (NovoLOG) [NovoLOG 0 unit SQ ACHS each 11/02/24 Rx (formulary)] Pantoprazole [Protonix] 40 mg PO AC-BID tab 11/02/24 Rx amLODIPine [Norvasc] 5 mg PO DAILY tab 11/02/24 Rx Allergies Allergy/AdvReac Type Severity Reaction Status Date / Time No Known Allergies Allergy Verified 10/30/24 20:16 Physical Exam Vitals: Vital Signs Temp Pulse Resp BP Pulse Ox 11/04/24 12:00 97.5 F L 74 16 95/55 96 11/04/24 08:00 99.0 F 74 16 146/78 96 11/04/24 06:48 98.8 F 11/04/24 04:23 98.8 F 71 16 139/75 97 11/04/24 00:00 100.0 F H 87 12 115/52 95 11/03/24 20:20 102.1 F H 94 16 148/74 96 11/03/24 16:00 99.9 F H 90 18 173/77 99 11/03/24 14:00 104 H 18 Intake and Output 11/03/24 11/04/24 11/04/24 22:59 06:59 14:59 Output Total 400 1100 400 Balance -400 -1100 -400 Output: Urine 400 1100 400 Other: Voiding Method Indwelling Catheter Indwelling Catheter Indwelling Catheter Weight 73.5 kg GENERAL DESCRIPTION: Elderly female lying in bed, no distress. No tachypnea or accessory muscle of respiration use. HEENT: Shows Pallor , no scleral icterus. Oral mucous membrane is dry. No pharyngeal erythema or thrush NECK: Trachea central, no thyromegaly. LUNGS: Unlabored breathing. Clear to auscultation anteriorly HEART: S1, S2, regular rate and rhythm. No loud murmur ABDOMEN: Soft, patient did have significant lower abdominal tenderness EXTREMITIES: No edema of feet. SKIN: No rash, no masses palpable. NEUROLOGICAL: The patient is awake, alert, mood and affect normal. Results CBC & Chem 7: 11/05/24 08:09 11/05/24 08:09 Labs: Abnormal Lab Results - Last 24 Hours (Table) 11/03/24 11/03/24 11/04/24 Range/Units 16:54 20:09 05:53 Plt Count (150-450) k/uL Glucose (74-99) mg/dL POC Glucose (mg/dL) 211 H 201 H 151 H (70-110) mg/dL Calcium (8.4-10.2) mg/dL 11/04/24 11/04/24 11/04/24 Range/Units 09:34 09:34 11:30 Plt Count 121 L (150-450) k/uL Glucose 154 H (74-99) mg/dL POC Glucose (mg/dL) 152 H (70-110) mg/dL Calcium 8.2 L (8.4-10.2) mg/dL Assessment and Plan (1) SIRS (systemic inflammatory response syndrome) Current Visit: Yes Status: Acute Code(s): R65.10 - SIRS OF NON-INFECTIOUS ORIGIN W/O ACUTE ORGAN DYSFUNCTION SNOMED Code(s): 501026606 Plan: 1patient with fever tachycardia elevated white count meeting criteria for SIRS if this patient noticed to have significant lower abdominal tenderness possible abdominal source admission CT was done without any contrast that would limit the sensitivity of that testing subsequently did have a negative UA influenza RSV COVID testing negative chest x-ray reported negative for pneumonia and no ev idence of any cellulitis or joint swelling 2blood culture has been repeated check inflammatory markers 3obtain CT abdominal pelvis with contrast 4will empirically start the patient on Zosyn while waiting for the workup to be completed We will follow on clinical condition and cultures to further adjust medication if needed Thank you for this consultation we will follow the patient along with you Dictation was produced using [employer] dictation software. please excuse any grammatical, word or spelling errors. Time with Patient: Greater than 30
[2024-11-05 11:22] LABS: Glucose,Whole Blood 114 mg/dL (70-110)
--- NOTE | 2024-11-05 12:05 | CT ---
EXAMINATION TYPE: CT abdomen pelvis w con DATE OF EXAM: 11/05/2024 11:12 AM COMPARISON: CT abdomen pelvis most recent from 10/30/2024 CLINICAL INDICATION: Female, 84 years old with history of Fever, right upper quadrant tenderness; Fev er, RUQ tenderness. TECHNIQUE: Axial CT abdomen pelvis w con;Sagittal and coronal reformats were created on a separate w orkstation. Contrast used:100 mL of Isovue 300 with IV Contrast, (none if empty) Oral contrast used: with Oral Contrast (none if empty) CT DLP: 1381.8 mGycm, Automated exposure control for dose reduction was used. FINDINGS: LOWER CHEST: Severe aortic valve calcifications, mitral valve calcifications and coronary calcificati ons. Lipomatous hypertrophy of interatrial septum. ABDOMEN LIVER: Unremarkable GALLBLADDER AND BILE DUCTS: Unremarkable. The gallbladder is relatively unremarkable no right upper q uadrant acute processes definitively visualized. PANCREAS: Unremarkable. SPLEEN: Unremarkable. ADRENAL GLANDS: Unremarkable. KIDNEYS AND URETERS: No evidence of hydronephrosis or renal calculus. The ureters are unremarkable. PELVIS BLADDER: Nondistended with Andrade catheter in place. REPRODUCTIVE: Unremarkable. ABDOMEN & PELVIS STOMACH AND BOWEL: Small hiatal hernia, duodenum is unremarkable. No evidence of bowel obstruction. A moderate amount stool in the rectum scattered colonic diverticula. PERITONEUM/RETROPERITONEUM: No evidence of pneumoperitoneum or free fluid. VASCULATURE: No evidence of aortic aneurysm. MUSCULOSKELETAL: No acute osseous abnormalities LYMPH NODES: No gross evidence for lymphadenopathy. SOFT TISSUE/ABDOMINAL WALL: Soft tissue nodule in the anterior abdomen near the umbilicus possibly se quela prior surgery. IMPRESSION: 1. No acute process visualized, Right upper quadrant is grossly unremarkable. 2. Colonic diverticulosis. 3. Andrade catheter in appropriate position. 4. Moderate amount stool in the rectum. 5. Severe aortic valve calcifications, mitral valve calcifications and coronary calcifications. 6. Small hiatal hernia. [facility], , 11/05/2024 12:02 PM
--- NOTE | 2024-11-05 14:13 | P.PN ---
Subjective Progress Note Date: 11/05/24 This is an 84-year-old female who was recently admitted with changes in mental status also acute renal failure and dehydration. Patient with cardiology following with no plans of intervention at this time recommending maximizing medical management and monitoring blood pressure closely. Patient with weakness awaiting updated notes from PT/OT therapy and will require insurance authorization for patient to possibly go to [facility]. Patient is afebrile denies chest pain or shortness of breath. Patient not really eating or drinking much. Patient is full code and CODE STATUS needs to be addressed. Patient will follow-up in the outpatient setting regarding possible TAVR. 11/03/2024 Patient is seen in follow-up today and is lethargic although arousable. Per nursing staff patient has been having low-grade temps and continuing to feel warm to the touch using Tylenol as needed for fevers and chest x-ray is ordered. Cardiology following recommending to continue with current medication regimen and outpatient follow-up with Dr. Stringer regarding possible TAVR. Cepheid testing ordered as well to rule out any virology. Patient is not eating much and continues to be significantly weak. Recommend PT/OT therapy daily and sitting up in the chair more frequently 11/04/2024 Patient is seen in follow-up today and per nursing staff continues to have low- grade temps. Repeat virology testing including chest x-ray has been negative. Will consult infectious disease and appreciate input and recommendations. Patient is not eating very well and is extremely weak and reports to being unable to get out of bed. Patient reports of significant pain in the legs but is generalized and diffuse in nature. Will follow-up with repeat labs and monitor closely. 11/05/2024 Patient is seen in follow-up continues to be lethargic although arousable and per nursing staff is not eating and drinking very much at all. Patient was placed on Zosyn with infectious disease following and awaiting repeat cultures. Urinalysis was completely negative and will await culture. Patient continues with indwelling Andrade catheter. CT abdomen was ordered and pending. Patient is afebrile for now and white count is normal. Patient will be going to [facility] once stable Review of systems: Constitutional: reports of fatigue, no further low-grade fever, or chills Cardiovascular: No reports of chest pain or palpitations Respiratory: No reports of shortness of breath or cough GI: reports of nausea, no reports of vomiting, no diarrhea, not eating much : No reports of dysuria or retention Neurovascular: reports of generalized weakness and diffuse leg pain PHYSICAL EXAMINATION: GENERAL: The patient is lethargic although arousable, alert and oriented x1, fatigues easily well developed, elderly appearing, ill-appearing, afebrile HEENT: Pupils are round and equally reacting to light. EOMI. no scleral icterus. No conjunctival pallor. Normocephalic, atraumatic. No pharyngeal erythema. No thyromegaly. CARDIOVASCULAR: S1 and S2 muffled PULMONARY: diminished breath sounds bilaterally with some coarse rhonchi noted. ABDOMEN: soft. Nontender on exam. obese. non-distended, normoactive bowel sounds. No palpable organomegaly. MUSCULOSKELETAL: No joint swelling or deformity. EXTREMITIES: No cyanosis, clubbing, or pedal edema. NEUROLOGICAL: Gross neurological examination did not reveal any focal deficits. Diffuse weakness SKIN: No rashes. 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 Continue current medication regimen and will follow-up outpatient regarding possible TAVR Patient was having low-grade axillary temps and felt warm to the touch per nursing staff. Chest x-ray obtained showing no acute process and will follow-up on repeat labs. Cepheid testing including influenza, RSV, COVID were negative. Urinalysis negative and will await culture. Consulted infectious disease and patient has been placed on IV Zosyn and CT abdomen showing no acute process other than moderate stool. No documented evidence of a bowel movement in the last 2 days. Will add a Dulcolax suppository and encouraged increase activity as tolerated. Recommend repeat reevaluation with PT/OT therapy on Wednesday with updated notes. Strongly encouraged sitting up in the chair more often and getting up out of the bed. Kidney functions are improving and will follow-up on repeat labs, continue gentle hydration CODE STATUS needs to be addressed as patient remains full code although has made comments to nursing staff that she does not want any further care or treatment. Due to multiple complex medical issues, overall prognosis is guarded The impression and plan of care has been dictated as a scribe by Angely Nino, nurse practitioner as directed. Dr. Khurram MD I have performed a history and examination and MDM of this patient, discussed the same with the dictator, and agree with the dictator's assessment and plan as written ,documented as a scribe. Based on total visit time, I have performed more than 50% of the visit. Any additional findings or plans will be noted. Objective - Vital Signs Vital signs: Vital Signs Temp 99.3 F 11/05/24 04:53 Pulse 76 11/05/24 04:53 Resp 16 11/05/24 04:53 BP 147/74 11/05/24 04:53 Pulse Ox 98 11/05/24 04:53 FiO2 Intake & Output 11/04/24 11/05/24 11/05/24 18:59 06:59 18:59 Output Total 1050 600 Balance -1050 -600 Weight 72.5 kg Output: Urine 1050 600 Other: Voiding Method Indwelling Catheter Indwelling Catheter - Labs CBC & Chem 7: 11/05/24 08:09 11/05/24 08:09 Labs: Abnormal Lab Results - Last 24 Hours (Table) 11/04/24 11/04/24 11/04/24 Range/Units 09:34 09:34 11:30 Plt Count 121 L (150-450) k/uL Glucose 154 H (74-99) mg/dL POC Glucose (mg/dL) 152 H (70-110) mg/dL Calcium 8.2 L (8.4-10.2) mg/dL C-Reactive Protein (<1.0) mg/dL 11/04/24 11/04/24 11/04/24 Range/Units 16:15 17:23 20:03 Plt Count (150-450) k/uL Glucose (74-99) mg/dL POC Glucose (mg/dL) 128 H 142 H (70-110) mg/dL Calcium (8.4-10.2) mg/dL C-Reactive Protein 21.5 H (<1.0) mg/dL 11/05/24 Range/Units 06:09 Plt Count (150-450) k/uL Glucose (74-99) mg/dL POC Glucose (mg/dL) 119 H (70-110) mg/dL Calcium (8.4-10.2) mg/dL C-Reactive Protein (<1.0) mg/dL Microbiology - Last 24 Hours (Table) 10/30/24 16:40 Blood Culture - Final Blood 10/30/24 16:55 Blood Culture - Final Blood
--- NOTE | 2024-11-05 14:31 | P.PN ---
Subjective Progress Note Date: 11/05/24 Principal diagnosis: Reason for follow-up is fever and leukocytosis Patient is a 84-year-old female with a past medical history significant for diabetes mellitus hypertension CVA TIA presenting to the hospital for evaluation of failure to thrive weakness patient did have a fever elevated white count prompted this consultation. On today's evaluation that is 11/05/2024, Patient did have dilution of her fever and is afebrile this morning, patient is currently on room air and denies having any shortness of breath, the patient denies any chest pain or cough, the patient denies any nausea vomiting and no diarrhea has been reported. Patient white count 6.6, creatinine 0.71 UA negative blood cultures pending Objective - Vital Signs Vital signs: Vital Signs Temp 97.9 F 11/05/24 08:00 Pulse 78 11/05/24 08:00 Resp 18 11/05/24 08:00 BP 134/79 11/05/24 08:00 Pulse Ox 95 11/05/24 08:00 FiO2 Intake & Output 11/04/24 11/05/24 11/05/24 18:59 06:59 18:59 Output Total 1050 600 Balance -1050 -600 Weight 72.5 kg Output: Urine 1050 600 Other: Voiding Method Indwelling Catheter Indwelling Catheter - Exam GENERAL DESCRIPTION: An elderly female lying in bed in no distress RESPIRATORY SYSTEM: Unlabored breathing , decreased breath sounds at bases HEART: S1 S2 regular rate and rhythm , ABDOMEN: Soft , lower abdominal tenderness EXTREMITIES: No edema feet - Labs CBC & Chem 7: 11/05/24 08:09 11/05/24 08:09 Labs: Abnormal Lab Results - Last 24 Hours (Table) 11/04/24 11/04/24 11/04/24 Range/Units 09:34 09:34 11:30 RBC (3.80-5.40) m/uL Hct (34.0-46.0) % Plt Count 121 L (150-450) k/uL BUN (7-17) mg/dL Glucose 154 H (74-99) mg/dL POC Glucose (mg/dL) 152 H (70-110) mg/dL Calcium 8.2 L (8.4-10.2) mg/dL C-Reactive Protein (<1.0) mg/dL 11/04/24 11/04/24 11/04/24 Range/Units 16:15 17:23 20:03 RBC (3.80-5.40) m/uL Hct (34.0-46.0) % Plt Count (150-450) k/uL BUN (7-17) mg/dL Glucose (74-99) mg/dL POC Glucose (mg/dL) 128 H 142 H (70-110) mg/dL Calcium (8.4-10.2) mg/dL C-Reactive Protein 21.5 H (<1.0) mg/dL 11/05/24 11/05/24 11/05/24 Range/Units 06:09 08:09 08:09 RBC 3.68 L (3.80-5.40) m/uL Hct 33.9 L (34.0-46.0) % Plt Count 135 L (150-450) k/uL BUN 21 H (7-17) mg/dL Glucose 116 H (74-99) mg/dL POC Glucose (mg/dL) 119 H (70-110) mg/dL Calcium (8.4-10.2) mg/dL C-Reactive Protein (<1.0) mg/dL Microbiology - Last 24 Hours (Table) 10/30/24 16:40 Blood Culture - Final Blood 10/30/24 16:55 Blood Culture - Final Blood Assessment and Plan (1) SIRS (systemic inflammatory response syndrome) Current Visit: Yes Status: Acute Code(s): R65.10 - SIRS OF NON-INFECTIOUS ORIGIN W/O ACUTE ORGAN DYSFUNCTION SNOMED Code(s): 848686720 Plan: 1patient with fever tachycardia elevated white count meeting criteria for SIRS if this patient noticed to have significant lower abdominal tenderness possible abdominal source admission CT was done without any contrast that would limit the sensitivity of that testing subsequently did have a negative UA influenza RSV COVID testing negative chest x-ray reported negative for pneumonia and no e vidence of any cellulitis or joint swelling 2blood culture has been repeated which are currently pending 3 CT abdominal pelvis with contrast is pending completion 4patient to continue with Zosyn while waiting for the workup to be completed Dictation was produced using [employer] dictation software. please excuse any grammatical, word or spelling errors. Time with Patient: Less than 30
[2024-11-05] MEDS: bisacodyL 10 MG SUPP RECTAL STA (15:26)
[2024-11-05 16:41] LABS: Glucose,Whole Blood 139 mg/dL (70-110)
[2024-11-05 21:20] LABS: Glucose,Whole Blood 36 mg/dL (70-110)
[2024-11-05 21:20] LABS: Glucose,Whole Blood 137 mg/dL (70-110)
[2024-11-05 21:20] LABS: Glucose,Whole Blood 137 mg/dL (70-110)
[2024-11-06 06:32] LABS: Glucose,Whole Blood 124 mg/dL (70-110)
[2024-11-06 09:16] LABS: Basophils # (A) 0.04 X 10*3/uL (0.00-0.10); Basophils % (A) 0.6 %; Eosinophils # (A) 0.22 X 10*3/uL (0.04-0.35); Eosinophils % (A) 3.2 %; HGB 11.4 g/dL (12.0-15.0); Lymphocytes # (A) 1.57 X 10*3/uL (0.90-5.00); Lymphocytes % (A) 22.6 %; MCH 29.7 pg (27.0-32.0); MCHC 32.6 g/dL (32.0-37.0); MCV 91.1 FL (80.0-97.0); Monocytes # (A) 0.59 X 10*3/uL (0.20-1.00); Monocytes % (A) 8.5 %; NRBC Per 100 WBC 0 X 10*3/uL (0.00-0.01); Neutrophils % (A) 64.8 %; Platelet Count 142 X 10*3/uL (140-440); RBC 3.84 X 10*6/uL (4.10-5.20); RDW 13.6 % (11.5-14.5); WBC 6.94 X 10*3/uL (4.50-10.00)
[2024-11-06 09:42] LABS: BUN/Creat Ratio 23.71 Ratio (12.00-20.00); Blood Urea Nitrogen 16.6 mg/dL (9.0-27.0); Calcium 8.6 mg/dL (8.7-10.3); Carbon Dioxide 22.7 mmol/L (21.6-31.8); Chloride 105 mmol/L (96-109); Glucose 110 mg/dL (70-110); Magnesium 1.6 mg/dL (1.5-2.4); Potassium 3.9 mmol/L (3.5-5.5); Sodium 139 mmol/L (135-145)
[2024-11-06 11:42] LABS: Glucose,Whole Blood 177 mg/dL (70-110)
[2024-11-06 16:56] LABS: Glucose,Whole Blood 163 mg/dL (70-110)
[2024-11-06 21:02] LABS: Glucose,Whole Blood 155 mg/dL (70-110)
--- NOTE | 2024-11-06 23:01 | P.PN ---
Subjective Progress Note Date: 11/06/24 This is an 84-year-old female who was recently admitted with changes in mental status also acute renal failure and dehydration. Patient with cardiology following with no plans of intervention at this time recommending maximizing medical management and monitoring blood pressure closely. Patient with weakness awaiting updated notes from PT/OT therapy and will require insurance authorization for patient to possibly go to [facility]. Patient is afebrile denies chest pain or shortness of breath. Patient not really eating or drinking much. Patient is full code and CODE STATUS needs to be addressed. Patient will follow-up in the outpatient setting regarding possible TAVR. 11/03/2024 Patient is seen in follow-up today and is lethargic although arousable. Per nursing staff patient has been having low-grade temps and continuing to feel warm to the touch using Tylenol as needed for fevers and chest x-ray is ordered. Cardiology following recommending to continue with current medication regimen and outpatient follow-up with Dr. Stringer regarding possible TAVR. Cepheid testing ordered as well to rule out any virology. Patient is not eating much and continues to be significantly weak. Recommend PT/OT therapy daily and sitting up in the chair more frequently 11/04/2024 Patient is seen in follow-up today and per nursing staff continues to have low- grade temps. Repeat virology testing including chest x-ray has been negative. Will consult infectious disease and appreciate input and recommendations. Patient is not eating very well and is extremely weak and reports to being unable to get out of bed. Patient reports of significant pain in the legs but is generalized and diffuse in nature. Will follow-up with repeat labs and monitor closely. 11/05/2024 Patient is seen in follow-up continues to be lethargic although arousable and per nursing staff is not eating and drinking very much at all. Patient was placed on Zosyn with infectious disease following and awaiting repeat cultures. Urinalysis was completely negative and will await culture. Patient continues with indwelling Andrade catheter. CT abdomen was ordered and pending. Patient is afebrile for now and white count is normal. Patient will be going to ECF once stable 11/06/2024 Patient is seen in follow-up today with no acute overnight issues noted. Patient is continued on Zosyn and will continue a short course of oral Augmentin on discharge. Patient is now afebrile and white count is normal. Patient not eating much and underwent CT abdomen showing no acute process. Patient reevaluated by PT/OT therapy able to do some today. Insurance authorization denied to go to [facility] recommending peer to peer. Insurance authorization denied after updated PT notes and will undergo appeal as patient was independent prior to this. Recommend PT/OT therapy daily and sitting up in the chair more often. Will follow-up with case management regarding discharge planning in the event appeal is denied. Review of systems: Constitutional: reports of fatigue, no further low-grade fever, or chills Cardiovascular: No reports of chest pain or palpitations Respiratory: No reports of shortness of breath or cough GI: reports of nausea, no reports of vomiting, no diarrhea, not eating much, no appetite : No reports of dysuria or retention Neurovascular: reports of generalized weakness and diffuse leg pain PHYSICAL EXAMINATION: GENERAL: The patient is lethargic although arousable, more alert today and oriented x1, extremely weak, well developed, elderly appearing, ill-appearing, afebrile HEENT: Pupils are round and equally reacting to light. EOMI. no scleral icterus. No conjunctival pallor. Normocephalic, atraumatic. No pharyngeal erythema. No thyromegaly. CARDIOVASCULAR: S1 and S2 muffled PULMONARY: diminished breath sounds bilaterally with some coarse rhonchi noted. ABDOMEN: soft. Nontender on exam. obese. non-distended, normoactive bowel sounds. No palpable organomegaly. MUSCULOSKELETAL: No joint swelling or deformity. EXTREMITIES: No cyanosis, clubbing, or pedal edema. NEUROLOGICAL: Gross neurological examination did not reveal any focal deficits. Diffuse weakness SKIN: No rashes. 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 Continue current medication regimen and will follow-up outpatient regarding possible TAVR Patient was having low-grade axillary temps and felt warm to the touch per nursing staff. Infectious workup including virology testing, repeat chest x- ray, urinalysis have been negative. Cultures are negative with infectious disease following and is continued on IV Zosyn. Will transition to oral Augmentin short course on discharge. Patient did undergo CT abdomen with no acute findings other than moderate stool. Continue as needed bowel regimen Patient was able to work with physical therapy and underwent reevaluation with PT/OT therapy and insurance awaiting updated notes. Strongly encouraged sitting up in the chair more often and getting up out of the bed. [id number] was attempted and denied. Liaison for [employer] will submit for appeal as patient was independent prior to this. Will discuss further with case management as well as guardian regarding discharge planning in the event the appeal is denied Recommend PT/OT therapy daily and getting up out of the bed more often CODE STATUS needs to be addressed as patient remains full code although has made comments to nursing staff that she does not want any further care or treatment. Due to multiple complex medical issues, overall prognosis is guarded Possible discharge in the next 24 to 48 hours The impression and plan of care has been dictated as a scribe by Angely Nino, nurse practitioner as directed. Dr. Khurram MD I have performed a history and examination and MDM of this patient, discussed the same with the dictator, and agree with the dictator's assessment and plan as written ,documented as a scribe. Based on total visit time, I have performed more than 50% of the visit. Any additional findings or plans will be noted. Objective - Vital Signs Vital signs: Vital Signs Temp 98.4 F 11/06/24 07:25 Pulse 75 11/06/24 07:25 Resp 17 11/06/24 07:25 BP 165/96 11/06/24 07:25 Pulse Ox 96 11/06/24 07:25 FiO2 Intake & Output 11/05/24 11/06/24 11/06/24 18:59 06:59 18:59 Intake Total 1040 Output Total 601 600 Balance 439 -600 Intake: Intake, IV Titration 700 Amount Piperacillin-Tazobactam 3 200 .375 gm In Sodium Chloride 0.9% 100 ml @ 25 mls/hr IVPB Q8HR [facility] Rx# :[id number] Sodium Chloride 0.9% 1, 500 000 ml @ 75 mls/hr IV . [id number] [facility] Rx#:[id number] Oral 340 Output: Urine 600 600 Urine/Stool Mix 1 Other: Voiding Method Indwelling Catheter Indwelling Catheter Indwelling Catheter # Bowel Movements 1 - Labs CBC & Chem 7: 11/06/24 02:36 11/06/24 02:36 Labs: Abnormal Lab Results - Last 24 Hours (Table) 11/05/24 11/05/24 11/05/24 Range/Units 16:40 21:17 21:18 RBC (4.10-5.20) X 10*6/uL Hgb (12.0-15.0) g/dL Hct (37.2-46.3) % MPV (9.5-12.2) FL BUN/Creatinine Ratio (.00-20.00) Ratio POC Glucose (mg/dL) 139 H 36 L* 137 H (70-110) mg/dL Calcium (8.7-10.3) mg/dL 11/05/24 11/06/24 11/06/24 Range/Units 21:19 02:36 02:36 RBC 3.84 L (4.10-5.20) X 10*6/uL Hgb 11.4 L (12.0-15.0) g/dL Hct 35.0 L (37.2-46.3) % MPV 13.0 H (9.5-12.2) FL BUN/Creatinine Ratio 23.71 H (12.00-20.00) Ratio POC Glucose (mg/dL) 137 H (70-110) mg/dL Calcium 8.6 L (8.7-10.3) mg/dL 11/06/24 11/06/24 Range/Units 06:28 11:40 RBC (4.10-5.20) X 10*6/uL Hgb (12.0-15.0) g/dL Hct (37.2-46.3) % MPV (9.5-12.2) FL BUN/Creatinine Ratio (.00-20.00) Ratio POC Glucose (mg/dL) 124 H 177 H (70-110) mg/dL Calcium (8.7-10.3) mg/dL Microbiology - Last 24 Hours (Table) 11/04/24 17:23 Blood Culture - Preliminary Blood
[2024-11-07 06:12] LABS: Glucose,Whole Blood 140 mg/dL (70-110)
[2024-11-07 11:44] LABS: Glucose,Whole Blood 176 mg/dL (70-110)
[2024-11-07 13:32] VITALS: BMI 29.2
--- NOTE | 2024-11-07 13:54 | P.DS ---
Providers Date of admission: 10/31/24 13:30 Attending physician: Joel Bui Consults: 11/04/24 12:42 Consult Physician Urgent Consulting Provider: Jade Hughes Consult Reason/Comments: Continued fevers, unknown source Do you want consulting provider notified?: Yes Primary care physician: [facility] Course: Diagnoses: Change in mental status, acute metabolic encephalopathy, improved Acute renal failure secondary to dehydration,, resolved. Creatinine 0.7 upon discharge Fevers of unknown origin, virology testing including influenza, COVID, 19 have been negative x 2. Pro- Calcitonin was elevated and bacterial infection is suspected. Improving Troponin elevated up to 0.06, most likely troponin leak could be related to her A-fib and aortic stenosis cleared by cardiology for discharge History of CVA Diabetes mellitus, type II, with hypoglycemia. 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 Also patient was found to have a fever with temperature 102.1 on 10/14, no more fever since then. Viral testing came back negative for COVID influenza and others. Blood cultures were negative. CRP was elevated 21.5 and pro- Calcitonin was also negative at 0.16. Patient was started on IV Zosyn and IV fluid and patient showed interval improvement. Repeat blood culture ordered remained negative. CT of the abdomen and pelvis is negative for acute process but showing moderate stool in the rectum. Chest x- ray is negative for acute process. On the day of discharge patient showed improvement in her mentation, she denies chest pain or dyspnea. No abdominal pain vomiting or diarrhea. No urinary complaints. Patient was cleared for discharge by infectious disease team. Patient will be discharged on antibiotics as per recommendation from infectious disease team, please refer to the discharge instructions. Patient will be discharged on Augmentin for short course per ID team x 7days Also patient evaluated by family resource coordinator for her severe aortic stenosis, currently stable. We need to keep systolic blood pressure more than 160, try to avoid more beta-anton or reduction in the afterload. Patient will require to follow-up with Dr. Stringer for evaluation for TAVR. Nursing Home Physician team however cleared her for discharge. Problems and management plan were discussed with the patient and he verbalized understanding and acceptance Patient was found stable and can be discharged home in guarded prognosis however he needs follow-up as an outpatient. Patient was instructed to follow up with PCP within one week and patient agrees. Patient is more requiring to follow-up with Dr. Hughes in 1 week after discharge and with Dr. Stringer in 1 to 2 weeks after discharge, patient informed and she agrees -Because of her drowsiness and sleepiness during the daytime we lowered her trazodone 150 mg down to 50 mg p.o. at bedtime, this can be adjusted to 100 mg if needed Physical exam -Gen: patient is a awake alert, mildly drowsy, no distress. Follows commands CVS: S1-S2, RRR, no murmur Lungs: B/L CTA, no wheezing Abdomen: soft, no distention, no tenderness, positive bowel sounds Extremity: no leg edema or induration Neuro: Cranial nerves are grossly intact, symmetrical strength in both extremities 5/5, sensation is intact. Meningeal signs absent Time spent more than 35 minutes Patient Condition at Discharge: Stable Plan - Discharge Summary Discharge Rx Participant: No New Discharge Prescriptions: New amLODIPine [Norvasc] 5 mg PO DAILY tab INSULIN ASPART (NovoLOG) [NovoLOG (formulary)] 0 unit SQ ACHS each Famotidine [Pepcid] 20 mg PO DAILY tab Pantoprazole [Protonix] 40 mg PO AC-BID tab Amoxic-Pot Clav 875-125Mg [Augmentin 875-125] 1 tab PO Q12HR 7 Days #14 tab Continue Lidocaine 4% Patch 1 patch TRANSDERM DAILY PRN PRN Reason: Pain Acetaminophen Tab [Tylenol] 650 mg PO Q6HR PRN tab PRN Reason: Mild Pain Or Fever > 100.5 Gabapentin [Neurontin] 300 mg PO BID #0 Nitroglycerin Sl Tabs [Nitrostat] 0.4 mg SL Q5M PRN PRN Reason: Chest Pain traZODone HCL 150 mg PO HS Atorvastatin [Lipitor] 40 mg PO HS Apixaban [Eliquis] 2.5 mg PO Q12H Cholecalciferol (Vitamin D3) [Vitamin D3 (50 Mcg = 2000 Iu)] 50 mcg PO BID- W/MEALS lisinopriL [Zestril] 20 mg PO HS@1999 Metoprolol Succinate (ER) [Toprol XL] 12.5 mg PO DAILY HYDROcodone/APAP 10-325MG [Mcclave 10-325] 0.5 tab PO Q6HR PRN #4 tab PRN Reason: Pain Discontinued Tirzepatide [Mounjaro] 2.5 mg SQ CADET Famotidine [Pepcid] 20 mg PO BID Discharge Medication List Atorvastatin [Lipitor] 40 mg PO HS 10/27/21 [History] traZODone HCL 150 mg PO HS 10/27/21 [History] Apixaban [Eliquis] 2.5 mg PO Q12H 08/27/24 [History] Cholecalciferol (Vitamin D3) [Vitamin D3 (50 Mcg = 2000 Iu)] 50 mcg PO BID- W/MEALS 08/27/24 [History] lisinopriL [Zestril] 20 mg PO HS@199909/08/24 [History] Lidocaine 4% Patch 1 patch TRANSDERM DAILY PRN 10/23/24 [History] Metoprolol Succinate (ER) [Toprol XL] 12.5 mg PO DAILY 10/23/24 [History] Acetaminophen Tab [Tylenol] 650 mg PO Q6HR PRN tab 10/26/24 [Rx] Gabapentin [Neurontin] 300 mg PO BID #0 10/26/24 [Rx] Nitroglycerin Sl Tabs [Nitrostat] 0.4 mg SL Q5M PRN 10/30/24 [History] Famotidine [Pepcid] 20 mg PO DAILY tab 11/02/24 [Rx] HYDROcodone/APAP 10-325MG [Mcclave 10-325] 0.5 tab PO Q6HR PRN #4 tab 11/02/24 [Rx] INSULIN ASPART (NovoLOG) [NovoLOG (formulary)] 0 unit SQ ACHS each 11/02/24 [Rx] Pantoprazole [Protonix] 40 mg PO AC-BID tab 11/02/24 [Rx] amLODIPine [Norvasc] 5 mg PO DAILY tab 11/02/24 [Rx] Amoxic-Pot Clav 875-125Mg [Augmentin 875-125] 1 tab PO Q12HR 7 Days #14 tab 12/30/24 [Rx] Follow up Appointment(s)/Referral(s): Jorge Alberto Gu DO [Primary Care Provider] - 1-2 days Activity/Diet/Wound Care/Special Instructions: Patient is going to ECF Activity as tolerated Continue medications as prescribed Continue with antibiotics for 1 week until finished Encourage small frequent meals and increased activity as tolerated Recommend Ensure supplements Discharge Disposition: TRANSFER TO SNF/ECF
[2024-11-07 15:22] VITALS: BP 114/72; PULSE 62; RESP 18; TEMP 97.5
--- NOTE | 2024-11-07 16:34 | P.PN ---
Subjective Progress Note Date: 11/06/24 Principal diagnosis: Reason for follow-up is fever and leukocytosis Patient is a 84-year-old female with a past medical history significant for diabetes mellitus hypertension CVA TIA presenting to the hospital for evaluation of failure to thrive weakness patient did have a fever elevated white count prompted this consultation. On today's evaluation that is 11/06/2024, patient has been afebrile, patient is breathing comfortably and is currently on room air, patient is more awake and alert today up in the chair no chest pain shortness of the cough and abdominal pain and no diarrhea has been reported. The patient white count 6.94, creatinine 0.7 Objective - Vital Signs Vital signs: Vital Signs Temp 98.4 F 11/06/24 07:25 Pulse 75 11/06/24 07:25 Resp 17 11/06/24 07:25 BP 165/96 11/06/24 07:25 Pulse Ox 96 11/06/24 07:25 FiO2 Intake & Output 11/05/24 11/06/24 11/06/24 18:59 06:59 18:59 Intake Total 1040 Output Total 601 600 Balance 439 -600 Intake: Intake, IV Titration 700 Amount Piperacillin-Tazobactam 3 200 .375 gm In Sodium Chloride 0.9% 100 ml @ 25 mls/hr IVPB Q8HR [facility] Rx# :[id number] Sodium Chloride 0.9% 1, 500 000 ml @ 75 mls/hr IV . [id number] [facility] Rx#:[id number] Oral 340 Output: Urine 600 600 Urine/Stool Mix 1 Other: Voiding Method Indwelling Catheter Indwelling Catheter Indwelling Catheter # Bowel Movements 1 - Exam GENERAL DESCRIPTION: An elderly female lying in bed in no distress RESPIRATORY SYSTEM: Unlabored breathing , decreased breath sounds at bases HEART: S1 S2 regular rate and rhythm , ABDOMEN: Soft , lower abdominal tenderness EXTREMITIES: No edema feet - Labs CBC & Chem 7: 11/06/24 02:36 11/06/24 02:36 Labs: Abnormal Lab Results - Last 24 Hours (Table) 11/05/24 11/05/24 11/05/24 Range/Units 16:40 21:17 21:18 RBC (4.10-5.20) X 10*6/uL Hgb (12.0-15.0) g/dL Hct (37.2-46.3) % MPV (9.5-12.2) FL BUN/Creatinine Ratio (12.00-20.00) Ratio POC Glucose (mg/dL) 139 H 36 L* 137 H (70-110) mg/dL Calcium (8.7-10.3) mg/dL 11/05/24 11/06/24 11/06/24 Range/Units 21:19 02:36 02:36 RBC 3.84 L (4.10-5.20) X 10*6/uL Hgb 11.4 L (12.0-15.0) g/dL Hct 35.0 L (37.2-46.3) % MPV 13.0 H (9.5-12.2) FL BUN/Creatinine Ratio 23.71 H (12.00-20.00) Ratio POC Glucose (mg/dL) 137 H (70-110) mg/dL Calcium 8.6 L (8.7-10.3) mg/dL 11/06/24 11/06/24 Range/Units 06:28 11:40 RBC (4.10-5.20) X 10*6/uL Hgb (12.0-15.0) g/dL Hct (37.2-46.3) % MPV (9.5-12.2) FL BUN/Creatinine Ratio (12.00-20.00) Ratio POC Glucose (mg/dL) 124 H 177 H (70-110) mg/dL Calcium (8.7-10.3) mg/dL Microbiology - Last 24 Hours (Table) 11/04/24 17:23 Blood Culture - Preliminary Blood Assessment and Plan (1) SIRS (systemic inflammatory response syndrome) Current Visit: Yes Status: Acute Code(s): R65.10 - SIRS OF NON-INFECTIOUS ORIGIN W/O ACUTE ORGAN DYSFUNCTION SNOMED Code(s): 195761335 Plan: 1patient with fever tachycardia elevated white count meeting criteria for SIRS if this patient noticed to have significant lower abdominal tenderness possible abdominal source admission CT was done without any contrast that would limit the sensitivity of that testing subsequently did have a negative UA influenza RSV COVID testing negative chest x-ray reported negative for pneumonia and no evidence of any cellulitis or joint swelling 2blood culture has been repeated which are currently pending 3 CT abdominal pelvis with contrast did not show any acute abnormality 4patient did have resolution of fever to continue with Zosyn finishing therapy with oral Augmentin discussed with the SEARCH ANALYST for admitting team working on discharge Dictation was produced using [employer] dictation software. please excuse any grammatical, word or spelling errors. Time with Patient: Less than 30
--- NOTE | 2024-11-07 16:35 | P.PN ---
Subjective Progress Note Date: 11/07/24 Principal diagnosis: Reason for follow-up is fever and leukocytosis Patient is a 84-year-old female with a past medical history significant for diabetes mellitus hypertension CVA TIA presenting to the hospital for evaluation of failure to thrive weakness patient did have a fever elevated white count prompted this consultation. On today's evaluation that is 11/07/2024, Patient is afebrile this morning patient denies having any chest pain shortness of breath or cough, the patient is currently on room air, patient denies any abdominal pain and no diarrhea has been reported. No new lab has been repeated today blood culture have been negative Objective - Vital Signs Vital signs: Vital Signs Temp 97.7 F 11/07/24 07:37 Pulse 59 L 11/07/24 08:50 Resp 19 11/07/24 08:50 BP 137/73 11/07/24 07:37 Pulse Ox 98 11/07/24 07:37 FiO2 Intake & Output 11/06/24 11/07/24 11/07/24 18:59 06:59 18:59 Output Total 700 600 Balance -700 -600 Weight 72.5 kg Output: Urine 700 600 Other: Voiding Method Indwelling Catheter Indwelling Catheter Indwelling Catheter # Bowel Movements 1 - Exam GENERAL DESCRIPTION: An elderly female lying in bed in no distress RESPIRATORY SYSTEM: Unlabored breathing , decreased breath sounds at bases HEART: S1 S2 regular rate and rhythm , ABDOMEN: Soft , lower abdominal tenderness EXTREMITIES: No edema feet - Labs CBC & Chem 7: 11/06/24 02:36 11/06/24 02:36 Labs: Abnormal Lab Results - Last 24 Hours (Table) 11/06/24 11/06/24 11/07/24 Range/Units 16:55 21:00 06:11 POC Glucose (mg/dL) 163 H 155 H 140 H (70-110) mg/dL 11/07/24 Range/Units 11:42 POC Glucose (mg/dL) 176 H (70-110) mg/dL Microbiology - Last 24 Hours (Table) 11/04/24 17:23 Blood Culture - Preliminary Blood Assessment and Plan (1) SIRS (systemic inflammatory response syndrome) Current Visit: Yes Status: Acute Code(s): R65.10 - SIRS OF NON-INFECTIOUS ORIGIN W/O ACUTE ORGAN DYSFUNCTION SNOMED Code(s): 005466052 Plan: 1patient with fever tachycardia elevated white count meeting criteria for SIRS if this patient noticed to have significant lower abdominal tenderness possible abdominal source admission CT was done without any contrast that would limit the sensitivity of that testing subsequently did have a negative UA influenza RSV COVID testing negative chest x-ray reported negative for pneumonia and no evidence of any cellulitis or joint swelling 2blood culture has been repeated which are currently pending 3 CT abdominal pelvis with contrast did not show any acute abnormality 4patient did have resolution of fever and white count has normalized culture have been negative we will consider short course of oral Augmentin on discharge Dictation was produced using [employer] dictation software. please excuse any grammatical, word or spelling errors. Time with Patient: Less than 30
== END 2024-11-07 16:53 | DRG 682 ==
LOC: EC 15:29 → 3SCARD 20:57 → OBSVTOIN 10-31 13:30 → 3SCARD 10-31 17:26 → 4SSUR 11-05 16:18
PROVIDERS: ADMIT Internal Medicine; ATTEND Internal Medicine
DX: N17.9 Acute kidney failure, unspecified (principal); G93.41 Metabolic encephalopathy; I69.351 Hemiplegia and hemiparesis following cerebral infarction affecting right dominant side; R65.10 Systemic inflammatory response syndrome (SIRS) of non-infectious origin without acute organ dysfunction; M48.56XA Collapsed vertebra, not elsewhere classified, lumbar region, initial encounter for fracture; E11.9 Type 2 diabetes mellitus without complications; I48.0 Paroxysmal atrial fibrillation; I35.0 Nonrheumatic aortic (valve) stenosis; E86.0 Dehydration; R62.7 Adult failure to thrive; Z11.52 Encounter for screening for COVID-19; D72.829 Elevated white blood cell count, unspecified; H54.61 Unqualified visual loss, right eye, normal vision left eye; I10 Essential (primary) hypertension; K57.30 Diverticulosis of large intestine without perforation or abscess without bleeding; M48.061 Spinal stenosis, lumbar region without neurogenic claudication; Z79.01 Long term (current) use of anticoagulants; Z79.4 Long term (current) use of insulin; Z79.899 Other long term (current) drug therapy; Z85.828 Personal history of other malignant neoplasm of skin; Z90.710 Acquired absence of both cervix and uterus; Z91.81 History of falling; R00.0 Tachycardia, unspecified
CPT/HCPCS: 36415; 71046; 74176; 74177; 80048; 80053; 81003; 82150; 83036; 83605; 83690; 83735; 84145; 84484; 85025; 85610; 85730; 86140; 87040; 87636; 96361; 96365; 96366; 96375; 99285